=== PATIENT | male | born 1955 | race Caucasian/White ===

== ENCOUNTER 2017-01-03 10:47 | Inpatient (IN) | payer MEDICARE ==
[2017-01-03] VITALS (11 sets, daily range): BP systolic 113–135; BP diastolic 71–98; PULSE 83–90; RESP 14–21; TEMP 94.4; Ht 180.3 cm; Wt 70.3 kg
[~2017-01-03] VITALS: Ht 180.3 cm; Wt 70.3 kg
[2017-01-03] MEDS ORDERED: ROCURONIUM 50 MG INJ IV STA (11:08)
[2017-01-03] MEDS ORDERED: SODIUM CHLORIDE 0.9% 1L BAG IV* STA (11:08)
[2017-01-03] MEDS ORDERED: ETOMIDATE 20 MG INJ IV STA (11:08)
[2017-01-03] MEDS ORDERED: MIDAZOLAM (DRIP) 50 mg/50 mL 50 ML IV STA (11:08)
[2017-01-03 11:29] LABS: ADD SCAN DIFF NO
[2017-01-03] MEDS ORDERED: FENTAnyl (DRIP) 1000 mcg/100mL 100 ML IV ONE (11:30)
[2017-01-03 11:34] LABS: ABNORMAL IP MESSAGE 1; BASOPHIL # 0.1 10^3/ul (0.0-0.1); BASOPHILS % 0.3 % (0.0-2.0); EOSINOPHILS % 0.1 % (0.0-7.0); HEMATOCRIT 47.1 % (42.0-52.0); LYMPHOCYTES # 2.2 10^3/ul (0.8-2.9); LYMPHOCYTES % 11.2 % (15.0-51.0); MEAN CORPUSCULAR HEMOGLOBIN 32.6 pg (29.0-33.0); MEAN CORPUSCULAR HGB CONC 31.8 g/dl (32.0-37.0); MEAN CORPUSCULAR VOLUME 102.4 fl (82.0-101.0); MEAN PLATELET VOLUME 11.2 fl (7.4-10.4); MONOCYTE # 1.9 10^3/ul (0.3-0.9); NEUTROPHIL # 14.5 10^3/ul (1.6-7.5); NEUTROPHILS % 75.1 % (39.0-77.0); NUCLEATED RED BLOOD CELLS # 0.1 10^3/ul (0.0-0.0); NUCLEATED RED BLOOD CELLS% 0.3 /100WBC (0.0-0.0); PLATELET COUNT 173 10^3/UL (140-415); RED CELL DISTRIBUTION WIDTH 12.9 % (11.5-14.5); WHITE BLOOD COUNT 19.3 10^3/ul (4.8-10.8)
[2017-01-03] MEDS ORDERED: IODIXANOL LOCM 100 ML BTL ONE (11:38)
[2017-01-03] MEDS ORDERED: SOD CHLORIDE 0.9% 100 ML ONE (11:38)
[2017-01-03 11:39] LABS: ADD UMIC YES; UR ASCORBIC ACID NEGATIVE (NEGATIVE); UR BACTERIA FEW /HPF (NONE SEEN); UR BILIRUBIN (Dip) NEGATIVE (NEGATIVE); UR BLOOD (Dip) 3+ mg/dL (NEGATIVE); UR CLARITY CLOUDY (CLEAR); UR COLOR AMBER (YELLOW); UR GLUCOSE (Dip) NEGATIVE (NEGATIVE); UR KETONES (Dip) TRACE mg/dL (NEGATIVE); UR LEUKOCYTE ESTERASE (Dip) NEGATIVE Leu/ul (NEGATIVE); UR NITRITE (Dip) NEGATIVE (NEGATIVE); UR RBC 4 /HPF (0-5); UR SPECIFIC GRAVITY (Dip) 1.027 (1.003-1.030); UR TOTAL PROTEIN (Dip) 2+ mg/dl (NEGATIVE); UR UROBILINOGEN (Dip) NEGATIVE (NEGATIVE)
[2017-01-03] MEDS ORDERED: ZIAC5 PO (11:46)
[2017-01-03] MEDS ORDERED: TRAZ50TA18 PO (11:47)
[2017-01-03] MEDS ORDERED: LAMO200T PO (11:48)
[2017-01-03] MEDS ORDERED: SILO8CAP PO (11:48)
[2017-01-03] MEDS ORDERED: VALA500T PO (11:49)
[2017-01-03] MEDS ORDERED: TRAZ100T15 PO (11:49)
[2017-01-03 12:03] LABS: ALBUMIN 4.5 g/dl (3.3-4.9); ALBUMIN/GLOBULIN RATIO 1.66; BILIRUBIN,INDIRECT 1.7 mg/dl (0-1.1); BILIRUBIN,TOTAL 1.7 mg/dl (0.2-1.3); CREATININE 2.35 mg/dl (0.61-1.24); POTASSIUM 5.6 mmol/L (3.5-5.1); TOTAL PROTEIN 7.2 g/dl (6.1-8.1)
[2017-01-03 12:04] LABS: INR 1.31; PROTIME 16.4 Sec (12.2-14.2); PT RATIO 1.3
--- NOTE | 2017-01-03 12:08 | ERA ---
ER Documentation Chief Complaint Date/Time DATE: 01/03/17 TIME: 12:01 Chief Complaint HPI Very limited history provided. It appears EMS up [facility] a [facility] facility with the patient was in cardiac arrest with a PEA rhythm. ACLS was initiated and the patient had return of spontaneous circulation. The patient did have irregular respirations but no spontaneous neurologic activity. There is a possible report of the patient falling. The patient does have evidence of trauma to the left side of his chest left side of his extremities and left side of his face. The patient is agonal with a Combitube as an airway. Remainder of HPI is limited given critical nature. ROS Critical patient Medications Home Meds Reported Medications Valacyclovir Hcl* (Valacyclovir Hcl*) 500 Mg Tablet, 1000 MG PO DAILY, TAB 01/03/17 Trazodone Hcl* (Trazodone Hcl*) 100 Mg Tablet, 100 MG PO QHS, #30 TAB 01/03/17 Silodosin (Rapaflo) 8 Mg Capsule, 8 MG PO HS, CAP 01/03/17 Lamotrigine* (Lamotrigine*) 200 Mg Tablet, 200 MG PO DAILY, TAB 01/03/17 Bisoprolol-Hydrochlorothiazide (Ziac) 5/6.25 Tablet, 1 TAB PO DAILY, TAB 01/03/17 Discontinued Reported Medications Trazodone Hcl* (Trazodone Hcl*) 50 Mg Tablet, 25 MG PO QHS, #30 TAB 01/03/17 Allergies Allergies: Coded Allergies: Unable to Assess (Verified Allergy, Severe, 01/03/17) FmHx Critical patient Physical Exam Vitals Vital Signs Date Time Temp Pulse Resp B/P Pulse Ox O2 Delivery O2 Flow Rate FiO2 01/03/17 12:58 98.4 131 28 125/91 100 Mechanical Ventilator 01/03/17 11:17 163 14 100 100 01/03/17 10:55 Bag Valve Mask 01/03/17 10:55 98.3 158 0 101/85 100 Physical Exam General: Unresponsive with irregular respirations, Combitube in place Head: Acute versus subacute trauma noted to the left side of the face and periorbital region and scalp Eyes: Fixed and dilated pupils ENT: Dry mucous membranes Neck: Supple, no lymphadenopathy, no midline tenderness or deformities Respiratory: Irregular and labored breathing, Combitube in place, bilateral breath sounds Cardiovascular: Sinus tachycardia without murmurs rubs or gallops Abdominal: Soft, non-protuberant, no pulsatile mass, pelvis stable : Normal external male genitalia MSK: Multiple acute and old bruising and skin tears most notably noted to the left upper extremity, bilateral hips and bilateral knees. No bony abnormalities noted. Poorly perfused. Neurologic: No spontaneous neurologic activity Skin: No skin tears noted to the volar left wrist and left knee, old skin tears noted to the right knee and right hip, possible subacute skin tear or ecchymoses to the left hip. Significant abraded skin to the left anterior chest. Result Diagram: 01/03/17 1100 01/03/17 1100 Results 24 hrs Laboratory Tests Test 01/03/17 10:53 01/03/17 11:00 01/03/17 11:08 01/03/17 11:15 Bedside Glucose 116mg/dL White Blood Count 19.310^3/ul Red Blood Count 4.6010^6/ul Hemoglobin 15.0g/dl Hematocrit 47.1% Mean Corpuscular Volume 102.4fl Mean Corpuscular Hemoglobin 32.6pg Mean Corpuscular Hemoglobin Concent 31.8g/dl Red Cell Distribution Width 12.9% Platelet Count 58346^3/UL Mean Platelet Volume 11.2fl Neutrophils % 75.1% Lymphocytes % 11.2% Monocytes % 10.0% Eosinophils % 0.1% Basophils % 0.3% Nucleated Red Blood Cells % 0.3/100WBC Neutrophils # 14.510^3/ul Lymphocytes # 2.210^3/ul Monocytes # 1.910^3/ul Eosinophils # 0.010^3/ul Basophils # 0.110^3/ul Nucleated Red Blood Cells # 0.110^3/ul Prothrombin Time 16.4Sec Prothrombin Time Ratio 1.3 INR International Normalized Ratio 1.31 Activated Partial Thromboplast Time 20.0Sec Sodium Level 164mmol/L Potassium Level 5.6mmol/L Chloride Level 118mmol/L Carbon Dioxide Level 13mmol/L Anion Gap 39 Blood Urea Nitrogen 65mg/dl Creatinine 2.35mg/dl Glucose Level 123mg/dl Calcium Level 9.0mg/dl Total Bilirubin 1.7mg/dl Direct Bilirubin 0.00mg/dl Indirect Bilirubin 1.7mg/dl Aspartate Amino Transf (AST/SGOT) 484IU/L Alanine Aminotransferase (ALT/SGPT) 221IU/L Alkaline Phosphatase 59IU/L Troponin I 0.101ng/ml Total Protein 7.2g/dl Albumin 4.5g/dl Globulin 2.70g/dl Albumin/Globulin Ratio 1.66 Lipase 269U/L Blood Gas Specimen Source Blood arterial Arterial Blood Date Drawn 01/03/2017 12:20:12 PM Arterial Blood pH (Temp corrected) 7.244 Arterial Blood pCO2 (Temp correct) 43.8mmhg Arterial Blood pO2 (Temp corrected) 542.0mmHG Arterial Blood HCO3 18.5mmol/L Arterial Blood Base Excess -8.6mmol/L Arterial Blood Oxygen Saturation 99.7mmHG Rikki Test ACCEPTAB Arterial Blood Gas Puncture Site Right Radial Arterial Blood Carboxyhemoglobin 0.2% Arterial Blood Methemoglobin 0.4% Blood Gas A-a O2 Differential 127.2mmHg Oxyhemoglobin Percent 99.1% Total Hemoglobin 15.7g/dl Blood Gas Temperature 37.0C Blood Gas Respiration Rate 14.0 Blood Gas Actual Respiration Rate 23 Blood Gas Modality VENT - AC FiO2 100.0% Blood Gas Tidal Volume 450.0mL Blood Gas Low PEEP Setting 5.0cmH2O Blood Gas Critical Value Read Back DR ZAMAN Blood Gas Notified Whom Blood Gas Notified Time 01/03/2017 12:38:57 PM Urine Color SHANTE Urine Clarity CLOUDY Urine pH 5.0 Urine Specific [place] 1.027 Urine Ketones TRACEmg/dL Urine Nitrite NEGATIVEmg/dL Urine Bilirubin NEGATIVEmg/dL Urine Urobilinogen NEGATIVEmg/dL Urine Leukocyte Esterase NEGATIVELeu/ul Urine Microscopic RBC 4/HPF Urine Microscopic WBC 6/HPF Urine Bacteria FEW/HPF Urine Hemoglobin 3+mg/dL Urine Glucose NEGATIVEmg/dL Urine Total Protein 2+mg/dl Current Medications Medications (Trade) Dose Ordered Sig/Daniel Route PRN Reason Start Time Stop Time Status Last Admin Dose Admin Rocuronium [place] (Zemuron) 100 mg ONCE STAT IV 01/03/17 11:08 01/03/17 11:12 DC 01/03/17 11:39 Etomidate 20 mg 20 mg ONCE STAT IV 01/03/17 11:08 01/03/17 11:12 DC 01/03/17 11:40 Midazolam HCl 50 ml @ 3 mls/hr ONCE STAT IV 01/03/17 11:08 01/04/17 03:47 01/03/17 13:05 Fentanyl (Sublimaze) 100 ml @ 2.5 mls/hr TITRATE ONCE IV 01/03/17 11:30 01/05/17 03:29 01/03/17 13:04 Sodium Chloride (NS) 2,170 ml BOLUS OVER 2 HOURS STAT IV* 01/03/17 11:08 01/03/17 11:12 DC 01/03/17 11:39 IV Flush 10 ml 10 ml STK-MED ONCE .ROUTE 01/03/17 11:38 01/03/17 11:39 DC Sodium Chloride (NS) 100 ml @ ud STK-MED ONCE .ROUTE 01/03/17 11:38 01/03/17 11:39 DC Iodixanol 100 ml 100 ml STK-MED ONCE .ROUTE 01/03/17 11:38 01/03/17 11:39 DC Cefepime HCl 50 ml @ 100 mls/hr ONCE STAT IVPB 01/03/17 12:25 01/03/17 12:54 DC 01/03/17 13:07 Vancomycin HCl (Vancocin) 250 ml @ 125 mls/hr ONCE ONCE IVPB 01/03/17 12:30 01/03/17 14:29 Sodium Chloride 500 ml 500 ml ONCE STAT IV* 01/03/17 13:35 01/03/17 13:38 DC Vecuronium [place]/Dextrose (Norcuron/D5W) 100 ml @ 4.5 mls/hr [id number] ONCE IV 01/03/17 13:35 01/04/17 11:48 Heparin Sodium (Porcine) 5000 unit 5,000 unit ONCE STAT IV 01/03/17 13:35 01/03/17 13:38 DC Heparin Sodium (Porcine) (Heparin 63679 Units/250 ml) 250 ml @ 0 mls/hr ONCE STAT IV 01/03/17 13:35 01/03/17 13:38 DC Procedures/MDM EKG, MONITORS, & DIAGNOSTIC IMAGING: EKG: I reviewed and interpreted a 12-lead EKG. Rhythm: Sinus tachycardia Ectopy: None Intervals: No abnormalities ST segments: No elevations or depressions T waves: No contiguous inversions Repeat EKG: EKG: I reviewed and interpreted a 12-lead EKG. Rhythm: Sinus tachycardia Ectopy: None Intervals: No abnormalities ST segments: No elevations or depressions T waves: No contiguous inversions Chest x-ray: I reviewed and interpreted a 1 view of the chest Mediastinum: No enlargement Cardiac silhouette: No cardiomegaly Airspace: Clear lung tripathi bilaterally without evidence of pneumothorax Bones: No evidence of fracture Endotracheal tube in good position, G-tube in good position, central line in good position CT brain: IMPRESSION: 1. No evidence of acute intracranial pathology. 2. Mild generalized volume loss, with mild chronic small vessel ischemic changes. 3. Left frontal - temporal scalp and left facial soft tissue swelling. CT cervical spine: IMPRESSION: 1. No acute fracture or dislocation. Straightening of the cervical spine with grade 1 retrolisthesis of C5 on C6 of 3 mm and C6 and C7 of 1 mm. 2. Degenerative disk and spondylitic changes most pronounced at the C5-C6 and C6-C7 resulting in severe bilateral foraminal and moderate central canal stenosis at C5-C6 and moderate bilateral foraminal stenosis without central canal stenosis at C6-C7. 3. Minimal central disk protrusion at C3-C4 and C4-C5 of 1-2 mm without central canal or foraminal stenosis. 4. Endotracheal and NG tube in place. CT facial bone: IMPRESSION: 1. No acute maxillofacial fracture. Minimal nondisplaced nasal bone fracture deformities which appear chronic in nature. Correlate with direct inspection. Minimal right supraorbital soft tissue swelling. 2. Support devices in place as detailed above RPTAT:AAJJ CT chest abdomen and pelvis: IMPRESSION: 1. No acute traumatic abnormality. 2. Nonocclusive filling defect in the left main pulmonary artery extending along the segmental branches to the left upper lobe concerning for PE. Consider CT pulmonary angio for confirmation. 3. Old bilateral rib fractures. X-ray left humerus Pending X-ray left forearm Pending X-ray left hand Pending X-ray bilateral knee Pending RPTAT: HHO PROCEDURES: Intubation Note: Indication: Airway protection Consent: This was an emergent situation, implied consent was observed RSI Medications: Etomidate 20 mg, Rocuronium 100 mg Tube size: 8 Secured at: 24 at the lip Procedure: Endotracheal intubation was performed. The patient was preoxygenated with supplemental oxygen, the room was set up with emergent airway equipment including [id number], suction, adjunct airways. Direct visualization of the cords was performed with direct laryngoscopy using a 4.0 Mac blade, insertion of the endotracheal tube through the cords was visualized by the double back operator. Bilateral breath sounds were auscultated, color change was observed. The tube was then secured in a postintubation chest x-ray was ordered. The patient tolerated the procedure well there were no complications. Central Line Note: Consent: Emergent condition Indication: Critically ill patient requiring specialized vascular access for fluid or pressor management Location: Right IJ Procedure: Sterile procedure was observed throughout insertion of the central line. The insertion site was prepped with sterile solution. Ultrasound-guided identification of the vein was performed. Insertion of a needle into the vein was obtained with return of dark, nonpulsatile blood. The wire was then threaded through the needle without complication. The wire was then identified within the vein using ultrasound. A small skin incision was made, the needle was removed intact, dilation of the vein was performed and insertion of a triple lumen catheter was completed. The catheter was then sutured to the skin. All 3 ports harinder back and flushed without difficulty. A sterile dressing was applied. The patient tolerated the procedure well there were no complications. Emergency Bedside Ultrasound: Indication: Central line Probe Type: Linear Findings: Dynamic ultrasound utilizing compressive technique with both linear and horizontal views, additional images showing wire within the venous system were obtained. The images were saved along with patient information on a paper chart to be scanned into EMR. The patient tolerated the procedure well and there were no complications. A post-line chest x-ray was ordered as indicated. LAB INTERPRETATION: Leukocytosis MEDICAL DECISION MAKING: The patient presents the emergency room with evidence of trauma potentially to the face and chest and extremities as well as PEA cardiac arrest. Unclear etiology at this point and unclear if the trauma caused a cardiac arrest or cardiac arrest because the trauma. For this reason the patient will have a broad workup including sepsis screening, cardiac evaluation, CT imaging of the head face neck chest abdomen and pelvis. The patient is a candidate for hypothermia protocol however if the patient has traumatic injuries he may not be a candidate therefore cold saline initiated but further hypothermia pending diagnostic imaging at this point. ER COURSE: This is a very complicated case and presentation. There is possible report of trauma the patient has skin changes that are either consistent with trauma versus falling after cardiac arrest. The patient had a traumatic workup that included CT imaging above. CT imaging suggests left-sided pulmonary embolism. The radiologist I had a conversation with his very convinced that this is consistent with a pulmonary embolism but would recommend a CTPA to confirm. Unfortunately the patient just received a dye load. Given no absolute contraindications to anticoagulation I believe that the patient would benefit from heparin bolus and drip and further evaluation with a CTPA or VQ scan at a later time when creatinine stabilization and vital sign stability can be assured. I do not believe that repeat CT imaging is necessary for this patient in the emergency room as it was unlikely provide us with additional information. At this time I believe the benefits of anticoagulation outweigh the risks. Hypothermia protocol was initiated. Empiric antibiotics given for potential UTI with evidence of leukocytosis. The patient remains critically ill and will require ICU level of care. DISPOSITION PLAN: ICU CONSULTATION: Accepting care team and consultations: I discussed the current laboratory data, diagnostic imaging and emergency care provided. Admitting team: Dr. Lewis Admitting team indication: Insurance directed Critical Care Note: Total time: 57 minutes Indication/Organ System Threat: Cardiac arrest I spent the above amount of critical care time with the patient, not including billable procedures. This included chart review, consultations, repeat bedside evaluations, and titration of appropriate medications to prevent cardiopulmonary or respiratory collapse. Extremity imaging to be followed by admitting team. Not critical at this standpoint. Departure Diagnosis: Primary Impression: Cardiac arrest Additional Impressions: Pulmonary embolism Qualified Code: I26.99 - Other acute pulmonary embolism without acute cor pulmonale Urinary tract infection Qualified Code: N30.00 - Acute cystitis without hematuria Leukocytosis Qualified Code: D72.829 - Leukocytosis, unspecified type Acute respiratory failure Qualified Code: J96.00 - Acute respiratory failure, unspecified whether with hypoxia or hypercapnia Condition: Critical CANDICE ZAMAN MD Jan 03, 2017 12:08
[2017-01-03] MEDS ORDERED: CEFEPIME 2GM/50 ML (PMX) 50 ML IVPB STA (12:25)
[2017-01-03] MEDS ORDERED: VANCOMYCIN 1 GM (PMX) 250 ML IVPB ONE (12:30)
[2017-01-03 12:39] LABS: AADO2 Arterial 127.2 mmHg (7.0-24.0); Allen Test ACCEPTAB; Arterial Base Excess -8.6 mmol/L (-3.0-3); Arterial COHb 0.2 % (0.0-3.0); Arterial Fraction of Oxyhgb 99.1 % (93.0-99.0); Arterial HCO3 18.5 mmol/L (22.0-26.0); Arterial MetHb 0.4 % (0.0-1.5); Arterial Total Hemglobin 15.7 g/dl (12.0-18.0); MODE VENT - AC
--- NOTE | 2017-01-03 12:44 | RADRPT ---
PROCEDURE: XR Chest. CLINICAL INDICATION: Intubation TECHNIQUE: Single AP portable chest COMPARISON: None. Chest x-ray FINDINGS: The cardiomediastinal silhouette is within normal limits of size. Endotracheal tube tip 6.7 cm above the lary. Distal tip of the NG tube overlies the fundus of the stomach. Right IJ catheter tip o verlies the proximal superior vena cava. Atherosclerotic calcification of the aorta. The lungs are clear without pleural effusion or focal consolidation. No pneumothorax. The osseous structures and soft tissues are unremarkable. IMPRESSION: 1. No evidence for active cardiopulmonary disease. 2. Support devices in satisfactory position. RPTAT:AAJJ Physician Santos Date Time Electronically viewed and signed by Physician Santos on 01/03/2017 12:43 YARELIS/
--- NOTE | 2017-01-03 12:47 | RADRPT ---
PROCEDURE: CT brain without contrast CLINICAL INDICATION: Head trauma/injury TECHNIQUE: CT of the brain without contrast performed on a multidetector CT scanner, with multiplan ar reformats. One or more of the following dose reduction techniques were used: Automated exposure control, adjustment in mA and / or kV according to patient size, use of iterative reconstructive adriel hnique. CTDIvol = 45 mGy; DLP = 810 mGy-cm. COMPARISON: None available FINDINGS: No acute intracranial hemorrhage is identified. No extra-axial fluid collection is seen. There is no mass effect. No midline shift is identified. The ventricles and sulci are mildly enlarged compatible with generalized volume loss. There are mild areas of hypodensity in the periventricular - deep white matter which are nonspecific but suggestive of chronic small vessel ischemic changes. Morris-white differentiation is preserved. Atherosclerotic calcifications of the intracranial internal carotid arteries are noted. Calvarium and skull base appear intact. There is scalp swelling in the left frontal and temporal re gions and left facial soft tissue swelling. Noted are mucous retention cysts in the maxillary sinus es. Partially visualized are orogastric and endotracheal tubes. IMPRESSION: 1. No evidence of acute intracranial pathology. 2. Mild generalized volume loss, with mild chronic small vessel ischemic changes. 3. Left frontal - temporal scalp and left facial soft tissue swelling. RPTAT: VV .Demetrius Brown MD, Date Time Electronically viewed and signed by .Demetrius Brown MD, on 01/03/2017 12:46 .O/
--- NOTE | 2017-01-03 12:51 | RADRPT ---
PROCEDURE: CT facial bones without. CLINICAL INDICATION: Trauma TECHNIQUE: A CT of the facial bones was performed on a multidetector CT scanner utilizing high-res olution axial images. Sagittal, coronal, and multiplanar reformatted images were made. The CTDIvo l is 29.57 mGy and the DLP is 616.3 mGy-cm. One or more of the following dose reduction techniques w ere utilized: Automated exposure control, adjustment of the mA and/or kV according to patient size, use of iterative reconstruction technique. COMPARISON: None. FINDINGS: The osseous structures are intact with no evidence of fracture. Minimal nondisplaced nasal bone frac ture deformities which appear chronic in nature. No significant nasal bridge soft tissue swelling. The orbits, as visualized, appear intact. Mild right supra orbital soft tissue swelling. Small roun ded soft tissue densities along the floor of the right and left maxillary sinuses compatible with mu cous retention cysts or small polyps. The paranasal sinuses are otherwise clear. Endotracheal and NG tube in place. IMPRESSION: 1. No acute maxillofacial fracture. Minimal nondisplaced nasal bone fracture deformities which appe ar chronic in nature. Correlate with direct inspection. Minimal right supraorbital soft tissue swe lling. 2. Support devices in place as detailed above RPTAT:AAJJ Physician Santos Date Time Electronically viewed and signed by Physician Santos on 01/03/2017 12:50 YARELIS/
--- NOTE | 2017-01-03 13:01 | RADRPT ---
PROCEDURE: CT Cervical Spine without contrast. CLINICAL INDICATION: Trauma and neck pain. TECHNIQUE: A CT of the cervical spine was performed on a CT scanner utilizing thin section axial images from the skull base through the thoracic inlet. Sagittal and coronal reformatted images were made. The CTDIvol is 22.30 mGy and the DLP is 554.55 mGycm. Automated exposure control, adjustment of the mA and/or kV according to patient size, use of iterative reconstruction technique. COMPARISON: No prior studies are available for comparison. FINDINGS: Straightening of the cervical spine. Vertebral bodies are normal in height and density. Grade 1 re trolisthesis of C5 on C6 of 3 mm. 1-2 mm grade 1 retrolisthesis of C6 on C7. No fracture is eviden t. The paraspinal soft tissues are unremarkable. Endotracheal and NG tube in place. C2-3: The disc is normal in height. No significant disk bulge or protrusion is evident. There is no central canal stenosis or foraminal narrowing. C3-4: The disc is normal in height. Minimal central disk protrusion of 1-2 mm in AP dimension. The re is no central canal stenosis or foraminal narrowing. C4-5: Mild degenerative disk space narrowing, anterior endplate spurring and posterior spondylitic r idging. Minimal central disk protrusion of 1-2 mm in AP dimension. There is no central canal stenos is or foraminal narrowing. C5-6: Severe disk space narrowing and endplate sclerosis with anterior endplate spurring and posteri or spondylitic ridging. Bilateral uncovertebral joint hypertrophy and mild bilateral facet joint ar thropathy. Posterior disk bulging. This results in severe bilateral foraminal and moderate central canal stenosis of 7 mm in AP dimension. C6-7: Marked disk space narrowing with endplate sclerosis, anterior endplate spurring and posterior spondylitic ridging. Moderate bilateral uncovertebral joint hypertrophy and mild facet joint arthr opathy resulting in moderate bilateral foraminal stenosis No significant disk bulge or protrusion is evident. No central canal stenosis. C7-T1: The disc is normal in height. No significant disk bulge or protrusion is evident. There is no central canal stenosis or foraminal narrowing. The lung apices are clear. IMPRESSION: 1. No acute fracture or dislocation. Straightening of the cervical spine with grade 1 retrolisthesi s of C5 on C6 of 3 mm and C6 and C7 of 1 mm. 2. Degenerative disk and spondylitic changes most pronounced at the C5-C6 and C6-C7 resulting in se suzette bilateral foraminal and moderate central canal stenosis at C5-C6 and moderate bilateral foramin al stenosis without central canal stenosis at C6-C7. 3. Minimal central disk protrusion at C3-C4 and C4-C5 of 1-2 mm without central canal or foraminal stenosis. 4. Endotracheal and NG tube in place. RPTAT:AAJJ Physician Santos Date Time Electronically viewed and signed by Physician Santos on 01/03/2017 13:01 YARELIS/
--- NOTE | 2017-01-03 13:17 | RADRPT ---
PROCEDURE: CT Chest, Abdomen and Pelvis with contrast. CLINICAL INDICATION: Trauma workup. TECHNIQUE: CT scan of the chest, abdomen, and pelvis with contrast was performed on a multi-detect or high-resolution CT scanner. The patient was scanned following the uncomplicated intravenous adm inistration of 100 cc of Visipaque 320 intravenous contrast. Coronal and sagittal reformatted imag es were obtained from the axial source images. Images [facility] The total exam CTDI equals 9.99 mGy and the total exam DLP equals 764.38 mGy-cm. One or more of the following dose reduction techniques were used: Automated exposure control. Adjustment of the mA and/or kV according to patient size. Use of iterative reconstruction technique. COMPARISON: None available FINDINGS: CT chest: There is mild posterior dependent atelectasis. No focal opacification, effusion, pneumothorax, edema , or nodules are seen. There is no acute infiltrate. There is a filling defect in the left main pulmonary artery extending along the segmental branches o f the left upper lobe. Right IJ central line with tip in distal SVC. ET tube terminates approximat ramona 5 cm above the lary. The mediastinum is unremarkable without evidence for mass or lymphadenop athy. The heart size is normal without evidence for pericardial thickening or effusion. The axillar y regions, subpectoral regions, and supraclavicular regions are all unremarkable. There are bilatera l old rib fractures. CT abdomen: The liver is normal in size and density without focal mass or intrahepatic biliary dilatation. The spleen is normal in size and homogeneous in density. NG tube is in place with tip in the stomach. Th e stomach is partially collapsed, but is grossly unremarkable. The pancreas as visualized is normal . The gallbladder and biliary tree are unremarkable and there is no evidence for biliary dilatation . The adrenal glands are symmetric and normal. The kidneys are symmetrically unremarkable as well. No renal calculus or obstructive uropathy or mass lesion is seen. The aorta is of normal caliber. There is no retroperitoneal lymphadenopathy. The savi hepatis [place] on is clear. The bowel and mesentery, as visualized, are equally unremarkable. CT pelvis: The small bowel loops situated within the pelvis are unremarkable. Urinary bladder is decompressed with Regalado catheter in place. The pelvic organs are normal. The pelvic sidewalls and inguinal [place] ons are clear. The sigmoid colon and rectum are all unremarkable. No mass, lymphadenopathy, or elaine e fluid is seen. No acute inflammation is seen. The surrounding osseous structures are remarkable f or degenerative spondylosis of the spine. No osteolytic or osteoblastic lesion is detected. A call report was made to Dr. AUSTYN Almanza at 01/03/2017 1:15:34 PM following completion of the e xamination. IMPRESSION: 1. No acute traumatic abnormality. 2. Nonocclusive filling defect in the left main pulmonary artery extending along the segmental branc hes to the left upper lobe concerning for PE. Consider CT pulmonary angio for confirmation. 3. Old bilateral rib fractures. RPTAT: HHO .Young Rivera MD, MD Date Time Electronically viewed and signed by .Young Rivera MD, on 01/03/2017 13:16 .O/
[2017-01-03] MEDS ORDERED: HEPARIN 25000 UNITS/250 ML 250 ML IV STA (13:35)
[2017-01-03] MEDS ORDERED: SODIUM CHLORIDE 0.9% 500 ML BAG IV* STA (13:35)
[2017-01-03] MEDS ORDERED: HEPARIN 1000 UNITS/ML 10 ML INJ IV STA (13:35)
[2017-01-03] MEDS ORDERED: VECURONIUM 100 MG in DEXTROSE 5% 100 ML IV ONE (13:35)
[2017-01-03 13:39] LABS: TROPONIN-I 0.101 ng/ml (0.00-0.12)
[2017-01-03] MEDS ORDERED: SOD CHLORIDE 0.9% 500 ML IV STA (13:54)
[2017-01-03 14:05] LABS: MAGNESIUM 3.5 mg/dl (1.7-2.5)
[2017-01-03 14:15] LABS: PHOSPHORUS 13.9 mg/dl (2.5-4.9)
--- NOTE | 2017-01-03 14:59 | RADRPT ---
PROCEDURE: XR Humerus. CLINICAL INDICATION: Left arm pain after trauma TECHNIQUE: 2 views of the left humerus were obtained. COMPARISON: No prior studies are available for comparison. FINDINGS: There is normal mineralization and alignment of the bones of the left humerus. There is no evidence of acute fracture or dislocation. There are mild degenerative change of the left shoulder and elbo w joints. The soft tissues are within normal limits. IMPRESSION: 1. No evidence of acute fracture or dislocation. RPTAT: KK .Ben Mckinnon MD, MD Date Time Electronically viewed and signed by .Ben Mckinnon MD, on 01/03/2017 14:59 .B/
[2017-01-03] MEDS ORDERED: MEPERIDINE 25 MG INJ IV PRN ×2 (15:00)
[2017-01-03] MEDS ORDERED: HEPARIN 1000 UNITS/ML 10 ML INJ IV PRN ×2 (15:00)
[2017-01-03] MEDS ORDERED: VANCOMYCIN IV PER PHARMACY XX SCH (15:00)
[2017-01-03] MEDS ORDERED: ACETAMINOPHEN 650 MG SUPP PR PRN (15:00)
[2017-01-03] MEDS ORDERED: SOD CHLORIDE 0.9% 1,000 ML IV SCH (15:00)
[2017-01-03] MEDS ORDERED: ACETAMINOPHEN 650MG/20.3ML CUP PO PRN (15:00)
--- NOTE | 2017-01-03 15:00 | RADRPT ---
PROCEDURE: Forearm radiograph series. CLINICAL INDICATION: Left forearm pain after trauma TECHNIQUE: AP and lateral views of the left forearm were obtained. COMPARISON: No prior studies are available for comparison. FINDINGS: There is normal mineralization and alignment of the bones of the left forearm. There is no evidence of acute fracture or dislocation. There are mild degenerative changes of the left elbow joint. . The soft tissues are unremarkable. IMPRESSION: 1. No evidence of acute fracture or dislocation. RPTAT: KK .Ben Mckinnon MD, MD Date Time Electronically viewed and signed by .Ben Mckinnon MD, on 01/03/2017 15:00 .B/
--- NOTE | 2017-01-03 15:01 | RADRPT ---
PROCEDURE: Left hand series CLINICAL INDICATION: Left hand pain after trauma TECHNIQUE: Three views of the left hand were obtained. COMPARISON: No prior studies are available for comparison. FINDINGS: Evaluation of alignment of the left hand is limited as the patient's fingers are not somewhat flexed position. There is no definitive acute fracture or dislocation. Joint spaces are poorly evaluated due to positioning. There is marked diffuse soft tissue swelling. IMPRESSION: 1. Limited study due to patient positioning. 2. Marked soft tissue swelling without definitive fracture or dislocation. RPTAT: KK .Ben Mckinnon MD, MD Date Time Electronically viewed and signed by .Ben Mckinnon MD, MD on 01/03/2017 15:01 .B/
--- NOTE | 2017-01-03 15:02 | RADRPT ---
PROCEDURE: Left knee series. CLINICAL INDICATION: Left knee pain after trauma TECHNIQUE: 2 views of the left knee. COMPARISON: None available FINDINGS: There is normal mineralization and alignment of the left knee. No acute fracture or dislocation is seen. Joint spaces are well maintained. There is no evidence of osteophyte formation or erosion. No definite joint effusion is seen. The soft tissues are within normal limits. IMPRESSION: 1. Unremarkable left knee x-ray series. RPTAT: KK .Ben Mckinnon MD, MD Date Time Electronically viewed and signed by .Ben Mckinnon MD, on 01/03/2017 15:01 .B/
--- NOTE | 2017-01-03 15:03 | RADRPT ---
PROCEDURE: Right knee series. CLINICAL INDICATION: Right knee pain TECHNIQUE: Two-view of the right knee. COMPARISON: None available FINDINGS: There is normal mineralization and alignment of the bones of the right knee. No acute fracture or d islocation is seen. Joint spaces are well maintained. There is no evidence of osteophyte formation or erosion. No definite joint effusion is seen. The soft tissues are within normal limits. IMPRESSION: 1. No evidence of acute fracture dislocation. RPTAT: KK .Ben Mckinnon MD, MD Date Time Electronically viewed and signed by .Ben Mckinnon MD, on 01/03/2017 15:02 .B/
--- NOTE | 2017-01-03 15:07 | HP ---
Date/Time of Note Date/Time of Note DATE: 01/03/17 TIME: 14:50 Assessment/Plan VTE Prophylaxis VTE Prophylaxis Intervention: heparin (drip) Lines/Catheters Urinary Cath still in place: Yes Reason Cath still needed: other (indicate) Assessment/Plan Assessment/Plan 61-year-old male sent from snf after being found unresponsive and resuscitated in the field now managed for 1. Status post cardiac arrest with return of spontaneous circulation likely secondary to #2 2. Acute pulmonary emboli likely causing #3 3. Acute respiratory failure currently ventilator dependent 4. acute encephalopathy secondary to the above 5. severe hypernatremia likely secondary to dehydration 6. acute renal insufficiency with hyperkalemia rule out chronic kidney disease 7. severe metabolic acidosis likely secondary to #6 8. acute transaminitis with hyperbilirubinemia likely secondary to shock liver 9. sepsis with multiorgan failure likely secondary to urinary tract infection 10. Possible fall with left-sided facial contusion CT shows chronic nasal bone fracture deformities nothing acute 11. Old bilateral rib fractures suggestive of recurrent falls in the past 12. Chronic degenerative changes of the cervical spine PLAN: Admit patient to intensive care unit Ventilator support and management/pulmonary consultation/serial EKGs and chest x -rays Broad-spectrum antibiotic coverage/pancultures Gentle IV fluid hydration with bicarbonate supplementation/serial renal function panel / closely monitor electrolytes and replace as indicated Continue hypothermia protocol Heparin drip for pulmonary emboli Trend troponins/2D echo/cardiology consultation For further interventions per clinical course Prophylaxis with IV PPI and heparin drip Prognosis: Grim with possible brain already HPI/ROS Admit Date/Time Admit Date/Time 01/03/17. Hx of Present Illness PRESENTING COMPLAINT: cardiac arrest HISTORY OF PRESENTING COMPLAINT: This is a 61-year-old male who was sent from a long-term facility after EMS had been called because the patient was unresponsive. Per report, EMS arrived and found patient in cardiac arrest with a PEA rhythm. They initiated ACLS according to protocol and put a Combitube as an airway because of irregular respirations. The patient had return of spontaneous circulation but ended up getting endotracheally intubated in the emergency room. At that time of arrival of the patient, he was found to be completely unresponsive pupils fixed and dilated and he was started on the hypothermia protocol. I am taking over care and will be admitting patient to intensive care unit for further management. ROS Subjective hx not possible: pt critical, pt critical status PMH/Family/Social Past Medical History Per report the patient has the following medical conditions: 1. Hypertension 2. Bipolar depression 3. History of herpes 4. BPH Past Surgical History Unknown Family History Significant Family History: other (Unobtainable due to clinical status) Social History Unobtainable due to clinical status Smoking Status: Unknown if ever smoked Exam/Review of Systems Vital Signs Vitals VS - Last 72 Hours, by Label Date Time Temp Pulse Resp B/P Pulse Ox O2 Delivery O2 Flow Rate FiO2 01/03/17 14:44 119 26 100 50 01/03/17 14:00 95 28 121/81 100 Mechanical Ventilator 01/03/17 12:58 98.4 131 28 125/91 100 Mechanical Ventilator 01/03/17 11:17 163 14 100 100 01/03/17 10:55 Bag Valve Mask 01/03/17 10:55 98.3 158 0 101/85 100 Vital Signs Date Time Temp Pulse Resp B/P Pulse Ox O2 Delivery O2 Flow Rate FiO2 01/03/17 14:44 119 26 100 50 01/03/17 14:00 121/81 Mechanical Ventilator 01/03/17 12:58 98.4 Exam Constitutional: No alert, No oriented Psych: other (unable to assess) Head: other (contusions noted to the left side of the face and periorbital region and scalp) Eyes: other (Pupils fixed and dilated) Respiratory: diminished breath sounds, other (coarse BS) Cardiovascular: irregular rhythm Gastrointestinal: bowel sounds (hypoactive), distended, soft Genitourinary - Male: nl penis, nl scrotum Extremities: No edema Neurological: unresponsive, No nl mental status Skin: ecchymosis (diffuse ), other (diffuse skin tears) Labs Result Diagram: 01/03/17 1100 01/03/17 1100 Medications Medications Current Medications Fentanyl 100 ml @ 2.5 mls/hr TITRATE ONCE IV Last administered on 01/03/17t 13:04; Admin Dose 2.5 MLS/HR; Start 01/03/17 at 11:30; Stop 01/05/17 at 03:29 Vecuronium [place]/Dextrose (Norcuron/D5W) 100 ml @ 4.5 mls/hr [id number] ONCE IV ; Start 01/03/17 at 13:35; Stop 01/04/17 at 11:48 Procedures Procedures Laboratory Tests Test 01/03/17 10:53 01/03/17 11:00 01/03/17 11:08 01/03/17 11:15 Bedside Glucose 116mg/dL White Blood Count 19.310^3/ul Red Blood Count 4.6010^6/ul Hemoglobin 15.0g/dl Hematocrit 47.1% Mean Corpuscular Volume 102.4fl Mean Corpuscular Hemoglobin 32.6pg Mean Corpuscular Hemoglobin Concent 31.8g/dl Red Cell Distribution Width 12.9% Platelet Count 06959^3/UL Mean Platelet Volume 11.2fl Neutrophils % 75.1% Lymphocytes % 11.2% Monocytes % 10.0% Eosinophils % 0.1% Basophils % 0.3% Nucleated Red Blood Cells % 0.3/100WBC Neutrophils # 14.510^3/ul Lymphocytes # 2.210^3/ul Monocytes # 1.910^3/ul Eosinophils # 0.010^3/ul Basophils # 0.110^3/ul Nucleated Red Blood Cells # 0.110^3/ul Prothrombin Time 16.4Sec Prothrombin Time Ratio 1.3 INR International Normalized Ratio 1.31 Activated Partial Thromboplast Time 20.0Sec Sodium Level 164mmol/L Potassium Level 5.6mmol/L Chloride Level 118mmol/L Carbon Dioxide Level 13mmol/L Anion Gap 39 Blood Urea Nitrogen 65mg/dl Creatinine 2.35mg/dl Glucose Level 123mg/dl Calcium Level 9.0mg/dl Phosphorus Level 13.9mg/dl Magnesium Level 3.5mg/dl Total Bilirubin 1.7mg/dl Direct Bilirubin 0.00mg/dl Indirect Bilirubin 1.7mg/dl Aspartate Amino Transf (AST/SGOT) 484IU/L Alanine Aminotransferase (ALT/SGPT) 221IU/L Alkaline Phosphatase 59IU/L Troponin I 0.101ng/ml Total Protein 7.2g/dl Albumin 4.5g/dl Globulin 2.70g/dl Albumin/Globulin Ratio 1.66 Lipase 269U/L Blood Gas Specimen Source Blood arterial Arterial Blood Date Drawn 01/03/2017 12:20:12 PM Arterial Blood pH (Temp corrected) 7.244 Arterial Blood pCO2 (Temp correct) 43.8mmhg Arterial Blood pO2 (Temp corrected) 542.0mmHG Arterial Blood HCO3 18.5mmol/L Arterial Blood Base Excess -8.6mmol/L Arterial Blood Oxygen Saturation 99.7mmHG Rikki Test ACCEPTAB Arterial Blood Gas Puncture Site Right Radial Arterial Blood Carboxyhemoglobin 0.2% Arterial Blood Methemoglobin 0.4% Blood Gas A-a O2 Differential 127.2mmHg Oxyhemoglobin Percent 99.1% Total Hemoglobin 15.7g/dl Blood Gas Temperature 37.0C Blood Gas Respiration Rate 14.0 Blood Gas Actual Respiration Rate 23 Blood Gas Modality VENT - AC FiO2 100.0% Blood Gas Tidal Volume 450.0mL Blood Gas Low PEEP Setting 5.0cmH2O Blood Gas Critical Value Read Back DR ZAMAN Blood Gas Notified Whom Blood Gas Notified Time 01/03/2017 12:38:57 PM Urine Color SHANTE Urine Clarity CLOUDY Urine pH 5.0 Urine Specific [place] 1.027 Urine Ketones TRACEmg/dL Urine Nitrite NEGATIVEmg/dL Urine Bilirubin NEGATIVEmg/dL Urine Urobilinogen NEGATIVEmg/dL Urine Leukocyte Esterase NEGATIVELeu/ul Urine Microscopic RBC 4/HPF Urine Microscopic WBC 6/HPF Urine Bacteria FEW/HPF Urine Hemoglobin 3+mg/dL Urine Glucose NEGATIVEmg/dL Urine Total Protein 2+mg/dl Current Medications Medications (Trade) Dose Ordered Sig/Daniel Route PRN Reason Start Time Stop Time Status Last Admin Dose Admin Rocuronium [place] (Zemuron) 100 mg ONCE STAT IV 01/03/17 11:08 01/03/17 11:12 DC 01/03/17 11:39 100 MG Etomidate 20 mg 20 mg ONCE STAT IV 01/03/17 11:08 01/03/17 11:12 DC 01/03/17 11:40 20 MG Midazolam HCl 50 ml @ 3 mls/hr ONCE STAT IV 01/03/17 11:08 01/04/17 03:47 01/03/17 13:05 3 MLS/HR Fentanyl (Sublimaze) 100 ml @ 2.5 mls/hr TITRATE ONCE IV 01/03/17 11:30 01/05/17 03:29 01/03/17 13:04 2.5 MLS/HR Sodium Chloride (NS) 2,170 ml BOLUS OVER 2 HOURS STAT IV* 01/03/17 11:08 01/03/17 11:12 DC 01/03/17 11:39 2,170 ML IV Flush 10 ml 10 ml STK-MED ONCE .ROUTE 01/03/17 11:38 01/03/17 11:39 DC Sodium Chloride (NS) 100 ml @ ud STK-MED ONCE .ROUTE 01/03/17 11:38 01/03/17 11:39 DC Iodixanol 100 ml 100 ml STK-MED ONCE .ROUTE 01/03/17 11:38 01/03/17 11:39 DC Cefepime HCl 50 ml @ 100 mls/hr ONCE STAT IVPB 01/03/17 12:25 01/03/17 12:54 DC 01/03/17 13:07 100 MLS/HR Vancomycin HCl (Vancocin) 250 ml @ 125 mls/hr ONCE ONCE IVPB 01/03/17 12:30 01/03/17 14:29 DC 01/03/17 13:59 125 MLS/HR Sodium Chloride 500 ml 500 ml ONCE STAT IV* 01/03/17 13:35 01/03/17 13:38 DC Vecuronium [place]/Dextrose (Norcuron/D5W) 100 ml @ 4.5 mls/hr [id number] ONCE IV 01/03/17 13:35 01/04/17 11:48 Heparin Sodium (Porcine) 5000 unit 5,000 unit ONCE STAT IV 01/03/17 13:35 01/03/17 13:38 DC Heparin Sodium (Porcine) 250 ml @ 0 mls/hr ONCE STAT IV 01/03/17 13:35 01/03/17 13:38 DC Sodium Chloride (NS) 500 ml @ 500 mls/hr Q1H STAT IV 01/03/17 13:54 01/03/17 14:53 The following imaging studies were reviewed and taken into consideration in determining the plan of care: 1. Chest x-ray: Showed no evidence of active cardiopulmonary disease, supportive devices in satisfactory position 2. CT facial bones without IV contrast: Showed no acute maxillofacial fracture , showed chronic minimal nondisplaced nasal bone fracture deformities, also showed minimal right supraorbital soft tissue swelling 3. Chest CT with IV contrast: Showed no acute traumatic abnormality, but showed a nonocclusive filling defect in the left pulmonary main pulmonary artery extending along the segmental branches of the left upper lobe concerning for pulmonary embolism. He also showed old bilateral rib fractures 4. Cervical spine CT without contrast: Showed no acute fracture or dislocation , but showed multiple degenerative disc changes with severe bilateral foraminal stenosis at C5 and C6. See radiologist's full report for details 5. CT scan of the brain without IV contrast: Showed no evidence of acute intracranial pathology, showed mild generalized volume loss and some mild chronic small vessel ischemic changes. He also showed some left frontotemporal scalp and left facial soft tissue swelling. I reviewed EKG, it showed sinus tachycardia without obvious ST elevations or reciprocal depressions. BRIANA MADRID Jan 03, 2017 15:01
[2017-01-03] MEDS ORDERED: SODIUM BICARBONATE IV SCH ×2 (15:30)
[2017-01-03] MEDS ORDERED: DEXTROSE 5% IV SCH ×2 (15:30)
--- NOTE | 2017-01-03 16:52 | RADRPT ---
PROCEDURE: XR Abdomen. CLINICAL INDICATION: Respiratory failure. TECHNIQUE: AP abdomen x-ray. COMPARISON: None. FINDINGS: The bowel gas pattern is normal. There is no evidence of obstruction. There are no abnormal calcific ations overlying the urinary tracts. There are degenerative osteophytes in the thoracic and lumbar s pine. An NG tube is positioned distal to the GE junction. The heart is normal in size. The lungs a re clear as visualized. No effusion is noted. There is a tubing artifact which is likely result of a urinary catheter in the midline of the lower pelvis. IMPRESSION: 1. 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 2. An NG tube is positioned with its tip about 9 cm beyond the GE junction. 3. There is fecal material in the ascending colon. RPTAT:AAJJ Physician Andree Date Time Electronically viewed and signed by Physician Andree on 01/03/2017 16:52 THUY/
[2017-01-03] MEDS ORDERED: DEXTROSE 50% 50 ML SYRINGE IV PRN ×4 (17:00→21:00)
[2017-01-03] MEDS ORDERED: GLUCOSE GEL 15 GRAM TUBE PO PRN ×2 (17:00)
[2017-01-03] MEDS ORDERED: GLUCOSE GEL 15 GRAM TUBE BUCCAL PRN (17:00)
[2017-01-03] MEDS ORDERED: GLUCAGON 1 MG INJ IM PRN (17:00)
[2017-01-03 17:21] LABS: AADO2 Arterial 85.9 mmHg (7.0-24.0); Allen Test ACCEPTAB; Arterial Base Excess -3.6 mmol/L (-3.0-3); Arterial COHb 0.1 % (0.0-3.0); Arterial Fraction of Oxyhgb 98.7 % (93.0-99.0); Arterial HCO3 22.8 mmol/L (22.0-26.0); Arterial MetHb 0.4 % (0.0-1.5); Arterial Total Hemglobin 16.9 g/dl (12.0-18.0); MODE VENT - AC
[2017-01-03] MEDS ORDERED: SODIUM BICARBONATE (IV ADD) 100 MEQ in DEXTROSE 5% 1,000 ML IV SCH (17:30)
[2017-01-03] MEDS: PANTOPRAZOLE 40 MG INJ IV SCH (17:39)
--- NOTE | 2017-01-03 17:56 | RADRPT ---
Echocardiogram Report Patient Name: ARSH CHADWICK Gender: Male Date: 1955 Study Date: 03-Jan-2017 Pulley Maintainer: Tanya [facility] Location: [facility] Ref. Physician: BRIANA MADRID Quality: Technically Difficult Study Procedures: Transthoracic echocardiogram with complete 2D, M-Mode, and doppler examination. Indications: Cardiac Arrest. 2D/M Mode Doppler Measurement Value Normal Ranges Measurement Value Normal Ranges LVIDd 2D 3.4 3.5 - 5.6 cm AV Peak Dm 1.7 m/sec LVIDs 2D 2.3 2.1 - 4.1 cm AV Peak PG 11.9 mmHg LVPWd 2D 1.1 0.6 - 1.1 cm LVOT Peak Dm 1.2 m/sec IVSd 2D 1.1 0.6 - 1.1 cm LVOT Peak PG 5.6 mmHg AoR Diam 2D 2.3 2.0 - 3.7 cm MV E Peak Dm 0.4 m/sec EDV 2D 47.2 cm3 MV A Peak Dm 0.7 m/sec ESV 2D 12.8 cm3 MV E/A 0.6 LA Dimen 2D 3.3 2.3 - 4.0 cm MV Decel Time 129 msec MV Decel [place] 3 MV E/A 0.6 TR Peak Dm 3.2 m/sec TR Peak PG 42.1 mmHg RVSP 52.0 mmHg Findings Left Ventricle: Normal left ventricular cavity size. Ejection fraction is visually estimated at 50 %. Tissue Doppler/Mitral Doppler indices are consistent with impaired relaxation (Stage I diastolic dysfunction). These segments of the LV are hypokinetic apical septum. Right Ventricle: Normal right ventricular size. Mild right ventricular hypokinesis. Left Atrium: The left atrium is normal in size. Right Atrium: The right atrium is normal in size. Mitral Valve: Mitral valve leaflets appear mildly thickened. Mild to moderate mitral valve regurgitation. Aortic Valve: Normal appearance of the aortic valve. Tricuspid Valve: Normal appearance of the tricuspid valve. Estimated peak PA systolic pressure 52 mmHg. There is mild tricuspid regurgitation. Pulmonic Valve: Pulmonic valve not well visualized. There is trace pulmonic regurgitation. Pericardium: Normal pericardium with no significant pericardial effusion. Aorta: Normal aortic root. IVC: Inferior vena cava without respiratory collapse, however, patient on ventilator. Conclusions 1.Normal left ventricular cavity size. Ejection fraction is visually estimated at 50 %. Tissue Doppler/Mitral Doppler indices are consistent with impaired relaxation (Stage I diastolic dysfunction). These segments of the LV are hypokinetic apical septum. 2.Mitral valve leaflets appear mildly thickened. Mild to moderate mitral valve regurgitation. 3.Normal appearance of the aortic valve. 4.Normal appearance of the tricuspid valve. Estimated peak PA systolic pressure 52 mmHg. There is mild tricuspid regurgitation. 5.Inferior vena cava without respiratory collapse, however, patient on ventilator. 6.Normal pericardium with no significant pericardial effusion. Electronically Signed By: Jensen Brambila 03-Jan-2017 17:55:13 -0700 Patient Name: ARSH CHADWICK Study Date: 03-Jan-2017 [id number]
[2017-01-03] MEDS ORDERED: INSULIN ASPART [NOVOLOG] 3 ML PEN SC SCH (18:00)
--- NOTE | 2017-01-03 18:06 | RADRPT ---
PROCEDURE: Ultrasound of the bilateral lower extremity venous system. CLINICAL INDICATION: Bilateral leg pain and swelling. TECHNIQUE: Morris scale with and without compression, color doppler, spectral doppler of the venous system of the bilateral lower extremities was performed. Venous augmentation maneuvers were utilized . COMPARISON: No prior studies are available for comparison. FINDINGS: RIGHT: Common femoral vein: Patent. Femoral vein: Proximal is patent. Mid to distal not visualized due to overlying dressing. Popliteal vein: Patent. Calf veins: Patent. No soft tissue abnormalities are identified. LEFT: Common femoral vein: Patent. Femoral vein: Proximal is patent. Mid to distal not visualized due to overlying dressing. Popliteal vein: Patent. Calf veins: Patent. No soft tissue abnormalities are identified. IMPRESSION: 1. Limited study with mid to distal bilateral femoral vein not visualized due to overlying dressing . 2. The visualized veins are normal with no evidence of deep venous thrombosis. RPTAT: QQ .Ki Mckay MD, MD Date Time Electronically viewed and signed by .Ki Mckay MD, MD on 01/03/2017 18:06 .R/
[2017-01-03] MEDS: OCULAR LUBRICANT 3.5 GM OPH OINT BOTH EYES SCH (18:16)
[2017-01-03] MEDS: ARTIFICIAL TEARS 15 ML OPH BOTH EYES SCH (18:16)
[2017-01-03] MEDS: FENTAnyl (DRIP) 1000 mcg/100mL 100 ML IV SCH (19:00)
[2017-01-03] MEDS: HEPARIN 25000 UNITS/250 ML 250 ML IV SCH (19:00)
--- NOTE | 2017-01-03 19:04 | CONS ---
DATE OF ADMISSION: 01/03/2017 DATE OF CONSULTATION: 01/03/2017 REASON FOR CONSULTATION: Cardiopulmonary arrest. CHIEF COMPLAINT: Cardiopulmonary arrest. HISTORY OF PRESENT ILLNESS: Thank you for this referral. History was obtained on review of the [facility] rt, discussion with physician and staff including Dr. Madrid. This is an unfortunate 58-year-old gentl eman with a complicated medical history, brought in from custodial facility and he was found to b e unresponsive. Apparently, the patient was unresponsive in the custodial and EMS was called and found the patient in cardiac arrest with PEA. The patient has been intubated and brought into the emergency room. In the emergency room, he was placed already on hypothermia protocol. His CT of th e chest also suggested PE and he has been started on heparin as well. No other history could be obt ained from the patient. Chart reviewed. EKG was reviewed. No evidence of ST elevation RI or ische heri noted. PAST MEDICAL HISTORY: History of hypertension, bipolar disorder and history of multiple falls. He is in a custodial. SOCIAL HISTORY: Unable to obtain. FAMILY HISTORY: Unable to obtain. MEDICATIONS: As per medication reconciliation sheet, personally reviewed. ALLERGIES: NO REPORTED ALLERGIES. REVIEW OF SYSTEMS: Unable to obtain except for above-mentioned. PHYSICAL EXAMINATION: VITAL SIGNS: Temperature 95.9 currently. Initially temperature was 98.3, heart rate of 120, blood pressure 126/67, respiration rate 14. HEENT: Normocephalic, atraumatic. Status post intubation on the vent. DERMATOLOGIC: The left side of the face and the chest with ulcerated lesion. CARDIOVASCULAR: Tachycardic. PULMONARY: With no wheezes heard anteriorly. GASTROINTESTINAL: Soft, nontender. EXTREMITIES: Without lower extremity edema. NEUROLOGIC: No response to verbal or painful stimuli. LABORATORY: WBC of 19.3. WBC of 15.0, hemoglobin 11.73. Sodium 164, potassium 5.6, BUN of 65, cre atinine 2.35, glucose 123. Lactic acid is 2.8 and 3.6. Mag is 3.5, ALT of 221, AST of 484. ABG in itially showed pH of 7.24, pCO2 of 43, pO2 of 542. CT of the chest done in the emergency room shows nonocclusive filling defect in the left main pulmonary artery extending along the segments from ilsa st into the left upper lobe concerning for pulmonary embolus. DIAGNOSTIC DATA: Echocardiogram was personally reviewed, which showed normal LV size and ejection f raction of probably around 50%. It was a technically difficult study. There probably was some apic al septal wall hypokinesis noted. EKG was personally reviewed, shows sinus tachycardia. ASSESSMENT AND PLAN: 1. Cardiopulmonary arrest with pulseless electrical activity arrest. 2. Most likely pulmonary embolus. 3. Renal failure, unclear acute on chronic. Probably acute on chronic. 4. Encephalopathy. 5. Status post cardiopulmonary arrest with concern of spontaneous circulation. 6. Severe metabolic acidosis. 7. Acute transaminitis, probably shock liver. 8. Sepsis, respiratory failure, status post intubation on the vent. 9. Some facial contusion. RECOMMENDATIONS: The patient has been placed on hypothermia protocol. Currently being managed by i nternal medicine. We will continue with the vent support. CT pulmonary angiogram was not done due to concern about his renal function. IV fluids have been started. Continue with the ICU care. Dictated By: JENI KANG MD AV/GARRETT Conf#: [id number] DID#: [id number] CC: BRIANA MADRID MD;*EndCC*
[2017-01-03 19:46] LABS: CALCIUM 7.9 mg/dl (8.4-10.2); CREATININE 1.76 mg/dl (0.61-1.24); POTASSIUM 4.4 mmol/L (3.5-5.1)
[2017-01-03 20:07] LABS: TROPONIN-I 0.133 ng/ml (0.00-0.12)
[2017-01-03] MEDS: MIDAZOLAM (DRIP) 50 mg/50 mL 50 ML IV SCH (20:40)
[2017-01-03 20:57] LABS: AADO2 Arterial 54.2 mmHg (7.0-24.0); Arterial Base Excess -3.7 mmol/L (-3.0-3); Arterial COHb 0.3 % (0.0-3.0); Arterial Fraction of Oxyhgb 97.7 % (93.0-99.0); Arterial HCO3 22.3 mmol/L (22.0-26.0); Arterial MetHb 0.4 % (0.0-1.5); Arterial Total Hemglobin 16.3 g/dl (12.0-18.0); MODE VENT - AC
[2017-01-03] MEDS: ACCU-CHEK XX SCH ×3 (21:00→23:55)
[2017-01-03] MEDS ORDERED: INSULIN HUMAN REGULAR 100 UNIT in SOD CHLORIDE 0.9% 99 ML IV SCH (21:00)
[2017-01-03] MEDS: PIPER-TAZO 2.25 GM (PMX) 50 ML IVPB SCH (22:17)
[2017-01-03 22:28] LABS: ADD SCAN DIFF NO
[2017-01-03 22:30] LABS: BASOPHILS % 0.1 % (0.0-2.0); HEMATOCRIT 45.9 % (42.0-52.0); LYMPHOCYTES # 0.7 10^3/ul (0.8-2.9); LYMPHOCYTES % 4.7 % (15.0-51.0); MEAN CORPUSCULAR HEMOGLOBIN 31.8 pg (29.0-33.0); MEAN CORPUSCULAR HGB CONC 32.7 g/dl (32.0-37.0); MEAN CORPUSCULAR VOLUME 97.2 fl (82.0-101.0); MEAN PLATELET VOLUME 9.9 fl (7.4-10.4); MONOCYTE # 0.6 10^3/ul (0.3-0.9); MONOCYTES % 3.6 % (0.0-11.0); NEUTROPHIL # 14.5 10^3/ul (1.6-7.5); NEUTROPHILS % 91.1 % (39.0-77.0); PLATELET COUNT 143 10^3/UL (140-415); RED BLOOD COUNT 4.72 10^6/ul (4.70-6.10); RED CELL DISTRIBUTION WIDTH 12.8 % (11.5-14.5); WHITE BLOOD COUNT 15.9 10^3/ul (4.8-10.8)
--- NOTE | 2017-01-03 23:45 | RADRPT ---
PROCEDURE: ULTRASOUND BILATERAL UPPER EXTREMITY VENOUS CLINICAL INDICATION: 61-year-old male with upper extremity swelling. TECHNIQUE: Multiple sonographic images of the bilateral upper extremity deep venous system was obt ained utilizing grayscale, color-flow, compressive sonography and doppler imaging with augmentation. The images were reviewed on a PACS workstation. COMPARISON: None. FINDINGS: There is normal compressibility and flow within the subclavian, axillary, cephalic, brachial, basili c, radial and ulnar veins. The internal jugular veins were not interrogated. IMPRESSION: No sonographic evidence for bilateral upper extremity deep venous thrombosis. .Lauri Lopez MD, MD Date Time Electronically viewed and signed by .Lauri Lopez MD, MD on 01/03/2017 23:44 .Mateo/
[2017-01-04] VITALS (58 sets, daily range): BP systolic 78–136; BP diastolic 54–98; PULSE 75–96; RESP 14–28
[2017-01-04] MEDS: OCULAR LUBRICANT 3.5 GM OPH OINT BOTH EYES SCH ×4 (00:05→17:07)
[2017-01-04] MEDS: ARTIFICIAL TEARS 15 ML OPH BOTH EYES SCH ×4 (00:05→17:07)
[2017-01-04] MEDS: ACCU-CHEK XX SCH ×24 (00:17→23:22)
[2017-01-04 00:59] LABS: ADD SCAN DIFF NO
[2017-01-04 01:02] LABS: BASOPHILS % 0.1 % (0.0-2.0); HEMATOCRIT 43.6 % (42.0-52.0); HEMOGLOBIN 14.7 g/dl (14.0-18.0); LYMPHOCYTES # 0.7 10^3/ul (0.8-2.9); LYMPHOCYTES % 5.3 % (15.0-51.0); MEAN CORPUSCULAR HEMOGLOBIN 32.9 pg (29.0-33.0); MEAN CORPUSCULAR HGB CONC 33.7 g/dl (32.0-37.0); MEAN CORPUSCULAR VOLUME 97.5 fl (82.0-101.0); MEAN PLATELET VOLUME 9.9 fl (7.4-10.4); MONOCYTES % 7.1 % (0.0-11.0); NEUTROPHIL # 11.7 10^3/ul (1.6-7.5); NEUTROPHILS % 87.1 % (39.0-77.0); PLATELET COUNT 117 10^3/UL (140-415); RED BLOOD COUNT 4.47 10^6/ul (4.70-6.10); RED CELL DISTRIBUTION WIDTH 12.9 % (11.5-14.5); WHITE BLOOD COUNT 13.5 10^3/ul (4.8-10.8)
[2017-01-04 01:35] LABS: TROPONIN-I 0.072 ng/ml (0.00-0.12)
[2017-01-04 01:55] LABS: INR 1.5; PROTIME 18.2 Sec (12.2-14.2); PT RATIO 1.4
[2017-01-04 02:02] LABS: CK-MB 49.8 ng/ml (0.0-2.4)
[2017-01-04 02:32] LABS: CALCIUM 8.1 mg/dl (8.4-10.2); MAGNESIUM 3.5 mg/dl (1.7-2.5); PHOSPHORUS 3.5 mg/dl (2.5-4.9)
[2017-01-04 02:37] LABS: CALCIUM 8.2 mg/dl (8.4-10.2); CREATININE 1.48 mg/dl (0.61-1.24); POTASSIUM 3.1 mmol/L (3.5-5.1)
[2017-01-04] MEDS ORDERED: PENDING SANTYL ORDER FOR WOUND CARE XX PRN (03:00)
[2017-01-04 03:29] LABS: AADO2 Arterial 89.3 mmHg (7.0-24.0); Arterial Base Excess -2.5 mmol/L (-3.0-3); Arterial COHb 0.4 % (0.0-3.0); Arterial MetHb 0.3 % (0.0-1.5); Arterial Total Hemglobin 15.4 g/dl (12.0-18.0); MODE VENT - AC
[2017-01-04] MEDS ORDERED: SOD CHLORIDE 0.9% 500 ML IV ONE ×2 (03:30)
[2017-01-04] MEDS ORDERED: POTASSIUM CHLORIDE 250 ML IVPB ONE (03:30)
[2017-01-04] MEDS ORDERED: VANCOMYCIN IV PER PHARMACY XX SCH ×2 (03:30→06:30)
[2017-01-04] MEDS: SODIUM BICARBONATE (IV ADD) 100 MEQ in DEXTROSE 5%-0.45% NACL 1,000 ML IV SCH ×2 (04:48→14:03)
[2017-01-04] MEDS ORDERED: PANTOPRAZOLE 40 MG INJ IV SCH (06:00)
[2017-01-04 06:08] LABS: ADD SCAN DIFF NO
[2017-01-04] MEDS: PANTOPRAZOLE 40 MG INJ IV SCH (06:15)
[2017-01-04] MEDS: PIPER-TAZO 2.25 GM (PMX) 50 ML IVPB SCH (06:15)
[2017-01-04 06:23] LABS: BASOPHILS % 0.1 % (0.0-2.0); EOSINOPHILS % 0.1 % (0.0-7.0); HEMOGLOBIN 14.2 g/dl (14.0-18.0); LYMPHOCYTES # 0.9 10^3/ul (0.8-2.9); LYMPHOCYTES % 7.1 % (15.0-51.0); MEAN CORPUSCULAR HEMOGLOBIN 32.1 pg (29.0-33.0); MEAN CORPUSCULAR VOLUME 97.1 fl (82.0-101.0); MEAN PLATELET VOLUME 10.3 fl (7.4-10.4); MONOCYTE # 1.4 10^3/ul (0.3-0.9); MONOCYTES % 10.8 % (0.0-11.0); NEUTROPHIL # 10.7 10^3/ul (1.6-7.5); NEUTROPHILS % 81.4 % (39.0-77.0); PLATELET COUNT 119 10^3/UL (140-415); RED BLOOD COUNT 4.43 10^6/ul (4.70-6.10); RED CELL DISTRIBUTION WIDTH 12.8 % (11.5-14.5); WHITE BLOOD COUNT 13.1 10^3/ul (4.8-10.8)
--- NOTE | 2017-01-04 07:12 | RADRPT ---
PROCEDURE: XR Chest 1 View. CLINICAL INDICATION: Shortness of breath TECHNIQUE: AP view of the chest was obtained. COMPARISON: January 03, [address] January 03, 2017 FINDINGS: The cardiomediastinal silhouette is within normal limits. Endotracheal and nasogastric tubes are sta ble and appear in grossly appropriate location right-sided central line is unchanged. No consolidati ons are identified. No pneumothorax is seen. The osseous structures are unchanged. IMPRESSION: Stable support lines and tubes. Clear lungs. RPTAT: AA .Mikey Hernandez MD, MD Date Time Electronically viewed and signed by .Mikey Hernandez MD, on 01/04/2017 07:12 .P/
[2017-01-04 07:17] LABS: ALBUMIN 3.2 g/dl (3.3-4.9); BILIRUBIN,INDIRECT 0.9 mg/dl (0-1.1); BILIRUBIN,TOTAL 0.9 mg/dl (0.2-1.3); CALCIUM 7.8 mg/dl (8.4-10.2); CHOL/HDL RATIO 2.1 RATIO; CREATININE 1.28 mg/dl (0.61-1.24); INR 1.55; MAGNESIUM 3.3 mg/dl (1.7-2.5); PHOSPHORUS 3.1 mg/dl (2.5-4.9); POTASSIUM 3.6 mmol/L (3.5-5.1); PROTIME 18.7 Sec (12.2-14.2); PT RATIO 1.5; TOTAL PROTEIN 5.4 g/dl (6.1-8.1)
[2017-01-04 08:43] LABS: TROPONIN-I 0.064 ng/ml (0.00-0.12)
[2017-01-04 08:47] LABS: CK-MB 44.7 ng/ml (0.0-2.4)
[2017-01-04 09:27] LABS: AADO2 Arterial 87.3 mmHg (7.0-24.0); Allen Test ACCEPTAB; Arterial Base Excess -2.2 mmol/L (-3.0-3); Arterial COHb 0.1 % (0.0-3.0); Arterial Fraction of Oxyhgb 97.3 % (93.0-99.0); Arterial HCO3 23.1 mmol/L (22.0-26.0); Arterial MetHb 0.1 % (0.0-1.5); Arterial Total Hemglobin 15.4 g/dl (12.0-18.0); MODE VENT - AC
[2017-01-04] MEDS: VANCOMYCIN 1 GM in NS 250 ML IVPB SCH ×2 (09:57→21:23)
--- NOTE | 2017-01-04 10:21 | PN ---
Date/Time of Note Date/Time of Note DATE: 01/04/17 TIME: 10:14 Assessment/Plan VTE Prophylaxis VTE Prophylaxis Intervention: other Lines/Catheters IV Catheter Type (from Nrsg): Central Line Central line still needed: Yes Urinary Cath still in place: Yes Reason Cath still needed: other (indicate) Assessment/Plan Chief Complaint/Hosp Course Assessment/Plan 1. Status post cardiac arrest with return of spontaneous circulation /PEA 2. Acute pulmonary emboli 3. Acute respiratory failure currently ventilator dependent 4. acute encephalopathy secondary to the above 5. severe hypernatremia likely secondary to dehydration 6. acute renal insufficiency with hyperkalemia rule out chronic kidney disease 7. severe metabolic acidosis likely secondary to acute renal insufficiency 8. acute transaminitis with hyperbilirubinemia likely secondary to shock liver 9. sepsis with multiorgan failure likely secondary to urinary tract infection 10. Possible fall with left-sided facial contusion likely secondary to progressive supranuclear palsy CT shows chronic nasal bone fracture deformities nothing acute 11. Old bilateral rib fractures suggestive of recurrent falls in the past 12. Chronic degenerative changes of the cervical spine 13. Questionable anoxic brain injury, recommend to obtain the EEG post hypothermia protocol PLAN: Continue care and intensive care unit Ventilator support and management/pulmonary consultation/serial EKGs and chest x -rays Broad-spectrum antibiotic coverage/pancultures Gentle IV fluid hydration with bicarbonate supplementation/serial renal function panel / closely monitor electrolytes and replace as indicated Continue hypothermia protocol Heparin drip for pulmonary emboli Trend troponins/cardiology consultation has been obtained For further interventions per clinical course Prophylaxis with IV PPI and heparin drip Problems: Subjective 24 Hr Interval Summary Free Text/Dictation Patient remains intubated On hypothermia protocol Not on any sedation Vent setting 450 with FiO2 30% with a PEEP of 5 Sedated Via Versed, fentanyl Exam/Review of Systems Vital Signs Vitals Vital Signs Date Time Temp Pulse Resp B/P Pulse Ox O2 Delivery O2 Flow Rate FiO2 01/04/17 09:40 82 14 100 30 01/04/17 08:00 118/93 Mechanical Ventilator 01/04/17 06:00 91.3 Intake and Output 01/03/17 01/03/17 01/04/17 15:00 23:00 07:00 Intake Total 2220 ml 1362.70 ml 1372.98 ml Output Total 194 ml 476 ml Balance 2220 ml 1168.70 ml 896.98 ml Exam General: The patient is intubated HEENT: Atraumatic, normocephalic. The pupils are equal Neck: Supple Chest: Normal Lungs: Decreased breath sounds bilateral lower lung field Heart: Normal S1-S2, Regular rhythm and rate. Abdomen: Soft , nontender, nondistended , bowel sounds are present. Extremities: Multiple pressure ulcer on left upper and lower extremity, trace edema no cyanosis Neurologic: Sedated Results Result Diagram: 01/04/17 0530 01/04/17 0530 Results 24 hrs Laboratory Tests Test 01/03/17 10:53 01/03/17 11:00 01/03/17 11:08 01/03/17 11:15 Bedside Glucose 116 White Blood Count 19.3 H Red Blood Count 4.60 L Hemoglobin 15.0 Hematocrit 47.1 Mean Corpuscular Volume 102.4 H Mean Corpuscular Hemoglobin 32.6 Mean Corpuscular Hemoglobin Concent 31.8 L Red Cell Distribution Width 12.9 Platelet Count 173 Mean Platelet Volume 11.2 H Neutrophils % 75.1 Lymphocytes % 11.2 L Monocytes % 10.0 Eosinophils % 0.1 Basophils % 0.3 Nucleated Red Blood Cells % 0.3 H Neutrophils # 14.5 H Lymphocytes # 2.2 Monocytes # 1.9 H Eosinophils # 0.0 Basophils # 0.1 Nucleated Red Blood Cells # 0.1 H Prothrombin Time 16.4 H Prothrombin Time Ratio 1.3 INR International Normalized Ratio 1.31 Activated Partial Thromboplast Time 20.0 L Sodium Level 164 *H Potassium Level 5.6 H Chloride Level 118 H Carbon Dioxide Level 13 L Anion Gap 39 H Blood Urea Nitrogen 65 H Creatinine 2.35 H Glucose Level 123 Calcium Level 9.0 Phosphorus Level 13.9 H Magnesium Level 3.5 H Total Bilirubin 1.7 H Direct Bilirubin 0.00 Indirect Bilirubin 1.7 H Aspartate Amino Transf (AST/SGOT) 484 H Alanine Aminotransferase (ALT/SGPT) 221 H Alkaline Phosphatase 59 Troponin I 0.101 Total Protein 7.2 Albumin 4.5 Globulin 2.70 Albumin/Globulin Ratio 1.66 Lipase 269 Blood Gas Specimen Source Blood arterial Arterial Blood Date Drawn 01/03/2017 12:20:12 PM Arterial Blood pH (Temp corrected) 7.244 *L Arterial Blood pCO2 (Temp correct) 43.8 Arterial Blood pO2 (Temp corrected) 542.0 H Arterial Blood HCO3 18.5 L Arterial Blood Base Excess -8.6 L Arterial Blood Oxygen Saturation 99.7 H Rikki Test ACCEPTAB Arterial Blood Gas Puncture Site Right Radial Arterial Blood Carboxyhemoglobin 0.2 Arterial Blood Methemoglobin 0.4 Blood Gas A-a O2 Differential 127.2 H Oxyhemoglobin Percent 99.1 H Total Hemoglobin 15.7 Blood Gas Temperature 37.0 Blood Gas Respiration Rate 14.0 Blood Gas Actual Respiration Rate 23 Blood Gas Modality VENT - AC FiO2 100.0 Blood Gas Tidal Volume 450.0 Blood Gas Low PEEP Setting 5.0 Blood Gas Critical Value Read Back DR ZAMAN Blood Gas Notified Whom Blood Gas Notified Time 01/03/2017 12:38:57 PM Urine Color SHANTE Urine Clarity CLOUDY A Urine pH 5.0 Urine Specific [place] 1.027 Urine Ketones TRACE A Urine Nitrite NEGATIVE Urine Bilirubin NEGATIVE Urine Urobilinogen NEGATIVE Urine Leukocyte Esterase NEGATIVE Urine Microscopic RBC 4 Urine Microscopic WBC 6 H Urine Bacteria FEW A Urine Hemoglobin 3+ H Urine Glucose NEGATIVE Urine Total Protein 2+ H Test 01/03/17 14:50 01/03/17 14:51 01/03/17 15:45 01/03/17 18:33 Lactic Acid Level 2.8 H 3.6 H Blood Gas Specimen Source Blood arterial Arterial Blood Date Drawn 01/03/2017 5:12:20 PM Arterial Blood pH (Temp corrected) 7.330 L Arterial Blood pCO2 (Temp correct) 43.6 Arterial Blood pO2 (Temp corrected) 222.8 H Arterial Blood HCO3 22.8 Arterial Blood Base Excess -3.6 L Arterial Blood Oxygen Saturation 99.2 H Rikki Test ACCEPTAB Arterial Blood Gas Puncture Site Right Radial Arterial Blood Carboxyhemoglobin 0.1 Arterial Blood Methemoglobin 0.4 Blood Gas A-a O2 Differential 85.9 H Oxyhemoglobin Percent 98.7 Total Hemoglobin 16.9 Blood Gas Temperature 36.0 Blood Gas Respiration Rate 14.0 Blood Gas Actual Respiration Rate 16 Blood Gas Modality VENT - AC FiO2 50.0 Blood Gas Tidal Volume 450.0 Blood Gas Low PEEP Setting 5.0 Blood Gas Notified Whom Nasim Blood Gas Notified Time 01/03/2017 5:20:16 PM Bedside Glucose 158 Test 01/03/17 19:03 01/03/17 19:48 01/03/17 20:09 01/03/17 20:51 Sodium Level 154 H Potassium Level 4.4 Chloride Level 120 H Carbon Dioxide Level 26 # Anion Gap 12 # Blood Urea Nitrogen 76 H Creatinine 1.76 H Glucose Level 208 Lactic Acid Level 1.8 Calcium Level 7.9 L Creatine Kinase 29087 H Creatine Kinase Index 0.2 Creatinine Kinase MB (Mass) 37.00 H Troponin I 0.133 *H Bedside Glucose 204 Activated Partial Thromboplast Time 167.9 *H Blood Gas Specimen Source Blood arterial Arterial Blood Date Drawn 01/03/2017 8:50:44 PM Arterial Blood pH (Temp corrected) 7.399 Arterial Blood pCO2 (Temp correct) 34.9 L Arterial Blood pO2 (Temp corrected) 122.0 H Arterial Blood HCO3 22.3 Arterial Blood Base Excess -3.7 L Arterial Blood Oxygen Saturation 98.4 H Rikki Test N/A Arterial Blood Gas Puncture Site Right Brachial Arterial Blood Carboxyhemoglobin 0.3 Arterial Blood Methemoglobin 0.4 Blood Gas A-a O2 Differential 54.2 H Oxyhemoglobin Percent 97.7 Total Hemoglobin 16.3 Blood Gas Temperature 32.1 Blood Gas Respiration Rate 14.0 Blood Gas Actual Respiration Rate 14 Blood Gas Modality VENT - AC FiO2 30.0 Blood Gas Tidal Volume 500.0 Blood Gas Low PEEP Setting 5.0 Blood Gas Inspiratory Pressure 17.0 Blood Gas Notified Whom MG Blood Gas Notified Time 01/03/2017 8:57:24 PM Test 01/03/17 21:27 01/03/17 22:23 01/03/17 22:45 01/03/17 23:21 Bedside Glucose 228 H 188 172 White Blood Count 15.9 H Red Blood Count 4.72 Hemoglobin 15.0 Hematocrit 45.9 Mean Corpuscular Volume 97.2 Mean Corpuscular Hemoglobin 31.8 Mean Corpuscular Hemoglobin Concent 32.7 Red Cell Distribution Width 12.8 Platelet Count 143 Mean Platelet Volume 9.9 Neutrophils % 91.1 H Lymphocytes % 4.7 L Monocytes % 3.6 Eosinophils % 0.0 Basophils % 0.1 Nucleated Red Blood Cells % 0.0 Neutrophils # 14.5 H Lymphocytes # 0.7 L Monocytes # 0.6 Eosinophils # 0.0 Basophils # 0.0 Nucleated Red Blood Cells # 0.0 Test 01/04/17 00:16 01/04/17 00:50 01/04/17 01:21 01/04/17 02:09 Bedside Glucose 151 120 110 White Blood Count 13.5 H Red Blood Count 4.47 L Hemoglobin 14.7 Hematocrit 43.6 Mean Corpuscular Volume 97.5 Mean Corpuscular Hemoglobin 32.9 Mean Corpuscular Hemoglobin Concent 33.7 Red Cell Distribution Width 12.9 Platelet Count 117 L Mean Platelet Volume 9.9 Neutrophils % 87.1 H Lymphocytes % 5.3 L Monocytes % 7.1 Eosinophils % 0.0 Basophils % 0.1 Nucleated Red Blood Cells % 0.0 Neutrophils # 11.7 H Lymphocytes # 0.7 L Monocytes # 1.0 H Eosinophils # 0.0 Basophils # 0.0 Nucleated Red Blood Cells # 0.0 Prothrombin Time 18.2 H Prothrombin Time Ratio 1.4 INR International Normalized Ratio 1.50 Fibrinogen 442.0 Sodium Level 159 H Potassium Level 3.1 L Chloride Level 125 H Carbon Dioxide Level 25 Anion Gap 12 Blood Urea Nitrogen 73 H Creatinine 1.48 H Glucose Level 138 # Calcium Level 8.2 L Phosphorus Level 3.5 # Magnesium Level 3.5 H Creatine Kinase 48172 #H Creatine Kinase Index Creatinine Kinase MB (Mass) 49.80 H Troponin I 0.072 Amylase Level 213 H Lipase 415 H Test 01/04/17 02:30 01/04/17 02:51 01/04/17 03:29 01/04/17 04:35 Activated Partial Thromboplast Time 94.4 *H Blood Gas Specimen Source Blood arterial Arterial Blood Date Drawn 01/04/2017 3:23:00 AM Arterial Blood pH (Temp corrected) 7.439 Arterial Blood pCO2 (Temp correct) 32.1 L Arterial Blood pO2 (Temp corrected) 89.5 Arterial Blood HCO3 22.0 Arterial Blood Base Excess -2.5 Arterial Blood Oxygen Saturation 97.7 Rikki Test N/A Arterial Blood Gas Puncture Site Right Brachial Arterial Blood Carboxyhemoglobin 0.4 Arterial Blood Methemoglobin 0.3 Blood Gas A-a O2 Differential 89.3 H Oxyhemoglobin Percent 97.0 Total Hemoglobin 15.4 Blood Gas Temperature 33.4 Blood Gas Respiration Rate 14.0 Blood Gas Actual Respiration Rate 16 Blood Gas Modality VENT - AC FiO2 30.0 Blood Gas Tidal Volume 500.0 Blood Gas Low PEEP Setting 5.0 Blood Gas Inspiratory Pressure 15.0 Blood Gas Notified Whom MG Blood Gas Notified Time 01/04/2017 3:29:47 AM Bedside Glucose 97 81 Test 01/04/17 05:29 01/04/17 05:30 01/04/17 06:24 01/04/17 07:11 Bedside Glucose 90 108 107 White Blood Count 13.1 H Red Blood Count 4.43 L Hemoglobin 14.2 Hematocrit 43.0 Mean Corpuscular Volume 97.1 Mean Corpuscular Hemoglobin 32.1 Mean Corpuscular Hemoglobin Concent 33.0 Red Cell Distribution Width 12.8 Platelet Count 119 L Mean Platelet Volume 10.3 Neutrophils % 81.4 H Lymphocytes % 7.1 L Monocytes % 10.8 Eosinophils % 0.1 Basophils % 0.1 Nucleated Red Blood Cells % 0.0 Neutrophils # 10.7 H Lymphocytes # 0.9 Monocytes # 1.4 H Eosinophils # 0.0 Basophils # 0.0 Nucleated Red Blood Cells # 0.0 Prothrombin Time 18.7 H Prothrombin Time Ratio 1.5 INR International Normalized Ratio 1.55 Fibrinogen 533.0 #H Sodium Level 159 H Potassium Level 3.6 Chloride Level 122 H Carbon Dioxide Level 27 Anion Gap 14 Blood Urea Nitrogen 67 H Creatinine 1.28 H Glucose Level 88 # Hemoglobin A1c 5.2 Lactic Acid Level 1.6 Calcium Level 7.8 L Phosphorus Level 3.1 Magnesium Level 3.3 H Total Bilirubin 0.9 Direct Bilirubin 0.00 Indirect Bilirubin 0.9 Aspartate Amino Transf (AST/SGOT) 323 H Alanine Aminotransferase (ALT/SGPT) 212 H Alkaline Phosphatase 49 Creatine Kinase 94106 H Creatine Kinase Index 0.3 Creatinine Kinase MB (Mass) 44.70 H Troponin I 0.064 Total Protein 5.4 #L Albumin 3.2 #L Triglycerides Level 68 Cholesterol Level 92 L LDL Cholesterol, Calculated 35 HDL Cholesterol 43 Cholesterol/HDL Ratio 2.1 Amylase Level 155 H Lipase 375 H Test 01/04/17 08:05 01/04/17 08:51 01/04/17 08:59 01/04/17 09:20 Bedside Glucose 105 124 Blood Gas Specimen Source Blood arterial Arterial Blood Date Drawn 01/04/2017 9:20:47 AM Arterial Blood pH (Temp corrected) 7.422 Arterial Blood pCO2 (Temp correct) 34.8 L Arterial Blood pO2 (Temp corrected) 88.6 Arterial Blood HCO3 23.1 Arterial Blood Base Excess -2.2 Arterial Blood Oxygen Saturation 97.5 Rikki Test ACCEPTAB Arterial Blood Gas Puncture Site Right Radial Arterial Blood Carboxyhemoglobin 0.1 Arterial Blood Methemoglobin 0.1 Blood Gas A-a O2 Differential 87.3 H Oxyhemoglobin Percent 97.3 Total Hemoglobin 15.4 Blood Gas Temperature 33.0 Blood Gas Respiration Rate 14.0 Blood Gas Actual Respiration Rate 14 Blood Gas Modality VENT - AC FiO2 30.0 Blood Gas Tidal Volume 500.0 Blood Gas Low PEEP Setting 5.0 Blood Gas Notified Whom JLD Blood Gas Notified Time 01/04/2017 9:27:28 AM Activated Partial Thromboplast Time 141.7 *H Medications Medications Current Medications Vecuronium [place]/Dextrose (Norcuron/D5W) 100 ml @ 4.5 mls/hr [id number] ONCE IV Last administered on 01/03/17 15:12; Admin Dose 4.5 MLS/HR; Start 01/03/17 at 13:35; Stop 01/04/17 at 11:48 Acetaminophen (Tylenol Supp) 650 mg Q4H PRN [place] TEMP > 37C; Start 01/03/17 at 15 :00 Acetaminophen (Tylenol Liquid) 650 mg Q4H PRN PO TEMP > 37C; Start 01/03/17 at 15:00 Acetaminophen (Tylenol Supp) 500 mg Q6H [place] ; Start 01/04/17 at 15:00 Acetaminophen (Tylenol Liquid) 500 mg Q6H PO ; Start 01/04/17 at 15:00 Meperidine HCl (Demerol) 12.5 mg Q4H PRN IV POST OPERATIVE SHIVERING; Start at 15:00 Meperidine HCl (Demerol) 25 mg Q4H PRN IV POST OPERATIVE SHIVERING; Start 01/03 at 15:00 Eye Lubricant (Akwa Oint) 1 applic Q6 BOTH EYES Last administered on 01/04/17 06:15; Admin Dose 1 APPLIC; Start 01/03/17 at 18:00 Eye Lubricant (Artificial Tears Oph) 2 drop Q6 BOTH EYES Last administered on 06:15; Admin Dose 2 DROP; Start 01/03/17 at 18:00 Pantoprazole (Protonix Iv) 40 mg DAILY@06 IV Last administered on 01/04/17 06: 15; Admin Dose 40 MG; Start 01/03/17 at 17:00 Miscellaneous Information 1 ea NOTE XX ; Start 01/03/17 at 17:00 Glucose (Glutose) 15 gm Q15M PRN PO DECREASED GLUCOSE; Start 01/03/17 at 17:00 Glucose (Glutose) 22.5 gm Q15M PRN PO DECREASED GLUCOSE; Start 01/03/17 at 17: 00 Dextrose (D50w Syringe) 25 ml Q15M PRN IV DECREASED GLUCOSE; Start 01/03/17 at 17:00 Dextrose (D50w Syringe) 50 ml Q15M PRN IV DECREASED GLUCOSE; Start 01/03/17 at 17:00 Glucagon (Glucagen) 1 mg Q15M PRN IM DECREASED GLUCOSE; Start 01/03/17 at 17:00 Glucose 15 gm 15 gm Q15M PRN BUCCAL DECREASED GLUCOSE; Start 01/03/17 at 17:00 Midazolam HCl 50 ml @ 1 mls/hr TITRATE IV Last administered on 01/03/17 20:40 ; Admin Dose 3 MLS/HR; Start 01/03/17 at 21:00 Fentanyl (Sublimaze) 100 ml @ 2.5 mls/hr TITRATE IV Last administered on 19:00; Admin Dose 2.5 MLS/HR; Start 01/03/17 at 21:00 Diagnostic Test (Pha) (Accu-Chek) 1 ea Q1H XX Last administered on 01/04/17 09 :00; Admin Dose 1 EA; Start 01/03/17 at 21:00 Dextrose (D50w Syringe) 25 ml Q15M PRN IV Till BS 80 mg/dL or above x2; Start 01/03/17 at 21:00 Dextrose (D50w Syringe) 50 ml Q15M PRN IV Till BS 80 mg/dL or above x2; Start 01/03/17 at 21:00 Miscellaneous Information This patient naik... PRN PRN XX WOUND CARE; Start 01/04 at 03:00 Sodium Bicarbonate 100 meq/Dextrose/ Sodium Chloride 1,100 ml @ 100 mls/hr Q11H IV Last administered on 01/04/17 04:48; Admin Dose 100 MLS/HR; Start at 03:03 Piperacillin Sod/ Tazobactam Sod 100 ml @ 200 mls/hr Q6 IVPB ; Start 01/04/17 at 12:00 Vancomycin HCl (Vancocin) 250 ml @ 125 mls/hr Q12H IVPB Last administered on t 09:57; Admin Dose 125 MLS/HR; Start 01/04/17 at 09:00 BEN RODRIGUEZ MD Jan 04, 2017 10:21
--- NOTE | 2017-01-04 10:31 | CONS ---
Date/Time of Note Date/Time of Note DATE: 01/04/17 TIME: 10:26 Assessment/Plan Assessment/Plan Additional Assessment/Plan Chest x-ray was reviewed which is essentially clear. Endotracheal tube however is at a high position. Ventilator setting; AC of 14, tidal volume 500, PEEP of 5, 30% FiO2. Patient currently on fentanyl at 50 mics per hour, vecuronium drip via protocol. Versed 5 mg/h. IV heparin via protocol. Sodium bicarb drip at 50 mL /h. Assessment recommendations; 1. Patient admitted with cardiac arrest status post CPR currently on hypothermia protocol. 2. Sepsis. Etiology is unclear. However there is improving leukocytosis. Patient not requiring any pressor support. 3. Acute renal injury, with improved serum creatinine from today. 4. Anemia. 5. Multiple superficial skin ulcerations. No evidence of any active cellulitis. 6. Thrombocytopenia. 7. Difficult to rule out pulmonary embolism. Continue current treatment. Patient's mental status will be evaluated once he is off hypothermia protocol. Prognosis also depends upon adequate mental status recovery. Consultation Date/Type/Reason Admit Date/Time 01/03/17. Date of Consultation: Jan 04, 2017 Type of Consultation: Pulmonary/critical care Reason for Consultation Pulmonary consultation requested for evaluation of respiratory failure and sepsis. History of presenting any; patient is a 61-year-old white male who was sent over to the ER from retirement with complaints of being unresponsive. Patient was found to be respiratory failure was intubated and transferred to ICU. The patient underwent cardiac arrest and was resuscitated and currently is on hypothermia protocol. History was obtained from medical records. No overt seizure activity noted. Past medical history; 1. BPH. 2. Hypertension. 3. History of herpes simplex or herpes zoster. It is unclear for medical record. 4. Bipolar disorder. Medications; reviewed. Allergies; none. Social history; not available. Family history and occupational history is not available. Review of systems; unable to be obtained. General exam; elderly male, appears quite unkempt. Orally intubated. Sedated and paralyzed. On hypothermia protocol. Psychological: other (unable to assess) Social History Smoking Status: Unknown if ever smoked Exam/Review of Systems Vital Signs Vitals Vital Signs Date Time Temp Pulse Resp B/P Pulse Ox O2 Delivery O2 Flow Rate FiO2 01/04/17 09:40 82 14 100 30 01/04/17 08:00 118/93 Mechanical Ventilator 01/04/17 06:00 91.3 Intake and Output 01/03/17 01/03/17 01/04/17 15:00 23:00 07:00 Intake Total 2220 ml 1362.70 ml 1372.98 ml Output Total 194 ml 476 ml Balance 2220 ml 1168.70 ml 896.98 ml Exam HEENT exam; supple neck, no JVD. No lymphadenopathy. Midline trachea. No thyromegaly. She has multiple carious teeth. Pupils are small bilaterally. Orally intubated. Chest examination; clear to auscultation. S1-S2 audible, no murmurs. Regular rhythm. Abdomen examination; soft, no scars are present. Umbilicus is inverted. There is no scrotal penile edema. Bowel sounds audible. No organomegaly felt. Extremity exam; no peripheral edema. Patient does have multiple superficial scabs involving all 4 extremities. The left hip eschar 4 by 4 inch. 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 Results Result Diagram: 01/04/17 0530 01/04/17 0530 Results 24 hrs Laboratory Tests Test 01/03/17 10:53 01/03/17 11:00 01/03/17 11:08 01/03/17 11:15 Bedside Glucose 116 White Blood Count 19.3 H Red Blood Count 4.60 L Hemoglobin 15.0 Hematocrit 47.1 Mean Corpuscular Volume 102.4 H Mean Corpuscular Hemoglobin 32.6 Mean Corpuscular Hemoglobin Concent 31.8 L Red Cell Distribution Width 12.9 Platelet Count 173 Mean Platelet Volume 11.2 H Neutrophils % 75.1 Lymphocytes % 11.2 L Monocytes % 10.0 Eosinophils % 0.1 Basophils % 0.3 Nucleated Red Blood Cells % 0.3 H Neutrophils # 14.5 H Lymphocytes # 2.2 Monocytes # 1.9 H Eosinophils # 0.0 Basophils # 0.1 Nucleated Red Blood Cells # 0.1 H Prothrombin Time 16.4 H Prothrombin Time Ratio 1.3 INR International Normalized Ratio 1.31 Activated Partial Thromboplast Time 20.0 L Sodium Level 164 *H Potassium Level 5.6 H Chloride Level 118 H Carbon Dioxide Level 13 L Anion Gap 39 H Blood Urea Nitrogen 65 H Creatinine 2.35 H Glucose Level 123 Calcium Level 9.0 Phosphorus Level 13.9 H Magnesium Level 3.5 H Total Bilirubin 1.7 H Direct Bilirubin 0.00 Indirect Bilirubin 1.7 H Aspartate Amino Transf (AST/SGOT) 484 H Alanine Aminotransferase (ALT/SGPT) 221 H Alkaline Phosphatase 59 Troponin I 0.101 Total Protein 7.2 Albumin 4.5 Globulin 2.70 Albumin/Globulin Ratio 1.66 Lipase 269 Blood Gas Specimen Source Blood arterial Arterial Blood Date Drawn 01/03/2017 12:20:12 PM Arterial Blood pH (Temp corrected) 7.244 *L Arterial Blood pCO2 (Temp correct) 43.8 Arterial Blood pO2 (Temp corrected) 542.0 H Arterial Blood HCO3 18.5 L Arterial Blood Base Excess -8.6 L Arterial Blood Oxygen Saturation 99.7 H Rikki Test ACCEPTAB Arterial Blood Gas Puncture Site Right Radial Arterial Blood Carboxyhemoglobin 0.2 Arterial Blood Methemoglobin 0.4 Blood Gas A-a O2 Differential 127.2 H Oxyhemoglobin Percent 99.1 H Total Hemoglobin 15.7 Blood Gas Temperature 37.0 Blood Gas Respiration Rate 14.0 Blood Gas Actual Respiration Rate 23 Blood Gas Modality VENT - AC FiO2 100.0 Blood Gas Tidal Volume 450.0 Blood Gas Low PEEP Setting 5.0 Blood Gas Critical Value Read Back DR ZAMAN Blood Gas Notified Whom Blood Gas Notified Time 01/03/2017 12:38:57 PM Urine Color SHANTE Urine Clarity CLOUDY A Urine pH 5.[address] [address] 1.027 Urine Ketones TRACE A Urine Nitrite NEGATIVE Urine Bilirubin NEGATIVE Urine Urobilinogen NEGATIVE Urine Leukocyte Esterase NEGATIVE Urine Microscopic RBC 4 Urine Microscopic WBC 6 H Urine Bacteria FEW A Urine Hemoglobin 3+ H Urine Glucose NEGATIVE Urine Total Protein 2+ H Test 01/03/17 14:50 01/03/17 14:51 01/03/17 15:45 01/03/17 18:33 Lactic Acid Level 2.8 H 3.6 H Blood Gas Specimen Source Blood arterial Arterial Blood Date Drawn 01/03/2017 5:12:20 PM Arterial Blood pH (Temp corrected) 7.330 L Arterial Blood pCO2 (Temp correct) 43.6 Arterial Blood pO2 (Temp corrected) 222.8 H Arterial Blood HCO3 22.8 Arterial Blood Base Excess -3.6 L Arterial Blood Oxygen Saturation 99.2 H Rikki Test ACCEPTAB Arterial Blood Gas Puncture Site Right Radial Arterial Blood Carboxyhemoglobin 0.1 Arterial Blood Methemoglobin 0.4 Blood Gas A-a O2 Differential 85.9 H Oxyhemoglobin Percent 98.7 Total Hemoglobin 16.9 Blood Gas Temperature 36.0 Blood Gas Respiration Rate 14.0 Blood Gas Actual Respiration Rate 16 Blood Gas Modality VENT - AC FiO2 50.0 Blood Gas Tidal Volume 450.0 Blood Gas Low PEEP Setting 5.0 Blood Gas Notified Whom M.D. Blood Gas Notified Time 01/03/2017 5:20:16 PM Bedside Glucose 158 Test 01/03/17 19:03 01/03/17 19:48 01/03/17 20:09 01/03/17 20:51 Sodium Level 154 H Potassium Level 4.4 Chloride Level 120 H Carbon Dioxide Level 26 # Anion Gap 12 # Blood Urea Nitrogen 76 H Creatinine 1.76 H Glucose Level 208 Lactic Acid Level 1.8 Calcium Level 7.9 L Creatine Kinase 77236 H Creatine Kinase Index 0.2 Creatinine Kinase MB (Mass) 37.00 H Troponin I 0.133 *H Bedside Glucose 204 Activated Partial Thromboplast Time 167.9 *H Blood Gas Specimen Source Blood arterial Arterial Blood Date Drawn 01/03/2017 8:50:44 PM Arterial Blood pH (Temp corrected) 7.399 Arterial Blood pCO2 (Temp correct) 34.9 L Arterial Blood pO2 (Temp corrected) 122.0 H Arterial Blood HCO3 22.3 Arterial Blood Base Excess -3.7 L Arterial Blood Oxygen Saturation 98.4 H Rikki Test N/A Arterial Blood Gas Puncture Site Right Brachial Arterial Blood Carboxyhemoglobin 0.3 Arterial Blood Methemoglobin 0.4 Blood Gas A-a O2 Differential 54.2 H Oxyhemoglobin Percent 97.7 Total Hemoglobin 16.3 Blood Gas Temperature 32.1 Blood Gas Respiration Rate 14.0 Blood Gas Actual Respiration Rate 14 Blood Gas Modality VENT - AC FiO2 30.0 Blood Gas Tidal Volume 500.0 Blood Gas Low PEEP Setting 5.0 Blood Gas Inspiratory Pressure 17.0 Blood Gas Notified Whom MG Blood Gas Notified Time 01/03/2017 8:57:24 PM Test 01/03/17 21:27 01/03/17 22:23 01/03/17 22:45 01/03/17 23:21 Bedside Glucose 228 H 188 172 White Blood Count 15.9 H Red Blood Count 4.72 Hemoglobin 15.0 Hematocrit 45.9 Mean Corpuscular Volume 97.2 Mean Corpuscular Hemoglobin 31.8 Mean Corpuscular Hemoglobin Concent 32.7 Red Cell Distribution Width 12.8 Platelet Count 143 Mean Platelet Volume 9.9 Neutrophils % 91.1 H Lymphocytes % 4.7 L Monocytes % 3.6 Eosinophils % 0.0 Basophils % 0.1 Nucleated Red Blood Cells % 0.0 Neutrophils # 14.5 H Lymphocytes # 0.7 L Monocytes # 0.6 Eosinophils # 0.0 Basophils # 0.0 Nucleated Red Blood Cells # 0.0 Test 01/04/17 00:16 01/04/17 00:50 01/04/17 01:21 01/04/17 02:09 Bedside Glucose 151 120 110 White Blood Count 13.5 H Red Blood Count 4.47 L Hemoglobin 14.7 Hematocrit 43.6 Mean Corpuscular Volume 97.5 Mean Corpuscular Hemoglobin 32.9 Mean Corpuscular Hemoglobin Concent 33.7 Red Cell Distribution Width 12.9 Platelet Count 117 L Mean Platelet Volume 9.9 Neutrophils % 87.1 H Lymphocytes % 5.3 L Monocytes % 7.1 Eosinophils % 0.0 Basophils % 0.1 Nucleated Red Blood Cells % 0.0 Neutrophils # 11.7 H Lymphocytes # 0.7 L Monocytes # 1.0 H Eosinophils # 0.0 Basophils # 0.0 Nucleated Red Blood Cells # 0.0 Prothrombin Time 18.2 H Prothrombin Time Ratio 1.4 INR International Normalized Ratio 1.50 Fibrinogen 442.0 Sodium Level 159 H Potassium Level 3.1 L Chloride Level 125 H Carbon Dioxide Level 25 Anion Gap 12 Blood Urea Nitrogen 73 H Creatinine 1.48 H Glucose Level 138 # Calcium Level 8.2 L Phosphorus Level 3.5 # Magnesium Level 3.5 H Creatine Kinase 28078 #H Creatine Kinase Index Creatinine Kinase MB (Mass) 49.80 H Troponin I 0.072 Amylase Level 213 H Lipase 415 H Test 01/04/17 02:30 01/04/17 02:51 01/04/17 03:29 01/04/17 04:35 Activated Partial Thromboplast Time 94.4 *H Blood Gas Specimen Source Blood arterial Arterial Blood Date Drawn 01/04/2017 3:23:00 AM Arterial Blood pH (Temp corrected) 7.439 Arterial Blood pCO2 (Temp correct) 32.1 L Arterial Blood pO2 (Temp corrected) 89.5 Arterial Blood HCO3 22.0 Arterial Blood Base Excess -2.5 Arterial Blood Oxygen Saturation 97.7 Rikki Test N/A Arterial Blood Gas Puncture Site Right Brachial Arterial Blood Carboxyhemoglobin 0.4 Arterial Blood Methemoglobin 0.3 Blood Gas A-a O2 Differential 89.3 H Oxyhemoglobin Percent 97.0 Total Hemoglobin 15.4 Blood Gas Temperature 33.4 Blood Gas Respiration Rate 14.0 Blood Gas Actual Respiration Rate 16 Blood Gas Modality VENT - AC FiO2 30.0 Blood Gas Tidal Volume 500.0 Blood Gas Low PEEP Setting 5.0 Blood Gas Inspiratory Pressure 15.0 Blood Gas Notified Whom MG Blood Gas Notified Time 01/04/2017 3:29:47 AM Bedside Glucose 97 81 Test 01/04/17 05:29 01/04/17 05:30 01/04/17 06:24 01/04/17 07:11 Bedside Glucose 90 108 107 White Blood Count 13.1 H Red Blood Count 4.43 L Hemoglobin 14.2 Hematocrit 43.0 Mean Corpuscular Volume 97.1 Mean Corpuscular Hemoglobin 32.1 Mean Corpuscular Hemoglobin Concent 33.0 Red Cell Distribution Width 12.8 Platelet Count 119 L Mean Platelet Volume 10.3 Neutrophils % 81.4 H Lymphocytes % 7.1 L Monocytes % 10.8 Eosinophils % 0.1 Basophils % 0.1 Nucleated Red Blood Cells % 0.0 Neutrophils # 10.7 H Lymphocytes # 0.9 Monocytes # 1.4 H Eosinophils # 0.0 Basophils # 0.0 Nucleated Red Blood Cells # 0.0 Prothrombin Time 18.7 H Prothrombin Time Ratio 1.5 INR International Normalized Ratio 1.55 Fibrinogen 533.0 #H Sodium Level 159 H Potassium Level 3.6 Chloride Level 122 H Carbon Dioxide Level 27 Anion Gap 14 Blood Urea Nitrogen 67 H Creatinine 1.28 H Glucose Level 88 # Hemoglobin A1c 5.2 Lactic Acid Level 1.6 Calcium Level 7.8 L Phosphorus Level 3.1 Magnesium Level 3.3 H Total Bilirubin 0.9 Direct Bilirubin 0.00 Indirect Bilirubin 0.9 Aspartate Amino Transf (AST/SGOT) 323 H Alanine Aminotransferase (ALT/SGPT) 212 H Alkaline Phosphatase 49 Creatine Kinase 60842 H Creatine Kinase Index 0.3 Creatinine Kinase MB (Mass) 44.70 H Troponin I 0.064 Total Protein 5.4 #L Albumin 3.2 #L Triglycerides Level 68 Cholesterol Level 92 L LDL Cholesterol, Calculated 35 HDL Cholesterol 43 Cholesterol/HDL Ratio 2.1 Amylase Level 155 H Lipase 375 H Test 01/04/17 08:05 01/04/17 08:51 01/04/17 08:59 01/04/17 09:20 Bedside Glucose 105 124 Blood Gas Specimen Source Blood arterial Arterial Blood Date Drawn 01/04/2017 9:20:47 AM Arterial Blood pH (Temp corrected) 7.422 Arterial Blood pCO2 (Temp correct) 34.8 L Arterial Blood pO2 (Temp corrected) 88.6 Arterial Blood HCO3 23.1 Arterial Blood Base Excess -2.2 Arterial Blood Oxygen Saturation 97.5 Rikki Test ACCEPTAB Arterial Blood Gas Puncture Site Right Radial Arterial Blood Carboxyhemoglobin 0.1 Arterial Blood Methemoglobin 0.1 Blood Gas A-a O2 Differential 87.3 H Oxyhemoglobin Percent 97.3 Total Hemoglobin 15.4 Blood Gas Temperature 33.0 Blood Gas Respiration Rate 14.0 Blood Gas Actual Respiration Rate 14 Blood Gas Modality VENT - AC FiO2 30.0 Blood Gas Tidal Volume 500.0 Blood Gas Low PEEP Setting 5.0 Blood Gas Notified Whom JLD Blood Gas Notified Time 01/04/2017 9:27:28 AM Activated Partial Thromboplast Time 141.7 *H Test 01/04/17 10:01 Bedside Glucose 135 Medications Medications Current Medications Vecuronium [place]/Dextrose (Norcuron/D5W) 100 ml @ 4.5 mls/hr [id number] ONCE IV Last administered on 01/03/17t 15:12; Admin Dose 4.5 MLS/HR; Start 01/03/17 at 13:35; Stop 01/04/17 at 11:48 Acetaminophen (Tylenol Supp) 650 mg Q4H PRN MS TEMP > 37C; Start 01/03/17 at 15 :00 Acetaminophen (Tylenol Liquid) 650 mg Q4H PRN PO TEMP > 37C; Start 01/03/17 at 15:00 Acetaminophen (Tylenol Supp) 500 mg Q6H MS ; Start 01/04/17 at 15:00 Acetaminophen (Tylenol Liquid) 500 mg Q6H PO ; Start 01/04/17 at 15:00 Meperidine HCl (Demerol) 12.5 mg Q4H PRN IV POST OPERATIVE SHIVERING; Start at 15:00 Meperidine HCl (Demerol) 25 mg Q4H PRN IV POST OPERATIVE SHIVERING; Start 01/03 at 15:00 Eye Lubricant ([place] Oint) 1 applic Q6 BOTH EYES Last administered on 01/04/17 06:15; Admin Dose 1 APPLIC; Start 01/03/17 at 18:00 Eye Lubricant (Artificial Tears Oph) 2 drop Q6 BOTH EYES Last administered on 06:15; Admin Dose 2 DROP; Start 01/03/17 at 18:00 Pantoprazole (Protonix Iv) 40 mg DAILY@06 IV Last administered on 01/04/17 06: 15; Admin Dose 40 MG; Start 01/03/17 at 17:00 Miscellaneous Information 1 ea NOTE XX ; Start 01/03/17 at 17:00 Glucose (Glutose) 15 gm Q15M PRN PO DECREASED GLUCOSE; Start 01/03/17 at 17:00 Glucose (Glutose) 22.5 gm Q15M PRN PO DECREASED GLUCOSE; Start 01/03/17 at 17: 00 Dextrose (D50w Syringe) 25 ml Q15M PRN IV DECREASED GLUCOSE; Start 01/03/17 at 17:00 Dextrose (D50w Syringe) 50 ml Q15M PRN IV DECREASED GLUCOSE; Start 01/03/17 at 17:00 Glucagon (Glucagen) 1 mg Q15M PRN IM DECREASED GLUCOSE; Start 01/03/17 at 17:00 Glucose 15 gm 15 gm Q15M PRN BUCCAL DECREASED GLUCOSE; Start 01/03/17 at 17:00 Midazolam HCl 50 ml @ 1 mls/hr TITRATE IV Last administered on 01/03/17 20:40 ; Admin Dose 3 MLS/HR; Start 01/03/17 at 21:00 Fentanyl (Sublimaze) 100 ml @ 2.5 mls/hr TITRATE IV Last administered on 19:00; Admin Dose 2.5 MLS/HR; Start 01/03/17 at 21:00 Diagnostic Test (Pha) (Accu-Chek) 1 ea Q1H XX Last administered on 01/04/17 09 :00; Admin Dose 1 EA; Start 01/03/17 at 21:00 Dextrose (D50w Syringe) 25 ml Q15M PRN IV Till BS 80 mg/dL or above x2; Start 01/03/17 at 21:00 Dextrose (D50w Syringe) 50 ml Q15M PRN IV Till BS 80 mg/dL or above x2; Start 01/03/17 at 21:00 Miscellaneous Information This patient naik... PRN PRN XX WOUND CARE; Start 01/04 at 03:00 Sodium Bicarbonate 100 meq/Dextrose/ Sodium Chloride 1,100 ml @ 100 mls/hr Q11H IV Last administered on 01/04/17 04:48; Admin Dose 100 MLS/HR; Start at 03:03 Piperacillin Sod/ Tazobactam Sod 100 ml @ 200 mls/hr Q6 IVPB ; Start 01/04/17 at 12:00 Vancomycin HCl (Vancocin) 250 ml @ 125 mls/hr Q12H IVPB Last administered on 09:57; Admin Dose 125 MLS/HR; Start 01/04/17 at 09:00 JULIO C CARBONE Jan 04, 2017 10:31
[2017-01-04] MEDS: PIPER-TAZO 3.375 GM IV (PMX) 100 ML IVPB SCH ×2 (12:02→17:45)
[2017-01-04] MEDS: MIDAZOLAM (DRIP) 50 mg/50 mL 50 ML IV SCH (14:00)
[2017-01-04] MEDS ORDERED: VANCOMYCIN 1 GM in NS 250 ML IVPB SCH (14:00)
[2017-01-04] MEDS: SILVER SULFADIAZINE 1% 25 GM CR TOP SCH (14:03)
[2017-01-04 14:16] LABS: ADD SCAN DIFF NO
[2017-01-04 14:17] LABS: BASOPHILS % 0.1 % (0.0-2.0); HEMATOCRIT 41.8 % (42.0-52.0); HEMOGLOBIN 13.9 g/dl (14.0-18.0); LYMPHOCYTES # 0.7 10^3/ul (0.8-2.9); LYMPHOCYTES % 6.4 % (15.0-51.0); MEAN CORPUSCULAR HEMOGLOBIN 32.1 pg (29.0-33.0); MEAN CORPUSCULAR HGB CONC 33.3 g/dl (32.0-37.0); MEAN CORPUSCULAR VOLUME 96.5 fl (82.0-101.0); MONOCYTE # 0.9 10^3/ul (0.3-0.9); MONOCYTES % 8.7 % (0.0-11.0); NEUTROPHIL # 8.7 10^3/ul (1.6-7.5); NEUTROPHILS % 84.5 % (39.0-77.0); PLATELET COUNT 115 10^3/UL (140-415); RED BLOOD COUNT 4.33 10^6/ul (4.70-6.10); RED CELL DISTRIBUTION WIDTH 12.8 % (11.5-14.5); WHITE BLOOD COUNT 10.3 10^3/ul (4.8-10.8)
[2017-01-04 14:32] LABS: INR 1.46; PROTIME 17.8 Sec (12.2-14.2); PT RATIO 1.4
[2017-01-04 14:34] LABS: CALCIUM 7.5 mg/dl (8.4-10.2); CREATININE 1.18 mg/dl (0.61-1.24); PHOSPHORUS 2.8 mg/dl (2.5-4.9)
[2017-01-04 14:48] LABS: TROPONIN-I 0.023 ng/ml (0.00-0.12)
[2017-01-04] MEDS: ACETAMINOPHEN 650 MG SUPP PR SCH ×2 (15:00→21:00)
[2017-01-04 15:32] LABS: AADO2 Arterial 71.2 mmHg (7.0-24.0); Allen Test ACCEPTAB; Arterial Base Excess -1.6 mmol/L (-3.0-3); Arterial COHb 0.2 % (0.0-3.0); Arterial Fraction of Oxyhgb 97.5 % (93.0-99.0); Arterial HCO3 23.7 mmol/L (22.0-26.0); Arterial MetHb 0.1 % (0.0-1.5); Arterial Total Hemglobin 15.1 g/dl (12.0-18.0); MODE VENT - AC
[2017-01-04] MEDS: FENTAnyl (DRIP) 1000 mcg/100mL 100 ML IV SCH (15:37)
[2017-01-04] MEDS: ACETAMINOPHEN 650MG/20.3ML CUP PO SCH ×2 (15:45→21:22)
--- NOTE | 2017-01-04 15:59 | CONS ---
Date/Time of Note Date/Time of Note DATE: 01/04/17 TIME: 15:30 Assessment/Plan Assessment/Plan Additional Assessment/Plan 1. Multiple wounds: multiple skin tears, left trochanter/left facial/left lateral knee ischemic tissue injury likely pressure related -Will likely need debridement as patients condition permits -local care -frequent turning and offloading as patient condition permits -specialty bed -optimize nutrition as patient condition permits -start vitamin c/zinc as patient condition permits 2. S/P cardiac arrest with ROSC; currently intubated off sedation sedated, s/p hypothermia protocol -supportive therapy -optimize electrolytes 3. PE: currently on heprain drip -continue heparin drip -supportive 4. hematuria: likely 2/2 to heparin drip; improving according to nursing staff -monitor 5. Acute kindey injury: 2/2 ischemic shock; improved -supportive -monitor -per renal 6. Hypernatremia: improving slowly -Continue to monitor -per renal 7. anemia normocytic normochromic: 2/2 acute loss/hematuria +/- dilutional -monitor -transfuse as necessary 8. hypokalemia -monitor -optimize lytes -monitor for cardiac arrythmias 9. hypoalbuminemia: multifactorial (2/2 inflammation/infection +/-malnutrition + /- shocked liver) -Optimize -replete as necessary 10. hypocalcemia likely 2/2 #9 -optimize lytes -continue to monitor 11. elevated LFT'S with hyperbilirubinemia: likely 2/2 shocked liver -supportive 12. acute encephalopathy secondary to anoxic injury -cont to monitor - neurology consult 13.. sepsis with multiorgan failure likely secondary to bacteremia; urine cultures and cxr are negative. -cont antibiotics -per ID Patient seen and examined in collaboration with Dr. Fahad Beaver Consultation Date/Type/Reason Admit Date/Time 01/03/17. Date of Consultation: Jan 04, 2017 Type of Consultation: Surgical/wound eval Reason for Consultation Multiple wounds Hx of Present Illness David Spangler is a 61 yo male who presented to the ED after being found down by caregiver. Patient was intubated and ACLs protocol initiated in ED where ROSC was achieved. He is currently intubated, sedated and on hypothermia protocol. Patient was also found to have multiple skin tears and wounds. Surgical consult was asked to evaluate his wounds. Subjective hx not possible: pt non-verbal, pt critical status (patient intubated, sedated, hypothermic protocol) Psychological: other (unable to assess) Past Medical History Medical History: hypertension, other (bipolar disorder, htn, BPH) Past Surgical History unknown, unable to obtain Family History Significant Family History: other (unknown; unable to obtain) Social History social history unable to obtain Smoking Status: Unknown if ever smoked Exam/Review of Systems Vital Signs Vitals Vital Signs Date Time Temp Pulse Resp B/P Pulse Ox O2 Delivery O2 Flow Rate FiO2 01/04/17 14:30 91 14 98/87 98 Mechanical Ventilator 01/04/17 14:00 91.3 01/04/17 11:05 30 Intake and Output 01/03/17 01/03/17 01/04/17 15:00 23:00 07:00 Intake Total 2220 ml 1362.70 ml 1372.98 ml Output Total 194 ml 476 ml Balance 2220 ml 1168.70 ml 896.98 ml Exam Constitutional: well developed Head: lacerations, normocephalic Eyes: No PERRL (pupils nonresponsive) ENMT: intubated Neck: non-tender, supple Respiratory: diminished breath sounds Cardiovascular: nl pulses, regular rate and rhythm Gastrointestinal: non-tender, soft, No distended Genitourinary - Male: nl penis, nl scrotum Musculoskeletal: other (sedated), No swelling Extremities: normal pulses Neurological: unresponsive (sedated) Skin: nl turgor, other (multiple skin tears; left trochanter/left knee and left cheek wound with eschar, min serous drainage) Lymph: No nl lymph nodes Results Result Diagram: 01/04/17 1405 01/04/17 1405 Results 24 hrs Laboratory Tests Test 01/03/17 15:45 01/03/17 18:33 01/03/17 19:03 01/03/17 19:48 Lactic Acid Level 3.6 H 1.8 Bedside Glucose 158 204 Sodium Level 154 H Potassium Level 4.4 Chloride Level 120 H Carbon Dioxide Level 26 # Anion Gap 12 # Blood Urea Nitrogen 76 H Creatinine 1.76 H Glucose Level 208 Calcium Level 7.9 L Creatine Kinase 84983 H Creatine Kinase Index 0.2 Creatinine Kinase MB (Mass) 37.00 H Troponin I 0.133 *H Test 01/03/17 20:09 01/03/17 20:51 01/03/17 21:27 01/03/17 22:23 Activated Partial Thromboplast Time 167.9 *H Blood Gas Specimen Source Blood arterial Arterial Blood Date Drawn 01/03/2017 8:50:44 PM Arterial Blood pH (Temp corrected) 7.399 Arterial Blood pCO2 (Temp correct) 34.9 L Arterial Blood pO2 (Temp corrected) 122.0 H Arterial Blood HCO3 22.3 Arterial Blood Base Excess -3.7 L Arterial Blood Oxygen Saturation 98.4 H Rikki Test N/A Arterial Blood Gas Puncture Site Right Brachial Arterial Blood Carboxyhemoglobin 0.3 Arterial Blood Methemoglobin 0.4 Blood Gas A-a O2 Differential 54.2 H Oxyhemoglobin Percent 97.7 Total Hemoglobin 16.3 Blood Gas Temperature 32.1 Blood Gas Respiration Rate 14.0 Blood Gas Actual Respiration Rate 14 Blood Gas Modality VENT - AC FiO2 30.0 Blood Gas Tidal Volume 500.0 Blood Gas Low PEEP Setting 5.0 Blood Gas Inspiratory Pressure 17.0 Blood Gas Notified Whom MG Blood Gas Notified Time 01/03/2017 8:57:24 PM Bedside Glucose 228 H White Blood Count 15.9 H Red Blood Count 4.72 Hemoglobin 15.0 Hematocrit 45.9 Mean Corpuscular Volume 97.2 Mean Corpuscular Hemoglobin 31.8 Mean Corpuscular Hemoglobin Concent 32.7 Red Cell Distribution Width 12.8 Platelet Count 143 Mean Platelet Volume 9.9 Neutrophils % 91.1 H Lymphocytes % 4.7 L Monocytes % 3.6 Eosinophils % 0.0 Basophils % 0.1 Nucleated Red Blood Cells % 0.0 Neutrophils # 14.5 H Lymphocytes # 0.7 L Monocytes # 0.6 Eosinophils # 0.0 Basophils # 0.0 Nucleated Red Blood Cells # 0.0 Test 01/03/17 22:45 01/03/17 23:21 01/04/17 00:16 01/04/17 00:50 Bedside Glucose 188 172 151 White Blood Count 13.5 H Red Blood Count 4.47 L Hemoglobin 14.7 Hematocrit 43.6 Mean Corpuscular Volume 97.5 Mean Corpuscular Hemoglobin 32.9 Mean Corpuscular Hemoglobin Concent 33.7 Red Cell Distribution Width 12.9 Platelet Count 117 L Mean Platelet Volume 9.9 Neutrophils % 87.1 H Lymphocytes % 5.3 L Monocytes % 7.1 Eosinophils % 0.0 Basophils % 0.1 Nucleated Red Blood Cells % 0.0 Neutrophils # 11.7 H Lymphocytes # 0.7 L Monocytes # 1.0 H Eosinophils # 0.0 Basophils # 0.0 Nucleated Red Blood Cells # 0.0 Prothrombin Time 18.2 H Prothrombin Time Ratio 1.4 INR International Normalized Ratio 1.50 Fibrinogen 442.0 Sodium Level 159 H Potassium Level 3.1 L Chloride Level 125 H Carbon Dioxide Level 25 Anion Gap 12 Blood Urea Nitrogen 73 H Creatinine 1.48 H Glucose Level 138 # Calcium Level 8.2 L Phosphorus Level 3.5 # Magnesium Level 3.5 H Creatine Kinase 76954 #H Creatine Kinase Index Creatinine Kinase MB (Mass) 49.80 H Troponin I 0.072 Amylase Level 213 H Lipase 415 H Test 01/04/17 01:21 01/04/17 02:09 01/04/17 02:30 01/04/17 02:51 Bedside Glucose 120 110 Activated Partial Thromboplast Time 94.4 *H Blood Gas Specimen Source Blood arterial Arterial Blood Date Drawn 01/04/2017 3:23:00 AM Arterial Blood pH (Temp corrected) 7.439 Arterial Blood pCO2 (Temp correct) 32.1 L Arterial Blood pO2 (Temp corrected) 89.5 Arterial Blood HCO3 22.0 Arterial Blood Base Excess -2.5 Arterial Blood Oxygen Saturation 97.7 Rikki Test N/A Arterial Blood Gas Puncture Site Right Brachial Arterial Blood Carboxyhemoglobin 0.4 Arterial Blood Methemoglobin 0.3 Blood Gas A-a O2 Differential 89.3 H Oxyhemoglobin Percent 97.0 Total Hemoglobin 15.4 Blood Gas Temperature 33.4 Blood Gas Respiration Rate 14.0 Blood Gas Actual Respiration Rate 16 Blood Gas Modality VENT - AC FiO2 30.0 Blood Gas Tidal Volume 500.0 Blood Gas Low PEEP Setting 5.0 Blood Gas Inspiratory Pressure 15.0 Blood Gas Notified Whom MG Blood Gas Notified Time 01/04/2017 3:29:47 AM Test 01/04/17 03:29 01/04/17 04:35 01/04/17 05:29 01/04/17 05:30 Bedside Glucose 97 81 90 White Blood Count 13.1 H Red Blood Count 4.43 L Hemoglobin 14.2 Hematocrit 43.0 Mean Corpuscular Volume 97.1 Mean Corpuscular Hemoglobin 32.1 Mean Corpuscular Hemoglobin Concent 33.0 Red Cell Distribution Width 12.8 Platelet Count 119 L Mean Platelet Volume 10.3 Neutrophils % 81.4 H Lymphocytes % 7.1 L Monocytes % 10.8 Eosinophils % 0.1 Basophils % 0.1 Nucleated Red Blood Cells % 0.0 Neutrophils # 10.7 H Lymphocytes # 0.9 Monocytes # 1.4 H Eosinophils # 0.0 Basophils # 0.0 Nucleated Red Blood Cells # 0.0 Prothrombin Time 18.7 H Prothrombin Time Ratio 1.5 INR International Normalized Ratio 1.55 Fibrinogen 533.0 #H Sodium Level 159 H Potassium Level 3.6 Chloride Level 122 H Carbon Dioxide Level 27 Anion Gap 14 Blood Urea Nitrogen 67 H Creatinine 1.28 H Glucose Level 88 # Hemoglobin A1c 5.2 Lactic Acid Level 1.6 Calcium Level 7.8 L Phosphorus Level 3.1 Magnesium Level 3.3 H Total Bilirubin 0.9 Direct Bilirubin 0.00 Indirect Bilirubin 0.9 Aspartate Amino Transf (AST/SGOT) 323 H Alanine Aminotransferase (ALT/SGPT) 212 H Alkaline Phosphatase 49 Creatine Kinase 69954 H Creatine Kinase Index 0.3 Creatinine Kinase MB (Mass) 44.70 H Troponin I 0.064 Total Protein 5.4 #L Albumin 3.2 #L Triglycerides Level 68 Cholesterol Level 92 L LDL Cholesterol, Calculated 35 HDL Cholesterol 43 Cholesterol/HDL Ratio 2.1 Amylase Level 155 H Lipase 375 H Test 01/04/17 06:24 01/04/17 07:11 01/04/17 08:05 01/04/17 08:51 Bedside Glucose 108 107 105 Blood Gas Specimen Source Blood arterial Arterial Blood Date Drawn 01/04/2017 9:20:47 AM Arterial Blood pH (Temp corrected) 7.422 Arterial Blood pCO2 (Temp correct) 34.8 L Arterial Blood pO2 (Temp corrected) 88.6 Arterial Blood HCO3 23.1 Arterial Blood Base Excess -2.2 Arterial Blood Oxygen Saturation 97.5 Rikki Test ACCEPTAB Arterial Blood Gas Puncture Site Right Radial Arterial Blood Carboxyhemoglobin 0.1 Arterial Blood Methemoglobin 0.1 Blood Gas A-a O2 Differential 87.3 H Oxyhemoglobin Percent 97.3 Total Hemoglobin 15.4 Blood Gas Temperature 33.0 Blood Gas Respiration Rate 14.0 Blood Gas Actual Respiration Rate 14 Blood Gas Modality VENT - AC FiO2 30.0 Blood Gas Tidal Volume 500.0 Blood Gas Low PEEP Setting 5.0 Blood Gas Notified Whom JLD Blood Gas Notified Time 01/04/2017 9:27:28 AM Test 01/04/17 08:59 01/04/17 09:20 01/04/17 10:01 01/04/17 11:01 Bedside Glucose 124 135 151 Activated Partial Thromboplast Time 141.7 *H Test 01/04/17 11:59 01/04/17 13:59 01/04/17 14:05 01/04/17 15:04 Bedside Glucose 154 133 127 White Blood Count 10.3 # Red Blood Count 4.33 L Hemoglobin 13.9 L Hematocrit 41.8 L Mean Corpuscular Volume 96.5 Mean Corpuscular Hemoglobin 32.1 Mean Corpuscular Hemoglobin Concent 33.3 Red Cell Distribution Width 12.8 Platelet Count 115 L Mean Platelet Volume 10.0 Neutrophils % 84.5 H Lymphocytes % 6.4 L Monocytes % 8.7 Eosinophils % 0.0 Basophils % 0.1 Nucleated Red Blood Cells % 0.0 Neutrophils # 8.7 H Lymphocytes # 0.7 L Monocytes # 0.9 Eosinophils # 0.0 Basophils # 0.0 Nucleated Red Blood Cells # 0.0 Prothrombin Time 17.8 H Prothrombin Time Ratio 1.4 INR International Normalized Ratio 1.46 Fibrinogen Pending Sodium Level 158 H Potassium Level 3.0 L Chloride Level 123 H Carbon Dioxide Level 31 Anion Gap 7 L Blood Urea Nitrogen 55 H Creatinine 1.18 Glucose Level 136 # Calcium Level 7.5 L Phosphorus Level 2.8 Magnesium Level 3.0 H Troponin I 0.023 Amylase Level 110 Lipase 201 Medications Medications Current Medications Acetaminophen (Tylenol Supp) 650 mg Q4H PRN LA TEMP > 37C; Start 01/03/17 at 15 :00 Acetaminophen (Tylenol Liquid) 650 mg Q4H PRN PO TEMP > 37C; Start 01/03/17 at 15:00 Acetaminophen (Tylenol Supp) 500 mg Q6H LA ; Start 01/04/17 at 15:00 Acetaminophen (Tylenol Liquid) 500 mg Q6H PO ; Start 01/04/17 at 15:00 Meperidine HCl (Demerol) 12.5 mg Q4H PRN IV POST OPERATIVE SHIVERING; Start at 15:00 Meperidine HCl (Demerol) 25 mg Q4H PRN IV POST OPERATIVE SHIVERING; Start 01/03 at 15:00 Eye Lubricant (Akwa Oint) 1 applic Q6 BOTH EYES Last administered on 01/04/17 12:00; Admin Dose 1 APPLIC; Start 01/03/17 at 18:00 Eye Lubricant (Artificial Tears Oph) 2 drop Q6 BOTH EYES Last administered on 12:00; Admin Dose 2 DROP; Start 01/03/17 at 18:00 Pantoprazole (Protonix Iv) 40 mg DAILY@06 IV Last administered on 01/04/17 06: 15; Admin Dose 40 MG; Start 01/03/17 at 17:00 Miscellaneous Information 1 ea NOTE XX ; Start 01/03/17 at 17:00 Glucose (Glutose) 15 gm Q15M PRN PO DECREASED GLUCOSE; Start 01/03/17 at 17:00 Glucose (Glutose) 22.5 gm Q15M PRN PO DECREASED GLUCOSE; Start 01/03/17 at 17: 00 Dextrose (D50w Syringe) 25 ml Q15M PRN IV DECREASED GLUCOSE; Start 01/03/17 at 17:00 Dextrose (D50w Syringe) 50 ml Q15M PRN IV DECREASED GLUCOSE; Start 01/03/17 at 17:00 Glucagon (Glucagen) 1 mg Q15M PRN IM DECREASED GLUCOSE; Start 01/03/17 at 17:00 Glucose 15 gm 15 gm Q15M PRN BUCCAL DECREASED GLUCOSE; Start 01/03/17 at 17:00 Midazolam HCl 50 ml @ 1 mls/hr TITRATE IV Last administered on 01/04/17 14:00 ; Admin Dose 5 MLS/HR; Start 01/03/17 at 21:00 Fentanyl (Sublimaze) 100 ml @ 2.5 mls/hr TITRATE IV Last administered on 19:00; Admin Dose 2.5 MLS/HR; Start 01/03/17 at 21:00 Diagnostic Test (Pha) (Accu-Chek) 1 ea Q1H XX Last administered on 01/04/17 14 :00; Admin Dose 1 EA; Start 01/03/17 at 21:00 Dextrose (D50w Syringe) 25 ml Q15M PRN IV Till BS 80 mg/dL or above x2; Start 01/03/17 at 21:00 Dextrose (D50w Syringe) 50 ml Q15M PRN IV Till BS 80 mg/dL or above x2; Start 01/03/17 at 21:00 Miscellaneous Information This patient naik... PRN PRN XX WOUND CARE; Start 01/04 at 03:00 Sodium Bicarbonate 100 meq/Dextrose/ Sodium Chloride 1,100 ml @ 100 mls/hr Q11H IV Last administered on 01/04/17 04:48; Admin Dose 100 MLS/HR; Start at 03:03 Piperacillin Sod/ Tazobactam Sod 100 ml @ 200 mls/hr Q6 IVPB Last administered on 01/04/17 12:02; Admin Dose 200 MLS/HR; Start 01/04/17 at 12:00 Vancomycin HCl (Vancocin) 250 ml @ 125 mls/hr Q12H IVPB Last administered on 09:57; Admin Dose 125 MLS/HR; Start 01/04/17 at 09:00 Silver Sulfadiazine (Thermazene 1% 25 Gm) 1 applic DAILY TOP Last administered on 01/04/17 14:03; Admin Dose 1 APPLIC; Start 01/04/17 at 14:00 YAZ BERRIOS NP Jan 04, 2017 15:40
[2017-01-04] MEDS ORDERED: SOD CHLORIDE 0.9% 1,000 ML IV ONE (18:00)
[2017-01-04] MEDS: HEPARIN 25000 UNITS/250 ML 250 ML IV SCH (18:48)
--- NOTE | 2017-01-04 19:02 | PN ---
Date/Time of Note Date/Time of Note DATE: 01/04/17 TIME: 18:58 Assessment/Plan VTE Prophylaxis VTE Prophylaxis Intervention: heparin Lines/Catheters IV Catheter Type ([facility] Central Line Central line still needed: Yes Urinary Cath still in place: Yes Reason Cath still needed: other (indicate) Assessment/Plan Chief Complaint/Hosp Course ASSESSMENT AND PLAN: 1. Cardiopulmonary arrest with pulseless electrical activity cardiopulm arrest. 2. Most likely pulmonary embolus. 3. Renal failure, unclear acute on chronic. Probably acute on chronic. 4. Encephalopathy. 5. Status post cardiopulmonary arrest with concern of spontaneous circulation. 6. Severe metabolic acidosis. 7. Acute transaminitis, probably shock liver. 8. Sepsis, respiratory failure, status post intubation on the vent. 9. Some facial contusion. 10 mildly abnormal troponin due to above. RECOMMENDATIONS: The patient has been placed on hypothermia protocol. heparin drip Currently being managed by internal medicine. We will continue with the vent support. CT pulmonary angiogram was not done due to concern about his renal function. IV fluids have been started. Continue with the ICU care. more than 40 minutes of critical care time was spent in managment and treatment of this critically ill patient, excluding any procedure. Problems: Subjective 24 Hr Interval Summary Free Text/Dictation d/w staff and rhythm was reviewed. pt remains intubated on vent in ICU on hypothermia protocol non verbal. Exam/Review of Systems Vital Signs Vitals Vital Signs Date Time Temp Pulse Resp B/P Pulse Ox O2 Delivery O2 Flow Rate FiO2 01/04/17 18:30 80 14 83/72 100 Mechanical Ventilator 01/04/17 18:00 92.3 01/04/17 17:22 30 Intake and Output 01/03/17 01/03/17 01/04/17 15:00 23:00 07:00 Intake Total 2220 ml 1362.70 ml 1372.98 ml Output Total 194 ml 476 ml Balance 2220 ml 1168.70 ml 896.98 ml Exam HEENT: Normocephalic, s/p facial trauma. . Status post intubation on the vent. DERMATOLOGIC: The left side of the face and the chest with ulcerated lesion. CARDIOVASCULAR: RRR PULMONARY: With no wheezes heard anteriorly. NO rhonchi. GASTROINTESTINAL: Soft, nontender. EXTREMITIES: Without lower extremity edema. NEUROLOGIC: No response to verbal or painful stimuli. Results Result Diagram: 01/04/17 1405 01/04/17 1405 Results 24 hrs Laboratory Tests Test 01/03/17 19:03 01/03/17 19:48 01/03/17 20:09 01/03/17 20:51 Sodium Level 154 H Potassium Level 4.4 Chloride Level 120 H Carbon Dioxide Level 26 # Anion Gap 12 # Blood Urea Nitrogen 76 H Creatinine 1.76 H Glucose Level 208 Lactic Acid Level 1.8 Calcium Level 7.9 L Creatine Kinase 36952 H Creatine Kinase Index 0.2 Creatinine Kinase MB (Mass) 37.00 H Troponin I 0.133 *H Bedside Glucose 204 Activated Partial Thromboplast Time 167.9 *H Blood Gas Specimen Source Blood arterial Arterial Blood Date Drawn 01/03/2017 8:50:44 PM Arterial Blood pH (Temp corrected) 7.399 Arterial Blood pCO2 (Temp correct) 34.9 L Arterial Blood pO2 (Temp corrected) 122.0 H Arterial Blood HCO3 22.3 Arterial Blood Base Excess -3.7 L Arterial Blood Oxygen Saturation 98.4 H Rikki Test N/A Arterial Blood Gas Puncture Site Right Brachial Arterial Blood Carboxyhemoglobin 0.3 Arterial Blood Methemoglobin 0.4 Blood Gas A-a O2 Differential 54.2 H Oxyhemoglobin Percent 97.7 Total Hemoglobin 16.3 Blood Gas Temperature 32.1 Blood Gas Respiration Rate 14.0 Blood Gas Actual Respiration Rate 14 Blood Gas Modality VENT - AC FiO2 30.0 Blood Gas Tidal Volume 500.0 Blood Gas Low PEEP Setting 5.0 Blood Gas Inspiratory Pressure 17.0 Blood Gas Notified Whom MG Blood Gas Notified Time 01/03/2017 8:57:24 PM Test 01/03/17 21:27 01/03/17 22:23 01/03/17 22:45 01/03/17 23:21 Bedside Glucose 228 H 188 172 White Blood Count 15.9 H Red Blood Count 4.72 Hemoglobin 15.0 Hematocrit 45.9 Mean Corpuscular Volume 97.2 Mean Corpuscular Hemoglobin 31.8 Mean Corpuscular Hemoglobin Concent 32.7 Red Cell Distribution Width 12.8 Platelet Count 143 Mean Platelet Volume 9.9 Neutrophils % 91.1 H Lymphocytes % 4.7 L Monocytes % 3.6 Eosinophils % 0.0 Basophils % 0.1 Nucleated Red Blood Cells % 0.0 Neutrophils # 14.5 H Lymphocytes # 0.7 L Monocytes # 0.6 Eosinophils # 0.0 Basophils # 0.0 Nucleated Red Blood Cells # 0.0 Test 01/04/17 00:16 01/04/17 00:50 01/04/17 01:21 01/04/17 02:09 Bedside Glucose 151 120 110 White Blood Count 13.5 H Red Blood Count 4.47 L Hemoglobin 14.7 Hematocrit 43.6 Mean Corpuscular Volume 97.5 Mean Corpuscular Hemoglobin 32.9 Mean Corpuscular Hemoglobin Concent 33.7 Red Cell Distribution Width 12.9 Platelet Count 117 L Mean Platelet Volume 9.9 Neutrophils % 87.1 H Lymphocytes % 5.3 L Monocytes % 7.1 Eosinophils % 0.0 Basophils % 0.1 Nucleated Red Blood Cells % 0.0 Neutrophils # 11.7 H Lymphocytes # 0.7 L Monocytes # 1.0 H Eosinophils # 0.0 Basophils # 0.0 Nucleated Red Blood Cells # 0.0 Prothrombin Time 18.2 H Prothrombin Time Ratio 1.4 INR International Normalized Ratio 1.50 Fibrinogen 442.0 Sodium Level 159 H Potassium Level 3.1 L Chloride Level 125 H Carbon Dioxide Level 25 Anion Gap 12 Blood Urea Nitrogen 73 H Creatinine 1.48 H Glucose Level 138 # Calcium Level 8.2 L Phosphorus Level 3.5 # Magnesium Level 3.5 H Creatine Kinase 72946 #H Creatine Kinase Index Creatinine Kinase MB (Mass) 49.80 H Troponin I 0.072 Amylase Level 213 H Lipase 415 H Test 01/04/17 02:30 01/04/17 02:51 01/04/17 03:29 01/04/17 04:35 Activated Partial Thromboplast Time 94.4 *H Blood Gas Specimen Source Blood arterial Arterial Blood Date Drawn 01/04/2017 3:23:00 AM Arterial Blood pH (Temp corrected) 7.439 Arterial Blood pCO2 (Temp correct) 32.1 L Arterial Blood pO2 (Temp corrected) 89.5 Arterial Blood HCO3 22.0 Arterial Blood Base Excess -2.5 Arterial Blood Oxygen Saturation 97.7 Rikki Test N/A Arterial Blood Gas Puncture Site Right Brachial Arterial Blood Carboxyhemoglobin 0.4 Arterial Blood Methemoglobin 0.3 Blood Gas A-a O2 Differential 89.3 H Oxyhemoglobin Percent 97.0 Total Hemoglobin 15.4 Blood Gas Temperature 33.4 Blood Gas Respiration Rate 14.0 Blood Gas Actual Respiration Rate 16 Blood Gas Modality VENT - AC FiO2 30.0 Blood Gas Tidal Volume 500.0 Blood Gas Low PEEP Setting 5.0 Blood Gas Inspiratory Pressure 15.0 Blood Gas Notified Whom MG Blood Gas Notified Time 01/04/2017 3:29:47 AM Bedside Glucose 97 81 Test 01/04/17 05:29 01/04/17 05:30 01/04/17 06:24 01/04/17 07:11 Bedside Glucose 90 108 107 White Blood Count 13.1 H Red Blood Count 4.43 L Hemoglobin 14.2 Hematocrit 43.0 Mean Corpuscular Volume 97.1 Mean Corpuscular Hemoglobin 32.1 Mean Corpuscular Hemoglobin Concent 33.0 Red Cell Distribution Width 12.8 Platelet Count 119 L Mean Platelet Volume 10.3 Neutrophils % 81.4 H Lymphocytes % 7.1 L Monocytes % 10.8 Eosinophils % 0.1 Basophils % 0.1 Nucleated Red Blood Cells % 0.0 Neutrophils # 10.7 H Lymphocytes # 0.9 Monocytes # 1.4 H Eosinophils # 0.0 Basophils # 0.0 Nucleated Red Blood Cells # 0.0 Prothrombin Time 18.7 H Prothrombin Time Ratio 1.5 INR International Normalized Ratio 1.55 Fibrinogen 533.0 #H Sodium Level 159 H Potassium Level 3.6 Chloride Level 122 H Carbon Dioxide Level 27 Anion Gap 14 Blood Urea Nitrogen 67 H Creatinine 1.28 H Glucose Level 88 # Hemoglobin A1c 5.2 Lactic Acid Level 1.6 Calcium Level 7.8 L Phosphorus Level 3.1 Magnesium Level 3.3 H Total Bilirubin 0.9 Direct Bilirubin 0.00 Indirect Bilirubin 0.9 Aspartate Amino Transf (AST/SGOT) 323 H Alanine Aminotransferase (ALT/SGPT) 212 H Alkaline Phosphatase 49 Creatine Kinase 77239 H Creatine Kinase Index 0.3 Creatinine Kinase MB (Mass) 44.70 H Troponin I 0.064 Total Protein 5.4 #L Albumin 3.2 #L Triglycerides Level 68 Cholesterol Level 92 L LDL Cholesterol, Calculated 35 HDL Cholesterol 43 Cholesterol/HDL Ratio 2.1 Amylase Level 155 H Lipase 375 H Test 01/04/17 08:05 01/04/17 08:51 01/04/17 08:59 01/04/17 09:20 Bedside Glucose 105 124 Blood Gas Specimen Source Blood arterial Arterial Blood Date Drawn 01/04/2017 9:20:47 AM Arterial Blood pH (Temp corrected) 7.422 Arterial Blood pCO2 (Temp correct) 34.8 L Arterial Blood pO2 (Temp corrected) 88.6 Arterial Blood HCO3 23.1 Arterial Blood Base Excess -2.2 Arterial Blood Oxygen Saturation 97.5 Rikki Test ACCEPTAB Arterial Blood Gas Puncture Site Right Radial Arterial Blood Carboxyhemoglobin 0.1 Arterial Blood Methemoglobin 0.1 Blood Gas A-a O2 Differential 87.3 H Oxyhemoglobin Percent 97.3 Total Hemoglobin 15.4 Blood Gas Temperature 33.0 Blood Gas Respiration Rate 14.0 Blood Gas Actual Respiration Rate 14 Blood Gas Modality VENT - AC FiO2 30.0 Blood Gas Tidal Volume 500.0 Blood Gas Low PEEP Setting 5.0 Blood Gas Notified Whom JLD Blood Gas Notified Time 01/04/2017 9:27:28 AM Activated Partial Thromboplast Time 141.7 *H Test 01/04/17 10:01 01/04/17 11:01 01/04/17 11:59 01/04/17 13:59 Bedside Glucose 135 151 154 133 Test 01/04/17 14:05 01/04/17 14:51 01/04/17 15:04 01/04/17 15:59 White Blood Count 10.3 # Red Blood Count 4.33 L Hemoglobin 13.9 L Hematocrit 41.8 L Mean Corpuscular Volume 96.5 Mean Corpuscular Hemoglobin 32.1 Mean Corpuscular Hemoglobin Concent 33.3 Red Cell Distribution Width 12.8 Platelet Count 115 L Mean Platelet Volume 10.0 Neutrophils % 84.5 H Lymphocytes % 6.4 L Monocytes % 8.7 Eosinophils % 0.0 Basophils % 0.1 Nucleated Red Blood Cells % 0.0 Neutrophils # 8.7 H Lymphocytes # 0.7 L Monocytes # 0.9 Eosinophils # 0.0 Basophils # 0.0 Nucleated Red Blood Cells # 0.0 Prothrombin Time 17.8 H Prothrombin Time Ratio 1.4 INR International Normalized Ratio 1.46 Fibrinogen 553.0 #H Sodium Level 158 H Potassium Level 3.0 L Chloride Level 123 H Carbon Dioxide Level 31 Anion Gap 7 L Blood Urea Nitrogen 55 H Creatinine 1.18 Glucose Level 136 # Calcium Level 7.5 L Phosphorus Level 2.8 Magnesium Level 3.0 H Troponin I 0.023 Amylase Level 110 Lipase 201 Blood Gas Specimen Source Blood arterial Arterial Blood Date Drawn 01/04/2017 3:20:44 PM Arterial Blood pH (Temp corrected) 7.430 Arterial Blood pCO2 (Temp correct) 35.0 Arterial Blood pO2 (Temp corrected) 104.5 H Arterial Blood HCO3 23.7 Arterial Blood Base Excess -1.6 Arterial Blood Oxygen Saturation 97.8 Rikki Test ACCEPTAB Arterial Blood Gas Puncture Site Right Radial Arterial Blood Carboxyhemoglobin 0.2 Arterial Blood Methemoglobin 0.1 Blood Gas A-a O2 Differential 71.2 H Oxyhemoglobin Percent 97.5 Total Hemoglobin 15.1 Blood Gas Temperature 32.8 Blood Gas Respiration Rate 14.0 Blood Gas Actual Respiration Rate 14 Blood Gas Modality VENT - AC FiO2 30.0 Blood Gas Tidal Volume 500.0 Blood Gas Low PEEP Setting 5.0 Blood Gas Notified Whom JLD Blood Gas Notified Time 01/04/2017 3:32:26 PM Bedside Glucose 127 126 Test 01/04/17 16:57 01/04/17 18:00 01/04/17 18:50 Bedside Glucose 119 130 126 Medications Medications Current Medications Acetaminophen (Tylenol Supp) 650 mg Q4H PRN PA TEMP > 37C; Start 01/03/17 at 15 :00 Acetaminophen (Tylenol Liquid) 650 mg Q4H PRN PO TEMP > 37C; Start 01/03/17 at 15:00 Acetaminophen (Tylenol Supp) 500 mg Q6H PA ; Start 01/04/17 at 15:00 Acetaminophen (Tylenol Liquid) 500 mg Q6H PO Last administered on 01/04/17 15: 45; Admin Dose 500 MG; Start 01/04/17 at 15:00 Meperidine HCl (Demerol) 12.5 mg Q4H PRN IV POST OPERATIVE SHIVERING; Start at 15:00 Meperidine HCl (Demerol) 25 mg Q4H PRN IV POST OPERATIVE SHIVERING; Start 01/03 at 15:00 Eye Lubricant (Akwa Oint) 1 applic Q6 BOTH EYES Last administered on 01/04/17 17:07; Admin Dose 1 APPLIC; Start 01/03/17 at 18:00 Eye Lubricant (Artificial Tears Oph) 2 drop Q6 BOTH EYES Last administered on 17:07; Admin Dose 2 DROP; Start 01/03/17 at 18:00 Pantoprazole (Protonix Iv) 40 mg DAILY@06 IV Last administered on 01/04/17 06: 15; Admin Dose 40 MG; Start 01/03/17 at 17:00 Miscellaneous Information 1 ea NOTE XX ; Start 01/03/17 at 17:00 Glucose (Glutose) 15 gm Q15M PRN PO DECREASED GLUCOSE; Start 01/03/17 at 17:00 Glucose (Glutose) 22.5 gm Q15M PRN PO DECREASED GLUCOSE; Start 01/03/17 at 17: 00 Dextrose (D50w Syringe) 25 ml Q15M PRN IV DECREASED GLUCOSE; Start 01/03/17 at 17:00 Dextrose (D50w Syringe) 50 ml Q15M PRN IV DECREASED GLUCOSE; Start 01/03/17 at 17:00 Glucagon (Glucagen) 1 mg Q15M PRN IM DECREASED GLUCOSE; Start 01/03/17 at 17:00 Glucose 15 gm 15 gm Q15M PRN BUCCAL DECREASED GLUCOSE; Start 01/03/17 at 17:00 Midazolam HCl 50 ml @ 1 mls/hr TITRATE IV Last administered on 01/04/17 14:00 ; Admin Dose 5 MLS/HR; Start 01/03/17 at 21:00 Fentanyl (Sublimaze) 100 ml @ 2.5 mls/hr TITRATE IV Last administered on 15:37; Admin Dose 5 MLS/HR; Start 01/03/17 at 21:00 Diagnostic Test (Pha) (Accu-Chek) 1 ea Q1H XX Last administered on 01/04/17 18 :50; Admin Dose 1 EA; Start 01/03/17 at 21:00 Dextrose (D50w Syringe) 25 ml Q15M PRN IV Till BS 80 mg/dL or above x2; Start 01/03/17 at 21:00 Dextrose (D50w Syringe) 50 ml Q15M PRN IV Till BS 80 mg/dL or above x2; Start 01/03/17 at 21:00 Miscellaneous Information This patient naik... PRN PRN XX WOUND CARE; Start 01/04 at 03:00 Sodium Bicarbonate 100 meq/Dextrose/ Sodium Chloride 1,100 ml @ 100 mls/hr Q11H IV Last administered on 01/04/17 14:03; Admin Dose 100 MLS/HR; Start at 03:03 Piperacillin Sod/ Tazobactam Sod 100 ml @ 200 mls/hr Q6 IVPB Last administered on 01/04/17 17:45; Admin Dose 200 MLS/HR; Start 01/04/17 at 12:00 Vancomycin HCl (Vancocin) 250 ml @ 125 mls/hr Q12H IVPB Last administered on 09:57; Admin Dose 125 MLS/HR; Start 01/04/17 at 09:00 Silver Sulfadiazine 1 applic 1 applic DAILY TOP Last administered on 01/04/17 14:03; Admin Dose 1 APPLIC; Start 01/04/17 at 14:00 Sodium Chloride 1,000 ml @ 1,000 mls/hr Q1H ONCE IV Last administered on 17:45; Admin Dose 1,000 MLS/HR; Start 01/04/17 at 18:00; Stop 01/04/17 at 18:59 Norepinephrine/ Dextrose (Levophed/D5W) 500 ml @ 1.87 mls/hr TITRATE IV ; Start 01/04/17 at 18:30 JENI KANG MD Jan 04, 2017 19:02
[2017-01-04 20:11] LABS: ADD SCAN DIFF NO
[2017-01-04 20:14] LABS: ABNORMAL IP MESSAGE 1; HEMATOCRIT 30.6 % (42.0-52.0); HEMOGLOBIN 10.5 g/dl (14.0-18.0); MEAN CORPUSCULAR HEMOGLOBIN 33.4 pg (29.0-33.0); MEAN CORPUSCULAR HGB CONC 34.3 g/dl (32.0-37.0); MEAN CORPUSCULAR VOLUME 97.5 fl (82.0-101.0); PLATELET COUNT 76 10^3/UL (140-415); RED BLOOD COUNT 3.14 10^6/ul (4.70-6.10); RED CELL DISTRIBUTION WIDTH 13.1 % (11.5-14.5); WHITE BLOOD COUNT 7.5 10^3/ul (4.8-10.8)
[2017-01-04 20:27] LABS: INR 1.86; PROTIME 21.6 Sec (12.2-14.2); PT RATIO 1.7
[2017-01-04 21:11] LABS: AADO2 Arterial 53.9 mmHg (7.0-24.0); Allen Test ACCEPTAB; Arterial Base Excess -0.2 mmol/L (-3.0-3); Arterial COHb 0.3 % (0.0-3.0); Arterial Fraction of Oxyhgb 97.4 % (93.0-99.0); Arterial HCO3 24.4 mmol/L (22.0-26.0); Arterial MetHb 0.2 % (0.0-1.5); Arterial Total Hemglobin 13.3 g/dl (12.0-18.0); MODE VENT - AC
[2017-01-04 21:41] LABS: CALCIUM 6.8 mg/dl (8.4-10.2); CREATININE 1.2 mg/dl (0.61-1.24); MAGNESIUM 2.9 mg/dl (1.7-2.5); PHOSPHORUS 2.6 mg/dl (2.5-4.9)
[2017-01-04 21:53] LABS: TROPONIN-I 0.024 ng/ml (0.00-0.12)
[2017-01-04 22:40] LABS: LYMPHOCYTES # 0.5 10^3/ul (0.8-2.9); MONOCYTE # 0.5 10^3/ul (0.3-0.9); NEUTROPHIL # 5.2 10^3/ul (1.6-7.5); PLATELET ESTIMATE PLT APPEAR DECREASED
[2017-01-05] VITALS (44 sets, daily range): BP systolic 79–114; BP diastolic 49–77; PULSE 82–112; RESP 14–19
[2017-01-05] MEDS: ACCU-CHEK XX SCH ×7 (00:37→06:00)
[2017-01-05] MEDS: OCULAR LUBRICANT 3.5 GM OPH OINT BOTH EYES SCH ×4 (00:38→18:25)
[2017-01-05] MEDS: ARTIFICIAL TEARS 15 ML OPH BOTH EYES SCH ×4 (00:38→18:25)
[2017-01-05] MEDS: PIPER-TAZO 3.375 GM IV (PMX) 100 ML IVPB SCH ×4 (00:39→18:25)
[2017-01-05 01:03] LABS: ADD SCAN DIFF NO
[2017-01-05 01:05] LABS: ABNORMAL IP MESSAGE 1; BASOPHILS % 0.1 % (0.0-2.0); EOSINOPHILS % 0.2 % (0.0-7.0); HEMATOCRIT 35.8 % (42.0-52.0); HEMOGLOBIN 11.8 g/dl (14.0-18.0); LYMPHOCYTES # 0.6 10^3/ul (0.8-2.9); LYMPHOCYTES % 6.7 % (15.0-51.0); MEAN PLATELET VOLUME 10.3 fl (7.4-10.4); MONOCYTE # 0.6 10^3/ul (0.3-0.9); MONOCYTES % 6.3 % (0.0-11.0); NEUTROPHIL # 7.8 10^3/ul (1.6-7.5); NEUTROPHILS % 86.4 % (39.0-77.0); PLATELET COUNT 86 10^3/UL (140-415); RED BLOOD COUNT 3.69 10^6/ul (4.70-6.10); RED CELL DISTRIBUTION WIDTH 13.2 % (11.5-14.5)
[2017-01-05 01:24] LABS: INR 1.66; PROTIME 19.7 Sec (12.2-14.2); PT RATIO 1.5
[2017-01-05] MEDS: MIDAZOLAM (DRIP) 50 mg/50 mL 50 ML IV SCH (01:29)
[2017-01-05 01:46] LABS: CALCIUM 7.3 mg/dl (8.4-10.2); CREATININE 1.16 mg/dl (0.61-1.24); MAGNESIUM 2.8 mg/dl (1.7-2.5); PHOSPHORUS 2.3 mg/dl (2.5-4.9); POTASSIUM 3.1 mmol/L (3.5-5.1)
[2017-01-05 01:56] LABS: TROPONIN-I 0.028 ng/ml (0.00-0.12)
[2017-01-05] MEDS: SODIUM BICARBONATE (IV ADD) 100 MEQ in DEXTROSE 5%-0.45% NACL 1,000 ML IV SCH (02:17)
[2017-01-05] MEDS: ACETAMINOPHEN 650 MG SUPP PR SCH ×4 (03:00→21:00)
[2017-01-05 03:13] LABS: AADO2 Arterial 76.5 mmHg (7.0-24.0); Allen Test ACCEPTAB; Arterial Base Excess 4.9 mmol/L (-3.0-3); Arterial COHb 0.3 % (0.0-3.0); Arterial Fraction of Oxyhgb 96.2 % (93.0-99.0); Arterial HCO3 29.7 mmol/L (22.0-26.0); Arterial MetHb 0.3 % (0.0-1.5); Arterial Total Hemglobin 13.3 g/dl (12.0-18.0); MODE VENT - AC
[2017-01-05] MEDS: ACETAMINOPHEN 650MG/20.3ML CUP PO SCH ×4 (03:36→21:14)
[2017-01-05 04:54] LABS: ADD SCAN DIFF NO
[2017-01-05 05:32] LABS: ABNORMAL IP MESSAGE 1; BASOPHILS % 0.1 % (0.0-2.0); EOSINOPHILS % 0.2 % (0.0-7.0); HEMATOCRIT 34.6 % (42.0-52.0); HEMOGLOBIN 11.3 g/dl (14.0-18.0); LYMPHOCYTES # 0.6 10^3/ul (0.8-2.9); LYMPHOCYTES % 6.7 % (15.0-51.0); MEAN CORPUSCULAR HEMOGLOBIN 31.7 pg (29.0-33.0); MEAN CORPUSCULAR HGB CONC 32.7 g/dl (32.0-37.0); MEAN CORPUSCULAR VOLUME 97.2 fl (82.0-101.0); MEAN PLATELET VOLUME 10.8 fl (7.4-10.4); MONOCYTE # 0.5 10^3/ul (0.3-0.9); MONOCYTES % 6.2 % (0.0-11.0); NEUTROPHIL # 7.5 10^3/ul (1.6-7.5); NEUTROPHILS % 86.3 % (39.0-77.0); PLATELET COUNT 91 10^3/UL (140-415); RED BLOOD COUNT 3.56 10^6/ul (4.70-6.10); RED CELL DISTRIBUTION WIDTH 12.9 % (11.5-14.5); WHITE BLOOD COUNT 8.7 10^3/ul (4.8-10.8)
[2017-01-05 05:35] LABS: ALBUMIN 2.3 g/dl (3.3-4.9); BILIRUBIN,INDIRECT 0.6 mg/dl (0-1.1); BILIRUBIN,TOTAL 0.6 mg/dl (0.2-1.3); CALCIUM 6.5 mg/dl (8.4-10.2); CREATININE 1.07 mg/dl (0.61-1.24); POTASSIUM 3.1 mmol/L (3.5-5.1); TOTAL PROTEIN 4.2 g/dl (6.1-8.1)
[2017-01-05] MEDS: PANTOPRAZOLE 40 MG INJ IV SCH (06:38)
--- NOTE | 2017-01-05 07:47 | RADRPT ---
PROCEDURE: XR Chest. CLINICAL INDICATION: Respiratory failure TECHNIQUE: A single AP view of the chest was obtained. COMPARISON: Chest x-ray dated 01/04/2017 FINDINGS: The endotracheal tube tip is approximately 4.0 cm above the lary. The tip of the enteric tube pr ojects over the left upper quadrant. Is a right internal jugular central venous catheter with tip in the mid SVC. No focal airspace opacification, pleural effusion or pneumothorax is seen. The cardiomediastinal si lhouette is within normal limits for size. Calcifications are seen within the aortic arch. The osse ous structures are unremarkable. IMPRESSION: 1. No radiographic evidence of acute cardiopulmonary disease. No significant interval change. 2. Aortic atherosclerosis. 3. Tubes and lines, as described above. RPTAT: HH .Kim Tracey MD, MD Date Time Electronically viewed and signed by .Kim Tracey MD, on 01/05/2017 07:46 .G/
[2017-01-05] MEDS: Insulin NOVOLOG SS MILD Algorithm (NPO/TPN/ENTERAL FEEDS) SC SCH ×4 (08:06→21:00)
[2017-01-05] MEDS: VANCOMYCIN 1 GM in NS 250 ML IVPB SCH ×2 (08:08→21:13)
--- NOTE | 2017-01-05 08:29 | PN ---
Date/Time of Note Date/Time of Note DATE: 01/05/17 TIME: 08:21 Assessment/Plan VTE Prophylaxis VTE Prophylaxis Intervention: heparin Lines/Catheters IV Catheter Type (from Nrs): Saline Lock Urinary Cath still in place: Yes Reason Cath still needed: other (indicate) Assessment/Plan Assessment/Plan 1. Status post cardiac arrest with return of spontaneous circulation /PEA 2. Acute pulmonary emboli 3. Acute respiratory failure currently ventilator dependent 4. acute encephalopathy secondary to the above 5. severe hypernatremia likely secondary to dehydration : improving 6. acute renal insufficiency with hyperkalemia : resolved 7. severe metabolic acidosis likely secondary to acute renal insufficiency: resolved 8. acute transaminitis with hyperbilirubinemia likely secondary to shock liver : improved 9. sepsis with multiorgan failure likely secondary to urinary tract infection: improving 10. Possible fall with left-sided facial contusion with hx of recurrent falls secondary to progressive supranuclear palsy CT shows chronic nasal bone fracture deformities nothing acute 11. Old bilateral rib fractures 2/2 recurrent falls in the past 12. Chronic degenerative changes of the cervical spine 13. Questionable anoxic brain injury, recommend to obtain the EEG post hypothermia protocol PLAN: Continue care and intensive care unit Ventilator support and management/ serial EKGs and chest x-rays Continue broad-spectrum antibiotic coverage/ pancultures non conclusive so far Continue Gentle IV fluid hydration with bicarbonate supplementation/serial renal function panel / closely monitor electrolytes and replace as indicated Complete rewarming and reevaluate mental status Continue Heparin drip for pulmonary emboli For further interventions per clinical course Appreciate all consults Prophylaxis with IV PPI and heparin drip Subjective 24 Hr Interval Summary Free Text/Dictation Patient seen and examined. Still in rewarming process Exam/Review of Systems Vital Signs Vitals Vital Signs Date Time Temp Pulse Resp B/P Pulse Ox O2 Delivery O2 Flow Rate FiO2 01/05/17 08:00 111 18 108/69 99 Mechanical Ventilator 01/05/17 07:45 30 01/05/17 07:30 98.6 Intake and Output 01/04/17 01/04/17 01/05/17 15:00 23:00 07:00 Intake Total 1357.2 ml 2342.30 ml 1078.04 ml Output Total 816 ml 376 ml 350 ml Balance 541.2 ml 1966.30 ml 728.04 ml Exam General: The patient is intubated HEENT: Atraumatic, normocephalic. The pupils are equal Neck: Supple Chest: Normal Lungs: Decreased breath sounds bilateral lower lung field Heart: Normal S1-S2, Regular rhythm and rate. Abdomen: Soft , nontender, nondistended , bowel sounds are present. Extremities: trace edema no cyanosis Neurologic: Sedated Skin: L sided contusions and abrasions Results Result Diagram: 01/05/17 0430 01/05/17 0430 Results 24 hrs Laboratory Tests Test 01/04/17 08:51 01/04/17 08:59 01/04/17 09:20 01/04/17 10:01 Blood Gas Specimen Source Blood arterial Arterial Blood Date Drawn 01/04/2017 9:20:47 AM Arterial Blood pH (Temp corrected) 7.422 Arterial Blood pCO2 (Temp correct) 34.8 L Arterial Blood pO2 (Temp corrected) 88.6 Arterial Blood HCO3 23.1 Arterial Blood Base Excess -2.2 Arterial Blood Oxygen Saturation 97.5 Rikki Test ACCEPTAB Arterial Blood Gas Puncture Site Right Radial Arterial Blood Carboxyhemoglobin 0.1 Arterial Blood Methemoglobin 0.1 Blood Gas A-a O2 Differential 87.3 H Oxyhemoglobin Percent 97.3 Total Hemoglobin 15.4 Blood Gas Temperature 33.0 Blood Gas Respiration Rate 14.0 Blood Gas Actual Respiration Rate 14 Blood Gas Modality VENT - AC FiO2 30.0 Blood Gas Tidal Volume 500.0 Blood Gas Low PEEP Setting 5.0 Blood Gas Notified Whom JLD Blood Gas Notified Time 01/04/2017 9:27:28 AM Bedside Glucose 124 135 Activated Partial Thromboplast Time 141.7 *H Test 01/04/17 11:01 01/04/17 11:59 01/04/17 13:59 01/04/17 14:05 Bedside Glucose 151 154 133 White Blood Count 10.3 # Red Blood Count 4.33 L Hemoglobin 13.9 L Hematocrit 41.8 L Mean Corpuscular Volume 96.5 Mean Corpuscular Hemoglobin 32.1 Mean Corpuscular Hemoglobin Concent 33.3 Red Cell Distribution Width 12.8 Platelet Count 115 L Mean Platelet Volume 10.0 Neutrophils % 84.5 H Lymphocytes % 6.4 L Monocytes % 8.7 Eosinophils % 0.0 Basophils % 0.1 Nucleated Red Blood Cells % 0.0 Neutrophils # 8.7 H Lymphocytes # 0.7 L Monocytes # 0.9 Eosinophils # 0.0 Basophils # 0.0 Nucleated Red Blood Cells # 0.0 Prothrombin Time 17.8 H Prothrombin Time Ratio 1.4 INR International Normalized Ratio 1.46 Fibrinogen 553.0 #H Sodium Level 158 H Potassium Level 3.0 L Chloride Level 123 H Carbon Dioxide Level 31 Anion Gap 7 L Blood Urea Nitrogen 55 H Creatinine 1.18 Glucose Level 136 # Calcium Level 7.5 L Phosphorus Level 2.8 Magnesium Level 3.0 H Troponin I 0.023 Amylase Level 110 Lipase 201 Test 01/04/17 14:51 01/04/17 15:04 01/04/17 15:59 01/04/17 16:57 Blood Gas Specimen Source Blood arterial Arterial Blood Date Drawn 01/04/2017 3:20:44 PM Arterial Blood pH (Temp corrected) 7.430 Arterial Blood pCO2 (Temp correct) 35.0 Arterial Blood pO2 (Temp corrected) 104.5 H Arterial Blood HCO3 23.7 Arterial Blood Base Excess -1.6 Arterial Blood Oxygen Saturation 97.8 Rikki Test ACCEPTAB Arterial Blood Gas Puncture Site Right Radial Arterial Blood Carboxyhemoglobin 0.2 Arterial Blood Methemoglobin 0.1 Blood Gas A-a O2 Differential 71.2 H Oxyhemoglobin Percent 97.5 Total Hemoglobin 15.1 Blood Gas Temperature 32.8 Blood Gas Respiration Rate 14.0 Blood Gas Actual Respiration Rate 14 Blood Gas Modality VENT - AC FiO2 30.0 Blood Gas Tidal Volume 500.0 Blood Gas Low PEEP Setting 5.0 Blood Gas Notified Whom JLD Blood Gas Notified Time 01/04/2017 3:32:26 PM Bedside Glucose 127 126 119 Test 01/04/17 18:00 01/04/17 18:35 01/04/17 18:50 01/04/17 20:00 Bedside Glucose 130 126 Activated Partial Thromboplast Time 91.4 *H White Blood Count 7.5 # Red Blood Count 3.14 #L Hemoglobin 10.5 #L Hematocrit 30.6 #L Mean Corpuscular Volume 97.5 Mean Corpuscular Hemoglobin 33.4 H Mean Corpuscular Hemoglobin Concent 34.3 Red Cell Distribution Width 13.1 Platelet Count 76 #L Mean Platelet Volume 10.0 Neutrophils % 69.0 Band Neutrophils % 18.0 H Lymphocytes % 7.0 L Monocytes % 6.0 Eosinophils % Neutrophils # 5.2 Lymphocytes # 0.5 L Monocytes # 0.5 Eosinophils # Platelet Estimate PLT APPEAR DECREASED Prothrombin Time 21.6 #H Prothrombin Time Ratio 1.7 INR International Normalized Ratio 1.86 Fibrinogen 438.0 # Test 01/04/17 20:23 01/04/17 20:51 01/04/17 21:05 01/04/17 22:21 Bedside Glucose 82 106 80 Blood Gas Specimen Source Blood arterial Arterial Blood Date Drawn 01/04/2017 9:00:41 PM Arterial Blood pH (Temp corrected) 7.443 Arterial Blood pCO2 (Temp correct) 35.7 Arterial Blood pO2 (Temp corrected) 119.9 H Arterial Blood HCO3 24.4 Arterial Blood Base Excess -0.2 Arterial Blood Oxygen Saturation 97.9 Rikki Test ACCEPTAB Arterial Blood Gas Puncture Site Right Radial Arterial Blood Carboxyhemoglobin 0.3 Arterial Blood Methemoglobin 0.2 Blood Gas A-a O2 Differential 53.9 H Oxyhemoglobin Percent 97.4 Total Hemoglobin 13.3 Blood Gas Temperature 34.5 Blood Gas Respiration Rate 14.0 Blood Gas Actual Respiration Rate 14 Blood Gas Modality VENT - AC FiO2 30.0 Blood Gas Tidal Volume 500.0 Blood Gas Low PEEP Setting 5.0 Blood Gas Notified Whom Blood Gas Notified Time 01/04/2017 9:11:33 PM Sodium Level 158 H Potassium Level 3.0 L Chloride Level 121 H Carbon Dioxide Level 33 H Anion Gap 7 L Blood Urea Nitrogen 58 H Creatinine 1.20 Glucose Level 86 # Calcium Level 6.8 L Phosphorus Level 2.6 Magnesium Level 2.9 H Troponin I 0.024 Amylase Level 77 Lipase 193 Test 01/04/17 23:14 01/05/17 00:26 01/05/17 00:55 01/05/17 01:25 Bedside Glucose 97 104 97 White Blood Count 9.0 Red Blood Count 3.69 L Hemoglobin 11.8 L Hematocrit 35.8 L Mean Corpuscular Volume 97.0 Mean Corpuscular Hemoglobin 32.0 Mean Corpuscular Hemoglobin Concent 33.0 Red Cell Distribution Width 13.2 Platelet Count 86 L Mean Platelet Volume 10.3 Neutrophils % 86.4 H Lymphocytes % 6.7 L Monocytes % 6.3 Eosinophils % 0.2 Basophils % 0.1 Nucleated Red Blood Cells % 0.0 Neutrophils # 7.8 H Lymphocytes # 0.6 L Monocytes # 0.6 Eosinophils # 0.0 Basophils # 0.0 Nucleated Red Blood Cells # 0.0 Prothrombin Time 19.7 H Prothrombin Time Ratio 1.5 INR International Normalized Ratio 1.66 Activated Partial Thromboplast Time 83.9 *H Fibrinogen 533.0 #H Sodium Level 160 H Potassium Level 3.1 L Chloride Level 124 H Carbon Dioxide Level 30 Anion Gap 9 Blood Urea Nitrogen 53 H Creatinine 1.16 Glucose Level 116 Calcium Level 7.3 L Phosphorus Level 2.3 L Magnesium Level 2.8 H Troponin I 0.028 Amylase Level 83 Lipase 161 Test 01/05/17 03:00 01/05/17 03:18 01/05/17 04:30 01/05/17 05:48 Blood Gas Specimen Source Blood arterial Arterial Blood Date Drawn 01/05/2017 3:05:38 AM Arterial Blood pH (Temp corrected) 7.459 H Arterial Blood pCO2 (Temp correct) 42.3 Arterial Blood pO2 (Temp corrected) 88.6 Arterial Blood HCO3 29.7 H Arterial Blood Base Excess 4.9 H Arterial Blood Oxygen Saturation 96.8 Rikki Test ACCEPTAB Arterial Blood Gas Puncture Site Right Radial Arterial Blood Carboxyhemoglobin 0.3 Arterial Blood Methemoglobin 0.3 Blood Gas A-a O2 Differential 76.5 H Oxyhemoglobin Percent 96.2 Total Hemoglobin 13.3 Blood Gas Temperature 35.8 Blood Gas Respiration Rate 14.0 Blood Gas Actual Respiration Rate 14 Blood Gas Modality VENT - AC FiO2 30.0 Blood Gas Tidal Volume 500.0 Blood Gas Low PEEP Setting 5.0 Blood Gas Notified Whom Blood Gas Notified Time 01/05/2017 3:13:27 AM Bedside Glucose 114 110 White Blood Count 8.7 Red Blood Count 3.56 L Hemoglobin 11.3 L Hematocrit 34.6 L Mean Corpuscular Volume 97.2 Mean Corpuscular Hemoglobin 31.7 Mean Corpuscular Hemoglobin Concent 32.7 Red Cell Distribution Width 12.9 Platelet Count 91 L Mean Platelet Volume 10.8 H Neutrophils % 86.3 H Lymphocytes % 6.7 L Monocytes % 6.2 Eosinophils % 0.2 Basophils % 0.1 Nucleated Red Blood Cells % 0.0 Neutrophils # 7.5 Lymphocytes # 0.6 L Monocytes # 0.5 Eosinophils # 0.0 Basophils # 0.0 Nucleated Red Blood Cells # 0.0 Activated Partial Thromboplast Time 68.7 H Sodium Level 157 H Potassium Level 3.1 L Chloride Level 125 H Carbon Dioxide Level 29 Anion Gap 6 L Blood Urea Nitrogen 49 H Creatinine 1.07 Glucose Level 112 Calcium Level 6.5 L Total Bilirubin 0.6 Direct Bilirubin 0.00 Indirect Bilirubin 0.6 Aspartate Amino Transf (AST/SGOT) 157 #H Alanine Aminotransferase (ALT/SGPT) 160 H Alkaline Phosphatase 39 L Total Protein 4.2 #L Albumin 2.3 L Test 01/05/17 08:05 Bedside Glucose 124 Medications Medications Current Medications Acetaminophen (Tylenol Supp) 650 mg Q4H PRN CA TEMP > 37C; Start 01/03/17 at 15 :00 Acetaminophen (Tylenol Liquid) 650 mg Q4H PRN PO TEMP > 37C; Start 01/03/17 at 15:00 Acetaminophen (Tylenol Supp) 500 mg Q6H CA ; Start 01/04/17 at 15:00 Acetaminophen (Tylenol Liquid) 500 mg Q6H PO Last administered on 01/05/17 03: 36; Admin Dose 500 MG; Start 01/04/17 at 15:00 Meperidine HCl (Demerol) 12.5 mg Q4H PRN IV POST OPERATIVE SHIVERING; Start at 15:00 Meperidine HCl (Demerol) 25 mg Q4H PRN IV POST OPERATIVE SHIVERING; Start 01/03 at 15:00 Eye Lubricant (Akwa Oint) 1 applic Q6 BOTH EYES Last administered on 01/05/17 06:38; Admin Dose 1 APPLIC; Start 01/03/17 at 18:00 Eye Lubricant (Artificial Tears Oph) 2 drop Q6 BOTH EYES Last administered on 06:38; Admin Dose 2 DROP; Start 01/03/17 at 18:00 Pantoprazole (Protonix Iv) 40 mg DAILY@06 IV Last administered on 01/05/17 06: 38; Admin Dose 40 MG; Start 01/03/17 at 17:00 Miscellaneous Information 1 ea NOTE XX ; Start 01/03/17 at 17:00 Glucose (Glutose) 15 gm Q15M PRN PO DECREASED GLUCOSE; Start 01/03/17 at 17:00 Glucose (Glutose) 22.5 gm Q15M PRN PO DECREASED GLUCOSE; Start 01/03/17 at 17: 00 Dextrose (D50w Syringe) 25 ml Q15M PRN IV DECREASED GLUCOSE; Start 01/03/17 at 17:00 Dextrose (D50w Syringe) 50 ml Q15M PRN IV DECREASED GLUCOSE; Start 01/03/17 at 17:00 Glucagon (Glucagen) 1 mg Q15M PRN IM DECREASED GLUCOSE; Start 01/03/17 at 17:00 Glucose 15 gm 15 gm Q15M PRN BUCCAL DECREASED GLUCOSE; Start 01/03/17 at 17:00 Midazolam HCl 50 ml @ 1 mls/hr TITRATE IV Last administered on 01/05/17 01:29 ; Admin Dose 4 MLS/HR; Start 01/03/17 at 21:00 Fentanyl (Sublimaze) 100 ml @ 2.5 mls/hr TITRATE IV Last administered on 15:37; Admin Dose 5 MLS/HR; Start 01/03/17 at 21:00 Dextrose (D50w Syringe) 25 ml Q15M PRN IV Till BS 80 mg/dL or above x2; Start 01/03/17 at 21:00 Dextrose (D50w Syringe) 50 ml Q15M PRN IV Till BS 80 mg/dL or above x2; Start 01/03/17 at 21:00 Miscellaneous Information This patient naik... PRN PRN XX WOUND CARE; Start 01/04 at 03:00 Sodium Bicarbonate 100 meq/Dextrose/ Sodium Chloride 1,100 ml @ 100 mls/hr Q11H IV Last administered on 01/05/17 02:17; Admin Dose 100 MLS/HR; Start at 03:03 Piperacillin Sod/ Tazobactam Sod 100 ml @ 200 mls/hr Q6 IVPB Last administered on 01/05/17 06:38; Admin Dose 200 MLS/HR; Start 01/04/17 at 12:00 Vancomycin HCl (Vancocin) 250 ml @ 125 mls/hr Q12H IVPB Last administered on 08:08; Admin Dose 125 MLS/HR; Start 01/04/17 at 09:00 Silver Sulfadiazine 1 applic 1 applic DAILY TOP Last administered on 01/04/17 14:03; Admin Dose 1 APPLIC; Start 01/04/17 at 14:00 Norepinephrine/ Dextrose (Levophed/D5W) 500 ml @ 1.87 mls/hr TITRATE IV ; Start 01/04/17 at 18:30 Insulin Aspart (Novolog Insulin Pen) (Adult SC Insulin - Mild Algorithm)... Q4 SC ; Start 01/05/17 at 09:00 Procedures Procedures PROCEDURE: XR Chest. CLINICAL INDICATION: Respiratory failure TECHNIQUE: A single AP view of the chest was obtained. COMPARISON: Chest x-ray dated 01/04/2017 FINDINGS: The endotracheal tube tip is approximately 4.0 cm above the lary. The tip of the enteric tube projects over the left upper quadrant. Is a right internal jugular central venous catheter with tip in the mid SVC. No focal airspace opacification, pleural effusion or pneumothorax is seen. The cardiomediastinal silhouette is within normal limits for size. Calcifications are seen within the aortic arch. The osseous structures are unremarkable. IMPRESSION: 1. No radiographic evidence of acute cardiopulmonary disease. No significant interval change. 2. Aortic atherosclerosis. 3. Tubes and lines, as described above. RPTAT: HH .Kim Tracey MD, MD Date Time Electronically viewed and signed by .Kim Tracey MD, MD on 01/05/2017 07 :46 .G/ CC: BRI TIJERINA BOLATITO M. Jan 05, 2017 08:29 BRIANA MADRID Jan 05, 2017 08:29
[2017-01-05] MEDS ORDERED: INSULIN ASPART [NOVOLOG] 3 ML PEN SC SCH (09:00)
[2017-01-05] MEDS: D5W-0.45 NACL + KCL 20 MEQ 1,000 ML IV SCH ×2 (09:05→21:13)
[2017-01-05] MEDS: SILVER SULFADIAZINE 1% 25 GM CR TOP SCH (09:05)
--- NOTE | 2017-01-05 09:27 | CONS ---
Date/Time of Note Date/Time of Note DATE: 01/05/17 TIME: 09:21 Assessment/Plan Assessment/Plan Additional Assessment/Plan Ventilator setting; AC of 14, tidal volume 500, PEEP of 5, 30% FiO2. Patient has been off sedation since 7:45 AM today. And was taken off hypothermia protocol overnight. Chest x-ray was reviewed from today which is totally clear. Assessment recommendations; 1. Patient admitted with cardiac arrest status post CPR and status post hypothermia protocol. Still under the sedative effect. Difficult to rule out any hypoxemic brain injury at this point. 2. Gram-positive bacteremia patient currently on appropriate antibiotic regimen. Source is unclear possibly from skin. 3. Renal injury, with normalization of renal function. 4. Thrombocytopenia. Patient on IV heparin as protocol for presumptive pulmonary embolism. However clinical presentation is not consistent with PE. 5. Cellulitis. 6. Hypernatremia. Continue current treatment. Add free water via NG tube to 250 ML every 6 hours. And monitor serum sodium level. Discontinue IV heparin. Monitor platelet count. Prognosis depends upon adequate neurological recovery. 35 minutes critical care time was spent evaluating the patient. Consultation Date/Type/Reason Admit Date/Time Jan 03, 2017 at 15:05 Initial Consult Date 01/04/17 Type of Consultation: Pulmonary/critical care 24 HR Interval Summary Free Text/Dictation Patient condition remains critical. Still requiring full ventilator support. Patient has been taken off hypothermia protocol and also has been off sedation just a short while ago and likely still under the sedative and paralytic effect. Has remained hemodynamically stable not requiring any pressor support. General exam; elderly male, orally intubated, unresponsive currently. No distress noted. Exam/Review of Systems Vital Signs Vitals Vital Signs Date Time Temp Pulse Resp B/P Pulse Ox O2 Delivery O2 Flow Rate FiO2 01/05/17 09:00 106 14 100/65 Mechanical Ventilator 01/05/17 08:00 99 01/05/17 07:45 30 01/05/17 07:30 98.6 Intake and Output 01/04/17 01/04/17 01/05/17 15:00 23:00 07:00 Intake Total 1357.2 ml 2342.30 ml 1078.04 ml Output Total 816 ml 376 ml 350 ml Balance 541.2 ml 1966.30 ml 728.04 ml Exam HEENT exam; supple neck, no JVD. No lymphadenopathy. Midline trachea. No thyromegaly. Pupils are small bilaterally. Patient has fair dentition. Orally intubated. No neck masses. Chest examination; clear to auscultation. S1-S2 audible, no murmurs. Regular rhythm. Abdomen exam is; soft, nontender distended. No organomegaly. Bowel sounds audible. Extremity examination; patient has multiple scattered superficial bruises and lacerations. There is an area of eschar formation involving the left hip approximately 4 inch by four-inch. There is a dressing applied over the left hand. Patient pulses are feeble. CENSUS TAKER exam; patient currently is unresponsive. Results Result Diagram: 01/05/17 0430 01/05/17 0430 Results 24 hrs Laboratory Tests Test 01/04/17 10:01 01/04/17 11:01 01/04/17 11:59 01/04/17 13:59 Bedside Glucose 135 151 154 133 Test 01/04/17 14:05 01/04/17 14:51 01/04/17 15:04 01/04/17 15:59 White Blood Count 10.3 # Red Blood Count 4.33 L Hemoglobin 13.9 L Hematocrit 41.8 L Mean Corpuscular Volume 96.5 Mean Corpuscular Hemoglobin 32.1 Mean Corpuscular Hemoglobin Concent 33.3 Red Cell Distribution Width 12.8 Platelet Count 115 L Mean Platelet Volume 10.0 Neutrophils % 84.5 H Lymphocytes % 6.4 L Monocytes % 8.7 Eosinophils % 0.0 Basophils % 0.1 Nucleated Red Blood Cells % 0.0 Neutrophils # 8.7 H Lymphocytes # 0.7 L Monocytes # 0.9 Eosinophils # 0.0 Basophils # 0.0 Nucleated Red Blood Cells # 0.0 Prothrombin Time 17.8 H Prothrombin Time Ratio 1.4 INR International Normalized Ratio 1.46 Fibrinogen 553.0 #H Sodium Level 158 H Potassium Level 3.0 L Chloride Level 123 H Carbon Dioxide Level 31 Anion Gap 7 L Blood Urea Nitrogen 55 H Creatinine 1.18 Glucose Level 136 # Calcium Level 7.5 L Phosphorus Level 2.8 Magnesium Level 3.0 H Troponin I 0.023 Amylase Level 110 Lipase 201 Blood Gas Specimen Source Blood arterial Arterial Blood Date Drawn 01/04/2017 3:20:44 PM Arterial Blood pH (Temp corrected) 7.430 Arterial Blood pCO2 (Temp correct) 35.0 Arterial Blood pO2 (Temp corrected) 104.5 H Arterial Blood HCO3 23.7 Arterial Blood Base Excess -1.6 Arterial Blood Oxygen Saturation 97.8 Rikki Test ACCEPTAB Arterial Blood Gas Puncture Site Right Radial Arterial Blood Carboxyhemoglobin 0.2 Arterial Blood Methemoglobin 0.1 Blood Gas A-a O2 Differential 71.2 H Oxyhemoglobin Percent 97.5 Total Hemoglobin 15.1 Blood Gas Temperature 32.8 Blood Gas Respiration Rate 14.0 Blood Gas Actual Respiration Rate 14 Blood Gas Modality VENT - AC FiO2 30.0 Blood Gas Tidal Volume 500.0 Blood Gas Low PEEP Setting 5.0 Blood Gas Notified Whom JLD Blood Gas Notified Time 01/04/2017 3:32:26 PM Bedside Glucose 127 126 Test 01/04/17 16:57 01/04/17 18:00 01/04/17 18:35 01/04/17 18:50 Bedside Glucose 119 130 126 Activated Partial Thromboplast Time 91.4 *H Test 01/04/17 20:00 01/04/17 20:23 01/04/17 20:51 01/04/17 21:05 White Blood Count 7.5 # Red Blood Count 3.14 #L Hemoglobin 10.5 #L Hematocrit 30.6 #L Mean Corpuscular Volume 97.5 Mean Corpuscular Hemoglobin 33.4 H Mean Corpuscular Hemoglobin Concent 34.3 Red Cell Distribution Width 13.1 Platelet Count 76 #L Mean Platelet Volume 10.0 Neutrophils % 69.0 Band Neutrophils % 18.0 H Lymphocytes % 7.0 L Monocytes % 6.0 Eosinophils % Neutrophils # 5.2 Lymphocytes # 0.5 L Monocytes # 0.5 Eosinophils # Platelet Estimate PLT APPEAR DECREASED Prothrombin Time 21.6 #H Prothrombin Time Ratio 1.7 INR International Normalized Ratio 1.86 Fibrinogen 438.0 # Bedside Glucose 82 106 Blood Gas Specimen Source Blood arterial Arterial Blood Date Drawn 01/04/2017 9:00:41 PM Arterial Blood pH (Temp corrected) 7.443 Arterial Blood pCO2 (Temp correct) 35.7 Arterial Blood pO2 (Temp corrected) 119.9 H Arterial Blood HCO3 24.4 Arterial Blood Base Excess -0.2 Arterial Blood Oxygen Saturation 97.9 Rikki Test ACCEPTAB Arterial Blood Gas Puncture Site Right Radial Arterial Blood Carboxyhemoglobin 0.3 Arterial Blood Methemoglobin 0.2 Blood Gas A-a O2 Differential 53.9 H Oxyhemoglobin Percent 97.4 Total Hemoglobin 13.3 Blood Gas Temperature 34.5 Blood Gas Respiration Rate 14.0 Blood Gas Actual Respiration Rate 14 Blood Gas Modality VENT - AC FiO2 30.0 Blood Gas Tidal Volume 500.0 Blood Gas Low PEEP Setting 5.0 Blood Gas Notified Whom Blood Gas Notified Time 01/04/2017 9:11:33 PM Sodium Level 158 H Potassium Level 3.0 L Chloride Level 121 H Carbon Dioxide Level 33 H Anion Gap 7 L Blood Urea Nitrogen 58 H Creatinine 1.20 Glucose Level 86 # Calcium Level 6.8 L Phosphorus Level 2.6 Magnesium Level 2.9 H Troponin I 0.024 Amylase Level 77 Lipase 193 Test 01/04/17 22:21 01/04/17 23:14 01/05/17 00:26 01/05/17 00:55 Bedside Glucose 80 97 104 White Blood Count 9.0 Red Blood Count 3.69 L Hemoglobin 11.8 L Hematocrit 35.8 L Mean Corpuscular Volume 97.0 Mean Corpuscular Hemoglobin 32.0 Mean Corpuscular Hemoglobin Concent 33.0 Red Cell Distribution Width 13.2 Platelet Count 86 L Mean Platelet Volume 10.3 Neutrophils % 86.4 H Lymphocytes % 6.7 L Monocytes % 6.3 Eosinophils % 0.2 Basophils % 0.1 Nucleated Red Blood Cells % 0.0 Neutrophils # 7.8 H Lymphocytes # 0.6 L Monocytes # 0.6 Eosinophils # 0.0 Basophils # 0.0 Nucleated Red Blood Cells # 0.0 Prothrombin Time 19.7 H Prothrombin Time Ratio 1.5 INR International Normalized Ratio 1.66 Activated Partial Thromboplast Time 83.9 *H Fibrinogen 533.0 #H Sodium Level 160 H Potassium Level 3.1 L Chloride Level 124 H Carbon Dioxide Level 30 Anion Gap 9 Blood Urea Nitrogen 53 H Creatinine 1.16 Glucose Level 116 Calcium Level 7.3 L Phosphorus Level 2.3 L Magnesium Level 2.8 H Troponin I 0.028 Amylase Level 83 Lipase 161 Test 01/05/17 01:25 01/05/17 03:00 01/05/17 03:18 01/05/17 04:30 Bedside Glucose 97 114 Blood Gas Specimen Source Blood arterial Arterial Blood Date Drawn 01/05/2017 3:05:38 AM Arterial Blood pH (Temp corrected) 7.459 H Arterial Blood pCO2 (Temp correct) 42.3 Arterial Blood pO2 (Temp corrected) 88.6 Arterial Blood HCO3 29.7 H Arterial Blood Base Excess 4.9 H Arterial Blood Oxygen Saturation 96.8 Rikki Test ACCEPTAB Arterial Blood Gas Puncture Site Right Radial Arterial Blood Carboxyhemoglobin 0.3 Arterial Blood Methemoglobin 0.3 Blood Gas A-a O2 Differential 76.5 H Oxyhemoglobin Percent 96.2 Total Hemoglobin 13.3 Blood Gas Temperature 35.8 Blood Gas Respiration Rate 14.0 Blood Gas Actual Respiration Rate 14 Blood Gas Modality VENT - AC FiO2 30.0 Blood Gas Tidal Volume 500.0 Blood Gas Low PEEP Setting 5.0 Blood Gas Notified Whom Blood Gas Notified Time 01/05/2017 3:13:27 AM White Blood Count 8.7 Red Blood Count 3.56 L Hemoglobin 11.3 L Hematocrit 34.6 L Mean Corpuscular Volume 97.2 Mean Corpuscular Hemoglobin 31.7 Mean Corpuscular Hemoglobin Concent 32.7 Red Cell Distribution Width 12.9 Platelet Count 91 L Mean Platelet Volume 10.8 H Neutrophils % 86.3 H Lymphocytes % 6.7 L Monocytes % 6.2 Eosinophils % 0.2 Basophils % 0.1 Nucleated Red Blood Cells % 0.0 Neutrophils # 7.5 Lymphocytes # 0.6 L Monocytes # 0.5 Eosinophils # 0.0 Basophils # 0.0 Nucleated Red Blood Cells # 0.0 Activated Partial Thromboplast Time 68.7 H Sodium Level 157 H Potassium Level 3.1 L Chloride Level 125 H Carbon Dioxide Level 29 Anion Gap 6 L Blood Urea Nitrogen 49 H Creatinine 1.07 Glucose Level 112 Calcium Level 6.5 L Total Bilirubin 0.6 Direct Bilirubin 0.00 Indirect Bilirubin 0.6 Aspartate Amino Transf (AST/SGOT) 157 #H Alanine Aminotransferase (ALT/SGPT) 160 H Alkaline Phosphatase 39 L Total Protein 4.2 #L Albumin 2.3 L Test 01/05/17 05:48 01/05/17 08:05 Bedside Glucose 110 124 Medications Medications Current Medications Acetaminophen (Tylenol Supp) 650 mg Q4H PRN PA TEMP > 37C; Start 01/03/17 at 15 :00 Acetaminophen (Tylenol Liquid) 650 mg Q4H PRN PO TEMP > 37C; Start 01/03/17 at 15:00 Acetaminophen (Tylenol Supp) 500 mg Q6H PA ; Start 01/04/17 at 15:00 Acetaminophen (Tylenol Liquid) 500 mg Q6H PO Last administered on 01/05/17 09: 05; Admin Dose 500 MG; Start 01/04/17 at 15:00 Meperidine HCl (Demerol) 12.5 mg Q4H PRN IV POST OPERATIVE SHIVERING; Start at 15:00 Meperidine HCl (Demerol) 25 mg Q4H PRN IV POST OPERATIVE SHIVERING; Start 01/03 at 15:00 Eye Lubricant (Akwa Oint) 1 applic Q6 BOTH EYES Last administered on 01/05/17 06:38; Admin Dose 1 APPLIC; Start 01/03/17 at 18:00 Eye Lubricant (Artificial Tears Oph) 2 drop Q6 BOTH EYES Last administered on 06:38; Admin Dose 2 DROP; Start 01/03/17 at 18:00 Pantoprazole (Protonix Iv) 40 mg DAILY@06 IV Last administered on 01/05/17 06: 38; Admin Dose 40 MG; Start 01/03/17 at 17:00 Miscellaneous Information 1 ea NOTE XX ; Start 01/03/17 at 17:00 Glucose (Glutose) 15 gm Q15M PRN PO DECREASED GLUCOSE; Start 01/03/17 at 17:00 Glucose (Glutose) 22.5 gm Q15M PRN PO DECREASED GLUCOSE; Start 01/03/17 at 17: 00 Dextrose (D50w Syringe) 25 ml Q15M PRN IV DECREASED GLUCOSE; Start 01/03/17 at 17:00 Dextrose (D50w Syringe) 50 ml Q15M PRN IV DECREASED GLUCOSE; Start 01/03/17 at 17:00 Glucagon (Glucagen) 1 mg Q15M PRN IM DECREASED GLUCOSE; Start 01/03/17 at 17:00 Glucose 15 gm 15 gm Q15M PRN BUCCAL DECREASED GLUCOSE; Start 01/03/17 at 17:00 Midazolam HCl 50 ml @ 1 mls/hr TITRATE IV Last administered on 01/05/17 01:29 ; Admin Dose 4 MLS/HR; Start 01/03/17 at 21:00 Fentanyl (Sublimaze) 100 ml @ 2.5 mls/hr TITRATE IV Last administered on 15:37; Admin Dose 5 MLS/HR; Start 01/03/17 at 21:00 Dextrose (D50w Syringe) 25 ml Q15M PRN IV Till BS 80 mg/dL or above x2; Start 01/03/17 at 21:00 Dextrose (D50w Syringe) 50 ml Q15M PRN IV Till BS 80 mg/dL or above x2; Start 01/03/17 at 21:00 Miscellaneous Information This patient naik... PRN PRN XX WOUND CARE; Start 01/04 at 03:00 Piperacillin Sod/ Tazobactam Sod 100 ml @ 200 mls/hr Q6 IVPB Last administered on 01/05/17 06:38; Admin Dose 200 MLS/HR; Start 01/04/17 at 12:00 Vancomycin HCl (Vancocin) 250 ml @ 125 mls/hr Q12H IVPB Last administered on 08:08; Admin Dose 125 MLS/HR; Start 01/04/17 at 09:00 Silver Sulfadiazine 1 applic 1 applic DAILY TOP Last administered on 01/05/17 09:05; Admin Dose 1 APPLIC; Start 01/04/17 at 14:00 Norepinephrine/ Dextrose (Levophed/D5W) 500 ml @ 1.87 mls/hr TITRATE IV ; Start 01/04/17 at 18:30 Insulin Aspart (Adult SC Insulin - Mild Algorithm)... Q4 SC ; Start 01/05/17 at 09:00 Potassium Chloride/Dextrose/ Sod Cl 1,000 ml @ 100 mls/hr Q10H IV Last administered on 01/05/17 09:05; Admin Dose 100 MLS/HR; Start 01/05/17 at 08:30 Calcium Gluconate 2 gm/Sodium Chloride 120 ml @ 60 mls/hr ONCE ONCE IVPB ; Start 01/05/17 at 10:00; Stop 01/05/17 at 11:59 Potassium Phosphate/Sodium Chloride (K Phos (Mm)/NS) 255 ml @ 63.75 mls/ hr ONCE ONCE IVPB ; Start 01/05/17 at 12:00; Stop 01/05/17 at 15:59 JULIO C CARBONE 28, 2017 09:27
--- NOTE | 2017-01-05 09:36 | PN ---
Date/Time of Note Date/Time of Note DATE: 01/05/17 TIME: 09:31 Assessment/Plan VTE Prophylaxis VTE Prophylaxis Intervention: heparin Lines/Catheters IV Catheter Type (from [facility]): Saline Lock Urinary Cath still in place: Yes Reason Cath still needed: other (indicate) Assessment/Plan Chief Complaint/Hosp Course ASSESSMENT AND PLAN: 1. Cardiopulmonary arrest with pulseless electrical activity cardiopulm arrest. 2. Most likely pulmonary embolus. 3. Renal failure, unclear acute on chronic. Probably acute currently back to normal 4. Encephalopathy. 5. Status post cardiopulmonary arrest with return of spontaneous circulation. 6. Severe metabolic acidosis. 7. Acute transaminitis, probably shock liver. 8. Sepsis, respiratory failure, status post intubation on the vent. 9. S/p facial contusion. 10 mildly abnormal troponin due to above. 11. hyper Na RECOMMENDATIONS: The patient has been placed on hypothermia protocol. rewarming started. heparin drip Currently being managed by internal medicine. We will continue with the vent support. follow up with pulm rec. vent support CT pulmonary angiogram was not done due to concern about his renal function. Continue with the ICU care. echo reviewed and showed more than 36 minutes of critical care time was spent in managment and treatment of this critically ill patient, excluding any procedure. Problems: Subjective 24 Hr Interval Summary Free Text/Dictation d/w staff and rhythm was reviewed. pt remains in NSR on rewarming of hypothermia nonverbal. d/w Dr [place]. pt remains intubated on vent in ICU BP has remained stable. mild hematuria per RN Subjective hx not possible: pt non-verbal Exam/Review of Systems Vital Signs Vitals Vital Signs Date Time Temp Pulse Resp B/P Pulse Ox O2 Delivery O2 Flow Rate FiO2 01/05/17 09:00 106 14 100/65 Mechanical Ventilator 01/05/17 08:00 99 01/05/17 07:45 30 01/05/17 07:30 98.6 Intake and Output 01/04/17 01/04/17 01/05/17 15:00 23:00 07:00 Intake Total 1357.2 ml 2342.30 ml 1078.04 ml Output Total 816 ml 376 ml 350 ml Balance 541.2 ml 1966.30 ml 728.04 ml Exam General: intubated on vent in ICU HEENT: Normocephalic, s/p facial trauma. . Status post intubation on the vent. DERMATOLOGIC: The left side of the face and the chest with ulcerated lesion. CARDIOVASCULAR: RRR, systolic murmur PULMONARY: With no wheezes heard anteriorly. NO rhonchi. GASTROINTESTINAL: Soft, nontender. EXTREMITIES: Without lower extremity edema. NEUROLOGIC: No response to verbal or painful stimuli.still sedated psych: unable to assess : s/p patel in place. Results Result Diagram: 01/05/17 0430 01/05/17 0430 Results 24 hrs Laboratory Tests Test 01/04/17 10:01 01/04/17 11:01 01/04/17 11:59 01/04/17 13:59 Bedside Glucose 135 151 154 133 Test 01/04/17 14:05 01/04/17 14:51 01/04/17 15:04 01/04/17 15:59 White Blood Count 10.3 # Red Blood Count 4.33 L Hemoglobin 13.9 L Hematocrit 41.8 L Mean Corpuscular Volume 96.5 Mean Corpuscular Hemoglobin 32.1 Mean Corpuscular Hemoglobin Concent 33.3 Red Cell Distribution Width 12.8 Platelet Count 115 L Mean Platelet Volume 10.0 Neutrophils % 84.5 H Lymphocytes % 6.4 L Monocytes % 8.7 Eosinophils % 0.0 Basophils % 0.1 Nucleated Red Blood Cells % 0.0 Neutrophils # 8.7 H Lymphocytes # 0.7 L Monocytes # 0.9 Eosinophils # 0.0 Basophils # 0.0 Nucleated Red Blood Cells # 0.0 Prothrombin Time 17.8 H Prothrombin Time Ratio 1.4 INR International Normalized Ratio 1.46 Fibrinogen 553.0 #H Sodium Level 158 H Potassium Level 3.0 L Chloride Level 123 H Carbon Dioxide Level 31 Anion Gap 7 L Blood Urea Nitrogen 55 H Creatinine 1.18 Glucose Level 136 # Calcium Level 7.5 L Phosphorus Level 2.8 Magnesium Level 3.0 H Troponin I 0.023 Amylase Level 110 Lipase 201 Blood Gas Specimen Source Blood arterial Arterial Blood Date Drawn 01/04/2017 3:20:44 PM Arterial Blood pH (Temp corrected) 7.430 Arterial Blood pCO2 (Temp correct) 35.0 Arterial Blood pO2 (Temp corrected) 104.5 H Arterial Blood HCO3 23.7 Arterial Blood Base Excess -1.6 Arterial Blood Oxygen Saturation 97.8 Rikki Test ACCEPTAB Arterial Blood Gas Puncture Site Right Radial Arterial Blood Carboxyhemoglobin 0.2 Arterial Blood Methemoglobin 0.1 Blood Gas A-a O2 Differential 71.2 H Oxyhemoglobin Percent 97.5 Total Hemoglobin 15.1 Blood Gas Temperature 32.8 Blood Gas Respiration Rate 14.0 Blood Gas Actual Respiration Rate 14 Blood Gas Modality VENT - AC FiO2 30.0 Blood Gas Tidal Volume 500.0 Blood Gas Low PEEP Setting 5.0 Blood Gas Notified Whom JLD Blood Gas Notified Time 01/04/2017 3:32:26 PM Bedside Glucose 127 126 Test 01/04/17 16:57 01/04/17 18:00 01/04/17 18:35 01/04/17 18:50 Bedside Glucose 119 130 126 Activated Partial Thromboplast Time 91.4 *H Test 01/04/17 20:00 01/04/17 20:23 01/04/17 20:51 01/04/17 21:05 White Blood Count 7.5 # Red Blood Count 3.14 #L Hemoglobin 10.5 #L Hematocrit 30.6 #L Mean Corpuscular Volume 97.5 Mean Corpuscular Hemoglobin 33.4 H Mean Corpuscular Hemoglobin Concent 34.3 Red Cell Distribution Width 13.1 Platelet Count 76 #L Mean Platelet Volume 10.0 Neutrophils % 69.0 Band Neutrophils % 18.0 H Lymphocytes % 7.0 L Monocytes % 6.0 Eosinophils % Neutrophils # 5.2 Lymphocytes # 0.5 L Monocytes # 0.5 Eosinophils # Platelet Estimate PLT APPEAR DECREASED Prothrombin Time 21.6 #H Prothrombin Time Ratio 1.7 INR International Normalized Ratio 1.86 Fibrinogen 438.0 # Bedside Glucose 82 106 Blood Gas Specimen Source Blood arterial Arterial Blood Date Drawn 01/04/2017 9:00:41 PM Arterial Blood pH (Temp corrected) 7.443 Arterial Blood pCO2 (Temp correct) 35.7 Arterial Blood pO2 (Temp corrected) 119.9 H Arterial Blood HCO3 24.4 Arterial Blood Base Excess -0.2 Arterial Blood Oxygen Saturation 97.9 Rikki Test ACCEPTAB Arterial Blood Gas Puncture Site Right Radial Arterial Blood Carboxyhemoglobin 0.3 Arterial Blood Methemoglobin 0.2 Blood Gas A-a O2 Differential 53.9 H Oxyhemoglobin Percent 97.4 Total Hemoglobin 13.3 Blood Gas Temperature 34.5 Blood Gas Respiration Rate 14.0 Blood Gas Actual Respiration Rate 14 Blood Gas Modality VENT - AC FiO2 30.0 Blood Gas Tidal Volume 500.0 Blood Gas Low PEEP Setting 5.0 Blood Gas Notified Whom Blood Gas Notified Time 01/04/2017 9:11:33 PM Sodium Level 158 H Potassium Level 3.0 L Chloride Level 121 H Carbon Dioxide Level 33 H Anion Gap 7 L Blood Urea Nitrogen 58 H Creatinine 1.20 Glucose Level 86 # Calcium Level 6.8 L Phosphorus Level 2.6 Magnesium Level 2.9 H Troponin I 0.024 Amylase Level 77 Lipase 193 Test 01/04/17 22:21 01/04/17 23:14 01/05/17 00:26 01/05/17 00:55 Bedside Glucose 80 97 104 White Blood Count 9.0 Red Blood Count 3.69 L Hemoglobin 11.8 L Hematocrit 35.8 L Mean Corpuscular Volume 97.0 Mean Corpuscular Hemoglobin 32.0 Mean Corpuscular Hemoglobin Concent 33.0 Red Cell Distribution Width 13.2 Platelet Count 86 L Mean Platelet Volume 10.3 Neutrophils % 86.4 H Lymphocytes % 6.7 L Monocytes % 6.3 Eosinophils % 0.2 Basophils % 0.1 Nucleated Red Blood Cells % 0.0 Neutrophils # 7.8 H Lymphocytes # 0.6 L Monocytes # 0.6 Eosinophils # 0.0 Basophils # 0.0 Nucleated Red Blood Cells # 0.0 Prothrombin Time 19.7 H Prothrombin Time Ratio 1.5 INR International Normalized Ratio 1.66 Activated Partial Thromboplast Time 83.9 *H Fibrinogen 533.0 #H Sodium Level 160 H Potassium Level 3.1 L Chloride Level 124 H Carbon Dioxide Level 30 Anion Gap 9 Blood Urea Nitrogen 53 H Creatinine 1.16 Glucose Level 116 Calcium Level 7.3 L Phosphorus Level 2.3 L Magnesium Level 2.8 H Troponin I 0.028 Amylase Level 83 Lipase 161 Test 01/05/17 01:25 01/05/17 03:00 01/05/17 03:18 01/05/17 04:30 Bedside Glucose 97 114 Blood Gas Specimen Source Blood arterial Arterial Blood Date Drawn 01/05/2017 3:05:38 AM Arterial Blood pH (Temp corrected) 7.459 H Arterial Blood pCO2 (Temp correct) 42.3 Arterial Blood pO2 (Temp corrected) 88.6 Arterial Blood HCO3 29.7 H Arterial Blood Base Excess 4.9 H Arterial Blood Oxygen Saturation 96.8 Rikki Test ACCEPTAB Arterial Blood Gas Puncture Site Right Radial Arterial Blood Carboxyhemoglobin 0.3 Arterial Blood Methemoglobin 0.3 Blood Gas A-a O2 Differential 76.5 H Oxyhemoglobin Percent 96.2 Total Hemoglobin 13.3 Blood Gas Temperature 35.8 Blood Gas Respiration Rate 14.0 Blood Gas Actual Respiration Rate 14 Blood Gas Modality VENT - AC FiO2 30.0 Blood Gas Tidal Volume 500.0 Blood Gas Low PEEP Setting 5.0 Blood Gas Notified Whom Blood Gas Notified Time 01/05/2017 3:13:27 AM White Blood Count 8.7 Red Blood Count 3.56 L Hemoglobin 11.3 L Hematocrit 34.6 L Mean Corpuscular Volume 97.2 Mean Corpuscular Hemoglobin 31.7 Mean Corpuscular Hemoglobin Concent 32.7 Red Cell Distribution Width 12.9 Platelet Count 91 L Mean Platelet Volume 10.8 H Neutrophils % 86.3 H Lymphocytes % 6.7 L Monocytes % 6.2 Eosinophils % 0.2 Basophils % 0.1 Nucleated Red Blood Cells % 0.0 Neutrophils # 7.5 Lymphocytes # 0.6 L Monocytes # 0.5 Eosinophils # 0.0 Basophils # 0.0 Nucleated Red Blood Cells # 0.0 Activated Partial Thromboplast Time 68.7 H Sodium Level 157 H Potassium Level 3.1 L Chloride Level 125 H Carbon Dioxide Level 29 Anion Gap 6 L Blood Urea Nitrogen 49 H Creatinine 1.07 Glucose Level 112 Calcium Level 6.5 L Total Bilirubin 0.6 Direct Bilirubin 0.00 Indirect Bilirubin 0.6 Aspartate Amino Transf (AST/SGOT) 157 #H Alanine Aminotransferase (ALT/SGPT) 160 H Alkaline Phosphatase 39 L Total Protein 4.2 #L Albumin 2.3 L Test 01/05/17 05:48 01/05/17 08:05 Bedside Glucose 110 124 Medications Medications Current Medications Acetaminophen (Tylenol Supp) 650 mg Q4H PRN [place] TEMP > 37C; Start 01/03/17 at 15 :00 Acetaminophen (Tylenol Liquid) 650 mg Q4H PRN PO TEMP > 37C; Start 01/03/17 at 15:00 Acetaminophen (Tylenol Supp) 500 mg Q6H [place] ; Start 01/04/17 at 15:00 Acetaminophen (Tylenol Liquid) 500 mg Q6H PO Last administered on 01/05/17t 09: 05; Admin Dose 500 MG; Start 01/04/17 at 15:00 Meperidine HCl (Demerol) 12.5 mg Q4H PRN IV POST OPERATIVE SHIVERING; Start at 15:00 Meperidine HCl (Demerol) 25 mg Q4H PRN IV POST OPERATIVE SHIVERING; Start 01/03 at 15:00 Eye Lubricant ([place]wa Oint) 1 applic Q6 BOTH EYES Last administered on 01/05/17 06:38; Admin Dose 1 APPLIC; Start 01/03/17 at 18:00 Eye Lubricant (Artificial Tears Oph) 2 drop Q6 BOTH EYES Last administered on 06:38; Admin Dose 2 DROP; Start 01/03/17 at 18:00 Pantoprazole (Protonix Iv) 40 mg DAILY@06 IV Last administered on 01/05/17 06: 38; Admin Dose 40 MG; Start 01/03/17 at 17:00 Miscellaneous Information 1 ea NOTE XX ; Start 01/03/17 at 17:00 Glucose (Glutose) 15 gm Q15M PRN PO DECREASED GLUCOSE; Start 01/03/17 at 17:00 Glucose (Glutose) 22.5 gm Q15M PRN PO DECREASED GLUCOSE; Start 01/03/17 at 17: 00 Dextrose (D50w Syringe) 25 ml Q15M PRN IV DECREASED GLUCOSE; Start 01/03/17 at 17:00 Dextrose (D50w Syringe) 50 ml Q15M PRN IV DECREASED GLUCOSE; Start 01/03/17 at 17:00 Glucagon (Glucagen) 1 mg Q15M PRN IM DECREASED GLUCOSE; Start 01/03/17 at 17:00 Glucose 15 gm 15 gm Q15M PRN BUCCAL DECREASED GLUCOSE; Start 01/03/17 at 17:00 Midazolam HCl 50 ml @ 1 mls/hr TITRATE IV Last administered on 01/05/17 01:29 ; Admin Dose 4 MLS/HR; Start 01/03/17 at 21:00 Fentanyl (Sublimaze) 100 ml @ 2.5 mls/hr TITRATE IV Last administered on 15:37; Admin Dose 5 MLS/HR; Start 01/03/17 at 21:00 Dextrose (D50w Syringe) 25 ml Q15M PRN IV Till BS 80 mg/dL or above x2; Start 01/03/17 at 21:00 Dextrose (D50w Syringe) 50 ml Q15M PRN IV Till BS 80 mg/dL or above x2; Start 01/03/17 at 21:00 Miscellaneous Information This patient naik... PRN PRN XX WOUND CARE; Start 01/04 at 03:00 Piperacillin Sod/ Tazobactam Sod 100 ml @ 200 mls/hr Q6 IVPB Last administered on 01/05/17 06:38; Admin Dose 200 MLS/HR; Start 01/04/17 at 12:00 Vancomycin HCl (Vancocin) 250 ml @ 125 mls/hr Q12H IVPB Last administered on 08:08; Admin Dose 125 MLS/HR; Start 01/04/17 at 09:00 Silver Sulfadiazine 1 applic 1 applic DAILY TOP Last administered on 01/05/17 09:05; Admin Dose 1 APPLIC; Start 01/04/17 at 14:00 Norepinephrine/ Dextrose (Levophed/D5W) 500 ml @ 1.87 mls/hr TITRATE IV ; Start 01/04/17 at 18:30 Insulin Aspart (Adult SC Insulin - Mild Algorithm)... Q4 SC ; Start 01/05/17 at 09:00 Potassium Chloride/Dextrose/ Sod Cl 1,000 ml @ 100 mls/hr Q10H IV Last administered on 01/05/17 09:05; Admin Dose 100 MLS/HR; Start 01/05/17 at 08:30 Calcium Gluconate 2 gm/Sodium Chloride 120 ml @ 60 mls/hr ONCE ONCE IVPB ; Start 01/05/17 at 10:00; Stop 01/05/17 at 11:59 Potassium Phosphate/Sodium Chloride (K Phos (Mm)/NS) 255 ml @ 63.75 mls/ hr ONCE ONCE IVPB ; Start 01/05/17 at 12:00; Stop 01/05/17 at 15:59 JENI KANG MD Jan 05, 2017 09:36
[2017-01-05] MEDS ORDERED: CALCIUM GLUCONATE 10% 2 GM in SOD CHLORIDE 0.9% 100 ML IVPB ONE (10:00)
--- NOTE | 2017-01-05 10:30 | RADRPT ---
Vent Rate: 87 bpm RR Interval: 0 msec RI Interval: 122 msec QRS Duration: 96 msec QT Interval: 410 msec QTC Interval: 493 msec P-R-T [place]: 78 - 56 - 63 degrees Normal sinus rhythm Low voltage QRS Nonspecific T wave abnormality Prolonged QT Abnormal ECG Electronically Signed By: Nasir Celaya [id number]
--- NOTE | 2017-01-05 10:30 | RADRPT ---
Vent Rate: 86 bpm RR Interval: 0 msec NV Interval: 132 msec QRS Duration: 96 msec QT Interval: 418 msec QTC Interval: 500 msec P-R-T [place]: 70 - 36 - 32 degrees Normal sinus rhythm Low voltage QRS Prolonged QT Abnormal ECG Electronically Signed By: Nasir Celaya [id number]
[2017-01-05] MEDS ORDERED: POTASSIUM PHOSPHATE 15 MM in SOD CHLORIDE 0.9% 250 ML IVPB ONE (12:00)
[2017-01-05 14:20] LABS: ADD UMIC YES; UR ASCORBIC ACID NEGATIVE (NEGATIVE); UR BACTERIA FEW /HPF (NONE SEEN); UR BILIRUBIN (Dip) NEGATIVE (NEGATIVE); UR BLOOD (Dip) 3+ mg/dL (NEGATIVE); UR CLARITY CLOUDY (CLEAR); UR COLOR AMBER (YELLOW); UR GLUCOSE (Dip) NEGATIVE (NEGATIVE); UR KETONES (Dip) NEGATIVE (NEGATIVE); UR LEUKOCYTE ESTERASE (Dip) NEGATIVE Leu/ul (NEGATIVE); UR NITRITE (Dip) NEGATIVE (NEGATIVE); UR RBC > 182 /HPF (0-5); UR TOTAL PROTEIN (Dip) 1+ mg/dl (NEGATIVE); UR UROBILINOGEN (Dip) NEGATIVE (NEGATIVE)
[2017-01-05 14:26] LABS: CALCIUM 7.8 mg/dl (8.4-10.2); CREATININE 1.29 mg/dl (0.61-1.24); POTASSIUM 3.8 mmol/L (3.5-5.1)
--- NOTE | 2017-01-05 17:29 | CONS ---
Date/Time of Note Date/Time of Note DATE: 01/05/17 TIME: 17:12 Assessment/Plan Assessment/Plan Chief Complaint/Hosp Course 1. 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 Etiology 2/2 hemodynamics possible tubular injury 2/2 ischemic shock. Renal function has improved from admission but fluctuating. U/a reviewed, no active sediment. -cont current treatment plan, renally dose all meds, avoid nephrotoxins -cont ivf, keep map > 65 -monitor closely 2. hypernatremia likely insensible loss low suspicion for DI -pt has ~ 4 liter water deficit -check urine osmolarity -cont free water flushes 250cc/4 hrs, cont hypotonic fluid -check serial na levels 3. anemia -monitor h/h levels 4. mineral bone disorder -monitor ca, phos levels 5. Status post cardiac arrest with return of spontaneous circulation /PEA -cont to monitor -f/u cardiology 6. vdrf -vent setting abg reviewed -f/u pulmonary 7. Acute pulmonary emboli -cont med/eyal 8. acute encephalopathy secondary to anoxic injury -cont to monitor -f/u neurology 9 acute transaminitis with hyperbilirubinemia likely secondary to shock liver -improving, monitor 10. sepsis with multiorgan failure likely secondary to urinary tract infection , bacteremia -cont antibiotics -f/u ID Problems: Consultation Date/Type/Reason Admit Date/Time Jan 03, 2017 at 15:05 Reason for Consultation angy, hypernatremia Hx of Present Illness 61-year-old male who [facility] after EMS had been called because the patient was unresponsive. Per report, EMS arrived and found patient in cardiac arrest with a PEA rhythm. They initiated ACLS according to protocol and put a Combitube as an airway because of irregular respirations. The patient had return of spontaneous circulation but ended up getting endotracheally intubated in the emergency room. 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 The patients renal function has declined in last 24 hrs. He has had significant hemodynamic changes with good uop. No reports of hemoptysis, rash or frothy urine unable to perform pt is obtunded Psychological: other (unable to assess) Past Medical History per [facility] Medical History: hypertension, other (bipolar disorder, htn, BPH) Past Surgical History unknown Social History Smoking Status: Unknown if ever smoked Exam/Review of Systems Vital Signs Vitals Vital Signs Date Time Temp Pulse Resp B/P Pulse Ox O2 Delivery O2 Flow Rate FiO2 01/05/17 16:00 99.6 98 16 95/49 100 Mechanical Ventilator 01/05/17 14:55 30 Intake and Output 01/04/17 01/04/17 01/05/17 15:00 23:00 07:00 Intake Total 1357.2 ml 2342.30 ml 1078.04 ml Output Total 816 ml 376 ml 350 ml Balance 541.2 ml 1966.30 ml 728.04 ml Exam eneral: The patient is intubated HEENT: Atraumatic, normocephalic. The pupils are equal Neck: Supple Chest: Normal Lungs: Decreased breath sounds bilateral lower lung field Heart: Normal S1-S2, Regular rhythm and rate. Abdomen: Soft , nontender, nondistended , bowel sounds are present. Extremities: Multiple pressure ulcer on left upper and lower extremity, trace edema no cyanosis Neurologic: Sedated Skin: L sided contusions and abrasions Results Result Diagram: 01/05/17 0430 01/05/17 1400 Results 24 hrs Laboratory Tests Test 01/04/17 18:00 01/04/17 18:35 01/04/17 18:50 01/04/17 20:00 Bedside Glucose 130 126 Activated Partial Thromboplast Time 91.4 *H White Blood Count 7.5 # Red Blood Count 3.14 #L Hemoglobin 10.5 #L Hematocrit 30.6 #L Mean Corpuscular Volume 97.5 Mean Corpuscular Hemoglobin 33.4 H Mean Corpuscular Hemoglobin Concent 34.3 Red Cell Distribution Width 13.1 Platelet Count 76 #L Mean Platelet Volume 10.0 Neutrophils % 69.0 Band Neutrophils % 18.0 H Lymphocytes % 7.0 L Monocytes % 6.0 Eosinophils % Neutrophils # 5.2 Lymphocytes # 0.5 L Monocytes # 0.5 Eosinophils # Platelet Estimate PLT APPEAR DECREASED Prothrombin Time 21.6 #H Prothrombin Time Ratio 1.7 INR International Normalized Ratio 1.86 Fibrinogen 438.0 # Test 01/04/17 20:23 01/04/17 20:51 01/04/17 21:05 01/04/17 22:21 Bedside Glucose 82 106 80 Blood Gas Specimen Source Blood arterial Arterial Blood Date Drawn 01/04/2017 9:00:41 PM Arterial Blood pH (Temp corrected) 7.443 Arterial Blood pCO2 (Temp correct) 35.7 Arterial Blood pO2 (Temp corrected) 119.9 H Arterial Blood HCO3 24.4 Arterial Blood Base Excess -0.2 Arterial Blood Oxygen Saturation 97.9 Rikki Test ACCEPTAB Arterial Blood Gas Puncture Site Right Radial Arterial Blood Carboxyhemoglobin 0.3 Arterial Blood Methemoglobin 0.2 Blood Gas A-a O2 Differential 53.9 H Oxyhemoglobin Percent 97.4 Total Hemoglobin 13.3 Blood Gas Temperature 34.5 Blood Gas Respiration Rate 14.0 Blood Gas Actual Respiration Rate 14 Blood Gas Modality VENT - AC FiO2 30.0 Blood Gas Tidal Volume 500.0 Blood Gas Low PEEP Setting 5.0 Blood Gas Notified Whom Blood Gas Notified Time 01/04/2017 9:11:33 PM Sodium Level 158 H Potassium Level 3.0 L Chloride Level 121 H Carbon Dioxide Level 33 H Anion Gap 7 L Blood Urea Nitrogen 58 H Creatinine 1.20 Glucose Level 86 # Calcium Level 6.8 L Phosphorus Level 2.6 Magnesium Level 2.9 H Troponin I 0.024 Amylase Level 77 Lipase 193 Test 01/04/17 23:14 01/05/17 00:26 01/05/17 00:55 01/05/17 01:25 Bedside Glucose 97 104 97 White Blood Count 9.0 Red Blood Count 3.69 L Hemoglobin 11.8 L Hematocrit 35.8 L Mean Corpuscular Volume 97.0 Mean Corpuscular Hemoglobin 32.0 Mean Corpuscular Hemoglobin Concent 33.0 Red Cell Distribution Width 13.2 Platelet Count 86 L Mean Platelet Volume 10.3 Neutrophils % 86.4 H Lymphocytes % 6.7 L Monocytes % 6.3 Eosinophils % 0.2 Basophils % 0.1 Nucleated Red Blood Cells % 0.0 Neutrophils # 7.8 H Lymphocytes # 0.6 L Monocytes # 0.6 Eosinophils # 0.0 Basophils # 0.0 Nucleated Red Blood Cells # 0.0 Prothrombin Time 19.7 H Prothrombin Time Ratio 1.5 INR International Normalized Ratio 1.66 Activated Partial Thromboplast Time 83.9 *H Fibrinogen 533.0 #H Sodium Level 160 H Potassium Level 3.1 L Chloride Level 124 H Carbon Dioxide Level 30 Anion Gap 9 Blood Urea Nitrogen 53 H Creatinine 1.16 Glucose Level 116 Calcium Level 7.3 L Phosphorus Level 2.3 L Magnesium Level 2.8 H Troponin I 0.028 Amylase Level 83 Lipase 161 Test 01/05/17 03:00 01/05/17 03:18 01/05/17 04:30 01/05/17 05:48 Blood Gas Specimen Source Blood arterial Arterial Blood Date Drawn 01/05/2017 3:05:38 AM Arterial Blood pH (Temp corrected) 7.459 H Arterial Blood pCO2 (Temp correct) 42.3 Arterial Blood pO2 (Temp corrected) 88.6 Arterial Blood HCO3 29.7 H Arterial Blood Base Excess 4.9 H Arterial Blood Oxygen Saturation 96.8 Rikki Test ACCEPTAB Arterial Blood Gas Puncture Site Right Radial Arterial Blood Carboxyhemoglobin 0.3 Arterial Blood Methemoglobin 0.3 Blood Gas A-a O2 Differential 76.5 H Oxyhemoglobin Percent 96.2 Total Hemoglobin 13.3 Blood Gas Temperature 35.8 Blood Gas Respiration Rate 14.0 Blood Gas Actual Respiration Rate 14 Blood Gas Modality VENT - AC FiO2 30.0 Blood Gas Tidal Volume 500.0 Blood Gas Low PEEP Setting 5.0 Blood Gas Notified Whom Blood Gas Notified Time 01/05/2017 3:13:27 AM Bedside Glucose 114 110 White Blood Count 8.7 Red Blood Count 3.56 L Hemoglobin 11.3 L Hematocrit 34.6 L Mean Corpuscular Volume 97.2 Mean Corpuscular Hemoglobin 31.7 Mean Corpuscular Hemoglobin Concent 32.7 Red Cell Distribution Width 12.9 Platelet Count 91 L Mean Platelet Volume 10.8 H Neutrophils % 86.3 H Lymphocytes % 6.7 L Monocytes % 6.2 Eosinophils % 0.2 Basophils % 0.1 Nucleated Red Blood Cells % 0.0 Neutrophils # 7.5 Lymphocytes # 0.6 L Monocytes # 0.5 Eosinophils # 0.0 Basophils # 0.0 Nucleated Red Blood Cells # 0.0 Activated Partial Thromboplast Time 68.7 H Sodium Level 157 H Potassium Level 3.1 L Chloride Level 125 H Carbon Dioxide Level 29 Anion Gap 6 L Blood Urea Nitrogen 49 H Creatinine 1.07 Glucose Level 112 Calcium Level 6.5 L Total Bilirubin 0.6 Direct Bilirubin 0.00 Indirect Bilirubin 0.6 Aspartate Amino Transf (AST/SGOT) 157 #H Alanine Aminotransferase (ALT/SGPT) 160 H Alkaline Phosphatase 39 L Total Protein 4.2 #L Albumin 2.3 L Test 01/05/17 08:05 01/05/17 12:18 01/05/17 14:00 01/05/17 16:26 Bedside Glucose 124 120 129 Urine Color SHANTE Urine Clarity CLOUDY A Urine pH 5.0 Urine Specific Chana 1.030 Urine Ketones NEGATIVE Urine Nitrite NEGATIVE Urine Bilirubin NEGATIVE Urine Urobilinogen NEGATIVE Urine Leukocyte Esterase NEGATIVE Urine Microscopic RBC > 182 H Urine Microscopic WBC > 182 H Urine Bacteria FEW A Urine Hemoglobin 3+ H Urine Random Creatinine 116.50 Urine Random Sodium < 13 L Urine Glucose NEGATIVE Urine Total Protein 27.0 H Sodium Level 156 H Potassium Level 3.8 Chloride Level 120 H Carbon Dioxide Level 32 H Anion Gap 8 Blood Urea Nitrogen 48 H Creatinine 1.29 H Glucose Level 111 Calcium Level 7.8 L Medications Medications Current Medications Acetaminophen (Tylenol Supp) 650 mg Q4H PRN NV TEMP > 37C; Start 01/03/17 at 15 :00 Acetaminophen (Tylenol Liquid) 650 mg Q4H PRN PO TEMP > 37C; Start 01/03/17 at 15:00 Acetaminophen (Tylenol Supp) 500 mg Q6H NV ; Start 01/04/17 at 15:00 Acetaminophen (Tylenol Liquid) 500 mg Q6H PO Last administered on 01/05/17 15: 33; Admin Dose 500 MG; Start 01/04/17 at 15:00 Meperidine HCl (Demerol) 12.5 mg Q4H PRN IV POST OPERATIVE SHIVERING; Start at 15:00 Meperidine HCl (Demerol) 25 mg Q4H PRN IV POST OPERATIVE SHIVERING; Start 01/03 at 15:00 Eye Lubricant (Akwa Oint) 1 applic Q6 BOTH EYES Last administered on 01/05/17 11:49; Admin Dose 1 APPLIC; Start 01/03/17 at 18:00 Eye Lubricant (Artificial Tears Oph) 2 drop Q6 BOTH EYES Last administered on 11:49; Admin Dose 2 DROP; Start 01/03/17 at 18:00 Pantoprazole (Protonix Iv) 40 mg DAILY@06 IV Last administered on 01/05/17 06: 38; Admin Dose 40 MG; Start 01/03/17 at 17:00 Miscellaneous Information 1 ea NOTE XX ; Start 01/03/17 at 17:00 Glucose (Glutose) 15 gm Q15M PRN PO DECREASED GLUCOSE; Start 01/03/17 at 17:00 Glucose (Glutose) 22.5 gm Q15M PRN PO DECREASED GLUCOSE; Start 01/03/17 at 17: 00 Dextrose (D50w Syringe) 25 ml Q15M PRN IV DECREASED GLUCOSE; Start 01/03/17 at 17:00 Dextrose (D50w Syringe) 50 ml Q15M PRN IV DECREASED GLUCOSE; Start 01/03/17 at 17:00 Glucagon (Glucagen) 1 mg Q15M PRN IM DECREASED GLUCOSE; Start 01/03/17 at 17:00 Glucose 15 gm 15 gm Q15M PRN BUCCAL DECREASED GLUCOSE; Start 01/03/17 at 17:00 Midazolam HCl 50 ml @ 1 mls/hr TITRATE IV Last administered on 01/05/17 01:29 ; Admin Dose 4 MLS/HR; Start 01/03/17 at 21:00 Fentanyl (Sublimaze) 100 ml @ 2.5 mls/hr TITRATE IV Last administered on 15:37; Admin Dose 5 MLS/HR; Start 01/03/17 at 21:00 Dextrose (D50w Syringe) 25 ml Q15M PRN IV Till BS 80 mg/dL or above x2; Start 01/03/17 at 21:00 Dextrose (D50w Syringe) 50 ml Q15M PRN IV Till BS 80 mg/dL or above x2; Start 01/03/17 at 21:00 Miscellaneous Information This patient naik... PRN PRN XX WOUND CARE; Start 01/04 at 03:00 Piperacillin Sod/ Tazobactam Sod 100 ml @ 200 mls/hr Q6 IVPB Last administered on 01/05/17 12:19; Admin Dose 200 MLS/HR; Start 01/04/17 at 12:00 Vancomycin HCl (Vancocin) 250 ml @ 125 mls/hr Q12H IVPB Last administered on 08:08; Admin Dose 125 MLS/HR; Start 01/04/17 at 09:00 Silver Sulfadiazine 1 applic 1 applic DAILY TOP Last administered on 01/05/17 09:05; Admin Dose 1 APPLIC; Start 01/04/17 at 14:00 Norepinephrine/ Dextrose (Levophed/D5W) 500 ml @ 1.87 mls/hr TITRATE IV ; Start 01/04/17 at 18:30 Insulin Aspart (Adult SC Insulin - Mild Algorithm)... Q4 SC ; Start 01/05/17 at 09:00 Potassium Chloride/Dextrose/ Sod Cl (D5-1/2ns + KCl 20 Meq) 1,000 ml @ 100 mls/ hr Q10H IV Last administered on 01/05/17t 09:05; Admin Dose 100 MLS/HR; Start 01/05/17 at 08:30 Miscellaneous Information (*Rx Drug Level Order Reminder*) VANCOMYCIN TROUGH AT 2000 ONCE ONCE XX ; Start 01/05/17 at 20:00; Stop 01/05/17 at 20:01 ESHA ALMANZA DO Jan 05, 2017 17:23
--- NOTE | 2017-01-05 19:26 | CONS ---
Date/Time of Note Date/Time of Note DATE: 01/03/17 TIME: 19:15 Assessment/Plan Assessment/Plan Chief Complaint/Hosp Course Gross hematuria Problems: Additional Assessment/Plan Impression: Patient is on anticoagulation is on heparin and most likely the hematuria is secondary to that and that is critical that he gets these medication because of his pulmonary emboli. Recommendation: At the present will keep the Regalado catheter in and monitor the color of the urine and hopefully gradually it will clear up and if he needs any blood transfusions we shall transfuse him. I do thank you for allowing me to help in his care I will follow his urological problem was you end of dictation. Consultation Date/Type/Reason Admit Date/Time Jan 03, 2017 at 15:05 Hx of Present Illness Dear Dr. Stafford: Thank you for asking me to see this patient this is a 61-year-old male was admitted to the hospital brought from a halfway when he was found unresponsive. The patient presently is on a respirator in the intensive care unit. I was asked to see him because he has gross hematuria. I could not get a history from the patient so I reviewed his medical records. The patient has had a cardiac arrest, acute pulmonary emboli, respiratory failure, severe hypernatremia and acute renal insufficiency metabolic acidosis. At the present the patient has an indwelling Regalado catheter and the urine is clearing up Review of system is not obtainable since the patient is on a respirator Subjective hx not possible: pt non-verbal, pt critical Psychological: other (unable to assess) Past Medical History Medical History: hypertension, other (bipolar disorder, htn, BPH) Past Surgical History Unknown Family History Significant Family History: no pertinent family hx Social History Unknown Smoking Status: Unknown if ever smoked Exam/Review of Systems Vital Signs Vitals The vital signs laboratory data as our including the data from 01/03/2017, 2016 and 01/05/2017 even though I only wanted 01/03/2017 which is the date I saw the patient. I was not able to dictate the consultation at that time because the system of the dictation was down and is still down and that is why I am using this new system I am going to get so I have to use whatever it gives me. VS - Last 72 Hours, by Label Date Time Temp Pulse Resp B/P Pulse Ox O2 Delivery O2 Flow Rate FiO2 01/05/17 18:00 95 16 93/54 100 Mechanical Ventilator 01/05/17 17:25 98 14 100 30 01/05/17 17:00 97 16 92/54 100 Mechanical Ventilator 01/05/17 16:00 99.6 98 16 95/49 100 Mechanical Ventilator 01/05/17 16:00 98 01/05/17 15:00 100 16 101/54 98 Mechanical Ventilator 01/05/17 14:55 99 14 100 30 01/05/17 14:00 104 19 102/72 Mechanical Ventilator 01/05/17 13:00 102 17 105/68 Mechanical Ventilator 01/05/17 13:00 97 16 100 30 01/05/17 12:00 105 01/05/17 12:00 98.2 105 18 106/68 Mechanical Ventilator 01/05/17 11:30 107 17 100 30 01/05/17 11:00 106 17 99/56 Mechanical Ventilator 01/05/17 10:00 111 15 107/72 Mechanical Ventilator 01/05/17 09:42 101 14 100 30 01/05/17 09:00 106 14 100/65 Mechanical Ventilator 01/05/17 08:30 109 15 102/64 Mechanical Ventilator 01/05/17 08:00 111 18 108/69 99 Mechanical Ventilator 01/05/17 08:00 112 01/05/17 07:45 30 01/05/17 07:30 98.6 102 14 89/66 99 Mechanical Ventilator 01/05/17 07:16 106 14 100 30 01/05/17 07:00 98.3 106 14 97/65 100 01/05/17 06:30 107 14 96/64 100 01/05/17 06:00 97.9 107 16 99/66 100 01/05/17 05:30 107 14 102/70 100 01/05/17 05:12 109 14 100 30 01/05/17 05:00 97.3 110 14 114/77 100 01/05/17 04:30 99 14 105/61 100 01/05/17 04:00 96.9 98 14 95/63 100 01/05/17 04:00 105 01/05/17 03:30 96 14 89/61 100 01/05/17 03:22 97 14 100 30 01/05/17 03:00 96.5 96 14 94/65 100 01/05/17 02:30 96 14 98/64 100 01/05/17 02:00 96.2 96 14 86/57 100 Mechanical Ventilator 01/05/17 01:30 98 14 105/72 100 01/05/17 01:05 99 14 99 30 01/05/17 01:00 95.6 96 14 98/71 100 Mechanical Ventilator 01/05/17 00:30 86 14 88/73 100 01/05/17 00:00 86 01/05/17 00:00 95.0 86 14 79/61 100 Mechanical Ventilator 01/04/17 23:30 87 14 83/64 100 01/04/17 23:11 87 14 99 30 01/04/17 23:00 94.8 87 15 83/57 100 Mechanical Ventilator 01/04/17 22:30 90 15 92/54 100 Mechanical Ventilator 01/04/17 22:00 94.1 88 15 89/67 100 Mechanical Ventilator 01/04/17 21:30 88 14 84/66 100 Mechanical Ventilator 01/04/17 21:10 87 14 97 30 01/04/17 21:00 94.2 88 14 85/67 100 Mechanical Ventilator 01/04/17 20:30 86 14 90/70 100 Mechanical Ventilator 01/04/17 20:00 88 01/04/17 20:00 93.7 84 14 86/61 100 Mechanical Ventilator 01/04/17 20:00 30 01/04/17 19:30 83 14 90/63 100 Mechanical Ventilator 01/04/17 19:25 84 14 100 30 01/04/17 19:00 92.4 79 14 78/65 99 Mechanical Ventilator 01/04/17 18:30 80 14 83/72 100 Mechanical Ventilator 01/04/17 18:00 92.3 81 14 83/61 Mechanical Ventilator 01/04/17 17:30 82 14 84/62 Mechanical Ventilator 01/04/17 17:22 82 14 100 30 01/04/17 17:00 91.7 84 14 79/62 Mechanical Ventilator 01/04/17 16:30 87 14 97/68 Mechanical Ventilator 01/04/17 16:00 91.3 94 14 105/82 Mechanical Ventilator 01/04/17 16:00 93 01/04/17 15:30 91.0 93 14 107/87 Mechanical Ventilator 01/04/17 15:12 94 14 100 30 01/04/17 15:00 91 28 99/84 Mechanical Ventilator 01/04/17 14:30 91 14 98/87 98 Mechanical Ventilator 01/04/17 14:00 91.3 90 14 102/78 99 Mechanical Ventilator 01/04/17 13:30 90 14 99/85 99 Mechanical Ventilator 01/04/17 13:07 90 14 100 30 01/04/17 13:00 91.8 93 14 118/78 99 Mechanical Ventilator 01/04/17 12:30 96 15 109/83 99 Mechanical Ventilator 01/04/17 12:00 91.6 88 15 120/71 98 Mechanical Ventilator 01/04/17 12:00 87 01/04/17 11:05 87 14 99 30 01/04/17 11:00 86 15 104/85 98 Mechanical Ventilator 01/04/17 10:30 85 14 105/66 Mechanical Ventilator 01/04/17 10:00 90.7 84 20 109/75 98 Mechanical Ventilator 01/04/17 09:40 82 14 100 30 01/04/17 09:30 83 25 127/90 99 Mechanical Ventilator 01/04/17 09:00 91.3 85 16 110/81 99 Mechanical Ventilator 01/04/17 08:30 91.3 87 16 108/86 100 Mechanical Ventilator 01/04/17 08:00 30 01/04/17 08:00 89 01/04/17 08:00 14 118/93 Mechanical Ventilator 01/04/17 07:35 93 16 99 30 01/04/17 07:30 93 14 136/83 100 Mechanical Ventilator 01/04/17 07:00 86 16 118/83 100 Mechanical Ventilator 01/04/17 06:30 86 14 127/87 100 Mechanical Ventilator 01/04/17 06:00 91.3 01/04/17 05:30 83 16 122/77 100 Mechanical Ventilator 01/04/17 05:05 81 16 100 30 01/04/17 05:00 81 20 134/78 100 Mechanical Ventilator 01/04/17 05:00 90.9 01/04/17 04:30 85 17 124/93 100 01/04/17 04:00 91.4 90 20 129/98 100 Mechanical Ventilator 01/04/17 04:00 85 01/04/17 03:30 83 16 111/80 100 01/04/17 03:15 84 16 100 30 01/04/17 03:00 92.1 01/04/17 03:00 84 17 114/81 100 Mechanical Ventilator 01/04/17 02:30 83 17 119/76 100 01/04/17 02:00 81 16 111/76 100 Mechanical Ventilator 01/04/17 02:00 90.8 01/04/17 01:30 79 17 114/75 100 01/04/17 01:15 78 16 100 30 01/04/17 01:00 90.6 01/04/17 01:00 78 16 118/81 100 Mechanical Ventilator 01/04/17 00:30 79 16 112/83 100 01/04/17 00:00 75 01/04/17 00:00 91.2 82 14 117/83 100 Mechanical Ventilator 01/03/17 23:30 84 16 122/83 100 01/03/17 23:00 91.9 01/03/17 23:00 84 19 117/75 100 Mechanical Ventilator 01/03/17 23:00 84 14 100 30 01/03/17 22:30 86 21 135/88 100 01/03/17 22:00 91.9 01/03/17 22:00 90 20 119/71 100 Mechanical Ventilator 01/03/17 21:30 89 14 113/90 100 01/03/17 21:05 89 14 100 30 01/03/17 21:00 90.1 01/03/17 21:00 87 14 118/94 100 Mechanical Ventilator 01/03/17 20:30 83 14 124/98 100 01/03/17 20:00 30 01/03/17 20:00 89.5 84 20 124/95 100 Mechanical Ventilator 01/03/17 20:00 85 01/03/17 19:35 88 14 100 30 01/03/17 19:00 89.5 01/03/17 19:00 94.4 115 14 124/101 100 Mechanical Ventilator 114 01/03/17 18:00 95.9 129 14 126/97 100 Mechanical Ventilator 01/03/17 17:35 129 14 100 30 01/03/17 17:26 30 01/03/17 17:00 113 21 100 Mechanical Ventilator 01/03/17 16:59 125 16 100 50 01/03/17 15:40 99.3 115 25 129/91 100 Mechanical Ventilator 01/03/17 15:15 99.0 117 112/88 100 Mechanical Ventilator 01/03/17 14:44 119 26 100 50 01/03/17 14:00 95 28 121/81 100 Mechanical Ventilator 01/03/17 12:58 98.4 131 28 125/91 100 Mechanical Ventilator 01/03/17 11:17 163 14 100 100 01/03/17 10:55 Bag Valve Mask 01/03/17 10:55 98.3 158 0 101/85 100 Vital Signs Date Time Temp Pulse Resp B/P Pulse Ox O2 Delivery O2 Flow Rate FiO2 01/05/17 18:00 95 16 93/54 100 Mechanical Ventilator 01/05/17 17:25 30 01/05/17 16:00 99.6 Intake and Output 01/04/17 01/04/17 01/05/17 15:00 23:00 07:00 Intake Total 1357.2 ml 2342.30 ml 1078.04 ml Output Total 816 ml 376 ml 350 ml Balance 541.2 ml 1966.30 ml 728.04 ml Exam On the examination the patient does have bruises on his face, on his chest, and also what looks like perineal hematoma. Results Result Diagram: 01/05/17 0430 01/05/17 1400 Results 24 hrs Laboratory Tests Test 01/04/17 20:00 01/04/17 20:23 01/04/17 20:51 01/04/17 21:05 White Blood Count 7.5 # Red Blood Count 3.14 #L Hemoglobin 10.5 #L Hematocrit 30.6 #L Mean Corpuscular Volume 97.5 Mean Corpuscular Hemoglobin 33.4 H Mean Corpuscular Hemoglobin Concent 34.3 Red Cell Distribution Width 13.1 Platelet Count 76 #L Mean Platelet Volume 10.0 Neutrophils % 69.0 Band Neutrophils % 18.0 H Lymphocytes % 7.0 L Monocytes % 6.0 Eosinophils % Neutrophils # 5.2 Lymphocytes # 0.5 L Monocytes # 0.5 Eosinophils # Platelet Estimate PLT APPEAR DECREASED Prothrombin Time 21.6 #H Prothrombin Time Ratio 1.7 INR International Normalized Ratio 1.86 Fibrinogen 438.0 # Bedside Glucose 82 106 Blood Gas Specimen Source Blood arterial Arterial Blood Date Drawn 01/04/2017 9:00:41 PM Arterial Blood pH (Temp corrected) 7.443 Arterial Blood pCO2 (Temp correct) 35.7 Arterial Blood pO2 (Temp corrected) 119.9 H Arterial Blood HCO3 24.4 Arterial Blood Base Excess -0.2 Arterial Blood Oxygen Saturation 97.9 Rikki Test ACCEPTAB Arterial Blood Gas Puncture Site Right Radial Arterial Blood Carboxyhemoglobin 0.3 Arterial Blood Methemoglobin 0.2 Blood Gas A-a O2 Differential 53.9 H Oxyhemoglobin Percent 97.4 Total Hemoglobin 13.3 Blood Gas Temperature 34.5 Blood Gas Respiration Rate 14.0 Blood Gas Actual Respiration Rate 14 Blood Gas Modality VENT - AC FiO2 30.0 Blood Gas Tidal Volume 500.0 Blood Gas Low PEEP Setting 5.0 Blood Gas Notified Whom Blood Gas Notified Time 01/04/2017 9:11:33 PM Sodium Level 158 H Potassium Level 3.0 L Chloride Level 121 H Carbon Dioxide Level 33 H Anion Gap 7 L Blood Urea Nitrogen 58 H Creatinine 1.20 Glucose Level 86 # Calcium Level 6.8 L Phosphorus Level 2.6 Magnesium Level 2.9 H Troponin I 0.024 Amylase Level 77 Lipase 193 Test 01/04/17 22:21 01/04/17 23:14 01/05/17 00:26 01/05/17 00:55 Bedside Glucose 80 97 104 White Blood Count 9.0 Red Blood Count 3.69 L Hemoglobin 11.8 L Hematocrit 35.8 L Mean Corpuscular Volume 97.0 Mean Corpuscular Hemoglobin 32.0 Mean Corpuscular Hemoglobin Concent 33.0 Red Cell Distribution Width 13.2 Platelet Count 86 L Mean Platelet Volume 10.3 Neutrophils % 86.4 H Lymphocytes % 6.7 L Monocytes % 6.3 Eosinophils % 0.2 Basophils % 0.1 Nucleated Red Blood Cells % 0.0 Neutrophils # 7.8 H Lymphocytes # 0.6 L Monocytes # 0.6 Eosinophils # 0.0 Basophils # 0.0 Nucleated Red Blood Cells # 0.0 Prothrombin Time 19.7 H Prothrombin Time Ratio 1.5 INR International Normalized Ratio 1.66 Activated Partial Thromboplast Time 83.9 *H Fibrinogen 533.0 #H Sodium Level 160 H Potassium Level 3.1 L Chloride Level 124 H Carbon Dioxide Level 30 Anion Gap 9 Blood Urea Nitrogen 53 H Creatinine 1.16 Glucose Level 116 Calcium Level 7.3 L Phosphorus Level 2.3 L Magnesium Level 2.8 H Troponin I 0.028 Amylase Level 83 Lipase 161 Test 01/05/17 01:25 01/05/17 03:00 01/05/17 03:18 01/05/17 04:30 Bedside Glucose 97 114 Blood Gas Specimen Source Blood arterial Arterial Blood Date Drawn 01/05/2017 3:05:38 AM Arterial Blood pH (Temp corrected) 7.459 H Arterial Blood pCO2 (Temp correct) 42.3 Arterial Blood pO2 (Temp corrected) 88.6 Arterial Blood HCO3 29.7 H Arterial Blood Base Excess 4.9 H Arterial Blood Oxygen Saturation 96.8 Rikki Test ACCEPTAB Arterial Blood Gas Puncture Site Right Radial Arterial Blood Carboxyhemoglobin 0.3 Arterial Blood Methemoglobin 0.3 Blood Gas A-a O2 Differential 76.5 H Oxyhemoglobin Percent 96.2 Total Hemoglobin 13.3 Blood Gas Temperature 35.8 Blood Gas Respiration Rate 14.0 Blood Gas Actual Respiration Rate 14 Blood Gas Modality VENT - AC FiO2 30.0 Blood Gas Tidal Volume 500.0 Blood Gas Low PEEP Setting 5.0 Blood Gas Notified Whom MH Blood Gas Notified Time 01/05/2017 3:13:27 AM White Blood Count 8.7 Red Blood Count 3.56 L Hemoglobin 11.3 L Hematocrit 34.6 L Mean Corpuscular Volume 97.2 Mean Corpuscular Hemoglobin 31.7 Mean Corpuscular Hemoglobin Concent 32.7 Red Cell Distribution Width 12.9 Platelet Count 91 L Mean Platelet Volume 10.8 H Neutrophils % 86.3 H Lymphocytes % 6.7 L Monocytes % 6.2 Eosinophils % 0.2 Basophils % 0.1 Nucleated Red Blood Cells % 0.0 Neutrophils # 7.5 Lymphocytes # 0.6 L Monocytes # 0.5 Eosinophils # 0.0 Basophils # 0.0 Nucleated Red Blood Cells # 0.0 Activated Partial Thromboplast Time 68.7 H Sodium Level 157 H Potassium Level 3.1 L Chloride Level 125 H Carbon Dioxide Level 29 Anion Gap 6 L Blood Urea Nitrogen 49 H Creatinine 1.07 Glucose Level 112 Calcium Level 6.5 L Total Bilirubin 0.6 Direct Bilirubin 0.00 Indirect Bilirubin 0.6 Aspartate Amino Transf (AST/SGOT) 157 #H Alanine Aminotransferase (ALT/SGPT) 160 H Alkaline Phosphatase 39 L Total Protein 4.2 #L Albumin 2.3 L Test 01/05/17 05:48 01/05/17 08:05 01/05/17 12:18 01/05/17 14:00 Bedside Glucose 110 124 120 Urine Color SHANTE Urine Clarity CLOUDY A Urine pH 5.0 Urine Specific [place] 1.030 Urine Ketones NEGATIVE Urine Nitrite NEGATIVE Urine Bilirubin NEGATIVE Urine Urobilinogen NEGATIVE Urine Leukocyte Esterase NEGATIVE Urine Microscopic RBC > 182 H Urine Microscopic WBC > 182 H Urine Bacteria FEW A Urine Hemoglobin 3+ H Urine Osmolality 755 Urine Random Creatinine 116.50 Urine Random Sodium < 13 L Urine Glucose NEGATIVE Urine Total Protein 27.0 H Sodium Level 156 H Potassium Level 3.8 Chloride Level 120 H Carbon Dioxide Level 32 H Anion Gap 8 Blood Urea Nitrogen 48 H Creatinine 1.29 H Glucose Level 111 Osmolality 336 H Calcium Level 7.8 L Test 01/05/17 16:26 Bedside Glucose 129 Medications Medications Current Medications Acetaminophen (Tylenol Supp) 650 mg Q4H PRN IN TEMP > 37C; Start 01/03/17 at 15 :00 Acetaminophen (Tylenol Liquid) 650 mg Q4H PRN PO TEMP > 37C; Start 01/03/17 at 15:00 Acetaminophen (Tylenol Supp) 500 mg Q6H IN ; Start 01/04/17 at 15:00 Acetaminophen (Tylenol Liquid) 500 mg Q6H PO Last administered on 01/05/17 15: 33; Admin Dose 500 MG; Start 01/04/17 at 15:00 Meperidine HCl (Demerol) 12.5 mg Q4H PRN IV POST OPERATIVE SHIVERING; Start at 15:00 Meperidine HCl (Demerol) 25 mg Q4H PRN IV POST OPERATIVE SHIVERING; Start 01/03 at 15:00 Eye Lubricant (Akwa Oint) 1 applic Q6 BOTH EYES Last administered on 01/05/17 18:25; Admin Dose 1 APPLIC; Start 01/03/17 at 18:00 Eye Lubricant (Artificial Tears Oph) 2 drop Q6 BOTH EYES Last administered on 18:25; Admin Dose 2 DROP; Start 01/03/17 at 18:00 Pantoprazole (Protonix Iv) 40 mg DAILY@06 IV Last administered on 01/05/17 06: 38; Admin Dose 40 MG; Start 01/03/17 at 17:00 Miscellaneous Information 1 ea NOTE XX ; Start 01/03/17 at 17:00 Glucose (Glutose) 15 gm Q15M PRN PO DECREASED GLUCOSE; Start 01/03/17 at 17:00 Glucose (Glutose) 22.5 gm Q15M PRN PO DECREASED GLUCOSE; Start 01/03/17 at 17: 00 Dextrose (D50w Syringe) 25 ml Q15M PRN IV DECREASED GLUCOSE; Start 01/03/17 at 17:00 Dextrose (D50w Syringe) 50 ml Q15M PRN IV DECREASED GLUCOSE; Start 01/03/17 at 17:00 Glucagon (Glucagen) 1 mg Q15M PRN IM DECREASED GLUCOSE; Start 01/03/17 at 17:00 Glucose 15 gm 15 gm Q15M PRN BUCCAL DECREASED GLUCOSE; Start 01/03/17 at 17:00 Midazolam HCl 50 ml @ 1 mls/hr TITRATE IV Last administered on 01/05/17 01:29 ; Admin Dose 4 MLS/HR; Start 01/03/17 at 21:00 Fentanyl (Sublimaze) 100 ml @ 2.5 mls/hr TITRATE IV Last administered on 15:37; Admin Dose 5 MLS/HR; Start 01/03/17 at 21:00 Dextrose (D50w Syringe) 25 ml Q15M PRN IV Till BS 80 mg/dL or above x2; Start 01/03/17 at 21:00 Dextrose (D50w Syringe) 50 ml Q15M PRN IV Till BS 80 mg/dL or above x2; Start 01/03/17 at 21:00 Miscellaneous Information This patient naik... PRN PRN XX WOUND CARE; Start 01/04 at 03:00 Piperacillin Sod/ Tazobactam Sod 100 ml @ 200 mls/hr Q6 IVPB Last administered on 01/05/17 18:25; Admin Dose 200 MLS/HR; Start 01/04/17 at 12:00 Vancomycin HCl (Vancocin) 250 ml @ 125 mls/hr Q12H IVPB Last administered on 08:08; Admin Dose 125 MLS/HR; Start 01/04/17 at 09:00 Silver Sulfadiazine 1 applic 1 applic DAILY TOP Last administered on 01/05/17 09:05; Admin Dose 1 APPLIC; Start 01/04/17 at 14:00 Norepinephrine/ Dextrose (Levophed/D5W) 500 ml @ 1.87 mls/hr TITRATE IV ; Start 01/04/17 at 18:30 Insulin Aspart (Adult SC Insulin - Mild Algorithm)... Q4 SC ; Start 01/05/17 at 09:00 Potassium Chloride/Dextrose/ Sod Cl (D5-1/2ns + KCl 20 Meq) 1,000 ml @ 100 mls/ hr Q10H IV Last administered on 01/05/17t 09:05; Admin Dose 100 MLS/HR; Start 01/05/17 at 08:30 Miscellaneous Information (*Rx Drug Level Order Reminder*) VANCOMYCIN TROUGH AT 2000 ONCE ONCE XX ; Start 01/05/17 at 20:00; Stop 01/05/17 at 20:01 JOB HUTTON MD Jan 05, 2017 19:26
--- NOTE | 2017-01-05 19:31 | PN ---
Date/Time of Note Date/Time of Note DATE: 01/04/17 TIME: 19:26 Assessment/Plan VTE Prophylaxis VTE Prophylaxis Intervention: heparin Lines/Catheters IV [facility] Saline Lock Urinary Cath still in place: Yes Reason Cath still needed: terminal illness/intractable pain Assessment/Plan Chief Complaint/Hosp Course Gross hematuria Problems: Assessment/Plan Plan is to keep the Regalado catheter in place for monitoring his urine output. Once his condition is better then we could discontinue the Regalado catheter and if he still having hematuria will do a CAT scan to see if he has any underlying cause in his kidney or bladder. Subjective 24 Hr Interval Summary Free Text/Dictation Patient seen in the ICU. He still is still on the respirator Regalado catheter is in place. The urine is now clear yellow Exam/Review of Systems Vital Signs Vitals Vital Signs Date Time Temp Pulse Resp B/P Pulse Ox O2 Delivery O2 Flow Rate FiO2 01/05/17 18:00 95 16 93/54 100 Mechanical Ventilator 01/05/17 17:25 30 01/05/17 16:00 99.6 Intake and Output 01/04/17 01/04/17 01/05/17 15:00 23:00 07:00 Intake Total 1357.2 ml 2342.30 ml 1078.04 ml Output Total 816 ml 376 ml 350 ml Balance 541.2 ml 1966.30 ml 728.04 ml Exam Abdomen is soft he still have bruises on his chest the Regalado catheter is draining clear urine the ecchymosis in the perineal area is still present. Results Result Diagram: 01/05/17 0430 01/05/17 1400 Results 24 hrs Laboratory Tests Test 01/04/17 20:00 01/04/17 20:23 01/04/17 20:51 01/04/17 21:05 White Blood Count 7.5 # Red Blood Count 3.14 #L Hemoglobin 10.5 #L Hematocrit 30.6 #L Mean Corpuscular Volume 97.5 Mean Corpuscular Hemoglobin 33.4 H Mean Corpuscular Hemoglobin Concent 34.3 Red Cell Distribution Width 13.1 Platelet Count 76 #L Mean Platelet Volume 10.0 Neutrophils % 69.0 Band Neutrophils % 18.0 H Lymphocytes % 7.0 L Monocytes % 6.0 Eosinophils % Neutrophils # 5.2 Lymphocytes # 0.5 L Monocytes # 0.5 Eosinophils # Platelet Estimate PLT APPEAR DECREASED Prothrombin Time 21.6 #H Prothrombin Time Ratio 1.7 INR International Normalized Ratio 1.86 Fibrinogen 438.0 # Bedside Glucose 82 106 Blood Gas Specimen Source Blood arterial Arterial Blood Date Drawn 01/04/2017 9:00:41 PM Arterial Blood pH (Temp corrected) 7.443 Arterial Blood pCO2 (Temp correct) 35.7 Arterial Blood pO2 (Temp corrected) 119.9 H Arterial Blood HCO3 24.4 Arterial Blood Base Excess -0.2 Arterial Blood Oxygen Saturation 97.9 Rikki Test ACCEPTAB Arterial Blood Gas Puncture Site Right Radial Arterial Blood Carboxyhemoglobin 0.3 Arterial Blood Methemoglobin 0.2 Blood Gas A-a O2 Differential 53.9 H Oxyhemoglobin Percent 97.4 Total Hemoglobin 13.3 Blood Gas Temperature 34.5 Blood Gas Respiration Rate 14.0 Blood Gas Actual Respiration Rate 14 Blood Gas Modality VENT - AC FiO2 30.0 Blood Gas Tidal Volume 500.0 Blood Gas Low PEEP Setting 5.0 Blood Gas Notified Whom MH Blood Gas Notified Time 01/04/2017 9:11:33 PM Sodium Level 158 H Potassium Level 3.0 L Chloride Level 121 H Carbon Dioxide Level 33 H Anion Gap 7 L Blood Urea Nitrogen 58 H Creatinine 1.20 Glucose Level 86 # Calcium Level 6.8 L Phosphorus Level 2.6 Magnesium Level 2.9 H Troponin I 0.024 Amylase Level 77 Lipase 193 Test 01/04/17 22:21 01/04/17 23:14 01/05/17 00:26 01/05/17 00:55 Bedside Glucose 80 97 104 White Blood Count 9.0 Red Blood Count 3.69 L Hemoglobin 11.8 L Hematocrit 35.8 L Mean Corpuscular Volume 97.0 Mean Corpuscular Hemoglobin 32.0 Mean Corpuscular Hemoglobin Concent 33.0 Red Cell Distribution Width 13.2 Platelet Count 86 L Mean Platelet Volume 10.3 Neutrophils % 86.4 H Lymphocytes % 6.7 L Monocytes % 6.3 Eosinophils % 0.2 Basophils % 0.1 Nucleated Red Blood Cells % 0.0 Neutrophils # 7.8 H Lymphocytes # 0.6 L Monocytes # 0.6 Eosinophils # 0.0 Basophils # 0.0 Nucleated Red Blood Cells # 0.0 Prothrombin Time 19.7 H Prothrombin Time Ratio 1.5 INR International Normalized Ratio 1.66 Activated Partial Thromboplast Time 83.9 *H Fibrinogen 533.0 #H Sodium Level 160 H Potassium Level 3.1 L Chloride Level 124 H Carbon Dioxide Level 30 Anion Gap 9 Blood Urea Nitrogen 53 H Creatinine 1.16 Glucose Level 116 Calcium Level 7.3 L Phosphorus Level 2.3 L Magnesium Level 2.8 H Troponin I 0.028 Amylase Level 83 Lipase 161 Test 01/05/17 01:25 01/05/17 03:00 01/05/17 03:18 01/05/17 04:30 Bedside Glucose 97 114 Blood Gas Specimen Source Blood arterial Arterial Blood Date Drawn 01/05/2017 3:05:38 AM Arterial Blood pH (Temp corrected) 7.459 H Arterial Blood pCO2 (Temp correct) 42.3 Arterial Blood pO2 (Temp corrected) 88.6 Arterial Blood HCO3 29.7 H Arterial Blood Base Excess 4.9 H Arterial Blood Oxygen Saturation 96.8 Rikki Test ACCEPTAB Arterial Blood Gas Puncture Site Right Radial Arterial Blood Carboxyhemoglobin 0.3 Arterial Blood Methemoglobin 0.3 Blood Gas A-a O2 Differential 76.5 H Oxyhemoglobin Percent 96.2 Total Hemoglobin 13.3 Blood Gas Temperature 35.8 Blood Gas Respiration Rate 14.0 Blood Gas Actual Respiration Rate 14 Blood Gas Modality VENT - AC FiO2 30.0 Blood Gas Tidal Volume 500.0 Blood Gas Low PEEP Setting 5.0 Blood Gas Notified Whom Blood Gas Notified Time 01/05/2017 3:13:27 AM White Blood Count 8.7 Red Blood Count 3.56 L Hemoglobin 11.3 L Hematocrit 34.6 L Mean Corpuscular Volume 97.2 Mean Corpuscular Hemoglobin 31.7 Mean Corpuscular Hemoglobin Concent 32.7 Red Cell Distribution Width 12.9 Platelet Count 91 L Mean Platelet Volume 10.8 H Neutrophils % 86.3 H Lymphocytes % 6.7 L Monocytes % 6.2 Eosinophils % 0.2 Basophils % 0.1 Nucleated Red Blood Cells % 0.0 Neutrophils # 7.5 Lymphocytes # 0.6 L Monocytes # 0.5 Eosinophils # 0.0 Basophils # 0.0 Nucleated Red Blood Cells # 0.0 Activated Partial Thromboplast Time 68.7 H Sodium Level 157 H Potassium Level 3.1 L Chloride Level 125 H Carbon Dioxide Level 29 Anion Gap 6 L Blood Urea Nitrogen 49 H Creatinine 1.07 Glucose Level 112 Calcium Level 6.5 L Total Bilirubin 0.6 Direct Bilirubin 0.00 Indirect Bilirubin 0.6 Aspartate Amino Transf (AST/SGOT) 157 #H Alanine Aminotransferase (ALT/SGPT) 160 H Alkaline Phosphatase 39 L Total Protein 4.2 #L Albumin 2.3 L Test 01/05/17 05:48 01/05/17 08:05 01/05/17 12:18 01/05/17 14:00 Bedside Glucose 110 124 120 Urine Color SHANTE Urine Clarity CLOUDY A Urine pH 5.0 Urine Specific [place] 1.030 Urine Ketones NEGATIVE Urine Nitrite NEGATIVE Urine Bilirubin NEGATIVE Urine Urobilinogen NEGATIVE Urine Leukocyte Esterase NEGATIVE Urine Microscopic RBC > 182 H Urine Microscopic WBC > 182 H Urine Bacteria FEW A Urine Hemoglobin 3+ H Urine Osmolality 755 Urine Random Creatinine 116.50 Urine Random Sodium < 13 L Urine Glucose NEGATIVE Urine Total Protein 27.0 H Sodium Level 156 H Potassium Level 3.8 Chloride Level 120 H Carbon Dioxide Level 32 H Anion Gap 8 Blood Urea Nitrogen 48 H Creatinine 1.29 H Glucose Level 111 Osmolality 336 H Calcium Level 7.8 L Test 01/05/17 16:26 Bedside Glucose 129 Medications Medications Current Medications Acetaminophen (Tylenol Supp) 650 mg Q4H PRN [place] TEMP > 37C; Start 01/03/17 at 15 :00 Acetaminophen (Tylenol Liquid) 650 mg Q4H PRN PO TEMP > 37C; Start 01/03/17 at 15:00 Acetaminophen (Tylenol Supp) 500 mg Q6H MD ; Start 01/04/17 at 15:00 Acetaminophen (Tylenol Liquid) 500 mg Q6H PO Last administered on 01/05/17 15: 33; Admin Dose 500 MG; Start 01/04/17 at 15:00 Meperidine HCl (Demerol) 12.5 mg Q4H PRN IV POST OPERATIVE SHIVERING; Start at 15:00 Meperidine HCl (Demerol) 25 mg Q4H PRN IV POST OPERATIVE SHIVERING; Start 01/03 at 15:00 Eye Lubricant (Akwa Oint) 1 applic Q6 BOTH EYES Last administered on 01/05/17 18:25; Admin Dose 1 APPLIC; Start 01/03/17 at 18:00 Eye Lubricant (Artificial Tears Oph) 2 drop Q6 BOTH EYES Last administered on 18:25; Admin Dose 2 DROP; Start 01/03/17 at 18:00 Pantoprazole (Protonix Iv) 40 mg DAILY@06 IV Last administered on 01/05/17 06: 38; Admin Dose 40 MG; Start 01/03/17 at 17:00 Miscellaneous Information 1 ea NOTE XX ; Start 01/03/17 at 17:00 Glucose (Glutose) 15 gm Q15M PRN PO DECREASED GLUCOSE; Start 01/03/17 at 17:00 Glucose (Glutose) 22.5 gm Q15M PRN PO DECREASED GLUCOSE; Start 01/03/17 at 17: 00 Dextrose (D50w Syringe) 25 ml Q15M PRN IV DECREASED GLUCOSE; Start 01/03/17 at 17:00 Dextrose (D50w Syringe) 50 ml Q15M PRN IV DECREASED GLUCOSE; Start 01/03/17 at 17:00 Glucagon (Glucagen) 1 mg Q15M PRN IM DECREASED GLUCOSE; Start 01/03/17 at 17:00 Glucose 15 gm 15 gm Q15M PRN BUCCAL DECREASED GLUCOSE; Start 01/03/17 at 17:00 Midazolam HCl 50 ml @ 1 mls/hr TITRATE IV Last administered on 01/05/17 01:29 ; Admin Dose 4 MLS/HR; Start 01/03/17 at 21:00 Fentanyl (Sublimaze) 100 ml @ 2.5 mls/hr TITRATE IV Last administered on 15:37; Admin Dose 5 MLS/HR; Start 01/03/17 at 21:00 Dextrose (D50w Syringe) 25 ml Q15M PRN IV Till BS 80 mg/dL or above x2; Start 01/03/17 at 21:00 Dextrose (D50w Syringe) 50 ml Q15M PRN IV Till BS 80 mg/dL or above x2; Start 01/03/17 at 21:00 Miscellaneous Information This patient naik... PRN PRN XX WOUND CARE; Start 01/04 at 03:00 Piperacillin Sod/ Tazobactam Sod 100 ml @ 200 mls/hr Q6 IVPB Last administered on 01/05/17 18:25; Admin Dose 200 MLS/HR; Start 01/04/17 at 12:00 Vancomycin HCl (Vancocin) 250 ml @ 125 mls/hr Q12H IVPB Last administered on 08:08; Admin Dose 125 MLS/HR; Start 01/04/17 at 09:00 Silver Sulfadiazine 1 applic 1 applic DAILY TOP Last administered on 01/05/17 09:05; Admin Dose 1 APPLIC; Start 01/04/17 at 14:00 Norepinephrine/ Dextrose (Levophed/D5W) 500 ml @ 1.87 mls/hr TITRATE IV ; Start 01/04/17 at 18:30 Insulin Aspart (Adult SC Insulin - Mild Algorithm)... Q4 SC ; Start 01/05/17 at 09:00 Potassium Chloride/Dextrose/ Sod Cl (D5-1/2ns + KCl 20 Meq) 1,000 ml @ 100 mls/ hr Q10H IV Last administered on 01/05/17 09:05; Admin Dose 100 MLS/HR; Start 01/05/17 at 08:30 Miscellaneous Information (*Rx Drug Level Order Reminder*) VANCOMYCIN TROUGH AT 2000 ONCE ONCE XX ; Start 01/05/17 at 20:00; Stop 01/05/17 at 20:01 JOB HUTTON MD Jan 05, 2017 19:31
[2017-01-05] MEDS ORDERED: morphine 2 MG INJ IV PRN (22:00)
[2017-01-06] VITALS (35 sets, daily range): BP systolic 96–126; BP diastolic 59–74; PULSE 74–95; RESP 16–22
--- NOTE | 2017-01-06 00:25 | PN ---
Date/Time of Note Date/Time of Note DATE: 01/05/17 TIME: 23:32 Assessment/Plan Lines/Catheters IV Catheter Type (from Nrs): Saline Lock Regalado in Place (from Nrs): Yes Assessment/Plan Chief Complaint/Hosp Course 1. Multiple wounds: multiple skin tears, left trochanter/left facial/left lateral knee ischemic tissue injury likely pressure related -Will likely need debridement as patients condition permits -local care -frequent turning and offloading as patient condition permits -specialty bed -optimize nutrition as patient condition permits -start vitamin c/zinc as patient condition permits 2. S/P cardiac arrest with ROSC; currently intubated off sedation sedated, s/p hypothermia protocol -supportive therapy -optimize electrolytes 3. PE: currently on heprain drip -continue heparin drip -supportive 4. hematuria: likely 2/2 to heparin drip; improved, urine yellow -monitor 5. Acute kindey injury: 2/2 ischemic shock; improved -supportive -monitor 6. Hypernatremia: improving slowly -Continue to monitor -per renal 7. anemia normocytic normochromic: 2/2 acute loss/hematuria +/- dilutional -monitor -transfuse as necessary 8. hypokalemia -monitor -optimize lytes -monitor for cardiac arrythmias 9. hypoalbuminemia: multifactorial (2/2 inflammation/infection +/-malnutrition + /- shocked liver) -Optimize -replete as necessary 10. hypocalcemia likely 2/2 #9 -optimize lytes -continue to monitor 11. elevated LFT'S with hyperbilirubinemia: likely 2/2 shocked liver -supportive 12. acute encephalopathy secondary to anoxic injury -cont to monitor - neurology consult 13.. sepsis with multiorgan failure likely secondary to bacteremia; urine cultures and cxr are negative. -cont antibiotics -per ID Patient seen and examined in collaboration with Dr. Fahad Beaver Problems: Subjective 24 Hr Interval Summary Patient non verbal, non-responsive sedation off, s/p hypothermia protocol, ET tube & vented. Urine less bloody Exam/Review of Systems Vital Signs Vitals Vital Signs Date Time Temp Pulse Resp B/P Pulse Ox O2 Delivery O2 Flow Rate FiO2 01/06/17 05:08 79 18 100 30 01/06/17 04:00 98.3 98/59 Mechanical Ventilator Intake and Output 01/05/17 01/05/17 01/06/17 15:00 23:00 07:00 Intake Total 1188 ml 1800 ml 1100 ml Output Total 401 ml 368 ml 252 ml Balance 787 ml 1432 ml 848 ml Exam Free Text/Dictation Constitutional: well developed Head: lacerations, normocephalic Eyes: No PERRL (pupils nonresponsive) ENMT: intubated Neck: non-tender, supple Respiratory: diminished breath sounds Cardiovascular: nl pulses, regular rate and rhythm Gastrointestinal: non-tender, soft, No distended Genitourinary - Male: nl penis, nl scrotum; urine yellow Musculoskeletal: , No swelling Extremities: normal pulses Neurological: unresponsive (sedated) Skin: nl turgor, other (multiple skin tears; left trochanter/left knee and left cheek wound with eschar, min serous drainage) Lymph: No nl lymph nodes Results Result Diagram: 01/06/17 0430 01/06/17 0430 YAZ BERRIOS NP Jan 05, 2017 23:42 YAZ BERRIOS NP Jan 05, 2017 23:42
[2017-01-06] MEDS: Insulin NOVOLOG SS MILD Algorithm (NPO/TPN/ENTERAL FEEDS) SC SCH ×6 (01:00→21:00)
[2017-01-06] MEDS: PIPER-TAZO 3.375 GM IV (PMX) 100 ML IVPB SCH ×4 (01:11→18:05)
[2017-01-06] MEDS: ARTIFICIAL TEARS 15 ML OPH BOTH EYES SCH ×4 (01:11→18:05)
[2017-01-06] MEDS: OCULAR LUBRICANT 3.5 GM OPH OINT BOTH EYES SCH ×4 (01:11→18:05)
[2017-01-06] MEDS: ACETAMINOPHEN 650MG/20.3ML CUP PO SCH ×4 (03:00→21:00)
[2017-01-06] MEDS: ACETAMINOPHEN 650 MG SUPP PR SCH ×4 (03:00→21:00)
[2017-01-06 04:49] LABS: ADD SCAN DIFF NO
[2017-01-06 04:53] LABS: ABNORMAL IP MESSAGE 1; EOSINOPHILS % 0.2 % (0.0-7.0); HEMATOCRIT 31.2 % (42.0-52.0); HEMOGLOBIN 9.6 g/dl (14.0-18.0); LYMPHOCYTES # 0.7 10^3/ul (0.8-2.9); LYMPHOCYTES % 8.1 % (15.0-51.0); MEAN CORPUSCULAR HEMOGLOBIN 30.9 pg (29.0-33.0); MEAN CORPUSCULAR HGB CONC 30.8 g/dl (32.0-37.0); MEAN CORPUSCULAR VOLUME 100.3 fl (82.0-101.0); MEAN PLATELET VOLUME 11.2 fl (7.4-10.4); MONOCYTE # 0.6 10^3/ul (0.3-0.9); MONOCYTES % 6.7 % (0.0-11.0); NEUTROPHILS % 84.5 % (39.0-77.0); RED BLOOD COUNT 3.11 10^6/ul (4.70-6.10); RED CELL DISTRIBUTION WIDTH 13.5 % (11.5-14.5); WHITE BLOOD COUNT 8.3 10^3/ul (4.8-10.8)
[2017-01-06 04:59] LABS: PLATELET COUNT 81 10^3/UL (140-415)
[2017-01-06 05:15] LABS: ALBUMIN 2.1 g/dl (3.3-4.9); BILIRUBIN,INDIRECT 0.5 mg/dl (0-1.1); BILIRUBIN,TOTAL 0.5 mg/dl (0.2-1.3); MAGNESIUM 2.6 mg/dl (1.7-2.5); PHOSPHORUS 2.5 mg/dl (2.5-4.9); TOTAL PROTEIN 3.8 g/dl (6.1-8.1)
[2017-01-06 05:19] LABS: CALCIUM 8.1 mg/dl (8.4-10.2); CREATININE 1.18 mg/dl (0.61-1.24); POTASSIUM 3.9 mmol/L (3.5-5.1)
[2017-01-06] MEDS: PANTOPRAZOLE 40 MG INJ IV SCH (07:04)
--- NOTE | 2017-01-06 07:22 | PN ---
Date/Time of Note Date/Time of Note DATE: 01/06/17 TIME: 07:16 Assessment/Plan VTE Prophylaxis VTE Prophylaxis Intervention: SCD's Lines/Catheters IV C[facility] Type [facility]from [facility] Saline Lock Urinary Cath still in place: Yes Reason Cath still needed: other (indicate) Assessment/Plan Chief Complaint/Hosp Course ASSESSMENT AND PLAN: 1. Cardiopulmonary arrest with pulseless electrical activity cardiopulm arrest. 2. possible pulmonary embolus. 3. Renal failure, unclear acute on chronic. Probably acute currently back to normal 4. Encephalopathy. 5. Status post cardiopulmonary arrest with return of spontaneous circulation. 6. Severe metabolic acidosis improved now. 7. transaminitis, probably shock liver. 8. Sepsis, respiratory failure, status post intubation on the vent. 9. S/p facial contusion. 10 mildly abnormal troponin due to above. 11. hyper Na RECOMMENDATIONS: The patient has been placed on hypothermia protocol. rewarming started. heparin drip was stopped by pulm. We will continue with the vent support. follow up with pulm rec. vent support CT pulmonary angiogram was not done due to concern about his renal function. Continue with the ICU care. echo reviewed and showed preserved EF Problems: Subjective 24 Hr Interval Summary Free Text/Dictation d/w staff and rhythm was reviewed. pt is off of hypothermia now off of heparin drip due to thrombocytopenia per pulm rec. nonverbal. Exam/Review of Systems Vital Signs Vitals Vital Signs Date Time Temp Pulse Resp B/P Pulse Ox O2 Delivery O2 Flow Rate FiO2 01/06/17 05:08 79 18 100 30 01/06/17 04:00 98.3 98/59 Mechanical Ventilator Intake and Output 01/05/17 01/05/17 01/06/17 15:00 23:00 07:00 Intake Total 1188 ml 1800 ml 1100 ml Output Total 401 ml 368 ml 252 ml Balance 787 ml 1432 ml 848 ml Exam General intubated on vent 35%. HEENT: Normocephalic, s/p facial trauma. Status post intubation on the vent. DERMATOLOGIC: The left side of the face and the chest with ulcerated lesion. CARDIOVASCULAR: RRR. systolic murmur PULMONARY: With no wheezes heard anteriorly. GASTROINTESTINAL: Soft, nontender. no rebound EXTREMITIES: With mild lower extremity edema. NEUROLOGIC: No response to verbal or painful stimuli. : S/p patel in place. psych: calm ( but unresponsive) Results Result Diagram: 01/06/17 0430 01/06/17 0430 Results 24 hrs Laboratory Tests Test 01/05/17 08:05 01/05/17 12:18 01/05/17 14:00 01/05/17 16:26 Bedside Glucose 124 120 129 Urine Color SHANTE Urine Clarity CLOUDY A Urine pH 5.0 Urine Specific [place] 1.030 Urine Ketones NEGATIVE Urine Nitrite NEGATIVE Urine Bilirubin NEGATIVE Urine Urobilinogen NEGATIVE Urine Leukocyte Esterase NEGATIVE Urine Microscopic RBC > 182 H Urine Microscopic WBC > 182 H Urine Bacteria FEW A Urine Hemoglobin 3+ H Urine Osmolality 755 Urine Random Creatinine 116.50 Urine Random Sodium < 13 L Urine Glucose NEGATIVE Urine Total Protein 27.0 H Sodium Level 156 H Potassium Level 3.8 Chloride Level 120 H Carbon Dioxide Level 32 H Anion Gap 8 Blood Urea Nitrogen 48 H Creatinine 1.29 H Glucose Level 111 Osmolality 336 H Calcium Level 7.8 L Test 01/05/17 19:50 01/05/17 21:17 01/06/17 01:10 01/06/17 04:30 Vancomycin Level Trough 11.9 Bedside Glucose 94 109 White Blood Count 8.3 Red Blood Count 3.11 L Hemoglobin 9.6 L Hematocrit 31.2 L Mean Corpuscular Volume 100.3 Mean Corpuscular Hemoglobin 30.9 Mean Corpuscular Hemoglobin Concent 30.8 L Red Cell Distribution Width 13.5 Platelet Count 81 L Mean Platelet Volume 11.2 H Neutrophils % 84.5 H Lymphocytes % 8.1 L Monocytes % 6.7 Eosinophils % 0.2 Basophils % 0.0 Nucleated Red Blood Cells % 0.0 Neutrophils # 7.0 Lymphocytes # 0.7 L Monocytes # 0.6 Eosinophils # 0.0 Basophils # 0.0 Nucleated Red Blood Cells # 0.0 Sodium Level 158 H Potassium Level 3.9 Chloride Level 124 H Carbon Dioxide Level 30 Anion Gap 8 Blood Urea Nitrogen 41 H Creatinine 1.18 Glucose Level 121 Calcium Level 8.1 L Phosphorus Level 2.5 Magnesium Level 2.6 H Total Bilirubin 0.5 Direct Bilirubin 0.00 Indirect Bilirubin 0.5 Aspartate Amino Transf (AST/SGOT) 107 H Alanine Aminotransferase (ALT/SGPT) 143 H Alkaline Phosphatase 56 Total Protein 3.8 L Albumin 2.1 L Test 01/06/17 04:44 Bedside Glucose 121 Medications Medications Current Medications Acetaminophen (Tylenol Supp) 650 mg Q4H PRN [place] TEMP > 37C; Start 01/03/17 at 15 :00 Acetaminophen (Tylenol Liquid) 650 mg Q4H PRN PO TEMP > 37C; Start 01/03/17 at 15:00 Acetaminophen (Tylenol Supp) 500 mg Q6H CA ; Start 01/04/17 at 15:00 Acetaminophen (Tylenol Liquid) 500 mg Q6H PO Last administered on 01/05/17 21: 14; Admin Dose 500 MG; Start 01/04/17 at 15:00 Meperidine HCl (Demerol) 12.5 mg Q4H PRN IV POST OPERATIVE SHIVERING; Start at 15:00 Meperidine HCl (Demerol) 25 mg Q4H PRN IV POST OPERATIVE SHIVERING; Start 01/03 at 15:00 Eye Lubricant (Akwa Oint) 1 applic Q6 BOTH EYES Last administered on 01/06/17 07:05; Admin Dose 1 APPLIC; Start 01/03/17 at 18:00 Eye Lubricant (Artificial Tears Oph) 2 drop Q6 BOTH EYES Last administered on 07:05; Admin Dose 2 DROP; Start 01/03/17 at 18:00 Pantoprazole (Protonix Iv) 40 mg DAILY@06 IV Last administered on 01/06/17 07: 04; Admin Dose 40 MG; Start 01/03/17 at 17:00 Miscellaneous Information 1 ea NOTE XX ; Start 01/03/17 at 17:00 Glucose (Glutose) 15 gm Q15M PRN PO DECREASED GLUCOSE; Start 01/03/17 at 17:00 Glucose (Glutose) 22.5 gm Q15M PRN PO DECREASED GLUCOSE; Start 01/03/17 at 17: 00 Dextrose (D50w Syringe) 25 ml Q15M PRN IV DECREASED GLUCOSE; Start 01/03/17 at 17:00 Dextrose (D50w Syringe) 50 ml Q15M PRN IV DECREASED GLUCOSE; Start 01/03/17 at 17:00 Glucagon (Glucagen) 1 mg Q15M PRN IM DECREASED GLUCOSE; Start 01/03/17 at 17:00 Glucose 15 gm 15 gm Q15M PRN BUCCAL DECREASED GLUCOSE; Start 01/03/17 at 17:00 Midazolam HCl 50 ml @ 1 mls/hr TITRATE IV Last administered on 01/05/17 01:29 ; Admin Dose 4 MLS/HR; Start 01/03/17 at 21:00 Fentanyl (Sublimaze) 100 ml @ 2.5 mls/hr TITRATE IV Last administered on 15:37; Admin Dose 5 MLS/HR; Start 01/03/17 at 21:00 Dextrose (D50w Syringe) 25 ml Q15M PRN IV Till BS 80 mg/dL or above x2; Start 01/03/17 at 21:00 Dextrose (D50w Syringe) 50 ml Q15M PRN IV Till BS 80 mg/dL or above x2; Start 01/03/17 at 21:00 Miscellaneous Information This patient naik... PRN PRN XX WOUND CARE; Start 01/04 at 03:00 Piperacillin Sod/ Tazobactam Sod 100 ml @ 200 mls/hr Q6 IVPB Last administered on 01/06/17 07:04; Admin Dose 200 MLS/HR; Start 01/04/17 at 12:00 Vancomycin HCl (Vancocin) 250 ml @ 125 mls/hr Q12H IVPB Last administered on 21:13; Admin Dose 125 MLS/HR; Start 01/04/17 at 09:00 Silver Sulfadiazine 1 applic 1 applic DAILY TOP Last administered on 01/05/17 09:05; Admin Dose 1 APPLIC; Start 01/04/17 at 14:00 Norepinephrine/ Dextrose (Levophed/D5W) 500 ml @ 1.87 mls/hr TITRATE IV ; Start 01/04/17 at 18:30 Insulin Aspart (Adult SC Insulin - Mild Algorithm)... Q4 SC ; Start 01/05/17 at 09:00 Potassium Chloride/Dextrose/ Sod Cl (D5-1/2ns + KCl 20 Meq) 1,000 ml @ 100 mls/ hr Q10H IV Last administered on 01/05/17 21:13; Admin Dose 100 MLS/HR; Start 01/05/17 at 08:30 Morphine Sulfate (morphine) 2 mg Q2H PRN IV PAIN; Start 01/05/17 at 22:00 JENI KANG MD Jan 06, 2017 07:22
--- NOTE | 2017-01-06 08:20 | PN ---
Date/Time of Note Date/Time of Note DATE: 01/06/17 TIME: 08:18 Assessment/Plan VTE Prophylaxis VTE Prophylaxis Intervention: ambulation Lines/Catheters IV Catheter Type (from Nrs): Saline Lock Urinary Cath still in place: Yes Reason Cath still needed: urinary retention Assessment/Plan Chief Complaint/Hosp Course 1. non-oliguric angy with unknown baseline global director air and climate change. Etiology 2/2 hemodynamics possible tubular injury 2/2 ischemic shock. Renal function has improved from admission but fluctuating. U/a reviewed, no active sediment. -cont current treatment plan, renally dose all meds, avoid nephrotoxins -cont ivf, keep map > 65 -monitor closely 2. hypernatremia likely insensible loss -No evidence of diabetes insipidus. Urine osmolarity was 700 mOsm appropriately elevated for level of hypernatremia. -pt has ~ 4 liter water deficit -We will increase free water flushes to 400 cc every 4 hours. Will change fluids to D5W at 75 cc an hour. Monitor serial sodium levels. - 3. anemia -monitor h/h levels 4. mineral bone disorder -monitor ca, phos levels 5. Status post cardiac arrest with return of spontaneous circulation /PEA -cont to monitor -f/u cardiology 6. vdrf -vent setting abg reviewed -f/u pulmonary 7. Acute pulmonary emboli -cont med/eyal 8. acute encephalopathy secondary to anoxic injury -cont to monitor -f/u neurology 9 acute transaminitis with hyperbilirubinemia likely secondary to shock liver -improving, monitor 10. sepsis with multiorgan failure likely secondary to urinary tract infection , bacteremia -cont antibiotics -f/u ID Problems: Subjective 24 Hr Interval Summary Free Text/Dictation Patient remains critically ill. On full ventilatory support. Minimal neurologic response. Urinary output has been adequate 50-75 cc Exam/Review of Systems Vital Signs Vitals Vital Signs Date Time Temp Pulse Resp B/P Pulse Ox O2 Delivery O2 Flow Rate FiO2 01/06/17 07:00 84 17 117/66 100 Mechanical Ventilator 01/06/17 05:08 30 01/06/17 04:00 98.3 Intake and Output 01/05/17 01/05/17 01/06/17 15:00 23:00 07:00 Intake Total 1188 ml 1800 ml 1300 ml Output Total 401 ml 368 ml 363 ml Balance 787 ml 1432 ml 937 ml Exam eneral: The patient is intubated HEENT: Atraumatic, normocephalic. The pupils are equal Neck: Supple Chest: Normal Lungs: Decreased breath sounds bilateral lower lung field Heart: Normal S1-S2, Regular rhythm and rate. Abdomen: Soft , nontender, nondistended , bowel sounds are present. Extremities: Multiple pressure ulcer on left upper and lower extremity, trace edema no cyanosis Neurologic: Sedated Skin: L sided contusions and abrasions Results Result Diagram: 01/06/17 0430 01/06/17 0430 Results 24 hrs Laboratory Tests Test 01/05/17 12:18 01/05/17 14:00 01/05/17 16:26 01/05/17 19:50 Bedside Glucose 120 129 Urine Color SHANTE Urine Clarity CLOUDY A Urine pH 5.0 Urine Specific [place] 1.030 Urine Ketones NEGATIVE Urine Nitrite NEGATIVE Urine Bilirubin NEGATIVE Urine Urobilinogen NEGATIVE Urine Leukocyte Esterase NEGATIVE Urine Microscopic RBC > 182 H Urine Microscopic WBC > 182 H Urine Bacteria FEW A Urine Hemoglobin 3+ H Urine Osmolality 755 Urine Random Creatinine 116.50 Urine Random Sodium < 13 L Urine Glucose NEGATIVE Urine Total Protein 27.0 H Sodium Level 156 H Potassium Level 3.8 Chloride Level 120 H Carbon Dioxide Level 32 H Anion Gap 8 Blood Urea Nitrogen 48 H Creatinine 1.29 H Glucose Level 111 Osmolality 336 H Calcium Level 7.8 L Vancomycin Level Trough 11.9 Test 01/05/17 21:17 01/06/17 01:10 01/06/17 04:30 01/06/17 04:44 Bedside Glucose 94 109 121 White Blood Count 8.3 Red Blood Count 3.11 L Hemoglobin 9.6 L Hematocrit 31.2 L Mean Corpuscular Volume 100.3 Mean Corpuscular Hemoglobin 30.9 Mean Corpuscular Hemoglobin Concent 30.8 L Red Cell Distribution Width 13.5 Platelet Count 81 L Mean Platelet Volume 11.2 H Neutrophils % 84.5 H Lymphocytes % 8.1 L Monocytes % 6.7 Eosinophils % 0.2 Basophils % 0.0 Nucleated Red Blood Cells % 0.0 Neutrophils # 7.0 Lymphocytes # 0.7 L Monocytes # 0.6 Eosinophils # 0.0 Basophils # 0.0 Nucleated Red Blood Cells # 0.0 Sodium Level 158 H Potassium Level 3.9 Chloride Level 124 H Carbon Dioxide Level 30 Anion Gap 8 Blood Urea Nitrogen 41 H Creatinine 1.18 Glucose Level 121 Calcium Level 8.1 L Phosphorus Level 2.5 Magnesium Level 2.6 H Total Bilirubin 0.5 Direct Bilirubin 0.00 Indirect Bilirubin 0.5 Aspartate Amino Transf (AST/SGOT) 107 H Alanine Aminotransferase (ALT/SGPT) 143 H Alkaline Phosphatase 56 Total Protein 3.8 L Albumin 2.1 L Medications Medications Current Medications Acetaminophen (Tylenol Supp) 650 mg Q4H PRN [place] TEMP > 37C; Start 01/03/17 at 15 :00 Acetaminophen (Tylenol Liquid) 650 mg Q4H PRN PO TEMP > 37C; Start 01/03/17 at 15:00 Acetaminophen (Tylenol Supp) 500 mg Q6H SD ; Start 01/04/17 at 15:00 Acetaminophen (Tylenol Liquid) 500 mg Q6H PO Last administered on 01/05/17 21: 14; Admin Dose 500 MG; Start 01/04/17 at 15:00 Meperidine HCl (Demerol) 12.5 mg Q4H PRN IV POST OPERATIVE SHIVERING; Start at 15:00 Meperidine HCl (Demerol) 25 mg Q4H PRN IV POST OPERATIVE SHIVERING; Start 01/03 at 15:00 Eye Lubricant (Akwa Oint) 1 applic Q6 BOTH EYES Last administered on 01/06/17 07:05; Admin Dose 1 APPLIC; Start 01/03/17 at 18:00 Eye Lubricant (Artificial Tears Oph) 2 drop Q6 BOTH EYES Last administered on 07:05; Admin Dose 2 DROP; Start 01/03/17 at 18:00 Pantoprazole (Protonix Iv) 40 mg DAILY@06 IV Last administered on 01/06/17 07: 04; Admin Dose 40 MG; Start 01/03/17 at 17:00 Miscellaneous Information 1 ea NOTE XX ; Start 01/03/17 at 17:00 Glucose (Glutose) 15 gm Q15M PRN PO DECREASED GLUCOSE; Start 01/03/17 at 17:00 Glucose (Glutose) 22.5 gm Q15M PRN PO DECREASED GLUCOSE; Start 01/03/17 at 17: 00 Dextrose (D50w Syringe) 25 ml Q15M PRN IV DECREASED GLUCOSE; Start 01/03/17 at 17:00 Dextrose (D50w Syringe) 50 ml Q15M PRN IV DECREASED GLUCOSE; Start 01/03/17 at 17:00 Glucagon (Glucagen) 1 mg Q15M PRN IM DECREASED GLUCOSE; Start 01/03/17 at 17:00 Glucose 15 gm 15 gm Q15M PRN BUCCAL DECREASED GLUCOSE; Start 01/03/17 at 17:00 Midazolam HCl 50 ml @ 1 mls/hr TITRATE IV Last administered on 01/05/17 01:29 ; Admin Dose 4 MLS/HR; Start 01/03/17 at 21:00 Fentanyl (Sublimaze) 100 ml @ 2.5 mls/hr TITRATE IV Last administered on 15:37; Admin Dose 5 MLS/HR; Start 01/03/17 at 21:00 Miscellaneous Information This patient naik... PRN PRN XX WOUND CARE; Start 01/04 at 03:00 Piperacillin Sod/ Tazobactam Sod 100 ml @ 200 mls/hr Q6 IVPB Last administered on 01/06/17 07:04; Admin Dose 200 MLS/HR; Start 01/04/17 at 12:00 Vancomycin HCl (Vancocin) 250 ml @ 125 mls/hr Q12H IVPB Last administered on 21:13; Admin Dose 125 MLS/HR; Start 01/04/17 at 09:00 Silver Sulfadiazine 1 applic 1 applic DAILY TOP Last administered on 01/05/17 09:05; Admin Dose 1 APPLIC; Start 01/04/17 at 14:00 Norepinephrine/ Dextrose (Levophed/D5W) 500 ml @ 1.87 mls/hr TITRATE IV ; Start 01/04/17 at 18:30 Insulin Aspart (Novolog Insulin Pen) (Adult SC Insulin - Mild Algorithm)... Q4 SC ; Start 01/05/17 at 09:00 Morphine Sulfate 2 mg 2 mg Q2H PRN IV PAIN; Start 01/05/17 at 22:00 Potassium Chloride/Dextrose (D5W + KCl 20 Meq) 1,000 ml @ 50 mls/hr Q20H IV ; Start 01/06/17 at 08:30 ESHA ALMANZA DO Jan 06, 2017 08:20
--- NOTE | 2017-01-06 08:31 | RADRPT ---
PROCEDURE: XR Chest. CLINICAL INDICATION: Respiratory failure TECHNIQUE: A single AP view of the chest was obtained. COMPARISON: Chest x-ray dated 01/05/2017 FINDINGS: The endotracheal tube tip is approximately 4.9 cm above the lary. The tip of the enteric tube pr ojects over the right upper quadrant. There is a right internal jugular central venous catheter with tip near the cavoatrial junction. No focal airspace opacification, pleural effusion or pneumothorax is seen. The cardiomediastinal si lhouette is within normal limits for size. Text aorta The osseous structures demonstrate severe righ t shoulder arthrosis. IMPRESSION: 1. No radiographic evidence of acute cardiopulmonary disease. No significant interval change. 2. Aortic atherosclerosis. 3. Tubes and lines, as described above. RPTAT: HH .Kim Tracey MD, MD Date Time Electronically viewed and signed by .Kim Tracey MD, on 01/06/2017 08:31 .G/
--- NOTE | 2017-01-06 08:36 | CONS ---
Date/Time of Note Date/Time of Note DATE: 01/06/17 TIME: 08:32 Assessment/Plan Assessment/Plan Additional Assessment/Plan Ventilator setting; AC of 14, tidal volume 500, PEEP of 5, 30% FiO2. Assessment recommendations; next 1. Patient admitted with cardiac arrest status post hypothermia protocol with profound persistent mental unresponsiveness. 2. Gram-negative and gram-positive bacteremia. Patient currently on appropriate antibiotic regimen. 3. Acute renal injury with improved serum creatinine. 4. Hyponatremia. Possibly central or nephrogenic diabetes insipidus. However patient also is volume depleted. 5. Multiple skin lacerations with possibly some element of cellulitis. 6. Thrombocytopenia. Continue current treatment. Continue free water replacement. Will monitor serum sodium. There is no improvement in serum sodium level patient will benefit from trial of desmopressin. Prognosis is extremely guarded at this point and depends entirely upon adequate neurological recovery. 35 minutes of critical care time spent evaluating the patient. Consultation Date/Type/Reason Admit Date/Time Jan 03, 2017 at 15:05 Initial Consult Date 01/04/17 Type of Consultation: Pulmonary/critical care 24 HR Interval Summary Free Text/Dictation Patient condition remains critical. Remains unresponsive. Patient however has remained hemodynamically stable. Urine output is improving. General exam; elderly male, orally intubated, unresponsive. Currently in no distress. Exam/Review of Systems Vital Signs Vitals Vital Signs Date Time Temp Pulse Resp B/P Pulse Ox O2 Delivery O2 Flow Rate FiO2 01/06/17 07:00 84 17 117/66 100 Mechanical Ventilator 01/06/17 05:08 30 01/06/17 04:00 98.3 Intake and Output 01/05/17 01/05/17 01/06/17 15:00 23:00 07:00 Intake Total 1188 ml 1800 ml 1300 ml Output Total 401 ml 368 ml 363 ml Balance 787 ml 1432 ml 937 ml Exam HEENT exam; supple neck, no JVD. No lymphadenopathy. Midline trachea. No thyromegaly. Patient has bilateral subconjunctival edema. Pupils are small bilaterally. No neck masses. Orally intubated. Chest exam; diminished but clear vessel. S1-S2 audible, no murmurs. Regular rhythm. Abdomen exam; soft, nondistended. No organomegaly. Bowel sounds are audible. Extremity exam; 1+ generalized edema. Patient is a multiple superficial lacerations over all extremities. There is a large area of eschar formation involving the left hip 4" x 4" in size. 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 Results Result Diagram: 01/06/17 0430 01/06/17 0430 Results 24 hrs Laboratory Tests Test 01/05/17 12:18 01/05/17 14:00 01/05/17 16:26 01/05/17 19:50 Bedside Glucose 120 129 Urine Color SHANTE Urine Clarity CLOUDY A Urine pH 5.0 Urine Specific [place] 1.030 Urine Ketones NEGATIVE Urine Nitrite NEGATIVE Urine Bilirubin NEGATIVE Urine Urobilinogen NEGATIVE Urine Leukocyte Esterase NEGATIVE Urine Microscopic RBC > 182 H Urine Microscopic WBC > 182 H Urine Bacteria FEW A Urine Hemoglobin 3+ H Urine Osmolality 755 Urine Random Creatinine 116.50 Urine Random Sodium < 13 L Urine Glucose NEGATIVE Urine Total Protein 27.0 H Sodium Level 156 H Potassium Level 3.8 Chloride Level 120 H Carbon Dioxide Level 32 H Anion Gap 8 Blood Urea Nitrogen 48 H Creatinine 1.29 H Glucose Level 111 Osmolality 336 H Calcium Level 7.8 L Vancomycin Level Trough 11.9 Test 01/05/17 21:17 01/06/17 01:10 01/06/17 04:30 01/06/17 04:44 Bedside Glucose 94 109 121 White Blood Count 8.3 Red Blood Count 3.11 L Hemoglobin 9.6 L Hematocrit 31.2 L Mean Corpuscular Volume 100.3 Mean Corpuscular Hemoglobin 30.9 Mean Corpuscular Hemoglobin Concent 30.8 L Red Cell Distribution Width 13.5 Platelet Count 81 L Mean Platelet Volume 11.2 H Neutrophils % 84.5 H Lymphocytes % 8.1 L Monocytes % 6.7 Eosinophils % 0.2 Basophils % 0.0 Nucleated Red Blood Cells % 0.0 Neutrophils # 7.0 Lymphocytes # 0.7 L Monocytes # 0.6 Eosinophils # 0.0 Basophils # 0.0 Nucleated Red Blood Cells # 0.0 Sodium Level 158 H Potassium Level 3.9 Chloride Level 124 H Carbon Dioxide Level 30 Anion Gap 8 Blood Urea Nitrogen 41 H Creatinine 1.18 Glucose Level 121 Calcium Level 8.1 L Phosphorus Level 2.5 Magnesium Level 2.6 H Total Bilirubin 0.5 Direct Bilirubin 0.00 Indirect Bilirubin 0.5 Aspartate Amino Transf (AST/SGOT) 107 H Alanine Aminotransferase (ALT/SGPT) 143 H Alkaline Phosphatase 56 Total Protein 3.8 L Albumin 2.1 L Medications Medications Current Medications Acetaminophen (Tylenol Supp) 650 mg Q4H PRN [place] TEMP > 37C; Start 01/03/17 at 15 :00 Acetaminophen (Tylenol Liquid) 650 mg Q4H PRN PO TEMP > 37C; Start 01/03/17 at 15:00 Acetaminophen (Tylenol Supp) 500 mg Q6H MI ; Start 01/04/17 at 15:00 Acetaminophen (Tylenol Liquid) 500 mg Q6H PO Last administered on 01/05/17 21: 14; Admin Dose 500 MG; Start 01/04/17 at 15:00 Meperidine HCl (Demerol) 12.5 mg Q4H PRN IV POST OPERATIVE SHIVERING; Start at 15:00 Meperidine HCl (Demerol) 25 mg Q4H PRN IV POST OPERATIVE SHIVERING; Start 01/03 at 15:00 Eye Lubricant (Akwa Oint) 1 applic Q6 BOTH EYES Last administered on 01/06/17 07:05; Admin Dose 1 APPLIC; Start 01/03/17 at 18:00 Eye Lubricant (Artificial Tears Oph) 2 drop Q6 BOTH EYES Last administered on 07:05; Admin Dose 2 DROP; Start 01/03/17 at 18:00 Pantoprazole (Protonix Iv) 40 mg DAILY@06 IV Last administered on 01/06/17 07: 04; Admin Dose 40 MG; Start 01/03/17 at 17:00 Miscellaneous Information 1 ea NOTE XX ; Start 01/03/17 at 17:00 Glucose (Glutose) 15 gm Q15M PRN PO DECREASED GLUCOSE; Start 01/03/17 at 17:00 Glucose (Glutose) 22.5 gm Q15M PRN PO DECREASED GLUCOSE; Start 01/03/17 at 17: 00 Dextrose (D50w Syringe) 25 ml Q15M PRN IV DECREASED GLUCOSE; Start 01/03/17 at 17:00 Dextrose (D50w Syringe) 50 ml Q15M PRN IV DECREASED GLUCOSE; Start 01/03/17 at 17:00 Glucagon (Glucagen) 1 mg Q15M PRN IM DECREASED GLUCOSE; Start 01/03/17 at 17:00 Glucose 15 gm 15 gm Q15M PRN BUCCAL DECREASED GLUCOSE; Start 01/03/17 at 17:00 Midazolam HCl 50 ml @ 1 mls/hr TITRATE IV Last administered on 01/05/17 01:29 ; Admin Dose 4 MLS/HR; Start 01/03/17 at 21:00 Fentanyl (Sublimaze) 100 ml @ 2.5 mls/hr TITRATE IV Last administered on 15:37; Admin Dose 5 MLS/HR; Start 01/03/17 at 21:00 Miscellaneous Information This patient naik... PRN PRN XX WOUND CARE; Start 01/04 at 03:00 Piperacillin Sod/ Tazobactam Sod 100 ml @ 200 mls/hr Q6 IVPB Last administered on 01/06/17 07:04; Admin Dose 200 MLS/HR; Start 01/04/17 at 12:00 Vancomycin HCl (Vancocin) 250 ml @ 125 mls/hr Q12H IVPB Last administered on 21:13; Admin Dose 125 MLS/HR; Start 01/04/17 at 09:00 Silver Sulfadiazine 1 applic 1 applic DAILY TOP Last administered on 01/05/17 09:05; Admin Dose 1 APPLIC; Start 01/04/17 at 14:00 Norepinephrine/ Dextrose (Levophed/D5W) 500 ml @ 1.87 mls/hr TITRATE IV ; Start 01/04/17 at 18:30 Insulin Aspart (Novolog Insulin Pen) (Adult SC Insulin - Mild Algorithm)... Q4 SC ; Start 01/05/17 at 09:00 Morphine Sulfate 2 mg 2 mg Q2H PRN IV PAIN; Start 01/05/17 at 22:00 Potassium Chloride/Dextrose (D5W + KCl 20 Meq) 1,000 ml @ 50 mls/hr Q20H IV ; Start 01/06/17 at 08:30 JULIO C CARBONE Jan 06, 2017 08:35
--- NOTE | 2017-01-06 09:14 | PN ---
Date/Time of Note Date/Time of Note DATE: 01/06/17 TIME: 08:47 Assessment/Plan VTE Prophylaxis VTE Prophylaxis Intervention: SCD's Lines/Catheters IV Catheter Type (from Nrs): Saline Lock Urinary Cath still in place: Yes Reason Cath still needed: other (indicate) Assessment/Plan Assessment/Plan 61 yo M with fpc hx of progressive supranuclear palsy that has caused recurrent falls found unresponsive managed for the following : 1. Severe sepsis secondary to bacteremia and urinary tract infection 2. Severe dehydration causing acute renal insufficiency: improved 3. Hyponatremia likely secondary to #2: improving 4. Ventilator dependent respiratory failure secondary to #5 5. Acute encephalopathy s/p PEA cardiac arrest likely secondary to #6 status post resuscitation with ROSC and now s/p hypothermia protocol: unchanged so far 6. Acute pulmonary emboli, currently off heparin drip due thrombocytopenia 7. Long-term history of progressive supranuclear palsy that has caused recurrent falls and old rib and NaSal fractures 8. Acute transaminitis likely secondary to shock liver: improving 9. Recent fall 2/2 #7 s/p L sided facial and muscular contusions 10. Possible anoxic brain injury PLAN: Continue care and intensive care unit Continue Ventilator support and management Monitor mental status Commence tube feed when ok with pulm Will deescalate abx as no current evidence of pneumonia, blood cultures could be contaminant Appreciate nephrology recs regarding hypernatremia, agree with D5W Continue to hold Heparin drip for pulmonary emboli for now Await neurology consultation and follow their recommendations, also discuss with pulmonary about fpc prognosis For further interventions per clinical course Appreciate all consults Prophylaxis with IV PPI and SCDs / heparin drip was d/c 2/2 thrombocytopenia CCTime :>45mins Subjective 24 Hr Interval Summary Free Text/Dictation remains unresponsive Nursing reports no acute overnight events. Patient's sister has bedside, wants patient made a DNR, states patient would never have wanted to live like this, states patient felt trapped in his body with the supranuclear palsy, and she knows patient will never want to live with a tracheostomy dependent on the vent. Exam/Review of Systems Vital Signs Vitals Vital Signs Date Time Temp Pulse Resp B/P Pulse Ox O2 Delivery O2 Flow Rate FiO2 01/06/17 07:00 84 17 117/66 100 Mechanical Ventilator 01/06/17 05:08 30 01/06/17 04:00 98.3 Intake and Output 01/05/17 01/05/17 01/06/17 15:00 23:00 07:00 Intake Total 1188 ml 1800 ml 1300 ml Output Total 401 ml 368 ml 363 ml Balance 787 ml 1432 ml 937 ml Exam General: The patient is intubated HEENT: Atraumatic, normocephalic. The pupils are equal Neck: Supple Chest: Normal Lungs: Decreased breath sounds bilateral lower lung field Heart: Normal S1-S2, Regular rhythm and rate. Abdomen: Soft , nontender, nondistended , bowel sounds are present. Extremities: trace edema no cyanosis Neurologic: Sedated Skin: L sided contusions and abrasions Results Result Diagram: 01/06/17 0430 01/06/17 0430 Results 24 hrs Laboratory Tests Test 01/05/17 12:18 01/05/17 14:00 01/05/17 16:26 01/05/17 19:50 Bedside Glucose 120 129 Urine Color SHANTE Urine Clarity CLOUDY A Urine pH 5.0 Urine Specific [place] 1.030 Urine Ketones NEGATIVE Urine Nitrite NEGATIVE Urine Bilirubin NEGATIVE Urine Urobilinogen NEGATIVE Urine Leukocyte Esterase NEGATIVE Urine Microscopic RBC > 182 H Urine Microscopic WBC > 182 H Urine Bacteria FEW A Urine Hemoglobin 3+ H Urine Osmolality 755 Urine Random Creatinine 116.50 Urine Random Sodium < 13 L Urine Glucose NEGATIVE Urine Total Protein 27.0 H Sodium Level 156 H Potassium Level 3.8 Chloride Level 120 H Carbon Dioxide Level 32 H Anion Gap 8 Blood Urea Nitrogen 48 H Creatinine 1.29 H Glucose Level 111 Osmolality 336 H Calcium Level 7.8 L Vancomycin Level Trough 11.9 Test 01/05/17 21:17 01/06/17 01:10 01/06/17 04:30 01/06/17 04:44 Bedside Glucose 94 109 121 White Blood Count 8.3 Red Blood Count 3.11 L Hemoglobin 9.6 L Hematocrit 31.2 L Mean Corpuscular Volume 100.3 Mean Corpuscular Hemoglobin 30.9 Mean Corpuscular Hemoglobin Concent 30.8 L Red Cell Distribution Width 13.5 Platelet Count 81 L Mean Platelet Volume 11.2 H Neutrophils % 84.5 H Lymphocytes % 8.1 L Monocytes % 6.7 Eosinophils % 0.2 Basophils % 0.0 Nucleated Red Blood Cells % 0.0 Neutrophils # 7.0 Lymphocytes # 0.7 L Monocytes # 0.6 Eosinophils # 0.0 Basophils # 0.0 Nucleated Red Blood Cells # 0.0 Sodium Level 158 H Potassium Level 3.9 Chloride Level 124 H Carbon Dioxide Level 30 Anion Gap 8 Blood Urea Nitrogen 41 H Creatinine 1.18 Glucose Level 121 Calcium Level 8.1 L Phosphorus Level 2.5 Magnesium Level 2.6 H Total Bilirubin 0.5 Direct Bilirubin 0.00 Indirect Bilirubin 0.5 Aspartate Amino Transf (AST/SGOT) 107 H Alanine Aminotransferase (ALT/SGPT) 143 H Alkaline Phosphatase 56 Total Protein 3.8 L Albumin 2.1 L Medications Medications Current Medications Acetaminophen (Tylenol Supp) 650 mg Q4H PRN [place] TEMP > 37C; Start 01/03/17 at 15 :00 Acetaminophen (Tylenol Liquid) 650 mg Q4H PRN PO TEMP > 37C; Start 01/03/17 at 15:00 Acetaminophen (Tylenol Supp) 500 mg Q6H NE ; Start 01/04/17 at 15:00 Acetaminophen (Tylenol Liquid) 500 mg Q6H PO Last administered on 01/05/17 21: 14; Admin Dose 500 MG; Start 01/04/17 at 15:00 Meperidine HCl (Demerol) 12.5 mg Q4H PRN IV POST OPERATIVE SHIVERING; Start at 15:00 Meperidine HCl (Demerol) 25 mg Q4H PRN IV POST OPERATIVE SHIVERING; Start 01/03 at 15:00 Eye Lubricant (Akwa Oint) 1 applic Q6 BOTH EYES Last administered on 01/06/17 07:05; Admin Dose 1 APPLIC; Start 01/03/17 at 18:00 Eye Lubricant (Artificial Tears Oph) 2 drop Q6 BOTH EYES Last administered on 07:05; Admin Dose 2 DROP; Start 01/03/17 at 18:00 Pantoprazole (Protonix Iv) 40 mg DAILY@06 IV Last administered on 01/06/17 07: 04; Admin Dose 40 MG; Start 01/03/17 at 17:00 Miscellaneous Information 1 ea NOTE XX ; Start 01/03/17 at 17:00 Glucose (Glutose) 15 gm Q15M PRN PO DECREASED GLUCOSE; Start 01/03/17 at 17:00 Glucose (Glutose) 22.5 gm Q15M PRN PO DECREASED GLUCOSE; Start 01/03/17 at 17: 00 Dextrose (D50w Syringe) 25 ml Q15M PRN IV DECREASED GLUCOSE; Start 01/03/17 at 17:00 Dextrose (D50w Syringe) 50 ml Q15M PRN IV DECREASED GLUCOSE; Start 01/03/17 at 17:00 Glucagon (Glucagen) 1 mg Q15M PRN IM DECREASED GLUCOSE; Start 01/03/17 at 17:00 Glucose 15 gm 15 gm Q15M PRN BUCCAL DECREASED GLUCOSE; Start 01/03/17 at 17:00 Midazolam HCl 50 ml @ 1 mls/hr TITRATE IV Last administered on 01/05/17 01:29 ; Admin Dose 4 MLS/HR; Start 01/03/17 at 21:00 Fentanyl (Sublimaze) 100 ml @ 2.5 mls/hr TITRATE IV Last administered on 15:37; Admin Dose 5 MLS/HR; Start 01/03/17 at 21:00 Miscellaneous Information This patient naik... PRN PRN XX WOUND CARE; Start 01/04 at 03:00 Piperacillin Sod/ Tazobactam Sod 100 ml @ 200 mls/hr Q6 IVPB Last administered on 01/06/17 07:04; Admin Dose 200 MLS/HR; Start 01/04/17 at 12:00 Vancomycin HCl (Vancocin) 250 ml @ 125 mls/hr Q12H IVPB Last administered on 21:13; Admin Dose 125 MLS/HR; Start 01/04/17 at 09:00 Silver Sulfadiazine 1 applic 1 applic DAILY TOP Last administered on 01/05/17 09:05; Admin Dose 1 APPLIC; Start 01/04/17 at 14:00 Norepinephrine/ Dextrose (Levophed/D5W) 500 ml @ 1.87 mls/hr TITRATE IV ; Start 01/04/17 at 18:30 Insulin Aspart (Novolog Insulin Pen) (Adult SC Insulin - Mild Algorithm)... Q4 SC ; Start 01/05/17 at 09:00 Morphine Sulfate 2 mg 2 mg Q2H PRN IV PAIN; Start 01/05/17 at 22:00 Potassium Chloride/Dextrose (D5W + KCl 20 Meq) 1,000 ml @ 50 mls/hr Q20H IV ; Start 01/06/17 at 08:30 Procedures Procedures PROCEDURE: XR Chest. CLINICAL INDICATION: Respiratory failure TECHNIQUE: A single AP view of the chest was obtained. COMPARISON: Chest x-ray dated 01/05/2017 FINDINGS: The endotracheal tube tip is approximately 4.9 cm above the lary. The tip of the enteric tube projects over the right upper quadrant. There is a right internal jugular central venous catheter with tip near the cavoatrial junction. No focal airspace opacification, pleural effusion or pneumothorax is seen. The cardiomediastinal silhouette is within normal limits for size. Text aorta The osseous structures demonstrate severe right shoulder arthrosis. IMPRESSION: 1. No radiographic evidence of acute cardiopulmonary disease. No significant interval change. 2. Aortic atherosclerosis. 3. Tubes and lines, as described above. RPTAT: HH .Kim Tracey MD, MD Date Time Electronically viewed and signed by .Kim Tracey MD, on 01/06/2017 08 :31 .G/ CC: JULIO C CARBONE [place] M. Jan 06, 2017 08:58
[2017-01-06] MEDS: VANCOMYCIN 1 GM in NS 250 ML IVPB SCH ×2 (09:32→20:44)
[2017-01-06] MEDS: D5W + KCL 20 MEQ 1,000 ML IV SCH (09:33)
[2017-01-06] MEDS: SILVER SULFADIAZINE 1% 25 GM CR TOP SCH (09:38)
[2017-01-06 14:32] LABS: CREATININE 1.18 mg/dl (0.61-1.24); POTASSIUM 3.9 mmol/L (3.5-5.1)
--- NOTE | 2017-01-06 17:57 | PN ---
Date/Time of Note Date/Time of Note DATE: 01/06/17 TIME: 17:44 Assessment/Plan Lines/Catheters IV Catheter Type (from [facility]): Saline Lock Reg[place]ado in Place (from [facility]): Yes Assessment/Plan Chief Complaint/Hosp Course 1. Multiple wounds: multiple skin tears, left trochanter/left facial/left lateral knee ischemic tissue injury likely pressure related -Will likely need debridement as patients condition permits -local care -frequent turning and offloading as patient condition permits -specialty bed -optimize nutrition as patient condition permits -start vitamin c/zinc as patient condition permits 2. S/P cardiac arrest with ROSC; currently intubated off sedation sedated, s/p hypothermia protocol -supportive therapy -optimize electrolytes 3. PE: currently on heprain drip -continue heparin drip -supportive 4. hematuria: likely 2/2 to heparin drip; improved, urine yellow -monitor 5. Acute kindey injury: 2/2 ischemic shock; improved -supportive -monitor 6. Hypernatremia: improved -Continue to monitor -per renal 7. anemia normocytic normochromic: 2/2 acute loss/hematuria +/- dilutional -monitor -transfuse as necessary 8. hypokalemia; normalized -monitor -optimize lytes -monitor for cardiac arrythmias 9. hypoalbuminemia: multifactorial (2/2 inflammation/infection +/-malnutrition + /- shocked liver) -Optimize -replete as necessary -optimize nutrition as patient condition permits 10. hypocalcemia likely 2/2 #9 -optimize lytes -continue to monitor -optimize nutrition as patient condition permits 11. elevated LFT'S with hyperbilirubinemia: likely 2/2 shocked liver -supportive 12. acute encephalopathy secondary to anoxic injury -cont to monitor - neurology consult 13.. sepsis with multiorgan failure likely secondary to bacteremia; urine cultures and cxr are negative; repeat blood cultures with staph coagulase ( contaminant?); improved -abx de-escalation -careful monitoring -per ID 14. Thrombocytopenia: 2nd to #13 -supportive -bleeding precautions Patient seen and examined in collaboration with Dr. Fahad Beaver Problems: Subjective 24 Hr Interval Summary Patient non verbal, non-responsive sedation off, s/p hypothermia protocol, ET tube & vented. Exam/Review of Systems Vital Signs Vitals Vital Signs Date Time Temp Pulse Resp B/P Pulse Ox O2 Delivery O2 Flow Rate FiO2 01/06/17 17:25 99 20 98 30 01/06/17 15:00 113/71 Mechanical Ventilator 01/06/17 12:00 97.9 Intake and Output 01/05/17 01/05/17 01/06/17 15:00 23:00 07:00 Intake Total 1188 ml 1800 ml 1300 ml Output Total 401 ml 368 ml 363 ml Balance 787 ml 1432 ml 937 ml Exam Free Text/Dictation Constitutional: well developed Head: lacerations, normocephalic Eyes: No PERRL (pupils nonresponsive) ENMT: intubated Neck: non-tender, supple Respiratory: diminished breath sounds Cardiovascular: nl pulses, regular rate and rhythm Gastrointestinal: non-tender, soft, No distended Genitourinary - Male: nl penis, nl scrotum; urine yellow Musculoskeletal: , No swelling Extremities: normal pulses Neurological: unresponsive off sedation Skin: nl turgor, other (multiple skin tears; left trochanter/left knee and left cheek wound with eschar, mod serous drainage) Lymph: No nl lymph nodes Results Result Diagram: 01/06/17 0430 01/06/17 1400 YAZ BERRIOS NP Jan 06, 2017 17:56
[2017-01-07] VITALS (35 sets, daily range): BP systolic 103–144; BP diastolic 60–87; PULSE 69–90; RESP 17–24
[2017-01-07] MEDS: PIPER-TAZO 3.375 GM IV (PMX) 100 ML IVPB SCH ×4 (00:03→18:34)
[2017-01-07] MEDS: ARTIFICIAL TEARS 15 ML OPH BOTH EYES SCH ×4 (00:03→18:33)
[2017-01-07] MEDS: OCULAR LUBRICANT 3.5 GM OPH OINT BOTH EYES SCH ×4 (00:03→18:33)
[2017-01-07] MEDS: Insulin NOVOLOG SS MILD Algorithm (NPO/TPN/ENTERAL FEEDS) SC SCH ×6 (01:00→20:14)
[2017-01-07] MEDS: ACETAMINOPHEN 650MG/20.3ML CUP PO SCH ×3 (03:00→15:00)
[2017-01-07] MEDS: ACETAMINOPHEN 650 MG SUPP PR SCH ×3 (03:00→15:00)
[2017-01-07] MEDS: D5W + KCL 20 MEQ 1,000 ML IV SCH (04:30)
[2017-01-07 05:14] LABS: ABNORMAL IP MESSAGE 1; BASOPHILS % 0.1 % (0.0-2.0); EOSINOPHILS % 0.5 % (0.0-7.0); HEMATOCRIT 30.4 % (42.0-52.0); HEMOGLOBIN 9.4 g/dl (14.0-18.0); LYMPHOCYTES # 0.9 10^3/ul (0.8-2.9); LYMPHOCYTES % 10.6 % (15.0-51.0); MEAN CORPUSCULAR HEMOGLOBIN 31.1 pg (29.0-33.0); MEAN CORPUSCULAR HGB CONC 30.9 g/dl (32.0-37.0); MEAN CORPUSCULAR VOLUME 100.7 fl (82.0-101.0); MEAN PLATELET VOLUME 11.2 fl (7.4-10.4); MONOCYTE # 0.9 10^3/ul (0.3-0.9); MONOCYTES % 10.6 % (0.0-11.0); NEUTROPHIL # 6.3 10^3/ul (1.6-7.5); NEUTROPHILS % 77.5 % (39.0-77.0); NUCLEATED RED BLOOD CELLS% 0.2 /100WBC (0.0-0.0); PLATELET COUNT 90 10^3/UL (140-415); RED BLOOD COUNT 3.02 10^6/ul (4.70-6.10); RED CELL DISTRIBUTION WIDTH 13.1 % (11.5-14.5); WHITE BLOOD COUNT 8.1 10^3/ul (4.8-10.8)
[2017-01-07 05:23] LABS: ADD SCAN DIFF NO
[2017-01-07] MEDS: PANTOPRAZOLE 40 MG INJ IV SCH (05:30)
[2017-01-07 05:43] LABS: CREATININE 1.24 mg/dl (0.61-1.24); MAGNESIUM 2.6 mg/dl (1.7-2.5); PHOSPHORUS 2.5 mg/dl (2.5-4.9)
--- NOTE | 2017-01-07 07:45 | CONS ---
Date/Time of Note Date/Time of Note DATE: 01/07/17 TIME: 07:41 Assessment/Plan Assessment/Plan Additional Assessment/Plan Ventilator setting; AC of 14, tidal volume 500, PEEP of 5, 30% FiO2. Assessment and recommendations; 1. Patient admitted with cardiac arrest due to underlying sepsis currently on appropriate antibiotic regimen, patient with gram-positive bacteremia. 2. Multiple areas of cellulitis. 3. Hypernatremia. Possibly some element of central diabetes insipidus possibly nephrogenic diabetes insipidus as well. 4. Status post CPR and hypothermia protocol. 5. Acute renal injury with improving serum creatinine. 6. Improving platelet count. Continue current treatment. Start tube feeding. Give a trial of desmopressin for correction of hypernatremia. Prognosis depends upon adequate neurological recovery. Obtain a follow-up chest x-ray. Consultation Date/Type/Reason Admit Date/Time Jan 03, 2017 at 15:05 Initial Consult Date 01/04/17 Type of Consultation: Pulmonary/critical care 24 HR Interval Summary Free Text/Dictation Patient condition remains critical. Patient is minimally responsive. Has been off sedation. Has remained hemodynamically stable. General exam; elderly male, orally intubated, minimally responsive. Currently in no distress. Exam/Review of Systems Vital Signs Vitals Vital Signs Date Time Temp Pulse Resp B/P Pulse Ox O2 Delivery O2 Flow Rate FiO2 01/07/17 07:00 77 21 131/73 99 Mechanical Ventilator 01/07/17 05:05 30 01/07/17 04:00 99.2 Intake and Output 01/06/17 01/06/17 01/07/17 15:00 23:00 07:00 Intake Total 1600 ml 1400 ml 1400 ml Output Total 474 ml 448 ml 406 ml Balance 1126 ml 952 ml 994 ml Exam HEENT exam; supple neck, no JVD. No lymphadenopathy. Midline trachea. No thyromegaly. Patient has fair dentition. Has bilateral subconjunctival edema. Pupils are small bilaterally. No neck masses. Chest exam; clear to auscultation. S1-S2 audible, no murmurs. Regular rhythm. Abdomen exam; soft, nondistended. No organomegaly. Bowel sounds audible. Extremity exam; patient had multiple peripheral superficial lacerations and bruises. There is a large area of eschar formation involving the left hip 4" x 4" in size. 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 Results Result Diagram: 01/07/17 0400 01/07/17 0400 Results 24 hrs Laboratory Tests Test 01/06/17 09:26 01/06/17 12:43 01/06/17 14:00 01/06/17 17:09 Bedside Glucose 114 91 110 Sodium Level 152 H Potassium Level 3.9 Chloride Level 119 H Carbon Dioxide Level 30 Anion Gap 7 L Blood Urea Nitrogen 34 H Creatinine 1.18 Glucose Level 94 Calcium Level 8.0 L Test 01/06/17 21:11 01/07/17 01:07 01/07/17 04:00 01/07/17 04:46 Bedside Glucose 97 101 95 White Blood Count 8.1 Red Blood Count 3.02 L Hemoglobin 9.4 L Hematocrit 30.4 L Mean Corpuscular Volume 100.7 Mean Corpuscular Hemoglobin 31.1 Mean Corpuscular Hemoglobin Concent 30.9 L Red Cell Distribution Width 13.1 Platelet Count 90 L Mean Platelet Volume 11.2 H Neutrophils % 77.5 H Lymphocytes % 10.6 L Monocytes % 10.6 Eosinophils % 0.5 Basophils % 0.1 Nucleated Red Blood Cells % 0.2 H Neutrophils # 6.3 Lymphocytes # 0.9 Monocytes # 0.9 Eosinophils # 0.0 Basophils # 0.0 Nucleated Red Blood Cells # 0.0 Sodium Level 152 H Potassium Level 4.0 Chloride Level 118 H Carbon Dioxide Level 29 Anion Gap 9 Blood Urea Nitrogen 34 H Creatinine 1.24 Glucose Level 100 Calcium Level 8.0 L Phosphorus Level 2.5 Magnesium Level 2.6 H Medications Medications Current Medications Acetaminophen (Tylenol Supp) 650 mg Q4H PRN CO TEMP > 37C; Start 01/03/17 at 15 :00 Acetaminophen (Tylenol Liquid) 650 mg Q4H PRN PO TEMP > 37C; Start 01/03/17 at 15:00 Acetaminophen (Tylenol Supp) 500 mg Q6H CO ; Start 01/04/17 at 15:00 Acetaminophen (Tylenol Liquid) 500 mg Q6H PO Last administered on 01/05/17t 21: 14; Admin Dose 500 MG; Start 01/04/17 at 15:00 Meperidine HCl (Demerol) 12.5 mg Q4H PRN IV POST OPERATIVE SHIVERING; Start at 15:00 Meperidine HCl (Demerol) 25 mg Q4H PRN IV POST OPERATIVE SHIVERING; Start 01/03 at 15:00 Eye Lubricant (Akwa Oint) 1 applic Q6 BOTH EYES Last administered on 01/07/17 05:30; Admin Dose 1 APPLIC; Start 01/03/17 at 18:00 Eye Lubricant (Artificial Tears Oph) 2 drop Q6 BOTH EYES Last administered on 05:31; Admin Dose 2 DROP; Start 01/03/17 at 18:00 Pantoprazole (Protonix Iv) 40 mg DAILY@06 IV Last administered on 01/07/17 05: 30; Admin Dose 40 MG; Start 01/03/17 at 17:00 Miscellaneous Information 1 ea NOTE XX ; Start 01/03/17 at 17:00 Glucose (Glutose) 15 gm Q15M PRN PO DECREASED GLUCOSE; Start 01/03/17 at 17:00 Glucose (Glutose) 22.5 gm Q15M PRN PO DECREASED GLUCOSE; Start 01/03/17 at 17: 00 Dextrose (D50w Syringe) 25 ml Q15M PRN IV DECREASED GLUCOSE; Start 01/03/17 at 17:00 Dextrose (D50w Syringe) 50 ml Q15M PRN IV DECREASED GLUCOSE; Start 01/03/17 at 17:00 Glucagon (Glucagen) 1 mg Q15M PRN IM DECREASED GLUCOSE; Start 01/03/17 at 17:00 Glucose 15 gm 15 gm Q15M PRN BUCCAL DECREASED GLUCOSE; Start 01/03/17 at 17:00 Midazolam HCl 50 ml @ 1 mls/hr TITRATE IV Last administered on 01/05/17 01:29 ; Admin Dose 4 MLS/HR; Start 01/03/17 at 21:00 Fentanyl (Sublimaze) 100 ml @ 2.5 mls/hr TITRATE IV Last administered on 15:37; Admin Dose 5 MLS/HR; Start 01/03/17 at 21:00 Miscellaneous Information This patient naik... PRN PRN XX WOUND CARE; Start 01/04 at 03:00 Piperacillin Sod/ Tazobactam Sod 100 ml @ 200 mls/hr Q6 IVPB Last administered on 01/07/17 05:30; Admin Dose 200 MLS/HR; Start 01/04/17 at 12:00 Vancomycin HCl (Vancocin) 250 ml @ 125 mls/hr Q12H IVPB Last administered on 20:44; Admin Dose 125 MLS/HR; Start 01/04/17 at 09:00 Silver Sulfadiazine 1 applic 1 applic DAILY TOP Last administered on 01/06/17 09:38; Admin Dose 1 APPLIC; Start 01/04/17 at 14:00 Norepinephrine/ Dextrose (Levophed/D5W) 500 ml @ 1.87 mls/hr TITRATE IV ; Start 01/04/17 at 18:30 Insulin Aspart (Novolog Insulin Pen) (Adult SC Insulin - Mild Algorithm)... Q4 SC ; Start 01/05/17 at 09:00 Morphine Sulfate 2 mg 2 mg Q2H PRN IV PAIN; Start 01/05/17 at 22:00 Potassium Chloride/Dextrose (D5W + KCl 20 Meq) 1,000 ml @ 50 mls/hr Q20H IV Last administered on 01/06/17 09:33; Admin Dose 50 MLS/HR; Start 01/06/17 at 08 :30 JULIO C CARBONE Jan 07, 2017 07:45
--- NOTE | 2017-01-07 08:08 | PN ---
Date/Time of Note Date/Time of Note DATE: 01/07/17 TIME: 08:04 Assessment/Plan VTE Prophylaxis VTE Prophylaxis Intervention: ambulation Lines/Catheters IV Catheter Type (from Nrs): Peripheral IV Urinary Cath still in place: Yes Reason Cath still needed: other (indicate) Assessment/Plan Chief Complaint/Hosp Course 1. 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 Etiology 2/2 hemodynamics possible tubular injury 2/2 ischemic shock. U/a reviewed, no active sediment. -Renal function improving -cont current treatment plan, renally dose all meds, avoid nephrotoxins -cont ivf, keep map > 65 -monitor closely 2. hypernatremia 2/2 insensible loss -No evidence of diabetes insipidus. Urine osmolarity was 700 mOsm appropriately elevated for level of hypernatremia. -pt has ~ 3 liter water deficit -cont free water flushes to 400 cc every 4 hours. cont D5W -Monitor serial sodium levels. - 3. anemia -monitor h/h levels 4. mineral bone disorder -monitor ca, phos levels 5. Status post cardiac arrest with return of spontaneous circulation /PEA -cont to monitor -f/u cardiology 6. vdrf -vent setting abg reviewed -f/u pulmonary 7. Acute pulmonary emboli -cont med/eyal 8. acute encephalopathy secondary to anoxic injury -cont to monitor -f/u neurology 9 acute transaminitis with hyperbilirubinemia likely secondary to shock liver -improving, monitor 10. sepsis with multiorgan failure likely secondary to urinary tract infection , bacteremia -cont antibiotics -f/u ID Problems: Subjective 24 Hr Interval Summary Free Text/Dictation Patient remains critical but stable. Sodium levels have been slowly trending down. Urinary output has been adequate. Patient remains on pressure support. No other events noted. Exam/Review of Systems Vital Signs Vitals Vital Signs Date Time Temp Pulse Resp B/P Pulse Ox O2 Delivery O2 Flow Rate FiO2 01/07/17 07:00 77 21 131/73 99 Mechanical Ventilator 01/07/17 05:05 30 01/07/17 04:00 99.2 Intake and Output 01/06/17 01/06/17 01/07/17 15:00 23:00 07:00 Intake Total 1600 ml 1400 ml 1400 ml Output Total 474 ml 448 ml 406 ml Balance 1126 ml 952 ml 994 ml Exam General: critically ill HEENT: Atraumatic, normocephalic. The pupils are equal Neck: Supple Chest: Normal Lungs: Decreased breath sounds bilateral lower lung field Heart: Normal S1-S2, Regular rhythm and rate. Abdomen: Soft , nontender, nondistended , bowel sounds are present. Extremities: Multiple pressure ulcer on left upper and lower extremity, trace edema no cyanosis Neurologic: Sedated Skin: L sided contusions and abrasions Results Result Diagram: 01/07/17 0400 01/07/17 0400 Results 24 hrs Laboratory Tests Test 01/06/17 09:26 01/06/17 12:43 01/06/17 14:00 01/06/17 17:09 Bedside Glucose 114 91 110 Sodium Level 152 H Potassium Level 3.9 Chloride Level 119 H Carbon Dioxide Level 30 Anion Gap 7 L Blood Urea Nitrogen 34 H Creatinine 1.18 Glucose Level 94 Calcium Level 8.0 L Test 01/06/17 21:11 01/07/17 01:07 01/07/17 04:00 01/07/17 04:46 Bedside Glucose 97 101 95 White Blood Count 8.1 Red Blood Count 3.02 L Hemoglobin 9.4 L Hematocrit 30.4 L Mean Corpuscular Volume 100.7 Mean Corpuscular Hemoglobin 31.1 Mean Corpuscular Hemoglobin Concent 30.9 L Red Cell Distribution Width 13.1 Platelet Count 90 L Mean Platelet Volume 11.2 H Neutrophils % 77.5 H Lymphocytes % 10.6 L Monocytes % 10.6 Eosinophils % 0.5 Basophils % 0.1 Nucleated Red Blood Cells % 0.2 H Neutrophils # 6.3 Lymphocytes # 0.9 Monocytes # 0.9 Eosinophils # 0.0 Basophils # 0.0 Nucleated Red Blood Cells # 0.0 Sodium Level 152 H Potassium Level 4.0 Chloride Level 118 H Carbon Dioxide Level 29 Anion Gap 9 Blood Urea Nitrogen 34 H Creatinine 1.24 Glucose Level 100 Calcium Level 8.0 L Phosphorus Level 2.5 Magnesium Level 2.6 H Medications Medications Current Medications Acetaminophen (Tylenol Supp) 650 mg Q4H PRN [place] TEMP > 37C; Start 01/03/17 at 15 :00 Acetaminophen (Tylenol Liquid) 650 mg Q4H PRN PO TEMP > 37C; Start 01/03/17 at 15:00 Acetaminophen (Tylenol Supp) 500 mg Q6H NH ; Start 01/04/17 at 15:00 Acetaminophen (Tylenol Liquid) 500 mg Q6H PO Last administered on 01/05/17 21: 14; Admin Dose 500 MG; Start 01/04/17 at 15:00 Meperidine HCl (Demerol) 12.5 mg Q4H PRN IV POST OPERATIVE SHIVERING; Start at 15:00 Meperidine HCl (Demerol) 25 mg Q4H PRN IV POST OPERATIVE SHIVERING; Start 01/03 at 15:00 Eye Lubricant (Akwa Oint) 1 applic Q6 BOTH EYES Last administered on 01/07/17 05:30; Admin Dose 1 APPLIC; Start 01/03/17 at 18:00 Eye Lubricant (Artificial Tears Oph) 2 drop Q6 BOTH EYES Last administered on 05:31; Admin Dose 2 DROP; Start 01/03/17 at 18:00 Pantoprazole (Protonix Iv) 40 mg DAILY@06 IV Last administered on 01/07/17 05: 30; Admin Dose 40 MG; Start 01/03/17 at 17:00 Miscellaneous Information 1 ea NOTE XX ; Start 01/03/17 at 17:00 Glucose (Glutose) 15 gm Q15M PRN PO DECREASED GLUCOSE; Start 01/03/17 at 17:00 Glucose (Glutose) 22.5 gm Q15M PRN PO DECREASED GLUCOSE; Start 01/03/17 at 17: 00 Dextrose (D50w Syringe) 25 ml Q15M PRN IV DECREASED GLUCOSE; Start 01/03/17 at 17:00 Dextrose (D50w Syringe) 50 ml Q15M PRN IV DECREASED GLUCOSE; Start 01/03/17 at 17:00 Glucagon (Glucagen) 1 mg Q15M PRN IM DECREASED GLUCOSE; Start 01/03/17 at 17:00 Glucose 15 gm 15 gm Q15M PRN BUCCAL DECREASED GLUCOSE; Start 01/03/17 at 17:00 Midazolam HCl 50 ml @ 1 mls/hr TITRATE IV Last administered on 01/05/17 01:29 ; Admin Dose 4 MLS/HR; Start 01/03/17 at 21:00 Fentanyl (Sublimaze) 100 ml @ 2.5 mls/hr TITRATE IV Last administered on 15:37; Admin Dose 5 MLS/HR; Start 01/03/17 at 21:00 Miscellaneous Information This patient naik... PRN PRN XX WOUND CARE; Start 01/04 at 03:00 Piperacillin Sod/ Tazobactam Sod 100 ml @ 200 mls/hr Q6 IVPB Last administered on 01/07/17 05:30; Admin Dose 200 MLS/HR; Start 01/04/17 at 12:00 Vancomycin HCl (Vancocin) 250 ml @ 125 mls/hr Q12H IVPB Last administered on 20:44; Admin Dose 125 MLS/HR; Start 01/04/17 at 09:00 Silver Sulfadiazine 1 applic 1 applic DAILY TOP Last administered on 01/06/17 09:38; Admin Dose 1 APPLIC; Start 01/04/17 at 14:00 Norepinephrine/ Dextrose (Levophed/D5W) 500 ml @ 1.87 mls/hr TITRATE IV ; Start 01/04/17 at 18:30 Insulin Aspart (Novolog Insulin Pen) (Adult SC Insulin - Mild Algorithm)... Q4 SC ; Start 01/05/17 at 09:00 Morphine Sulfate 2 mg 2 mg Q2H PRN IV PAIN; Start 01/05/17 at 22:00 Potassium Chloride/Dextrose (D5W + KCl 20 Meq) 1,000 ml @ 50 mls/hr Q20H IV Last administered on 01/06/17 09:33; Admin Dose 50 MLS/HR; Start 01/06/17 at 08 :30 Desmopressin Acetate (Ddavp) 2 mcg BID SC ; Start 01/07/17 at 09:00 ESHA ALMANZA DO Jan 07, 2017 08:08
[2017-01-07] MEDS: SILVER SULFADIAZINE 1% 25 GM CR TOP SCH (09:51)
[2017-01-07] MEDS: VANCOMYCIN 1 GM in NS 250 ML IVPB SCH (09:51)
[2017-01-07] MEDS: DESMOPRESSIN 4 MCG INJ SC SCH ×2 (10:05→20:14)
--- NOTE | 2017-01-07 13:13 | PN ---
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 Severe sepsis secondary to bacteremia and urinary tract infection 2. Severe dehydration causing acute renal insufficiency: improved 3. Hyponatremia likely secondary to #2: improving 4. Ventilator dependent respiratory failure secondary to #5 5. Acute encephalopathy s/p PEA cardiac arrest likely secondary to #6 status post resuscitation with ROSC and now s/p hypothermia protocol:? 6. Acute pulmonary emboli, currently off heparin drip due thrombocytopenia 7. Long-term history of progressive supranuclear palsy that has caused recurrent falls and old rib and NaSal fractures 8. Acute transaminitis likely secondary to shock liver: improving 9. Recent fall 2/2 #7 s/p L sided facial and muscular contusions 10. Possible anoxic brain injury PLAN: Continue care and intensive care unit Continue Ventilator support and management Monitor mental status Will deescalate abx as no current evidence of pneumonia, blood cultures could be contaminant Continue to hold Heparin drip for pulmonary emboli for now Patient is on high volume free water for hypernatremia, hence will hold off on starting tube feeds to try to prevent aspiration. For further interventions per clinical course Appreciate all consults Prophylaxis with IV PPI and SCDs / heparin drip was d/c 2/2 thrombocytopenia CCTime :>35mins Subjective 24 Hr Interval Summary Free Text/Dictation Patient more alert, spontaneously opening his eyes Nursing reports no acute overnight events. Exam/Review of Systems Vital Signs Vitals Vital Signs Date Time Temp Pulse Resp B/P Pulse Ox O2 Delivery O2 Flow Rate FiO2 01/07/17 12:00 86 01/07/17 11:00 21 131/78 99 Mechanical Ventilator 01/07/17 09:00 99.2 01/07/17 08:00 30 Intake and Output 01/06/17 01/06/17 01/07/17 15:00 23:00 07:00 Intake Total 1600 ml 1400 ml 1450 ml Output Total 474 ml 448 ml 411 ml Balance 1126 ml 952 ml 1039 ml Exam General: The patient is intubated HEENT: Atraumatic, normocephalic. The pupils are equal and somewhat reactive , significant conjuctival edema Neck: Supple Chest: Normal Lungs: Decreased breath sounds bilateral lower lung field Heart: Normal S1-S2, Regular rhythm and rate. Abdomen: Soft , nontender, nondistended , bowel sounds are present. Extremities: trace edema no cyanosis Neurologic: off sedation, will open eyes Skin: L sided contusions and abrasions Results Result Diagram: 01/07/17 0400 01/07/17 0400 Results 24 hrs Laboratory Tests Test 01/06/17 14:00 01/06/17 17:09 01/06/17 21:11 01/07/17 01:07 Sodium Level 152 H Potassium Level 3.9 Chloride Level 119 H Carbon Dioxide Level 30 Anion Gap 7 L Blood Urea Nitrogen 34 H Creatinine 1.18 Glucose Level 94 Calcium Level 8.0 L Bedside Glucose 110 97 101 Test 01/07/17 04:00 01/07/17 04:46 01/07/17 10:03 White Blood Count 8.1 Red Blood Count 3.02 L Hemoglobin 9.4 L Hematocrit 30.4 L Mean Corpuscular Volume 100.7 Mean Corpuscular Hemoglobin 31.1 Mean Corpuscular Hemoglobin Concent 30.9 L Red Cell Distribution Width 13.1 Platelet Count 90 L Mean Platelet Volume 11.2 H Neutrophils % 77.5 H Lymphocytes % 10.6 L Monocytes % 10.6 Eosinophils % 0.5 Basophils % 0.1 Nucleated Red Blood Cells % 0.2 H Neutrophils # 6.3 Lymphocytes # 0.9 Monocytes # 0.9 Eosinophils # 0.0 Basophils # 0.0 Nucleated Red Blood Cells # 0.0 Sodium Level 152 H Potassium Level 4.0 Chloride Level 118 H Carbon Dioxide Level 29 Anion Gap 9 Blood Urea Nitrogen 34 H Creatinine 1.24 Glucose Level 100 Calcium Level 8.0 L Phosphorus Level 2.5 Magnesium Level 2.6 H Bedside Glucose 95 117 Medications Medications Current Medications Acetaminophen (Tylenol Supp) 650 mg Q4H PRN CO TEMP > 37C Last administered on 01/07/17 09:52; Admin Dose 650 MG; Start 01/03/17 at 15:00 Acetaminophen (Tylenol Liquid) 650 mg Q4H PRN PO TEMP > 37C; Start 01/03/17 at 15:00 Acetaminophen (Tylenol Supp) 500 mg Q6H CO ; Start 01/04/17 at 15:00 Acetaminophen (Tylenol Liquid) 500 mg Q6H PO Last administered on 01/07/17 09: 51; Admin Dose 500 MG; Start 01/04/17 at 15:00 Meperidine HCl (Demerol) 12.5 mg Q4H PRN IV POST OPERATIVE SHIVERING; Start at 15:00 Meperidine HCl (Demerol) 25 mg Q4H PRN IV POST OPERATIVE SHIVERING; Start 01/03 at 15:00 Eye Lubricant (Akwa Oint) 1 applic Q6 BOTH EYES Last administered on 01/07/17 05:30; Admin Dose 1 APPLIC; Start 01/03/17 at 18:00 Eye Lubricant (Artificial Tears Oph) 2 drop Q6 BOTH EYES Last administered on 05:31; Admin Dose 2 DROP; Start 01/03/17 at 18:00 Pantoprazole (Protonix Iv) 40 mg DAILY@06 IV Last administered on 01/07/17 05: 30; Admin Dose 40 MG; Start 01/03/17 at 17:00 Miscellaneous Information 1 ea NOTE XX ; Start 01/03/17 at 17:00 Glucose (Glutose) 15 gm Q15M PRN PO DECREASED GLUCOSE; Start 01/03/17 at 17:00 Glucose (Glutose) 22.5 gm Q15M PRN PO DECREASED GLUCOSE; Start 01/03/17 at 17: 00 Dextrose (D50w Syringe) 25 ml Q15M PRN IV DECREASED GLUCOSE; Start 01/03/17 at 17:00 Dextrose (D50w Syringe) 50 ml Q15M PRN IV DECREASED GLUCOSE; Start 01/03/17 at 17:00 Glucagon (Glucagen) 1 mg Q15M PRN IM DECREASED GLUCOSE; Start 01/03/17 at 17:00 Glucose 15 gm 15 gm Q15M PRN BUCCAL DECREASED GLUCOSE; Start 01/03/17 at 17:00 Midazolam HCl 50 ml @ 1 mls/hr TITRATE IV Last administered on 01/05/17 01:29 ; Admin Dose 4 MLS/HR; Start 01/03/17 at 21:00 Fentanyl (Sublimaze) 100 ml @ 2.5 mls/hr TITRATE IV Last administered on 15:37; Admin Dose 5 MLS/HR; Start 01/03/17 at 21:00 Miscellaneous Information This patient naik... PRN PRN XX WOUND CARE; Start 01/04 at 03:00 Piperacillin Sod/ Tazobactam Sod 100 ml @ 200 mls/hr Q6 IVPB Last administered on 01/07/17 05:30; Admin Dose 200 MLS/HR; Start 01/04/17 at 12:00 Vancomycin HCl (Vancocin) 250 ml @ 125 mls/hr Q12H IVPB Last administered on 09:51; Admin Dose 125 MLS/HR; Start 01/04/17 at 09:00 Silver Sulfadiazine 1 applic 1 applic DAILY TOP Last administered on 01/07/17 09:51; Admin Dose 1 APPLIC; Start 01/04/17 at 14:00 Norepinephrine/ Dextrose (Levophed/D5W) 500 ml @ 1.87 mls/hr TITRATE IV ; Start 01/04/17 at 18:30 Insulin Aspart (Novolog Insulin Pen) (Adult SC Insulin - Mild Algorithm)... Q4 SC ; Start 01/05/17 at 09:00 Morphine Sulfate 2 mg 2 mg Q2H PRN IV PAIN; Start 01/05/17 at 22:00 Potassium Chloride/Dextrose (D5W + KCl 20 Meq) 1,000 ml @ 50 mls/hr Q20H IV Last administered on 01/06/17 09:33; Admin Dose 50 MLS/HR; Start 01/06/17 at 08 :30 Desmopressin Acetate (Ddavp) 2 mcg BID SC Last administered on 01/07/17 10:05 ; Admin Dose 2 MCG; Start 01/07/17 at 09:00 BRIANA MADRID Jan 07, 2017 12:59
[2017-01-07 14:03] LABS: MICROALBUMIN 2.7 mg/dL
--- NOTE | 2017-01-07 15:18 | PN ---
Date/Time of Note Date/Time of Note DATE: 01/07/17 TIME: 15:15 Assessment/Plan VTE Prophylaxis VTE Prophylaxis Intervention: SCD's Lines/Catheters IV Catheter Type (from [facility]): Peripheral IV Urinary Cath still in place: Yes Reason Cath still needed: other (indicate) Assessment/Plan Chief Complaint/Hosp Course ASSESSMENT AND PLAN: 1. Cardiopulmonary arrest with pulseless electrical activity cardiopulm arrest. 2. possible pulmonary embolus. 3. Renal failure, unclear acute on chronic. Probably acute currently back to normal 4. Encephalopathy. 5. Status post cardiopulmonary arrest with return of spontaneous circulation. 6. Severe metabolic acidosis improved now. 7. transaminitis, probably shock liver. 8. Sepsis, respiratory failure, status post intubation on the vent. 9. S/p facial contusion. 10 mildly abnormal troponin due to above. 11. hyper Na RECOMMENDATIONS: The patient has completed hypothermia protocol. We will continue with the vent support. follow up with pulm rec. vent support CT pulmonary angiogram was not done due to concern about his renal function. Continue with the ICU care. echo reviewed and showed preserved EF fluid management as per renal Problems: Subjective 24 Hr Interval Summary Free Text/Dictation Discussed with staff and discussed with patient's sister. Patient is intubated on the vent in ICU. Patient is nonverbal and appears to be more awake. rhythm strip was reviewed, patient remained sinus rhythm. Exam/Review of Systems Vital Signs Vitals Vital Signs Date Time Temp Pulse Resp B/P Pulse Ox O2 Delivery O2 Flow Rate FiO2 01/07/17 15:00 81 22 142/80 99 Mechanical Ventilator 01/07/17 13:05 30 01/07/17 12:00 99.1 Intake and Output 01/06/17 01/06/17 01/07/17 15:00 23:00 07:00 Intake Total 1600 ml 1400 ml 1450 ml Output Total 474 ml 448 ml 411 ml Balance 1126 ml 952 ml 1039 ml Exam General intubated on vent HEENT: Normocephalic, s/p facial trauma. Status post intubation on the vent. DERMATOLOGIC: The left side of the face and the chest with ulcerated lesion. CARDIOVASCULAR: RRR. systolic murmur PULMONARY: With no wheezes heard anteriorly. GASTROINTESTINAL: Soft, nontender. no rebound EXTREMITIES: With mild lower extremity edema. NEUROLOGIC: opens his eyes. . : S/p patel in place. psych: calm Results Result Diagram: 01/07/17 0400 01/07/17 0400 Results 24 hrs Laboratory Tests Test 01/06/17 17:09 01/06/17 21:11 01/07/17 01:07 01/07/17 04:00 Bedside Glucose 110 97 101 White Blood Count 8.1 Red Blood Count 3.02 L Hemoglobin 9.4 L Hematocrit 30.4 L Mean Corpuscular Volume 100.7 Mean Corpuscular Hemoglobin 31.1 Mean Corpuscular Hemoglobin Concent 30.9 L Red Cell Distribution Width 13.1 Platelet Count 90 L Mean Platelet Volume 11.2 H Neutrophils % 77.5 H Lymphocytes % 10.6 L Monocytes % 10.6 Eosinophils % 0.5 Basophils % 0.1 Nucleated Red Blood Cells % 0.2 H Neutrophils # 6.3 Lymphocytes # 0.9 Monocytes # 0.9 Eosinophils # 0.0 Basophils # 0.0 Nucleated Red Blood Cells # 0.0 Sodium Level 152 H Potassium Level 4.0 Chloride Level 118 H Carbon Dioxide Level 29 Anion Gap 9 Blood Urea Nitrogen 34 H Creatinine 1.24 Glucose Level 100 Calcium Level 8.0 L Phosphorus Level 2.5 Magnesium Level 2.6 H Test 01/07/17 04:46 01/07/17 10:03 01/07/17 14:10 Bedside Glucose 95 117 121 Medications Medications Current Medications Acetaminophen (Tylenol Supp) 650 mg Q4H PRN [place] TEMP > 37C Last administered on 01/07/17 09:52; Admin Dose 650 MG; Start 01/03/17 at 15:00 Acetaminophen (Tylenol Liquid) 650 mg Q4H PRN PO TEMP > 37C; Start 01/03/17 at 15:00 Acetaminophen (Tylenol Supp) 500 mg Q6H VT ; Start 01/04/17 at 15:00 Acetaminophen (Tylenol Liquid) 500 mg Q6H PO Last administered on 01/07/17 09: 51; Admin Dose 500 MG; Start 01/04/17 at 15:00 Meperidine HCl (Demerol) 12.5 mg Q4H PRN IV POST OPERATIVE SHIVERING; Start at 15:00 Meperidine HCl (Demerol) 25 mg Q4H PRN IV POST OPERATIVE SHIVERING; Start 01/03 at 15:00 Eye Lubricant (Akwa Oint) 1 applic Q6 BOTH EYES Last administered on 01/07/17 13:15; Admin Dose 1 APPLIC; Start 01/03/17 at 18:00 Eye Lubricant (Artificial Tears Oph) 2 drop Q6 BOTH EYES Last administered on 13:15; Admin Dose 2 DROP; Start 01/03/17 at 18:00 Pantoprazole (Protonix Iv) 40 mg DAILY@06 IV Last administered on 01/07/17 05: 30; Admin Dose 40 MG; Start 01/03/17 at 17:00 Miscellaneous Information 1 ea NOTE XX ; Start 01/03/17 at 17:00 Glucose (Glutose) 15 gm Q15M PRN PO DECREASED GLUCOSE; Start 01/03/17 at 17:00 Glucose (Glutose) 22.5 gm Q15M PRN PO DECREASED GLUCOSE; Start 01/03/17 at 17: 00 Dextrose (D50w Syringe) 25 ml Q15M PRN IV DECREASED GLUCOSE; Start 01/03/17 at 17:00 Dextrose (D50w Syringe) 50 ml Q15M PRN IV DECREASED GLUCOSE; Start 01/03/17 at 17:00 Glucagon (Glucagen) 1 mg Q15M PRN IM DECREASED GLUCOSE; Start 01/03/17 at 17:00 Glucose 15 gm 15 gm Q15M PRN BUCCAL DECREASED GLUCOSE; Start 01/03/17 at 17:00 Midazolam HCl 50 ml @ 1 mls/hr TITRATE IV Last administered on 01/05/17 01:29 ; Admin Dose 4 MLS/HR; Start 01/03/17 at 21:00 Fentanyl (Sublimaze) 100 ml @ 2.5 mls/hr TITRATE IV Last administered on 15:37; Admin Dose 5 MLS/HR; Start 01/03/17 at 21:00 Miscellaneous Information This patient naik... PRN PRN XX WOUND CARE; Start 01/04 at 03:00 Piperacillin Sod/ Tazobactam Sod (Zosyn 3.375gm/ 100 ml (Pmx)) 100 ml @ 200 mls /hr Q6 IVPB Last administered on 01/07/17 13:14; Admin Dose 200 MLS/HR; Start 01/04/17 at 12:00 Silver Sulfadiazine 1 applic 1 applic DAILY TOP Last administered on 01/07/17 09:51; Admin Dose 1 APPLIC; Start 01/04/17 at 14:00 Norepinephrine/ Dextrose (Levophed/D5W) 500 ml @ 1.87 mls/hr TITRATE IV ; Start 01/04/17 at 18:30 Insulin Aspart (Novolog Insulin Pen) (Adult SC Insulin - Mild Algorithm)... Q4 SC ; Start 01/05/17 at 09:00 Morphine Sulfate 2 mg 2 mg Q2H PRN IV PAIN; Start 01/05/17 at 22:00 Potassium Chloride/Dextrose (D5W + KCl 20 Meq) 1,000 ml @ 50 mls/hr Q20H IV Last administered on 01/06/17 09:33; Admin Dose 50 MLS/HR; Start 01/06/17 at 08 :30 Desmopressin Acetate (Ddavp) 2 mcg BID SC Last administered on 01/07/17 10:05 ; Admin Dose 2 MCG; Start 01/07/17 at 09:00 JENI KANG MD Jan 07, 2017 15:17
--- NOTE | 2017-01-07 15:27 | PN ---
Date/Time of Note Date/Time of Note DATE: 01/07/17 TIME: 15:20 Assessment/Plan Lines/Catheters IV Catheter Type (from [facility]): Peripheral IV [place] in Place (from [facility]): Yes Assessment/Plan Chief Complaint/Hosp Course 1. Multiple wounds: multiple skin tears, left trochanter/left facial/left lateral knee ischemic tissue injury likely pressure related -Will likely need debridement as patients condition permits - await medical clearence -local care -frequent turning and offloading/specialty bed -optimize nutrition -vitamin c/short term zn 2. S/P cardiac arrest with ROSC; currently intubated, s/p hypothermia protocol -supportive therapy -optimize electrolytes -cardiac optimization 3. PE: currently on heprain drip -continue heparin drip -supportive 4. Hematuria: likely 2/2 to heparin drip; improved -monitor 5. Acute kindey injury: 2/2 ischemic shock; improved -supportive -monitor 6. Hypernatremia: improved -Continue to monitor -per renal 7. Anemia normocytic normochromic: 2/2 acute loss/hematuria +/- dilutional -monitor -transfuse prn 8. Hypoalbuminemia: multifactorial (2/2 inflammation/infection +/-malnutrition + /- shocked liver) -Optimize -replete as necessary -optimize nutrition as patient condition permits 9. Hypocalcemia likely 2nd above -optimize lytes -continue to monitor -optimize nutrition as patient condition permits 10. Transaminitis with hyperbilirubinemia: likely 2/2 shocked liver -supportive -monitor trends 11. Encephalopathy 2nd to anoxic injury -cont to monitor - neurology f/u 12. Sepsis with multiorgan failure likely secondary to bacteremia; urine cultures and cxr are negative; repeat blood cultures with staph coagulase ( contaminant?); improved -abx per ID -careful monitoring -tx as above 14. Thrombocytopenia: 2nd to sepsis -supportive -bleeding precautions Thank you, Problems: Subjective 24 Hr Interval Summary Patient non verbal & non-responsive. No fevers. No cough. No sz. No rash. No vomiting. No bloating. Ventilated. Exam/Review of Systems Vital Signs Vitals Vital Signs Date Time Temp Pulse Resp B/P Pulse Ox O2 Delivery O2 Flow Rate FiO2 01/07/17 15:00 81 22 142/80 99 Mechanical Ventilator 01/07/17 13:05 30 01/07/17 12:00 99.1 Intake and Output 6/29/17 6/29/17 6/30/17 15:00 23:00 07:00 Intake Total 1600 ml 1400 ml 1450 ml Output Total 474 ml 448 ml 411 ml Balance 1126 ml 952 ml 1039 ml Exam Free Text/Dictation Constitutional: well developed Head: lacerations, normocephalic Eyes: Sluggish. No jaundice ENMT: Intubated No lesions. Moist. Neck: non-tender, supple, min JVD Respiratory: Normal resp effort Cardiovascular: nl pulses, regular rate and rhythm Gastrointestinal: non-tender, soft, No distended Genitourinary - Male: nl penis, nl scrotum; urine yellow Musculoskeletal: , No swelling Extremities: normal pulses, cap refill 3s Neurological: Not following commands Skin: nl turgor, other (multiple skin tears; left trochanter/left knee and left cheek wound with eschar, mod serous drainage) Lymph: No nl lymph nodes Results Result Diagram: 01/07/1739901/07/17399 MALIKA DOMINGUEZ MD Jan 07, 2017 15:27
[2017-01-08] VITALS (40 sets, daily range): BP systolic 124–145; BP diastolic 66–83; PULSE 64–81; RESP 20–26
[2017-01-08] MEDS: D5W + KCL 20 MEQ 1,000 ML IV SCH ×3 (00:30→18:07)
[2017-01-08] MEDS: PIPER-TAZO 3.375 GM IV (PMX) 100 ML IVPB SCH ×5 (00:34→23:41)
[2017-01-08] MEDS: Insulin NOVOLOG SS MILD Algorithm (NPO/TPN/ENTERAL FEEDS) SC SCH ×7 (00:34→23:44)
[2017-01-08] MEDS: ARTIFICIAL TEARS 15 ML OPH BOTH EYES SCH ×5 (00:34→23:40)
[2017-01-08] MEDS: OCULAR LUBRICANT 3.5 GM OPH OINT BOTH EYES SCH ×5 (00:34→23:40)
[2017-01-08 04:47] LABS: ABNORMAL IP MESSAGE 1; ADD SCAN DIFF NO; BASOPHILS % 0.1 % (0.0-2.0); EOSINOPHILS # 0.1 10^3/ul (0.0-0.5); EOSINOPHILS % 1.4 % (0.0-7.0); HEMOGLOBIN 9.2 g/dl (14.0-18.0); LYMPHOCYTES # 0.8 10^3/ul (0.8-2.9); LYMPHOCYTES % 10.8 % (15.0-51.0); MEAN CORPUSCULAR HEMOGLOBIN 32.6 pg (29.0-33.0); MEAN CORPUSCULAR HGB CONC 32.9 g/dl (32.0-37.0); MEAN CORPUSCULAR VOLUME 99.3 fl (82.0-101.0); MEAN PLATELET VOLUME 11.2 fl (7.4-10.4); MONOCYTE # 1.1 10^3/ul (0.3-0.9); MONOCYTES % 15.4 % (0.0-11.0); NEUTROPHIL # 4.8 10^3/ul (1.6-7.5); NEUTROPHILS % 69.4 % (39.0-77.0); NUCLEATED RED BLOOD CELLS% 0.4 /100WBC (0.0-0.0); PLATELET COUNT 97 10^3/UL (140-415); RED BLOOD COUNT 2.82 10^6/ul (4.70-6.10); RED CELL DISTRIBUTION WIDTH 12.3 % (11.5-14.5)
[2017-01-08 05:03] LABS: ALBUMIN 2.4 g/dl (3.3-4.9); BILIRUBIN,INDIRECT 0.7 mg/dl (0-1.1); BILIRUBIN,TOTAL 0.7 mg/dl (0.2-1.3); TOTAL PROTEIN 4.6 g/dl (6.1-8.1)
[2017-01-08 05:07] LABS: CREATININE 1.08 mg/dl (0.61-1.24); MAGNESIUM 2.4 mg/dl (1.7-2.5); PHOSPHORUS 2.9 mg/dl (2.5-4.9)
[2017-01-08] MEDS: PANTOPRAZOLE 40 MG INJ IV SCH ×2 (05:25→10:25)
--- NOTE | 2017-01-08 07:46 | PN ---
Date/Time of Note Date/Time of Note DATE: 01/08/17 TIME: 07:42 Assessment/Plan VTE Prophylaxis VTE Prophylaxis Intervention: ambulation Lines/Catheters IV Catheter Type (from Nrs): Peripheral IV Urinary Cath still in place: Yes Reason Cath still needed: other (indicate) Assessment/Plan Chief Complaint/Hosp Course 1. 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 Etiology 2/2 hemodynamics possible tubular injury 2/2 ischemic shock. U/a reviewed, no active sediment. -Renal function improving -cont current treatment plan, renally dose all meds, avoid nephrotoxins - keep map > 65 -monitor closely 2. hypernatremia 2/2 insensible loss -No evidence of diabetes insipidus. Urine osmolarity was 700 mOsm appropriately elevated for level of hypernatremia. -Improving. Patient's sodium levels improving Plan is to decrease rate of free water flushes 200 cc every 6 hours. Continue D5W Monitor serial sodium levels 3. anemia -monitor h/h levels 4. mineral bone disorder -monitor ca, phos levels 5. Status post cardiac arrest with return of spontaneous circulation /PEA -cont to monitor -f/u cardiology 6. vdrf -vent setting abg reviewed -f/u pulmonary 7. Acute pulmonary emboli -cont med/eyal 8. acute encephalopathy secondary to anoxic injury -cont to monitor -f/u neurology 9 acute transaminitis with hyperbilirubinemia likely secondary to shock liver -improving, monitor 10. sepsis with multiorgan failure likely secondary to urinary tract infection , bacteremia -cont antibiotics -f/u ID Problems: Subjective 24 Hr Interval Summary Free Text/Dictation Patient remains critical but stable. Off pressor support. Urinary output has been adequate. Exam/Review of Systems Vital Signs Vitals Vital Signs Date Time Temp Pulse Resp B/P Pulse Ox O2 Delivery O2 Flow Rate FiO2 01/08/17 07:00 68 22 136/67 100 Mechanical Ventilator 01/08/17 05:53 30 01/08/17 04:00 99.4 Intake and Output 01/07/17 01/07/17 01/08/17 15:00 23:00 07:00 Intake Total 1640 ml 1560 ml 1350 ml Output Total 633 ml 574 ml 565 ml Balance 1007 ml 986 ml 785 ml Exam General: critically ill HEENT: Atraumatic, normocephalic. The pupils are equal Neck: Supple Chest: Normal Lungs: Decreased breath sounds bilateral lower lung field Heart: Normal S1-S2, Regular rhythm and rate. Abdomen: Soft , nontender, nondistended , bowel sounds are present. Extremities: Multiple pressure ulcer on left upper and lower extremity, trace edema no cyanosis Neurologic: Sedated Skin: L sided contusions and abrasions Results Result Diagram: 01/08/17 0400 01/08/17 0400 Results 24 hrs Laboratory Tests Test 01/07/17 10:03 01/07/17 14:10 01/07/17 18:32 01/07/17 20:14 Bedside Glucose 117 121 92 100 Test 01/08/17 00:33 01/08/17 04:00 01/08/17 05:23 Bedside Glucose 109 108 White Blood Count 7.0 Red Blood Count 2.82 L Hemoglobin 9.2 L Hematocrit 28.0 L Mean Corpuscular Volume 99.3 Mean Corpuscular Hemoglobin 32.6 Mean Corpuscular Hemoglobin Concent 32.9 Red Cell Distribution Width 12.3 Platelet Count 97 L Mean Platelet Volume 11.2 H Neutrophils % 69.4 Lymphocytes % 10.8 L Monocytes % 15.4 H Eosinophils % 1.4 Basophils % 0.1 Nucleated Red Blood Cells % 0.4 H Neutrophils # 4.8 Lymphocytes # 0.8 Monocytes # 1.1 H Eosinophils # 0.1 Basophils # 0.0 Nucleated Red Blood Cells # 0.0 Sodium Level 145 H Potassium Level 4.0 Chloride Level 116 H Carbon Dioxide Level 25 Anion Gap 8 Blood Urea Nitrogen 30 H Creatinine 1.08 Glucose Level 105 Calcium Level 8.0 L Phosphorus Level 2.9 Magnesium Level 2.4 Total Bilirubin 0.7 Direct Bilirubin 0.00 Indirect Bilirubin 0.7 Aspartate Amino Transf (AST/SGOT) 98 H Alanine Aminotransferase (ALT/SGPT) 127 H Alkaline Phosphatase 104 # Total Protein 4.6 L Albumin 2.4 L Medications Medications Current Medications Acetaminophen (Tylenol Supp) 650 mg Q4H PRN [place] TEMP > 37C Last administered on 01/07/17t 09:52; Admin Dose 650 MG; Start 01/03/17 at 15:00 Acetaminophen (Tylenol Liquid) 650 mg Q4H PRN PO TEMP > 37C; Start 01/03/17 at 15:00 Meperidine HCl (Demerol) 12.5 mg Q4H PRN IV POST OPERATIVE SHIVERING; Start at 15:00 Meperidine HCl (Demerol) 25 mg Q4H PRN IV POST OPERATIVE SHIVERING; Start 01/03 at 15:00 Eye Lubricant (Akwa Oint) 1 applic Q6 BOTH EYES Last administered on 01/08/17 05:24; Admin Dose 1 APPLIC; Start 01/03/17 at 18:00 Eye Lubricant (Artificial Tears Oph) 2 drop Q6 BOTH EYES Last administered on 05:25; Admin Dose 2 DROP; Start 01/03/17 at 18:00 Pantoprazole (Protonix Iv) 40 mg DAILY@06 IV Last administered on 01/08/17 05: 25; Admin Dose 40 MG; Start 01/03/17 at 17:00 Miscellaneous Information 1 ea NOTE XX ; Start 01/03/17 at 17:00 Glucose (Glutose) 15 gm Q15M PRN PO DECREASED GLUCOSE; Start 01/03/17 at 17:00 Glucose (Glutose) 22.5 gm Q15M PRN PO DECREASED GLUCOSE; Start 01/03/17 at 17: 00 Dextrose (D50w Syringe) 25 ml Q15M PRN IV DECREASED GLUCOSE; Start 01/03/17 at 17:00 Dextrose (D50w Syringe) 50 ml Q15M PRN IV DECREASED GLUCOSE; Start 01/03/17 at 17:00 Glucagon (Glucagen) 1 mg Q15M PRN IM DECREASED GLUCOSE; Start 01/03/17 at 17:00 Glucose 15 gm 15 gm Q15M PRN BUCCAL DECREASED GLUCOSE; Start 01/03/17 at 17:00 Midazolam HCl 50 ml @ 1 mls/hr TITRATE IV Last administered on 01/05/17 01:29 ; Admin Dose 4 MLS/HR; Start 01/03/17 at 21:00 Fentanyl (Sublimaze) 100 ml @ 2.5 mls/hr TITRATE IV Last administered on 15:37; Admin Dose 5 MLS/HR; Start 01/03/17 at 21:00 Miscellaneous Information This patient naik... PRN PRN XX WOUND CARE; Start 01/04 at 03:00 Piperacillin Sod/ Tazobactam Sod (Zosyn 3.375gm/ 100 ml (Pmx)) 100 ml @ 200 mls /hr Q6 IVPB Last administered on 01/08/17 05:25; Admin Dose 200 MLS/HR; Start 01/04/17 at 12:00 Silver Sulfadiazine 1 applic 1 applic DAILY TOP Last administered on 01/07/17 09:51; Admin Dose 1 APPLIC; Start 01/04/17 at 14:00 Norepinephrine/ Dextrose (Levophed/D5W) 500 ml @ 1.87 mls/hr TITRATE IV ; Start 01/04/17 at 18:30 Insulin Aspart (Novolog Insulin Pen) (Adult SC Insulin - Mild Algorithm)... Q4 SC ; Start 01/05/17 at 09:00 Morphine Sulfate 2 mg 2 mg Q2H PRN IV PAIN; Start 01/05/17 at 22:00 Potassium Chloride/Dextrose (D5W + KCl 20 Meq) 1,000 ml @ 50 mls/hr Q20H IV Last administered on 01/06/17 09:33; Admin Dose 50 MLS/HR; Start 01/06/17 at 08 :30 Desmopressin Acetate (Ddavp) 2 mcg BID SC Last administered on 01/07/17 20:14 ; Admin Dose 2 MCG; Start 01/07/17 at 09:00 ESHA ALMANZA DO Jan 08, 2017 07:46
--- NOTE | 2017-01-08 08:55 | RADRPT ---
PROCEDURE: X-ray Chest. CLINICAL INDICATION: Respiratory failure. TECHNIQUE: Single view chest x-ray. COMPARISON: Exam dated 01/06/2017. FINDINGS: There is a well-positioned ETT tip 5.8 cm above the lary and a right IJ catheter tip overlying the mid SVC. There is an enteric tube that descends below the GE junction of the field of view. The ca rdiomediastinal silhouette is within normal limits. The lungs are clear without focal consolidation , effusion, or pneumothorax. There are no acute osseous abnormalities. IMPRESSION: 1. No acute cardiopulmonary abnormality. 2. Tubes and lines as above. RPTAT: EE .Bert Foss MD, Date Time Electronically viewed and signed by .Bert Foss MD, on 01/08/2017 08:55 .P/
[2017-01-08] MEDS: DESMOPRESSIN 4 MCG INJ SC SCH ×2 (09:00→21:04)
--- NOTE | 2017-01-08 09:00 | PN ---
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 Ventilator dependent respiratory failure secondary to #5 2. Acute pulmonary emboli, currently off heparin drip due thrombocytopenia 3. Hyponatremia likely secondary to #2: improving 4. Severe sepsis secondary to urinary tract infection: improved 5. Acute encephalopathy s/p PEA cardiac arrest likely secondary to #6 status post resuscitation with ROSC and now s/p hypothermia protocol: 6. Severe dehydration causing acute renal insufficiency: improved 7. Long-term history of progressive supranuclear palsy that has caused recurrent falls and old rib and NaSal fractures * Per report, patient had recently been having difficulty closing his eyes and walking 2/2 palsy 8. Acute transaminitis likely secondary to shock liver: improving 9. Recent fall 2/2 #7 s/p L sided facial and muscular contusions 10. Possible anoxic brain injury PLAN: * Continue care and intensive care unit * Continue Ventilator support and management * Thrombocytopenia has improved, resume heparin drip if ok with pulm * Commence tube feeds now that free water has been reduced * Monitor mental status patient seems to be improving but very slowly, baseline with SNP was not very good to begin with. Per Family, he felt "trapped" in his body. * Repeat blood cultures from line not skin / Continue Zosyn for UTI and patient is high risk for aspiration pneumonia * For further interventions per clinical course * Appreciate all consults Prophylaxis with IV PPI and SCDs / heparin drip CCTime :>35mins Subjective 24 Hr Interval Summary Free Text/Dictation alert, follows commands per report Exam/Review of Systems Vital Signs Vitals Vital Signs Date Time Temp Pulse Resp B/P Pulse Ox O2 Delivery O2 Flow Rate FiO2 01/08/17 08:06 65 01/08/17 08:00 99.1 22 130/66 99 Mechanical Ventilator 01/08/17 07:42 30 Intake and Output 01/07/17 01/07/17 01/08/17 15:00 23:00 07:00 Intake Total 1640 ml 1560 ml 1350 ml Output Total 633 ml 574 ml 565 ml Balance 1007 ml 986 ml 785 ml Exam General: The patient is intubated, alert HEENT: Atraumatic, normocephalic. The pupils are equal and somewhat reactive , eye ointment noted Neck: Supple Chest: Normal Lungs: Decreased breath sounds bilateral lower lung field Heart: Normal S1-S2, Regular rhythm and rate. Abdomen: Soft , nontender, nondistended , bowel sounds are present. Extremities: trace edema no cyanosis Neurologic: off sedation, will open eyes Skin: L sided contusions and abrasions Results Result Diagram: 01/08/17 0400 01/08/17 0400 Results 24 hrs Laboratory Tests Test 01/07/17 10:03 01/07/17 14:10 01/07/17 18:32 01/07/17 20:14 Bedside Glucose 117 121 92 100 Test 01/08/17 00:33 01/08/17 04:00 01/08/17 05:23 Bedside Glucose 109 108 White Blood Count 7.0 Red Blood Count 2.82 L Hemoglobin 9.2 L Hematocrit 28.0 L Mean Corpuscular Volume 99.3 Mean Corpuscular Hemoglobin 32.6 Mean Corpuscular Hemoglobin Concent 32.9 Red Cell Distribution Width 12.3 Platelet Count 97 L Mean Platelet Volume 11.2 H Neutrophils % 69.4 Lymphocytes % 10.8 L Monocytes % 15.4 H Eosinophils % 1.4 Basophils % 0.1 Nucleated Red Blood Cells % 0.4 H Neutrophils # 4.8 Lymphocytes # 0.8 Monocytes # 1.1 H Eosinophils # 0.1 Basophils # 0.0 Nucleated Red Blood Cells # 0.0 Sodium Level 145 H Potassium Level 4.0 Chloride Level 116 H Carbon Dioxide Level 25 Anion Gap 8 Blood Urea Nitrogen 30 H Creatinine 1.08 Glucose Level 105 Calcium Level 8.0 L Phosphorus Level 2.9 Magnesium Level 2.4 Total Bilirubin 0.7 Direct Bilirubin 0.00 Indirect Bilirubin 0.7 Aspartate Amino Transf (AST/SGOT) 98 H Alanine Aminotransferase (ALT/SGPT) 127 H Alkaline Phosphatase 104 # Total Protein 4.6 L Albumin 2.4 L Medications Medications Current Medications Acetaminophen (Tylenol Supp) 650 mg Q4H PRN [place] TEMP > 37C Last administered on 01/07/17 09:52; Admin Dose 650 MG; Start 01/03/17 at 15:00 Acetaminophen (Tylenol Liquid) 650 mg Q4H PRN PO TEMP > 37C; Start 01/03/17 at 15:00 Meperidine HCl (Demerol) 12.5 mg Q4H PRN IV POST OPERATIVE SHIVERING; Start at 15:00 Meperidine HCl (Demerol) 25 mg Q4H PRN IV POST OPERATIVE SHIVERING; Start 01/03 at 15:00 Eye Lubricant (Akwa Oint) 1 applic Q6 BOTH EYES Last administered on 01/08/17 05:24; Admin Dose 1 APPLIC; Start 01/03/17 at 18:00 Eye Lubricant (Artificial Tears Oph) 2 drop Q6 BOTH EYES Last administered on 05:25; Admin Dose 2 DROP; Start 01/03/17 at 18:00 Pantoprazole (Protonix Iv) 40 mg DAILY@06 IV Last administered on 01/08/17 05: 25; Admin Dose 40 MG; Start 01/03/17 at 17:00 Miscellaneous Information 1 ea NOTE XX ; Start 01/03/17 at 17:00 Glucose (Glutose) 15 gm Q15M PRN PO DECREASED GLUCOSE; Start 01/03/17 at 17:00 Glucose (Glutose) 22.5 gm Q15M PRN PO DECREASED GLUCOSE; Start 01/03/17 at 17: 00 Dextrose (D50w Syringe) 25 ml Q15M PRN IV DECREASED GLUCOSE; Start 01/03/17 at 17:00 Dextrose (D50w Syringe) 50 ml Q15M PRN IV DECREASED GLUCOSE; Start 01/03/17 at 17:00 Glucagon (Glucagen) 1 mg Q15M PRN IM DECREASED GLUCOSE; Start 01/03/17 at 17:00 Glucose 15 gm 15 gm Q15M PRN BUCCAL DECREASED GLUCOSE; Start 01/03/17 at 17:00 Midazolam HCl 50 ml @ 1 mls/hr TITRATE IV Last administered on 01/05/17 01:29 ; Admin Dose 4 MLS/HR; Start 01/03/17 at 21:00 Fentanyl (Sublimaze) 100 ml @ 2.5 mls/hr TITRATE IV Last administered on 15:37; Admin Dose 5 MLS/HR; Start 01/03/17 at 21:00 Miscellaneous Information This patient naik... PRN PRN XX WOUND CARE; Start 01/04 at 03:00 Piperacillin Sod/ Tazobactam Sod (Zosyn 3.375gm/ 100 ml (Pmx)) 100 ml @ 200 mls /hr Q6 IVPB Last administered on 01/08/17 05:25; Admin Dose 200 MLS/HR; Start 01/04/17 at 12:00 Silver Sulfadiazine 1 applic 1 applic DAILY TOP Last administered on 01/07/17 09:51; Admin Dose 1 APPLIC; Start 01/04/17 at 14:00 Norepinephrine/ Dextrose (Levophed/D5W) 500 ml @ 1.87 mls/hr TITRATE IV ; Start 01/04/17 at 18:30 Insulin Aspart (Novolog Insulin Pen) (Adult SC Insulin - Mild Algorithm)... Q4 SC ; Start 01/05/17 at 09:00 Morphine Sulfate 2 mg 2 mg Q2H PRN IV PAIN; Start 01/05/17 at 22:00 Potassium Chloride/Dextrose (D5W + KCl 20 Meq) 1,000 ml @ 50 mls/hr Q20H IV Last administered on 01/06/17 09:33; Admin Dose 50 MLS/HR; Start 01/06/17 at 08 :30 Desmopressin Acetate (Ddavp) 2 mcg BID SC Last administered on 01/07/17 20:14 ; Admin Dose 2 MCG; Start 01/07/17 at 09:00 BRIANA MADRID Jan 08, 2017 08:59
[2017-01-08] MEDS: SILVER SULFADIAZINE 1% 25 GM CR TOP SCH (10:02)
--- NOTE | 2017-01-08 12:49 | PN ---
Date/Time of Note Date/Time of Note DATE: 01/08/17 TIME: 12:25 Assessment/Plan Lines/Catheters IV Catheter Type (from [facility]): Peripheral IV [place] in Place (from [facility]): Yes Assessment/Plan Chief Complaint/Hosp Course 1. Multiple wounds: multiple skin tears, left trochanter/left facial/left lateral knee ischemic tissue injury likely pressure related -Will likely need debridement as patients condition permits - await medical clearance -local care -frequent turning and offloading/specialty bed -optimize nutrition -vitamin c/short term zn 2. S/P cardiac arrest with ROSC; currently intubated, s/p hypothermia protocol; attempting to wean off vent -supportive therapy -optimize electrolytes -cardiac optimization 3. PE: heparin drip stopped 2/2 thrombocytopenia -continue heparin drip -supportive 4. Hematuria: likely 2/2 to heparin drip; resolved -monitor 5. Acute kindey injury: 2/2 ischemic shock; improved -supportive -monitor 6. Hypernatremia: improved; desmopressin trial; -Continue to monitor -per renal 7. Anemia normocytic normochromic: 2/2 acute loss/hematuria +/- dilutional; stable -monitor -transfuse prn 8. Hypoalbuminemia: multifactorial (2/2 inflammation/infection +/-malnutrition + /- shocked liver); tube feedings started -Optimize -replete as necessary -optimize nutrition as patient condition permits 9. Hypocalcemia likely 2nd above; improved -optimize lytes -continue to monitor -optimize nutrition as patient condition permits 10. Transaminitis with hyperbilirubinemia: likely 2/2 shocked liver -supportive -monitor trends 11. Encephalopathy 2nd to anoxic injury + supranuclear palsy; more awake and responsive; off sedation -cont to monitor - neurology f/u 12. Sepsis with multiorgan failure likely secondary to bacteremia; urine cultures and cxr are negative; repeat blood cultures with staph coagulase ( contaminant?); improved; -abx per ID -careful monitoring -tx as above 14. Thrombocytopenia: 2nd to sepsis + s/p heparin drip; improving -supportive -bleeding precautions Patient seen and examined in collaboration with Dr. Fahad Beaver Problems: Subjective 24 Hr Interval Summary awake, more responsive, able to follow commands, mild temp. No cough. No sz. No rash. No vomiting. No bloating. Ventilated. Exam/Review of Systems Vital Signs Vitals Vital Signs Date Time Temp Pulse Resp B/P Pulse Ox O2 Delivery O2 Flow Rate FiO2 01/08/17 12:03 68 01/08/17 11:40 23 100 30 01/08/17 11:00 133/74 Mechanical Ventilator 01/08/17 08:00 99.1 Intake and Output 01/07/17 01/07/17 01/08/17 15:00 23:00 07:00 Intake Total 1640 ml 1560 ml 1400 ml Output Total 633 ml 574 ml 645 ml Balance 1007 ml 986 ml 755 ml Exam Free Text/Dictation Constitutional: well developed, more responsive Head: lacerations, normocephalic Eyes: PERRL. No jaundice ENMT: Intubated No lesions. Moist. Neck: non-tender, supple, min JVD Respiratory: Normal resp effort, vent Cardiovascular: nl pulses, regular rate and rhythm Gastrointestinal: non-tender, soft, No distended Genitourinary - Male: nl penis, nl scrotum; urine yellow Musculoskeletal: , No swelling Extremities: normal pulses, cap refill 3s Neurological: Not following commands Skin: nl turgor, other (multiple skin tears; left trochanter/left knee and left cheek wound with eschar, mod serous drainage) Lymph: No nl lymph nodes Results Result Diagram: 01/08/1739901/08/17399 YAZ BERRIOS NP Jan 08, 2017 12:46
--- NOTE | 2017-01-08 12:49 | CONS ---
Date/Time of Note Date/Time of Note DATE: 01/08/17 TIME: 12:42 Consult Date/Type/Reason Admit Date/Time Jan 03, 2017 at 15:05 Initial Consult Date 01/04/17 Type of Consultation: Pulmonary/critical care Subjective Off sedation. Alert, but not completely following commands. No events. Objective Vital Signs Date Time Temp Pulse Resp B/P Pulse Ox O2 Delivery O2 Flow Rate FiO2 01/08/17 12:03 68 01/08/17 11:40 23 100 30 01/08/17 11:00 133/74 Mechanical Ventilator 01/08/17 08:00 99.1 Intake and Output 01/07/17 01/07/17 01/08/17 15:00 23:00 07:00 Intake Total 1640 ml 1560 ml 1400 ml Output Total 633 ml 574 ml 645 ml Balance 1007 ml 986 ml 755 ml Exam HEENT: Neck supple; no JVD; no LAD; ET tube in place CVS: RRR, S1 and S2 CHEST: Clear ABD: Soft, NT, + BS EXT: No c/c, + edema Results/Medications Result Diagram: 01/08/17 0400 01/08/17 0400 Results 24 hrs Laboratory Tests Test 01/07/17 14:10 01/07/17 18:32 01/07/17 20:14 01/08/17 00:33 Bedside Glucose 121 92 100 109 Test 01/08/17 04:00 01/08/17 05:23 01/08/17 10:05 White Blood Count 7.0 Red Blood Count 2.82 L Hemoglobin 9.2 L Hematocrit 28.0 L Mean Corpuscular Volume 99.3 Mean Corpuscular Hemoglobin 32.6 Mean Corpuscular Hemoglobin Concent 32.9 Red Cell Distribution Width 12.3 Platelet Count 97 L Mean Platelet Volume 11.2 H Neutrophils % 69.4 Lymphocytes % 10.8 L Monocytes % 15.4 H Eosinophils % 1.4 Basophils % 0.1 Nucleated Red Blood Cells % 0.4 H Neutrophils # 4.8 Lymphocytes # 0.8 Monocytes # 1.1 H Eosinophils # 0.1 Basophils # 0.0 Nucleated Red Blood Cells # 0.0 Sodium Level 145 H Potassium Level 4.0 Chloride Level 116 H Carbon Dioxide Level 25 Anion Gap 8 Blood Urea Nitrogen 30 H Creatinine 1.08 Glucose Level 105 Calcium Level 8.0 L Phosphorus Level 2.9 Magnesium Level 2.4 Total Bilirubin 0.7 Direct Bilirubin 0.00 Indirect Bilirubin 0.7 Aspartate Amino Transf (AST/SGOT) 98 H Alanine Aminotransferase (ALT/SGPT) 127 H Alkaline Phosphatase 104 # Total Protein 4.6 L Albumin 2.4 L Bedside Glucose 108 113 Medications Current Medications Acetaminophen (Tylenol Supp) 650 mg Q4H PRN [place] TEMP > 37C Last administered on 01/07/17 09:52; Admin Dose 650 MG; Start 01/03/17 at 15:00 Acetaminophen (Tylenol Liquid) 650 mg Q4H PRN PO TEMP > 37C; Start 01/03/17 at 15:00 Meperidine HCl (Demerol) 12.5 mg Q4H PRN IV POST OPERATIVE SHIVERING; Start at 15:00 Meperidine HCl (Demerol) 25 mg Q4H PRN IV POST OPERATIVE SHIVERING; Start 01/03 at 15:00 Eye Lubricant (Akwa Oint) 1 applic Q6 BOTH EYES Last administered on 01/08/17 05:24; Admin Dose 1 APPLIC; Start 01/03/17 at 18:00 Eye Lubricant (Artificial Tears Oph) 2 drop Q6 BOTH EYES Last administered on 05:25; Admin Dose 2 DROP; Start 01/03/17 at 18:00 Pantoprazole (Protonix Iv) 40 mg DAILY@06 IV Last administered on 01/08/17 10: 25; Admin Dose 40 MG; Start 01/03/17 at 17:00 Miscellaneous Information 1 ea NOTE XX ; Start 01/03/17 at 17:00 Glucose (Glutose) 15 gm Q15M PRN PO DECREASED GLUCOSE; Start 01/03/17 at 17:00 Glucose (Glutose) 22.5 gm Q15M PRN PO DECREASED GLUCOSE; Start 01/03/17 at 17: 00 Dextrose (D50w Syringe) 25 ml Q15M PRN IV DECREASED GLUCOSE; Start 01/03/17 at 17:00 Dextrose (D50w Syringe) 50 ml Q15M PRN IV DECREASED GLUCOSE; Start 01/03/17 at 17:00 Glucagon (Glucagen) 1 mg Q15M PRN IM DECREASED GLUCOSE; Start 01/03/17 at 17:00 Glucose 15 gm 15 gm Q15M PRN BUCCAL DECREASED GLUCOSE; Start 01/03/17 at 17:00 Midazolam HCl 50 ml @ 1 mls/hr TITRATE IV Last administered on 01/05/17 01:29 ; Admin Dose 4 MLS/HR; Start 01/03/17 at 21:00 Fentanyl (Sublimaze) 100 ml @ 2.5 mls/hr TITRATE IV Last administered on 15:37; Admin Dose 5 MLS/HR; Start 01/03/17 at 21:00 Miscellaneous Information This patient naik... PRN PRN XX WOUND CARE; Start 01/04 at 03:00 Piperacillin Sod/ Tazobactam Sod (Zosyn 3.375gm/ 100 ml (Pmx)) 100 ml @ 200 mls /hr Q6 IVPB Last administered on 01/08/17 05:25; Admin Dose 200 MLS/HR; Start 01/04/17 at 12:00 Silver Sulfadiazine 1 applic 1 applic DAILY TOP Last administered on 01/08/17 10:02; Admin Dose 1 APPLIC; Start 01/04/17 at 14:00 Norepinephrine/ Dextrose (Levophed/D5W) 500 ml @ 1.87 mls/hr TITRATE IV ; Start 01/04/17 at 18:30 Insulin Aspart (Novolog Insulin Pen) (Adult SC Insulin - Mild Algorithm)... Q4 SC ; Start 01/05/17 at 09:00 Morphine Sulfate 2 mg 2 mg Q2H PRN IV PAIN; Start 01/05/17 at 22:00 Potassium Chloride/Dextrose (D5W + KCl 20 Meq) 1,000 ml @ 50 mls/hr Q20H IV Last administered on 01/08/17 10:35; Admin Dose 50 MLS/HR; Start 01/06/17 at 08: 30 Desmopressin Acetate (Ddavp) 2 mcg BID SC Last administered on 01/07/17 20:14 ; Admin Dose 2 MCG; Start 01/07/17 at 09:00 Assessment/Plan Additional Assessment/Plan IMP: 1. s/p Cardiopulmonary Arrest--likely due to PE +/- mucus plugging 2. PE--off anticoagulation ?? 3. Respiratory Failure 4. HAYDE--improving 5. Anemia 6. Thrombocytopenia 7. Supranuclear palsy RECS: 1. Wean to CPAP/.PS 2. Assess resp muscle indices such as VC and NIF 3. Would strongly encourage resumption of heparin gtt 4. Keep off sedation 35 min critical care time IRASEMA REYNOLDS MD Jan 08, 2017 12:49
--- NOTE | 2017-01-08 14:11 | CONS ---
Date/Time of Note Date/Time of Note DATE: 01/08/17 TIME: 13:37 Assessment/Plan Assessment/Plan Chief Complaint/Hosp Course NEUROLOGIC: She is awake, alert, intubated. Follows commands, looks bilaterally , tracks visually. Cranial nerve examination shows intact visual tripathi bilaterally to threat. Pupils round, reactive to light from 3 to 2 mm bilaterally. Horizontal extraocular movements intact without nystagmus. Symmetrical face. Unable to close eyes fully, s/p Botox tx. Corneals and gag. Motor strength examination flaccid tone, trace movements in the left fingers, 3- /5 right hand, trace movements in toes, though withdraws feet to pain. Sensory examination shows normal perception of pain. Deep tendon reflexes 2+ . Equivocal toes bilaterally. IMPRESSION: S/p CPA. Mental status improving - awake, follows commands. Baseline - ataxia, dysarthria, secondary to progressive supranuclear palsy. Continue current treatment. No other recommendations. Problems: Problems: Consultation Date/Type/Reason Admit Date/Time Jan 03, 2017 at 15:05 Psychological: other (unable to assess) Additional Comments 61 y/o male with progressive supranuclear palsy, severely dysarthric and ataxic at baseline, eyelid apraxia s/p facial Botox ( per neurologist Dr. Marley [phone]) came post CPA. S/p hypothermia, sepsis, SONALI. Now woke up, follows commands Past Medical History psp Medical History: hypertension, other (bipolar disorder, htn, BPH) Family History Significant Family History: no pertinent family hx Social History Smoking Status: Unknown if ever smoked Exam/Review of Systems Vital Signs Vitals Vital Signs Date Time Temp Pulse Resp B/P Pulse Ox O2 Delivery O2 Flow Rate FiO2 01/08/17 12:03 68 01/08/17 11:40 23 100 30 01/08/17 11:00 133/74 Mechanical Ventilator 01/08/17 08:00 99.1 Intake and Output 01/07/17 01/07/17 01/08/17 15:00 23:00 07:00 Intake Total 1640 ml 1560 ml 1400 ml Output Total 633 ml 574 ml 645 ml Balance 1007 ml 986 ml 755 ml Exam Constitutional: alert Head: normocephalic Eyes: icteric Neck: supple Respiratory: clear to auscultation Cardiovascular: regular rate and rhythm Gastrointestinal: soft Results Result Diagram: 7/1/17 0400 01/08/17 0400 Results 24 hrs Laboratory Tests Test 01/07/17 14:10 01/07/17 18:32 01/07/17 20:14 01/08/17 00:33 Bedside Glucose 121 92 100 109 Test 01/08/17 04:00 01/08/17 05:23 01/08/17 10:05 01/08/17 13:28 White Blood Count 7.0 Red Blood Count 2.82 L Hemoglobin 9.2 L Hematocrit 28.0 L Mean Corpuscular Volume 99.3 Mean Corpuscular Hemoglobin 32.6 Mean Corpuscular Hemoglobin Concent 32.9 Red Cell Distribution Width 12.3 Platelet Count 97 L Mean Platelet Volume 11.2 H Neutrophils % 69.4 Lymphocytes % 10.8 L Monocytes % 15.4 H Eosinophils % 1.4 Basophils % 0.1 Nucleated Red Blood Cells % 0.4 H Neutrophils # 4.8 Lymphocytes # 0.8 Monocytes # 1.1 H Eosinophils # 0.1 Basophils # 0.0 Nucleated Red Blood Cells # 0.0 Sodium Level 145 H Potassium Level 4.0 Chloride Level 116 H Carbon Dioxide Level 25 Anion Gap 8 Blood Urea Nitrogen 30 H Creatinine 1.08 Glucose Level 105 Calcium Level 8.0 L Phosphorus Level 2.9 Magnesium Level 2.4 Total Bilirubin 0.7 Direct Bilirubin 0.00 Indirect Bilirubin 0.7 Aspartate Amino Transf (AST/SGOT) 98 H Alanine Aminotransferase (ALT/SGPT) 127 H Alkaline Phosphatase 104 # Total Protein 4.6 L Albumin 2.4 L Bedside Glucose 108 113 103 Medications Medications Current Medications Acetaminophen (Tylenol Supp) 650 mg Q4H PRN [place] TEMP > 37C Last administered on 01/07/17t 09:52; Admin Dose 650 MG; Start 01/03/17 at 15:00 Acetaminophen (Tylenol Liquid) 650 mg Q4H PRN PO TEMP > 37C; Start 01/03/17 at 15:00 Meperidine HCl (Demerol) 12.5 mg Q4H PRN IV POST OPERATIVE SHIVERING; Start at 15:00 Meperidine HCl (Demerol) 25 mg Q4H PRN IV POST OPERATIVE SHIVERING; Start 01/03 at 15:00 Eye Lubricant (Akwa Oint) 1 applic Q6 BOTH EYES Last administered on 01/08/17 13:11; Admin Dose 1 APPLIC; Start 01/03/17 at 18:00 Eye Lubricant (Artificial Tears Oph) 2 drop Q6 BOTH EYES Last administered on 13:11; Admin Dose 2 DROP; Start 01/03/17 at 18:00 Pantoprazole (Protonix Iv) 40 mg DAILY@06 IV Last administered on 01/08/17 10: 25; Admin Dose 40 MG; Start 01/03/17 at 17:00 Miscellaneous Information 1 ea NOTE XX ; Start 01/03/17 at 17:00 Glucose (Glutose) 15 gm Q15M PRN PO DECREASED GLUCOSE; Start 01/03/17 at 17:00 Glucose (Glutose) 22.5 gm Q15M PRN PO DECREASED GLUCOSE; Start 01/03/17 at 17: 00 Dextrose (D50w Syringe) 25 ml Q15M PRN IV DECREASED GLUCOSE; Start 01/03/17 at 17:00 Dextrose (D50w Syringe) 50 ml Q15M PRN IV DECREASED GLUCOSE; Start 01/03/17 at 17:00 Glucagon (Glucagen) 1 mg Q15M PRN IM DECREASED GLUCOSE; Start 01/03/17 at 17:00 Glucose 15 gm 15 gm Q15M PRN BUCCAL DECREASED GLUCOSE; Start 01/03/17 at 17:00 Midazolam HCl 50 ml @ 1 mls/hr TITRATE IV Last administered on 01/05/17 01:29 ; Admin Dose 4 MLS/HR; Start 01/03/17 at 21:00 Fentanyl (Sublimaze) 100 ml @ 2.5 mls/hr TITRATE IV Last administered on 15:37; Admin Dose 5 MLS/HR; Start 01/03/17 at 21:00 Miscellaneous Information This patient naik... PRN PRN XX WOUND CARE; Start 01/04 at 03:00 Piperacillin Sod/ Tazobactam Sod (Zosyn 3.375gm/ 100 ml (Pmx)) 100 ml @ 200 mls /hr Q6 IVPB Last administered on 01/08/17 13:11; Admin Dose 200 MLS/HR; Start 01/04/17 at 12:00 Silver Sulfadiazine 1 applic 1 applic DAILY TOP Last administered on 01/08/17 10:02; Admin Dose 1 APPLIC; Start 01/04/17 at 14:00 Norepinephrine/ Dextrose (Levophed/D5W) 500 ml @ 1.87 mls/hr TITRATE IV ; Start 01/04/17 at 18:30 Insulin Aspart (Novolog Insulin Pen) (Adult SC Insulin - Mild Algorithm)... Q4 SC ; Start 01/05/17 at 09:00 Morphine Sulfate 2 mg 2 mg Q2H PRN IV PAIN; Start 01/05/17 at 22:00 Potassium Chloride/Dextrose (D5W + KCl 20 Meq) 1,000 ml @ 50 mls/hr Q20H IV Last administered on 01/08/17 10:35; Admin Dose 50 MLS/HR; Start 01/06/17 at 08: 30 Desmopressin Acetate (Ddavp) 2 mcg BID SC Last administered on 01/07/17 20:14 ; Admin Dose 2 MCG; Start 01/07/17 at 09:00 ANA THORNTON MD Jan 08, 2017 13:54
--- NOTE | 2017-01-08 15:01 | PN ---
Date/Time of Note Date/Time of Note DATE: 01/08/17 TIME: 14:59 Assessment/Plan VTE Prophylaxis VTE Prophylaxis Intervention: heparin Lines/Catheters IV Catheter Type (from Nrs): Peripheral IV Central line still needed: Yes Urinary Cath still in place: Yes Reason Cath still needed: other (indicate) Assessment/Plan Chief Complaint/Hosp Course ASSESSMENT AND PLAN: 1. Cardiopulmonary arrest with pulseless electrical activity cardiopulm arrest. 2. possible pulmonary embolus. 3. Renal failure, unclear acute on chronic. Probably acute currently back to normal 4. Encephalopathy. 5. Status post cardiopulmonary arrest with return of spontaneous circulation. 6. Severe metabolic acidosis improved now. 7. transaminitis, probably shock liver. 8. Sepsis, respiratory failure, status post intubation on the vent. 9. S/p facial contusion. 10 mildly abnormal troponin due to above. 11. hyper Na RECOMMENDATIONS: S/P hypothermia protocol. We will continue with the vent support. follow up with pulm rec. Heparin to be restarted due to concerns about PE. Continue with the ICU care. echo reviewed and showed preserved EF fluid management as per renal Problems: Subjective 24 Hr Interval Summary Free Text/Dictation d/w staff and rhythm was reviewed. pt remains in NSR D/W Dr Meredith. pt nonverbal on vent in ICU Exam/Review of Systems Vital Signs Vitals Vital Signs Date Time Temp Pulse Resp B/P Pulse Ox O2 Delivery O2 Flow Rate FiO2 01/08/17 14:10 75 24 99 30 01/08/17 13:00 142/82 Mechanical Ventilator 01/08/17 12:00 99.3 Intake and Output 01/07/17 01/07/17 01/08/17 15:00 23:00 07:00 Intake Total 1640 ml 1560 ml 1400 ml Output Total 633 ml 574 ml 645 ml Balance 1007 ml 986 ml 755 ml Exam General intubated on vent HEENT: Normocephalic, s/p facial trauma. Status post intubation on the vent. DERMATOLOGIC: The left side of the face and the chest with ulcerated lesion. CARDIOVASCULAR: RRR. systolic murmur PULMONARY: With no wheezes heard anteriorly. GASTROINTESTINAL: Soft, nontender. no rebound EXTREMITIES: With mild lower extremity edema. NEUROLOGIC: opens his eyes. . : S/p patel in place. psych: calm Results Result Diagram: 01/08/170 01/08/170 Results 24 hrs Laboratory Tests Test 01/07/17 18:32 01/07/17 20:14 01/08/17 00:33 01/08/17 04:00 Bedside Glucose 92 100 109 White Blood Count 7.0 Red Blood Count 2.82 L Hemoglobin 9.2 L Hematocrit 28.0 L Mean Corpuscular Volume 99.3 Mean Corpuscular Hemoglobin 32.6 Mean Corpuscular Hemoglobin Concent 32.9 Red Cell Distribution Width 12.3 Platelet Count 97 L Mean Platelet Volume 11.2 H Neutrophils % 69.4 Lymphocytes % 10.8 L Monocytes % 15.4 H Eosinophils % 1.4 Basophils % 0.1 Nucleated Red Blood Cells % 0.4 H Neutrophils # 4.8 Lymphocytes # 0.8 Monocytes # 1.1 H Eosinophils # 0.1 Basophils # 0.0 Nucleated Red Blood Cells # 0.0 Sodium Level 145 H Potassium Level 4.0 Chloride Level 116 H Carbon Dioxide Level 25 Anion Gap 8 Blood Urea Nitrogen 30 H Creatinine 1.08 Glucose Level 105 Calcium Level 8.0 L Phosphorus Level 2.9 Magnesium Level 2.4 Total Bilirubin 0.7 Direct Bilirubin 0.00 Indirect Bilirubin 0.7 Aspartate Amino Transf (AST/SGOT) 98 H Alanine Aminotransferase (ALT/SGPT) 127 H Alkaline Phosphatase 104 # Total Protein 4.6 L Albumin 2.4 L Test 01/08/17 05:23 01/08/17 10:05 01/08/17 13:28 Bedside Glucose 108 113 103 Medications Medications Current Medications Acetaminophen (Tylenol Supp) 650 mg Q4H PRN [place] TEMP > 37C Last administered on 01/07/17 09:52; Admin Dose 650 MG; Start 01/03/17 at 15:00 Acetaminophen (Tylenol Liquid) 650 mg Q4H PRN PO TEMP > 37C; Start 01/03/17 at 15:00 Meperidine HCl (Demerol) 12.5 mg Q4H PRN IV POST OPERATIVE SHIVERING; Start at 15:00 Meperidine HCl (Demerol) 25 mg Q4H PRN IV POST OPERATIVE SHIVERING; Start 01/03 at 15:00 Eye Lubricant (Akwa Oint) 1 applic Q6 BOTH EYES Last administered on 01/08/17 13:11; Admin Dose 1 APPLIC; Start 01/03/17 at 18:00 Eye Lubricant (Artificial Tears Oph) 2 drop Q6 BOTH EYES Last administered on 13:11; Admin Dose 2 DROP; Start 01/03/17 at 18:00 Pantoprazole (Protonix Iv) 40 mg DAILY@06 IV Last administered on 01/08/17 10: 25; Admin Dose 40 MG; Start 01/03/17 at 17:00 Miscellaneous Information 1 ea NOTE XX ; Start 01/03/17 at 17:00 Glucose (Glutose) 15 gm Q15M PRN PO DECREASED GLUCOSE; Start 01/03/17 at 17:00 Glucose (Glutose) 22.5 gm Q15M PRN PO DECREASED GLUCOSE; Start 01/03/17 at 17: 00 Dextrose (D50w Syringe) 25 ml Q15M PRN IV DECREASED GLUCOSE; Start 01/03/17 at 17:00 Dextrose (D50w Syringe) 50 ml Q15M PRN IV DECREASED GLUCOSE; Start 01/03/17 at 17:00 Glucagon (Glucagen) 1 mg Q15M PRN IM DECREASED GLUCOSE; Start 01/03/17 at 17:00 Glucose 15 gm 15 gm Q15M PRN BUCCAL DECREASED GLUCOSE; Start 01/03/17 at 17:00 Midazolam HCl 50 ml @ 1 mls/hr TITRATE IV Last administered on 01/05/17 01:29 ; Admin Dose 4 MLS/HR; Start 01/03/17 at 21:00 Fentanyl (Sublimaze) 100 ml @ 2.5 mls/hr TITRATE IV Last administered on 15:37; Admin Dose 5 MLS/HR; Start 01/03/17 at 21:00 Miscellaneous Information This patient naik... PRN PRN XX WOUND CARE; Start 01/04 at 03:00 Piperacillin Sod/ Tazobactam Sod (Zosyn 3.375gm/ 100 ml (Pmx)) 100 ml @ 200 mls /hr Q6 IVPB Last administered on 01/08/17 13:11; Admin Dose 200 MLS/HR; Start 01/04/17 at 12:00 Silver Sulfadiazine 1 applic 1 applic DAILY TOP Last administered on 01/08/17 10:02; Admin Dose 1 APPLIC; Start 01/04/17 at 14:00 Norepinephrine/ Dextrose (Levophed/D5W) 500 ml @ 1.87 mls/hr TITRATE IV ; Start 01/04/17 at 18:30 Insulin Aspart (Novolog Insulin Pen) (Adult SC Insulin - Mild Algorithm)... Q4 SC ; Start 01/05/17 at 09:00 Morphine Sulfate 2 mg 2 mg Q2H PRN IV PAIN; Start 01/05/17 at 22:00 Potassium Chloride/Dextrose (D5W + KCl 20 Meq) 1,000 ml @ 50 mls/hr Q20H IV Last administered on 01/08/17 10:35; Admin Dose 50 MLS/HR; Start 01/06/17 at 08: 30 Desmopressin Acetate (Ddavp) 2 mcg BID SC Last administered on 01/07/17 20:14 ; Admin Dose 2 MCG; Start 01/07/17 at 09:00 JENI KANG MD Jan 08, 2017 15:01
[2017-01-08] MEDS ORDERED: HEPARIN 1000 UNITS/ML 10 ML INJ IV PRN ×4 (16:00→18:51)
[2017-01-08 16:42] LABS: INR 1.39; PROTIME 17.1 Sec (12.2-14.2); PT RATIO 1.3
[2017-01-08 16:43] LABS: PARTIAL THROMBOPLASTIN TIME 31.8 Sec (25.0-35.0)
[2017-01-08] MEDS: HEPARIN 25000 UNITS/250 ML 250 ML IV SCH (18:53)
[2017-01-09] VITALS (36 sets, daily range): BP systolic 115–162; BP diastolic 61–86; PULSE 67–96; RESP 19–29
[2017-01-09] MEDS: OCULAR LUBRICANT 3.5 GM OPH OINT BOTH EYES SCH ×4 (04:52→23:47)
[2017-01-09] MEDS: PIPER-TAZO 3.375 GM IV (PMX) 100 ML IVPB SCH ×4 (04:52→23:46)
[2017-01-09] MEDS: ARTIFICIAL TEARS 15 ML OPH BOTH EYES SCH ×4 (04:52→23:47)
[2017-01-09] MEDS: Insulin NOVOLOG SS MILD Algorithm (NPO/TPN/ENTERAL FEEDS) SC SCH ×3 (05:00→13:00)
[2017-01-09 06:25] LABS: CALCIUM 8.5 mg/dl (8.4-10.2); CREATININE 1.09 mg/dl (0.61-1.24); MAGNESIUM 2.2 mg/dl (1.7-2.5); PHOSPHORUS 2.8 mg/dl (2.5-4.9)
--- NOTE | 2017-01-09 07:26 | PN ---
Date/Time of Note Date/Time of Note DATE: 01/09/17 TIME: 07:24 Assessment/Plan Lines/Catheters IV Catheter Type (from [facility]): Peripheral IV Urinary Cath still in place: Yes Assessment/Plan Chief Complaint/Hosp Course 1. 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 Etiology 2/2 hemodynamics possible tubular injury 2/2 ischemic shock. U/a reviewed, no active sediment. -Renal function improving -cont current treatment plan, renally dose all meds, avoid nephrotoxins - keep map > 65 -monitor closely 2. hypernatremia 2/2 insensible loss -No evidence of diabetes insipidus. Urine osmolarity was 700 mOsm appropriately elevated for level of hypernatremia. -will discontinue DDAVP - Patient's sodium levels improving -Continue free water flushes 3. anemia -monitor h/h levels 4. mineral bone disorder -monitor ca, phos levels 5. Status post cardiac arrest with return of spontaneous circulation /PEA -cont to monitor -f/u cardiology 6. vdrf -vent setting abg reviewed -f/u pulmonary 7. Acute pulmonary emboli -cont med/eyal 8. acute encephalopathy secondary to anoxic injury -cont to monitor -f/u neurology 9 acute transaminitis with hyperbilirubinemia likely secondary to shock liver -improving, monitor 10. sepsis with multiorgan failure likely secondary to urinary tract infection , bacteremia -cont antibiotics -f/u ID Problems: Subjective 24 Hr Interval Summary Free Text/Dictation Patient is critical but stable. Patient is on heparin drip. No other events noted. Exam/Review of Systems Vital Signs Vitals Vital Signs Date Time Temp Pulse Resp B/P Pulse Ox O2 Delivery O2 Flow Rate FiO2 01/09/17 06:00 68 23 122/65 99 Mechanical Ventilator 01/09/17 05:09 30 01/09/17 04:00 100.1 Intake and Output 01/08/17 01/08/17 01/09/17 15:00 23:00 07:00 Intake Total 720 ml 900.0 ml 1047.5 ml Output Total 630 ml 326 ml 661 ml Balance 90 ml 574.0 ml 386.5 ml Exam General: critically ill HEENT: Atraumatic, normocephalic. The pupils are equal Neck: Supple Chest: Normal Lungs: Decreased breath sounds bilateral lower lung field Heart: Normal S1-S2, Regular rhythm and rate. Abdomen: Soft , nontender, nondistended , bowel sounds are present. Extremities: Multiple pressure ulcer on left upper and lower extremity, trace edema no cyanosis Neurologic: Sedated Skin: L sided contusions and abrasions Results Result Diagram: 01/08/17 0400 01/09/17 0500 Results 24 hrs Laboratory Tests Test 01/08/17 10:05 01/08/17 13:28 01/08/17 16:19 01/08/17 18:44 Bedside Glucose 113 103 111 Prothrombin Time 17.1 H Prothrombin Time Ratio 1.3 INR International Normalized Ratio 1.39 Activated Partial Thromboplast Time 31.8 Test 01/08/17 20:54 01/08/17 23:44 01/09/17 01:10 01/09/17 04:57 Bedside Glucose 106 123 123 Activated Partial Thromboplast Time 108.5 *H Test 01/09/17 05:00 Sodium Level 144 Potassium Level 4.0 Chloride Level 112 H Carbon Dioxide Level 21 Anion Gap 15 # Blood Urea Nitrogen 25 H Creatinine 1.09 Glucose Level 126 Calcium Level 8.5 Phosphorus Level 2.8 Magnesium Level 2.2 Medications Medications Current Medications Acetaminophen (Tylenol Supp) 650 mg Q4H PRN [place] TEMP > 37C Last administered on 01/07/17 09:52; Admin Dose 650 MG; Start 01/03/17 at 15:00 Acetaminophen (Tylenol Liquid) 650 mg Q4H PRN PO TEMP > 37C; Start 01/03/17 at 15:00 Meperidine HCl (Demerol) 12.5 mg Q4H PRN IV POST OPERATIVE SHIVERING; Start at 15:00 Meperidine HCl (Demerol) 25 mg Q4H PRN IV POST OPERATIVE SHIVERING; Start 01/03 at 15:00 Eye Lubricant (Akwa Oint) 1 applic Q6 BOTH EYES Last administered on 01/09/17 04:52; Admin Dose 1 APPLIC; Start 01/03/17 at 18:00 Eye Lubricant (Artificial Tears Oph) 2 drop Q6 BOTH EYES Last administered on 04:52; Admin Dose 2 DROP; Start 01/03/17 at 18:00 Pantoprazole (Protonix Iv) 40 mg DAILY@06 IV Last administered on 01/08/17 10: 25; Admin Dose 40 MG; Start 01/03/17 at 17:00 Miscellaneous Information 1 ea NOTE XX ; Start 01/03/17 at 17:00 Glucose (Glutose) 15 gm Q15M PRN PO DECREASED GLUCOSE; Start 01/03/17 at 17:00 Glucose (Glutose) 22.5 gm Q15M PRN PO DECREASED GLUCOSE; Start 01/03/17 at 17: 00 Dextrose (D50w Syringe) 25 ml Q15M PRN IV DECREASED GLUCOSE; Start 01/03/17 at 17:00 Dextrose (D50w Syringe) 50 ml Q15M PRN IV DECREASED GLUCOSE; Start 01/03/17 at 17:00 Glucagon (Glucagen) 1 mg Q15M PRN IM DECREASED GLUCOSE; Start 01/03/17 at 17:00 Glucose 15 gm 15 gm Q15M PRN BUCCAL DECREASED GLUCOSE; Start 01/03/17 at 17:00 Midazolam HCl 50 ml @ 1 mls/hr TITRATE IV Last administered on 01/05/17 01:29 ; Admin Dose 4 MLS/HR; Start 01/03/17 at 21:00 Fentanyl (Sublimaze) 100 ml @ 2.5 mls/hr TITRATE IV Last administered on 15:37; Admin Dose 5 MLS/HR; Start 01/03/17 at 21:00 Miscellaneous Information This patient naik... PRN PRN XX WOUND CARE; Start 01/04 at 03:00 Piperacillin Sod/ Tazobactam Sod (Zosyn 3.375gm/ 100 ml (Pmx)) 100 ml @ 200 mls /hr Q6 IVPB Last administered on 01/09/17 04:52; Admin Dose 200 MLS/HR; Start 01/04/17 at 12:00 Silver Sulfadiazine 1 applic 1 applic DAILY TOP Last administered on 01/08/17 10:02; Admin Dose 1 APPLIC; Start 01/04/17 at 14:00 Norepinephrine/ Dextrose (Levophed/D5W) 500 ml @ 1.87 mls/hr TITRATE IV ; Start 01/04/17 at 18:30 Insulin Aspart (Novolog Insulin Pen) (Adult SC Insulin - Mild Algorithm)... Q4 SC ; Start 01/05/17 at 09:00 Morphine Sulfate 2 mg 2 mg Q2H PRN IV PAIN; Start 01/05/17 at 22:00 Potassium Chloride/Dextrose (D5W + KCl 20 Meq) 1,000 ml @ 50 mls/hr Q20H IV Last administered on 01/08/17 18:07; Admin Dose 50 MLS/HR; Start 01/06/17 at 08: 30 Desmopressin Acetate (Ddavp) 2 mcg BID SC Last administered on 01/08/17 21:04; Admin Dose 2 MCG; Start 01/07/17 at 09:00 ESHA ALMANZA DO Jan 09, 2017 07:26
[2017-01-09 07:29] LABS: ABNORMAL IP MESSAGE 1; HEMATOCRIT 27.3 % (42.0-52.0); HEMOGLOBIN 8.9 g/dl (14.0-18.0); MEAN CORPUSCULAR HEMOGLOBIN 31.9 pg (29.0-33.0); MEAN CORPUSCULAR HGB CONC 32.6 g/dl (32.0-37.0); MEAN CORPUSCULAR VOLUME 97.8 fl (82.0-101.0); MEAN PLATELET VOLUME 11.4 fl (7.4-10.4); RED BLOOD COUNT 2.79 10^6/ul (4.70-6.10); RED CELL DISTRIBUTION WIDTH 12.2 % (11.5-14.5); WHITE BLOOD COUNT 7.4 10^3/ul (4.8-10.8)
[2017-01-09 07:33] LABS: ADD SCAN DIFF YES; PLATELET COUNT 125 10^3/UL (140-415)
--- NOTE | 2017-01-09 07:57 | PN ---
Date/Time of Note Date/Time of Note DATE: 01/09/17 TIME: 07:45 Assessment/Plan Lines/Catheters IV Catheter Type (from [facility]): Peripheral IV Regalado in Place (from [facility]): Yes Assessment/Plan Chief Complaint/Hosp Course 1. Multiple wounds: multiple skin tears, left trochanter/left facial/left lateral knee ischemic tissue injury likely pressure related -Will likely need debridement as patients condition permits - await medical clearance -local care -frequent turning and offloading/specialty bed -optimize nutrition -vitamin c/short term zn 2. S/P cardiac arrest with ROSC; currently intubated, s/p hypothermia protocol; attempting to wean off vent -supportive therapy -optimize electrolytes -cardiac optimization 3. PE: heparin drip restarted -continue heparin drip -supportive 4. Hematuria: likely 2/2 to heparin drip; resolved -monitor 5. Acute kindey injury: 2/2 ischemic shock; improved -supportive -monitor 6. Hypernatremia: improved; desmopressin trial; -Continue to monitor -per renal 7. Anemia normocytic normochromic: 2/2 acute loss/hematuria +/- dilutional; stable -monitor -transfuse prn 8. Hypoalbuminemia: multifactorial (2/2 inflammation/infection +/-malnutrition + /- shocked liver); tube feedings started -Optimize -replete as necessary -optimize nutrition as patient condition permits 9. Hypocalcemia likely 2nd above; improved -optimize lytes -continue to monitor -optimize nutrition as patient condition permits 10. Transaminitis with hyperbilirubinemia: likely 2/2 shocked liver -supportive -monitor trends 11. Encephalopathy 2nd to anoxic injury + supranuclear palsy; more awake and responsive; off sedation; -cont to monitor - seen by neurology 12. Sepsis with multiorgan failure likely secondary to bacteremia; urine cultures and cxr are negative; repeat blood cultures with staph coagulase ( contaminant?); improved; -abx per ID -careful monitoring -tx as above 14. Thrombocytopenia: 2nd to sepsis + heparin drip; improving -supportive -bleeding precautions Patient seen and examined in collaboration with Dr. Fahad Beaver Problems: Subjective 24 Hr Interval Summary More awake and responsive. Patient restarted on heparin drip, vent weaning. fevers. No cough. No sz. No rash. No vomiting. No bloating. Ventilated. Exam/Review of Systems Vital Signs Vitals Vital Signs Date Time Temp Pulse Resp B/P Pulse Ox O2 Delivery O2 Flow Rate FiO2 01/09/17 07:00 70 22 122/75 99 Mechanical Ventilator 01/09/17 05:09 30 01/09/17 04:00 100.1 Intake and Output 01/08/17 01/08/17 01/09/17 15:00 23:00 07:00 Intake Total 720 ml 900.0 ml 1047.5 ml Output Total 630 ml 326 ml 661 ml Balance 90 ml 574.0 ml 386.5 ml Exam Free Text/Dictation Constitutional: well developed, more responsive, follows commands Head: lacerations, normocephalic Eyes: PERRL. No jaundice ENMT: Intubated No lesions. Moist. Neck: non-tender, supple, min JVD Respiratory: Normal resp effort, vent Cardiovascular: nl pulses, regular rate and rhythm Gastrointestinal: non-tender, soft, No distended Genitourinary - Male: nl penis, nl scrotum; urine yellow Musculoskeletal: , No swelling Extremities: normal pulses, cap refill 3s Neurological: Not following commands Skin: nl turgor, other (multiple skin tears; left trochanter/left knee and left cheek wound with eschar, min serous drainage) Lymph: No nl lymph nodes Results Result Diagram: 01/09/17 0500 01/09/17 0500 YAZ BERRIOS NP Jan 09, 2017 07:55
--- NOTE | 2017-01-09 08:44 | PN ---
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 Ventilator dependent respiratory failure secondary to #5 2. Acute pulmonary emboli 3. Hyponatremia likely secondary to #2: resolved 4. Severe sepsis secondary to urinary tract infection: improved 5. Acute encephalopathy s/p PEA cardiac arrest likely secondary to #6 status post resuscitation with ROSC and now s/p hypothermia protocol: improved ++ 6. Severe dehydration causing acute renal insufficiency: resolved 7. Long-term history of progressive supranuclear palsy that has caused recurrent falls and old rib and NaSal fractures * Per report, patient had recently been having difficulty closing his eyes and walking 2/2 palsy 8. Acute transaminitis likely secondary to shock liver: improving 9. Recent fall 2/2 #7 s/p L sided facial and muscular contusions PLAN: * Continue care and intensive care unit * Ventilator weaning in progress and managed by pulmonary, defer to them for further interventions * Continue heparin drip for pulmonary emboli, may transition to Lovenox or oral therapy when platelet count improves * Continue tube feeds to goal * Monitor mental status patient seems to be improving but very slowly, baseline with SNP was not very good to begin with. Per Family, he felt "trapped" in his body. * Continue Zosyn for UTI / blood cultures likely contaminant, repeat blood culture has been ordered from line, follow-up result * Left upper extremity Dopplers to rule out DVT * For further interventions per clinical course * Appreciate all consults Prophylaxis with IV PPI and SCDs / heparin drip CCTime :>35mins Subjective 24 Hr Interval Summary Free Text/Dictation Awake , follows commands, LUE swollen remains intubated No hematuria or other bleeding Exam/Review of Systems Vital Signs Vitals Vital Signs Date Time Temp Pulse Resp B/P Pulse Ox O2 Delivery O2 Flow Rate FiO2 01/09/17 07:00 70 22 122/75 99 Mechanical Ventilator 01/09/17 05:09 30 01/09/17 04:00 100.1 Intake and Output 01/08/17 01/08/17 01/09/17 15:00 23:00 07:00 Intake Total 720 ml 900.0 ml 1047.5 ml Output Total 630 ml 326 ml 661 ml Balance 90 ml 574.0 ml 386.5 ml Exam Constitutional: alert, non-verbal Psych: other (unable to assess) Head: other (facial contusions improved++, scleral erythema remains + ointment) ENMT: intubated, other Respiratory: clear to auscultation, No labored breathing Cardiovascular: regular rate and rhythm, No murmurs/extra sounds Gastrointestinal: bowel sounds, soft Extremities: edema (LUE ++, other extremities +) Neurological: lethargic, other (alert, follows commands) Results Result Diagram: 01/09/17 0500 01/09/17 0500 Results 24 hrs Laboratory Tests Test 01/08/17 10:05 01/08/17 13:28 01/08/17 16:19 01/08/17 18:44 Bedside Glucose 113 103 111 Prothrombin Time 17.1 H Prothrombin Time Ratio 1.3 INR International Normalized Ratio 1.39 Activated Partial Thromboplast Time 31.8 Test 01/08/17 20:54 01/08/17 23:44 01/09/17 01:10 01/09/17 04:57 Bedside Glucose 106 123 123 Activated Partial Thromboplast Time 108.5 *H Test 01/09/17 05:00 White Blood Count 7.4 Red Blood Count 2.79 L Hemoglobin 8.9 L Hematocrit 27.3 L Mean Corpuscular Volume 97.8 Mean Corpuscular Hemoglobin 31.9 Mean Corpuscular Hemoglobin Concent 32.6 Red Cell Distribution Width 12.2 Platelet Count 125 #L Mean Platelet Volume 11.4 H Neutrophils % Eosinophils % Neutrophils # Eosinophils # Sodium Level 144 Potassium Level 4.0 Chloride Level 112 H Carbon Dioxide Level 21 Anion Gap 15 # Blood Urea Nitrogen 25 H Creatinine 1.09 Glucose Level 126 Calcium Level 8.5 Phosphorus Level 2.8 Magnesium Level 2.2 Medications Medications Current Medications Acetaminophen (Tylenol Supp) 650 mg Q4H PRN [place] TEMP > 37C Last administered on 01/07/17 09:52; Admin Dose 650 MG; Start 01/03/17 at 15:00 Acetaminophen (Tylenol Liquid) 650 mg Q4H PRN PO TEMP > 37C; Start 01/03/17 at 15:00 Meperidine HCl (Demerol) 12.5 mg Q4H PRN IV POST OPERATIVE SHIVERING; Start at 15:00 Meperidine HCl (Demerol) 25 mg Q4H PRN IV POST OPERATIVE SHIVERING; Start 01/03 at 15:00 Eye Lubricant (Akwa Oint) 1 applic Q6 BOTH EYES Last administered on 01/09/17 04:52; Admin Dose 1 APPLIC; Start 01/03/17 at 18:00 Eye Lubricant (Artificial Tears Oph) 2 drop Q6 BOTH EYES Last administered on 04:52; Admin Dose 2 DROP; Start 01/03/17 at 18:00 Pantoprazole (Protonix Iv) 40 mg DAILY@06 IV Last administered on 01/08/17 10: 25; Admin Dose 40 MG; Start 01/03/17 at 17:00 Miscellaneous Information 1 ea NOTE XX ; Start 01/03/17 at 17:00 Glucose (Glutose) 15 gm Q15M PRN PO DECREASED GLUCOSE; Start 01/03/17 at 17:00 Glucose (Glutose) 22.5 gm Q15M PRN PO DECREASED GLUCOSE; Start 01/03/17 at 17: 00 Dextrose (D50w Syringe) 25 ml Q15M PRN IV DECREASED GLUCOSE; Start 01/03/17 at 17:00 Dextrose (D50w Syringe) 50 ml Q15M PRN IV DECREASED GLUCOSE; Start 01/03/17 at 17:00 Glucagon (Glucagen) 1 mg Q15M PRN IM DECREASED GLUCOSE; Start 01/03/17 at 17:00 Glucose 15 gm 15 gm Q15M PRN BUCCAL DECREASED GLUCOSE; Start 01/03/17 at 17:00 Midazolam HCl 50 ml @ 1 mls/hr TITRATE IV Last administered on 01/05/17 01:29 ; Admin Dose 4 MLS/HR; Start 01/03/17 at 21:00 Fentanyl (Sublimaze) 100 ml @ 2.5 mls/hr TITRATE IV Last administered on 15:37; Admin Dose 5 MLS/HR; Start 01/03/17 at 21:00 Miscellaneous Information This patient naik... PRN PRN XX WOUND CARE; Start 01/04 at 03:00 Piperacillin Sod/ Tazobactam Sod (Zosyn 3.375gm/ 100 ml (Pmx)) 100 ml @ 200 mls /hr Q6 IVPB Last administered on 01/09/17 04:52; Admin Dose 200 MLS/HR; Start 01/04/17 at 12:00 Silver Sulfadiazine 1 applic 1 applic DAILY TOP Last administered on 01/08/17 10:02; Admin Dose 1 APPLIC; Start 01/04/17 at 14:00 Norepinephrine/ Dextrose (Levophed/D5W) 500 ml @ 1.87 mls/hr TITRATE IV ; Start 01/04/17 at 18:30 Insulin Aspart (Novolog Insulin Pen) (Adult SC Insulin - Mild Algorithm)... Q4 SC ; Start 01/05/17 at 09:00 Morphine Sulfate (morphine) 2 mg Q2H PRN IV PAIN; Start 01/05/17 at 22:00 Procedures Procedures PROCEDURE: X-ray Chest. CLINICAL INDICATION: Respiratory failure. TECHNIQUE: Single view chest x-ray. COMPARISON: Exam dated 01/06/2017. FINDINGS: There is a well-positioned ETT tip 5.8 cm above the lary and a right IJ catheter tip overlying the mid SVC. There is an enteric tube that descends below the GE junction of the field of view. The cardiomediastinal silhouette is within normal limits. The lungs are clear without focal consolidation, effusion , or pneumothorax. There are no acute osseous abnormalities. IMPRESSION: 1. No acute cardiopulmonary abnormality. 2. Tubes and lines as above. RPTAT: EE .Bert Foss MD, Date Time Electronically viewed and signed by .Bert Foss MD, on 01/08/2017 08:55 .P/ CC: JULIO C CARBONE BOLATITO M. Jan 09, 2017 08:44
[2017-01-09] MEDS: SILVER SULFADIAZINE 1% 25 GM CR TOP SCH (09:31)
--- NOTE | 2017-01-09 10:20 | RADRPT ---
PROCEDURE: X-ray Chest. CLINICAL INDICATION: Respiratory failure. TECHNIQUE: Single view chest x-ray. COMPARISON: 01/08/2017. FINDINGS: There is a well-positioned ETT tip 4.7 cm above the lary and a right IJ catheter tip overlying the mid SVC. There is an enteric tube that descends below the GE junction with the tip out sign of the field of view. The cardiomediastinal silhouette is within normal limits. The lungs are clear witho ut focal consolidation, effusion, or pneumothorax. There are no acute osseous abnormalities. IMPRESSION: 1. No significant interval change. No evidence of acute infiltrates. 2. Tubes and lines as above. RPTAT: QQ .Chuy العراقي MD, MD Date Time Electronically viewed and signed by .Chuy العراقي MD, on 01/09/2017 10:20 .A/
--- NOTE | 2017-01-09 10:22 | CONS ---
Date/Time of Note Date/Time of Note DATE: 01/09/17 TIME: 10:18 Consult Date/Type/Reason Admit Date/Time Jan 03, 2017 at 15:05 Initial Consult Date 01/04/17 Type of Consultation: Pulmonary/critical care Subjective Back on heparin gtt. Tolerated CPAP though respiratory muscle indices were poor. Objective Vital Signs Date Time Temp Pulse Resp B/P Pulse Ox O2 Delivery O2 Flow Rate FiO2 01/09/17 08:00 78 01/09/17 08:00 22 135/75 99 Mechanical Ventilator 01/09/17 05:09 30 01/09/17 04:00 100.1 Intake and Output 01/08/17 01/08/17 01/09/17 15:00 23:00 07:00 Intake Total 720 ml 900.0 ml 1047.5 ml Output Total 630 ml 326 ml 661 ml Balance 90 ml 574.0 ml 386.5 ml Exam HEENT: Neck supple; no JVD; no LAD; ET tube in place CVS: RRR, S1 and S2 CHEST: Clear ABD: Soft, NT, + BS EXT: No c/c, + edema Results/Medications Result Diagram: 01/09/17 0500 01/09/17 0500 Results 24 hrs Laboratory Tests Test 01/08/17 13:28 01/08/17 16:19 01/08/17 18:44 01/08/17 20:54 Bedside Glucose 103 111 106 Prothrombin Time 17.1 H Prothrombin Time Ratio 1.3 INR International Normalized Ratio 1.39 Activated Partial Thromboplast Time 31.8 Test 01/08/17 23:44 01/09/17 01:10 01/09/17 04:57 01/09/17 05:00 Bedside Glucose 123 123 Activated Partial Thromboplast Time 108.5 *H White Blood Count 7.4 Red Blood Count 2.79 L Hemoglobin 8.9 L Hematocrit 27.3 L Mean Corpuscular Volume 97.8 Mean Corpuscular Hemoglobin 31.9 Mean Corpuscular Hemoglobin Concent 32.6 Red Cell Distribution Width 12.2 Platelet Count 125 #L Mean Platelet Volume 11.4 H Neutrophils % Eosinophils % Neutrophils # Eosinophils # Sodium Level 144 Potassium Level 4.0 Chloride Level 112 H Carbon Dioxide Level 21 Anion Gap 15 # Blood Urea Nitrogen 25 H Creatinine 1.09 Glucose Level 126 Calcium Level 8.5 Phosphorus Level 2.8 Magnesium Level 2.2 Test 01/09/17 09:18 Bedside Glucose 128 Medications Current Medications Acetaminophen (Tylenol Supp) 650 mg Q4H PRN [place] TEMP > 37C Last administered on 01/07/17 09:52; Admin Dose 650 MG; Start 01/03/17 at 15:00 Acetaminophen (Tylenol Liquid) 650 mg Q4H PRN PO TEMP > 37C; Start 01/03/17 at 15:00 Meperidine HCl (Demerol) 12.5 mg Q4H PRN IV POST OPERATIVE SHIVERING; Start at 15:00 Meperidine HCl (Demerol) 25 mg Q4H PRN IV POST OPERATIVE SHIVERING; Start 01/03 at 15:00 Eye Lubricant (Akwa Oint) 1 applic Q6 BOTH EYES Last administered on 01/09/17 04:52; Admin Dose 1 APPLIC; Start 01/03/17 at 18:00 Eye Lubricant (Artificial Tears Oph) 2 drop Q6 BOTH EYES Last administered on 04:52; Admin Dose 2 DROP; Start 01/03/17 at 18:00 Pantoprazole (Protonix Iv) 40 mg DAILY@06 IV Last administered on 01/08/17 10: 25; Admin Dose 40 MG; Start 01/03/17 at 17:00 Miscellaneous Information 1 ea NOTE XX ; Start 01/03/17 at 17:00 Glucose (Glutose) 15 gm Q15M PRN PO DECREASED GLUCOSE; Start 01/03/17 at 17:00 Glucose (Glutose) 22.5 gm Q15M PRN PO DECREASED GLUCOSE; Start 01/03/17 at 17: 00 Dextrose (D50w Syringe) 25 ml Q15M PRN IV DECREASED GLUCOSE; Start 01/03/17 at 17:00 Dextrose (D50w Syringe) 50 ml Q15M PRN IV DECREASED GLUCOSE; Start 01/03/17 at 17:00 Glucagon (Glucagen) 1 mg Q15M PRN IM DECREASED GLUCOSE; Start 01/03/17 at 17:00 Glucose 15 gm 15 gm Q15M PRN BUCCAL DECREASED GLUCOSE; Start 01/03/17 at 17:00 Midazolam HCl 50 ml @ 1 mls/hr TITRATE IV Last administered on 01/05/17 01:29 ; Admin Dose 4 MLS/HR; Start 01/03/17 at 21:00 Fentanyl (Sublimaze) 100 ml @ 2.5 mls/hr TITRATE IV Last administered on 15:37; Admin Dose 5 MLS/HR; Start 01/03/17 at 21:00 Miscellaneous Information This patient naik... PRN PRN XX WOUND CARE; Start 01/04 at 03:00 Piperacillin Sod/ Tazobactam Sod (Zosyn 3.375gm/ 100 ml (Pmx)) 100 ml @ 200 mls /hr Q6 IVPB Last administered on 01/09/17 04:52; Admin Dose 200 MLS/HR; Start 01/04/17 at 12:00 Silver Sulfadiazine 1 applic 1 applic DAILY TOP Last administered on 01/09/17 09:31; Admin Dose 1 APPLIC; Start 01/04/17 at 14:00 Norepinephrine/ Dextrose (Levophed/D5W) 500 ml @ 1.87 mls/hr TITRATE IV ; Start 01/04/17 at 18:30 Insulin Aspart (Novolog Insulin Pen) (Adult SC Insulin - Mild Algorithm)... Q4 SC ; Start 01/05/17 at 09:00 Morphine Sulfate (morphine) 2 mg Q2H PRN IV PAIN; Start 01/05/17 at 22:00 Assessment/Plan Additional Assessment/Plan IMP: 1. s/p Cardiopulmonary Arrest--likely due to PE +/- mucus plugging 2. PE 3. Respiratory Failure--respiratory muscle parameters--NIF and VC--were poor (- 18 cm H20 and 500 ml, respectively) 4. HAYDE--improving 5. Anemia 6. Thrombocytopenia 7. Supranuclear palsy RECS: 1. Continue weaning efforts, though VC and NIF are somewhat discouraging 2. Will need to discuss issues relating to neuromuscular weakness with Neurology in order to better predict and prognosticate outcome 3. Continue heparin gtt 4. Daily sedation vacation 5. Panculture; consider PICC and D/C CVC 35 min critical care time IRASEMA REYNOLDS MD Jan 09, 2017 10:22
[2017-01-09] MEDS ORDERED: LIDOCAINE 1% (MPF) 5 ML VIAL SC ONE (10:30)
[2017-01-09 10:40] LABS: EOSINOPHILS # 0.3 10^3/ul (0.0-0.5); LYMPHOCYTES # 1.5 10^3/ul (0.8-2.9); MONOCYTE # 0.7 10^3/ul (0.3-0.9); MYELOCYTES # 0.2; NEUTROPHIL # 4.5 10^3/ul (1.6-7.5)
[2017-01-09 10:41] LABS: PLATELET ESTIMATE PLT APPEAR ADEQUATE
--- NOTE | 2017-01-09 11:50 | PN ---
Date/Time of Note Date/Time of Note DATE: 01/09/17 TIME: 11:48 Assessment/Plan VTE Prophylaxis VTE Prophylaxis Intervention: heparin Lines/Catheters IV Catheter Type (from [facility]): Peripheral IV Urinary Cath still in place: Yes Reason Cath still needed: other (indicate) Assessment/Plan Chief Complaint/Hosp Course ASSESSMENT AND PLAN: 1. Cardiopulmonary arrest with pulseless electrical activity cardiopulm arrest. 2. possible pulmonary embolus. 3. Renal failure, unclear acute on chronic. Probably acute currently back to normal 4. Encephalopathy. 5. Status post cardiopulmonary arrest with return of spontaneous circulation. 6. Severe metabolic acidosis improved now. 7. transaminitis, probably shock liver. 8. Sepsis, respiratory failure, status post intubation on the vent. 9. S/p facial contusion. 10 mildly abnormal troponin due to above. 11. hyper Na RECOMMENDATIONS: S/P hypothermia protocol. We will continue with the vent support. follow up with pulm rec. Heparin was restarted due to concerns about PE. Continue with the ICU care. echo reviewed and showed preserved EF fluid management as per renal Problems: Subjective 24 Hr Interval Summary Free Text/Dictation d/w staff and rhythm was reviewed. pt remains intubated on vent in ICU. nonverbal. he remains in NSR. Exam/Review of Systems Vital Signs Vitals Vital Signs Date Time Temp Pulse Resp B/P Pulse Ox O2 Delivery O2 Flow Rate FiO2 01/09/17 11:10 78 27 99 30 01/09/17 08:00 135/75 Mechanical Ventilator 01/09/17 04:00 100.1 Intake and Output 01/08/17 01/08/17 01/09/17 15:00 23:00 07:00 Intake Total 720 ml 900.0 ml 1047.5 ml Output Total 630 ml 326 ml 661 ml Balance 90 ml 574.0 ml 386.5 ml Exam General intubated on vent HEENT: Normocephalic, s/p facial trauma. Status post intubation on the vent. DERMATOLOGIC: The left side of the face and the chest with ulcerated lesion. CARDIOVASCULAR: RRR. systolic murmur PULMONARY: With no wheezes heard anteriorly. GASTROINTESTINAL: Soft, nontender. no rebound EXTREMITIES: With mild lower extremity edema. NEUROLOGIC: opens his eyes. . : S/p patel in place. psych: alejandro Results Result Diagram: 01/09/17 0500 01/09/17 0500 Results 24 hrs Laboratory Tests Test 01/08/17 13:28 01/08/17 16:19 01/08/17 18:44 01/08/17 20:54 Bedside Glucose 103 111 106 Prothrombin Time 17.1 H Prothrombin Time Ratio 1.3 INR International Normalized Ratio 1.39 Activated Partial Thromboplast Time 31.8 Test 01/08/17 23:44 01/09/17 01:10 01/09/17 04:57 01/09/17 05:00 Bedside Glucose 123 123 Activated Partial Thromboplast Time 108.5 *H White Blood Count 7.4 Red Blood Count 2.79 L Hemoglobin 8.9 L Hematocrit 27.3 L Mean Corpuscular Volume 97.8 Mean Corpuscular Hemoglobin 31.9 Mean Corpuscular Hemoglobin Concent 32.6 Red Cell Distribution Width 12.2 Platelet Count 125 #L Mean Platelet Volume 11.4 H Neutrophils % 61.0 Band Neutrophils % 1.0 Lymphocytes % 20.0 Monocytes % 9.0 Eosinophils % 4.0 Metamyelocytes % 1.0 H Myelocytes % 3.0 H Promyelocytes % 1.0 H Neutrophils # 4.5 Lymphocytes # 1.5 Monocytes # 0.7 Eosinophils # 0.3 Metamyelocytes # 0.1 Myelocytes # 0.2 Promyelocytes # 0.1 Platelet Estimate PLT APPEAR ADEQUATE Large Platelets FEW Sodium Level 144 Potassium Level 4.0 Chloride Level 112 H Carbon Dioxide Level 21 Anion Gap 15 # Blood Urea Nitrogen 25 H Creatinine 1.09 Glucose Level 126 Calcium Level 8.5 Phosphorus Level 2.8 Magnesium Level 2.2 Test 01/09/17 07:55 01/09/17 09:18 Activated Partial Thromboplast Time 71.0 *H Bedside Glucose 128 Medications Medications Current Medications Acetaminophen (Tylenol Supp) 650 mg Q4H PRN [place] TEMP > 37C Last administered on 01/07/17 09:52; Admin Dose 650 MG; Start 01/03/17 at 15:00 Acetaminophen (Tylenol Liquid) 650 mg Q4H PRN PO TEMP > 37C; Start 01/03/17 at 15:00 Meperidine HCl (Demerol) 12.5 mg Q4H PRN IV POST OPERATIVE SHIVERING; Start at 15:00 Meperidine HCl (Demerol) 25 mg Q4H PRN IV POST OPERATIVE SHIVERING; Start 01/03 at 15:00 Eye Lubricant (Akwa Oint) 1 applic Q6 BOTH EYES Last administered on 01/09/17 04:52; Admin Dose 1 APPLIC; Start 01/03/17 at 18:00 Eye Lubricant (Artificial Tears Oph) 2 drop Q6 BOTH EYES Last administered on 04:52; Admin Dose 2 DROP; Start 01/03/17 at 18:00 Pantoprazole (Protonix Iv) 40 mg DAILY@06 IV Last administered on 01/08/17 10: 25; Admin Dose 40 MG; Start 01/03/17 at 17:00 Miscellaneous Information 1 ea NOTE XX ; Start 01/03/17 at 17:00 Glucose (Glutose) 15 gm Q15M PRN PO DECREASED GLUCOSE; Start 01/03/17 at 17:00 Glucose (Glutose) 22.5 gm Q15M PRN PO DECREASED GLUCOSE; Start 01/03/17 at 17: 00 Dextrose (D50w Syringe) 25 ml Q15M PRN IV DECREASED GLUCOSE; Start 01/03/17 at 17:00 Dextrose (D50w Syringe) 50 ml Q15M PRN IV DECREASED GLUCOSE; Start 01/03/17 at 17:00 Glucagon (Glucagen) 1 mg Q15M PRN IM DECREASED GLUCOSE; Start 01/03/17 at 17:00 Glucose 15 gm 15 gm Q15M PRN BUCCAL DECREASED GLUCOSE; Start 01/03/17 at 17:00 Midazolam HCl 50 ml @ 1 mls/hr TITRATE IV Last administered on 01/05/17 01:29 ; Admin Dose 4 MLS/HR; Start 01/03/17 at 21:00 Fentanyl (Sublimaze) 100 ml @ 2.5 mls/hr TITRATE IV Last administered on 15:37; Admin Dose 5 MLS/HR; Start 01/03/17 at 21:00 Miscellaneous Information This patient naik... PRN PRN XX WOUND CARE; Start 01/04 at 03:00 Piperacillin Sod/ Tazobactam Sod (Zosyn 3.375gm/ 100 ml (Pmx)) 100 ml @ 200 mls /hr Q6 IVPB Last administered on 01/09/17 04:52; Admin Dose 200 MLS/HR; Start 01/04/17 at 12:00 Silver Sulfadiazine 1 applic 1 applic DAILY TOP Last administered on 01/09/17 09:31; Admin Dose 1 APPLIC; Start 01/04/17 at 14:00 Norepinephrine/ Dextrose (Levophed/D5W) 500 ml @ 1.87 mls/hr TITRATE IV ; Start 01/04/17 at 18:30 Insulin Aspart (Novolog Insulin Pen) (Adult SC Insulin - Mild Algorithm)... Q4 SC ; Start 01/05/17 at 09:00 Morphine Sulfate (morphine) 2 mg Q2H PRN IV PAIN; Start 01/05/17 at 22:00 JENI KANG MD Jan 09, 2017 11:50
[2017-01-09 14:51] LABS: AADO2 Arterial 45.1 mmHg (7.0-24.0); Allen Test ACCEPTAB; Arterial Base Excess -2.8 mmol/L (-3.0-3); Arterial COHb 0.2 % (0.0-3.0); Arterial Fraction of Oxyhgb 97.5 % (93.0-99.0); Arterial HCO3 20.4 mmol/L (22.0-26.0); Arterial MetHb 0.2 % (0.0-1.5); MODE VENT - AC
--- NOTE | 2017-01-09 15:47 | RADRPT ---
PROCEDURE: XR Chest 1 View. CLINICAL INDICATION: Status post PICC line placed TECHNIQUE: AP view of the chest was obtained. COMPARISON: January 09, 2017 at 06:09 a.m. FINDINGS: The heart size is within normal limits. Calcified atherosclerosis is noted in the aorta. Right-side d PICC line has its tip in the expected location of the proximal to mid superior vena cava. Right-s ided central line is unchanged. Endotracheal and nasogastric tubes are stable and appear in grossly appropriate location. No consolidations are identified. No pneumothorax is seen. The osseous stru ctures are stable. IMPRESSION: Calcified atherosclerosis in the aorta. Right-sided PICC line with its tip in the expected location of the proximal to mid superior vena cav a. Clear lungs. RPTAT: AA .Mikey Hernandez MD, Date Time Electronically viewed and signed by .Mikey Hernandez MD, on 01/09/2017 15:47 .P/
--- NOTE | 2017-01-09 16:37 | RADRPT ---
PROCEDURE: Right upper extremity venous ultrasound CLINICAL INDICATION: Right arm pain and swelling, deep venous thrombosis TECHNIQUE: Morris scale, color doppler, spectral doppler ultrasound imaging of the venous system of the right upper extremity. Augmentation maneuvers were utilized. COMPARISON: 01/03/2017 FINDINGS: RIGHT: Internal jugular vein: Patent. Subclavian vein: Patent. Axillary vein: Patent. Brachial vein: Patent. Basilic vein: Occlusive thrombus is present. Cephalic vein: Patent. Radial vein: Patent. Ulnar vein: Patent. IMPRESSION: Superficial venous thrombosis of the left basilic vein is new since the previous examination. No evidence of a deep vein thrombosis involving the right upper extremity. RPTAT: AADD .Shankar Henderson MD, MD Date Time Electronically viewed and signed by .Shankar Henderson MD, on 01/09/2017 16:36 .B/
[2017-01-10] VITALS (35 sets, daily range): BP systolic 119–152; BP diastolic 60–87; PULSE 75–100; RESP 21–29
[2017-01-10 04:59] LABS: ABNORMAL IP MESSAGE 1; BASOPHILS % 0.4 % (0.0-2.0); EOSINOPHILS # 0.3 10^3/ul (0.0-0.5); EOSINOPHILS % 3.3 % (0.0-7.0); HEMATOCRIT 28.8 % (42.0-52.0); HEMOGLOBIN 9.6 g/dl (14.0-18.0); LYMPHOCYTES % 12.3 % (15.0-51.0); MEAN CORPUSCULAR HEMOGLOBIN 31.8 pg (29.0-33.0); MEAN CORPUSCULAR HGB CONC 33.3 g/dl (32.0-37.0); MEAN CORPUSCULAR VOLUME 95.4 fl (82.0-101.0); MEAN PLATELET VOLUME 11.2 fl (7.4-10.4); MONOCYTES % 12.7 % (0.0-11.0); NEUTROPHIL # 4.7 10^3/ul (1.6-7.5); NEUTROPHILS % 57.4 % (39.0-77.0); NUCLEATED RED BLOOD CELLS% 0.2 /100WBC (0.0-0.0); PLATELET COUNT 164 10^3/UL (140-415); RED BLOOD COUNT 3.02 10^6/ul (4.70-6.10); RED CELL DISTRIBUTION WIDTH 12.1 % (11.5-14.5); WHITE BLOOD COUNT 8.2 10^3/ul (4.8-10.8)
[2017-01-10 05:20] LABS: CALCIUM 8.4 mg/dl (8.4-10.2); CREATININE 1.15 mg/dl (0.61-1.24); POTASSIUM 3.6 mmol/L (3.5-5.1)
[2017-01-10 05:22] LABS: ADD SCAN DIFF NO
[2017-01-10] MEDS: OCULAR LUBRICANT 3.5 GM OPH OINT BOTH EYES SCH ×4 (05:41→23:32)
[2017-01-10] MEDS: PANTOPRAZOLE 40 MG INJ IV SCH (05:41)
[2017-01-10] MEDS: PIPER-TAZO 3.375 GM IV (PMX) 100 ML IVPB SCH ×4 (05:41→23:31)
[2017-01-10] MEDS: ARTIFICIAL TEARS 15 ML OPH BOTH EYES SCH ×4 (05:41→23:32)
--- NOTE | 2017-01-10 07:48 | PN ---
Date/Time of Note Date/Time of Note DATE: 01/10/17 TIME: 07:47 Assessment/Plan Lines/Catheters IV Catheter Type (from [facility]): PICC Line Urinary Cath still in place: Yes Assessment/Plan Chief Complaint/Hosp Course 1. non-oliguric angy with unknown baseline herb doctor. Etiology 2/2 hemodynamics possible tubular injury 2/2 ischemic shock. U/a reviewed, no active sediment. -Renal function improved -cont current treatment plan, renally dose all meds, avoid nephrotoxins - keep map > 65 -monitor closely 2. hypernatremia 2/2 insensible loss -No evidence of diabetes insipidus. Urine osmolarity was 700 mOsm appropriately elevated for level of hypernatremia. - Patient's sodium levels improved -Continue free water flushes 3. anemia -monitor h/h levels 4. mineral bone disorder -monitor ca, phos levels 5. Status post cardiac arrest with return of spontaneous circulation /PEA -cont to monitor -f/u cardiology 6. vdrf -vent setting abg reviewed -f/u pulmonary 7. Acute pulmonary emboli -cont med/eyal 8. acute encephalopathy secondary to anoxic injury -cont to monitor -f/u neurology 9 acute transaminitis with hyperbilirubinemia likely secondary to shock liver -improving, monitor 10. sepsis with multiorgan failure likely secondary to urinary tract infection , bacteremia -cont antibiotics -f/u ID Problems: Subjective 24 Hr Interval Summary Free Text/Dictation Patient in critical but stable condition. Good urinary output Exam/Review of Systems Vital Signs Vitals Vital Signs Date Time Temp Pulse Resp B/P Pulse Ox O2 Delivery O2 Flow Rate FiO2 01/10/17 06:00 87 25 137/75 100 Mechanical Ventilator 01/10/17 05:35 30 01/10/17 04:00 100.0 Intake and Output 01/09/17 01/09/17 01/10/17 15:00 23:00 07:00 Intake Total 683.5 ml 2058.5 ml 740.5 ml Output Total 510 ml 1369 ml 1474 ml Balance 173.5 ml 689.5 ml -733.5 ml Exam General: critically ill HEENT: Atraumatic, normocephalic. The pupils are equal Neck: Supple Chest: Normal Lungs: Decreased breath sounds bilateral lower lung field Heart: Normal S1-S2, Regular rhythm and rate. Abdomen: Soft , nontender, nondistended , bowel sounds are present. Extremities: Multiple pressure ulcer on left upper and lower extremity, trace edema no cyanosis Neurologic: Sedated Skin: L sided contusions and abrasions Results Result Diagram: 01/10/17 04201/10/17 0421 Results 24 hrs Laboratory Tests Test 01/09/17 07:55 01/09/17 09:18 01/09/17 13:21 01/09/17 17:05 Activated Partial Thromboplast Time 71.0 *H 52.1 H Bedside Glucose 128 132 Test 01/10/17 00:31 01/10/17 04:21 Activated Partial Thromboplast Time 65.2 H White Blood Count 8.2 Red Blood Count 3.02 L Hemoglobin 9.6 L Hematocrit 28.8 L Mean Corpuscular Volume 95.4 Mean Corpuscular Hemoglobin 31.8 Mean Corpuscular Hemoglobin Concent 33.3 Red Cell Distribution Width 12.1 Platelet Count 164 # Mean Platelet Volume 11.2 H Neutrophils % 57.4 Lymphocytes % 12.3 L Monocytes % 12.7 H Eosinophils % 3.3 Basophils % 0.4 Nucleated Red Blood Cells % 0.2 H Neutrophils # 4.7 Lymphocytes # 1.0 Monocytes # 1.0 H Eosinophils # 0.3 Basophils # 0.0 Nucleated Red Blood Cells # 0.0 Sodium Level 139 Potassium Level 3.6 Chloride Level 113 H Carbon Dioxide Level 23 Anion Gap 7 #L Blood Urea Nitrogen 19 Creatinine 1.15 Glucose Level 112 Calcium Level 8.4 Phosphorus Level 3.0 Magnesium Level 2.0 Medications Medications Current Medications Acetaminophen (Tylenol Supp) 650 mg Q4H PRN [place] TEMP > 37C Last administered on 01/07/17t 09:52; Admin Dose 650 MG; Start 01/03/17 at 15:00 Acetaminophen (Tylenol Liquid) 650 mg Q4H PRN PO TEMP > 37C; Start 01/03/17 at 15:00 Meperidine HCl (Demerol) 12.5 mg Q4H PRN IV POST OPERATIVE SHIVERING; Start at 15:00 Meperidine HCl (Demerol) 25 mg Q4H PRN IV POST OPERATIVE SHIVERING; Start 01/03 at 15:00 Eye Lubricant (Akwa Oint) 1 applic Q6 BOTH EYES Last administered on 01/10/17 05:41; Admin Dose 1 APPLIC; Start 01/03/17 at 18:00 Eye Lubricant (Artificial Tears Oph) 2 drop Q6 BOTH EYES Last administered on 05:41; Admin Dose 2 DROP; Start 01/03/17 at 18:00 Pantoprazole (Protonix Iv) 40 mg DAILY@06 IV Last administered on 01/10/17 05: 41; Admin Dose 40 MG; Start 01/03/17 at 17:00 Miscellaneous Information 1 ea NOTE XX ; Start 01/03/17 at 17:00 Glucose (Glutose) 15 gm Q15M PRN PO DECREASED GLUCOSE; Start 01/03/17 at 17:00 Glucose (Glutose) 22.5 gm Q15M PRN PO DECREASED GLUCOSE; Start 01/03/17 at 17: 00 Dextrose (D50w Syringe) 25 ml Q15M PRN IV DECREASED GLUCOSE; Start 01/03/17 at 17:00 Dextrose (D50w Syringe) 50 ml Q15M PRN IV DECREASED GLUCOSE; Start 01/03/17 at 17:00 Glucagon (Glucagen) 1 mg Q15M PRN IM DECREASED GLUCOSE; Start 01/03/17 at 17:00 Glucose 15 gm 15 gm Q15M PRN BUCCAL DECREASED GLUCOSE; Start 01/03/17 at 17:00 Midazolam HCl 50 ml @ 1 mls/hr TITRATE IV Last administered on 01/05/17 01:29 ; Admin Dose 4 MLS/HR; Start 01/03/17 at 21:00 Fentanyl (Sublimaze) 100 ml @ 2.5 mls/hr TITRATE IV Last administered on 15:37; Admin Dose 5 MLS/HR; Start 01/03/17 at 21:00 Miscellaneous Information This patient naik... PRN PRN XX WOUND CARE; Start 01/04 at 03:00 Piperacillin Sod/ Tazobactam Sod (Zosyn 3.375gm/ 100 ml (Pmx)) 100 ml @ 200 mls /hr Q6 IVPB Last administered on 01/10/17 05:41; Admin Dose 200 MLS/HR; Start 01/04/17 at 12:00 Silver Sulfadiazine 1 applic 1 applic DAILY TOP Last administered on 7/3/17at 00:00; Admin Dose 1 APPLIC; Start 01/04/17 at 14:00 Norepinephrine/ Dextrose (Levophed/D5W) 500 ml @ 1.87 mls/hr TITRATE IV ; Start 01/04/17 at 18:30 Morphine Sulfate (morphine) 2 mg Q2H PRN IV PAIN; Start 01/05/17 at 22:00 ESHA ALMANZA DO Jan 10, 2017 07:48
--- NOTE | 2017-01-10 08:06 | PN ---
Date/Time of Note Date/Time of Note DATE: 01/10/17 TIME: 07:50 Assessment/Plan Lines/Catheters IV Catheter Type (from Nrs): PICC Line [place]alado in Place (from Nrs): Yes Assessment/Plan Chief Complaint/Hosp Course 1. Multiple wounds: multiple skin tears, left trochanter/left facial/left lateral knee ischemic tissue injury likely pressure related -Will likely need debridement as patients condition permits - await medical clearance -local care -frequent turning and offloading/specialty bed -optimize nutrition -vitamin c/short term zn 2. S/P cardiac arrest with ROSC; currently intubated, s/p hypothermia protocol; attempting to wean off vent -supportive therapy -optimize electrolytes -cardiac optimization 3. PE: heparin drip restarted -continue heparin drip -supportive 4. Hematuria: likely 2/2 to heparin drip; resolved -monitor 5. Acute kindey injury: 2/2 ischemic shock; improved -supportive -monitor 6. Hypernatremia: improved; desmopressin trial; -Continue to monitor -per renal 7. Anemia normocytic normochromic: 2/2 acute loss/hematuria +/- dilutional; improved -monitor -transfuse prn 8. Hypoalbuminemia: multifactorial (2/2 inflammation/infection +/-malnutrition + /- shocked liver); tube feedings started -Optimize -replete as necessary -optimize nutrition as patient condition permits 9. Hypocalcemia likely 2nd above; improved -optimize lytes -continue to monitor -optimize nutrition as patient condition permits 10. Transaminitis with hyperbilirubinemia: likely 2/2 shocked liver -supportive -monitor trends 11. Encephalopathy 2nd to anoxic injury + supranuclear palsy; more awake and responsive; off sedation; -cont to monitor - seen by neurology 12. Sepsis with multiorgan failure likely secondary to bacteremia; urine cultures and cxr are negative; repeat blood cultures with staph coagulase ( contaminant?); improved; -abx per ID -careful monitoring -tx as above 14. Thrombocytopenia: 2nd to sepsis + heparin drip; improving -supportive -bleeding precautions 15. Superficial venous thrombosis: -on anticoagulation Patient seen and examined in collaboration with Dr. Fahad Beaver Problems: Subjective 24 Hr Interval Summary Intermittent fevers throughout the night. Awake and responsive. Heparin drip & vent weaning. Tolerating tube feeds. No cough. New rectal tube with liquid stool. No sz. No rash. No vomiting. No bloating. Ventilated. Exam/Review of Systems Vital Signs Vitals Vital Signs Date Time Temp Pulse Resp B/P Pulse Ox O2 Delivery O2 Flow Rate FiO2 01/10/17 06:00 87 25 137/75 100 Mechanical Ventilator 01/10/17 05:35 30 01/10/17 04:00 100.0 Intake and Output 01/09/17 01/09/17 01/10/17 15:00 23:00 07:00 Intake Total 683.5 ml 2058.5 ml 740.5 ml Output Total 510 ml 1369 ml 1474 ml Balance 173.5 ml 689.5 ml -733.5 ml Exam Free Text/Dictation Constitutional: well developed, more responsive, follows commands Head: lacerations, normocephalic, multiple contusions Eyes: PERRL. No jaundice ENMT: Intubated No lesions. Moist. Neck: non-tender, supple, min JVD Respiratory: Normal resp effort, vent; vent weaning Cardiovascular: nl pulses, regular rate and rhythm Gastrointestinal: non-tender, soft, No distended; rectal tube Genitourinary - Male: nl penis, nl scrotum; urine yellow Musculoskeletal: , No swelling Extremities: normal pulses, cap refill 3s Neurological: Not following commands Skin: nl turgor, other (multiple skin tears; left trochanter/left knee and left cheek wound with eschar, min serous drainage) Lymph: No nl lymph nodes Results Result Diagram: 01/10/17 0421 01/10/17 042 YAZ BERRIOS NP Jan 10, 2017 08:04
[2017-01-10] MEDS: SILVER SULFADIAZINE 1% 25 GM CR TOP SCH ×2 (08:22)
--- NOTE | 2017-01-10 08:29 | RADRPT ---
PROCEDURE: XR Chest 1 View. CLINICAL INDICATION: Shortness of breath TECHNIQUE: AP view of the chest was obtained. COMPARISON: Yesterday FINDINGS: The cardiomediastinal silhouette is within normal limits. Endotracheal and nasogastric tubes are sta ble and appear in grossly appropriate location. Right-sided central line has its tip in the expecte d location of the mid superior vena cava. Atelectasis is noted at the lung bases. No consolidations are identified. No pneumothorax is seen. Right-sided PICC line is stable. The osseous structures a re unchanged. IMPRESSION: Right-sided central line with its tip in the expected location of the mid superior vena cava. No vi sualized pneumothorax. Remaining support lines and tubes appear stable. Atelectasis at the lung bases. RPTAT: AA .Mikey Hernandez MD, Date Time Electronically viewed and signed by .Mikey Hernandez MD, on 01/10/2017 08:29 .P/
[2017-01-10 09:14] LABS: ALBUMIN 2.5 g/dl (3.3-4.9); BILIRUBIN,INDIRECT 0.6 mg/dl (0-1.1); BILIRUBIN,TOTAL 0.6 mg/dl (0.2-1.3); TOTAL PROTEIN 4.4 g/dl (6.1-8.1)
[2017-01-10 09:27] LABS: AADO2 Arterial 79.7 mmHg (7.0-24.0); Allen Test ACCEPTAB; Arterial Base Excess -5.5 mmol/L (-3.0-3); Arterial COHb 0.2 % (0.0-3.0); Arterial Fraction of Oxyhgb 96.4 % (93.0-99.0); Arterial MetHb 0.3 % (0.0-1.5); Arterial Total Hemglobin 11.1 g/dl (12.0-18.0); Blood Gas PS 8; MODE VENT - CPAP
--- NOTE | 2017-01-10 09:33 | CONS ---
Date/Time of Note Date/Time of Note DATE: 01/10/17 TIME: 09:32 Consult Date/Type/Reason Admit Date/Time Jan 03, 2017 at 15:05 Initial Consult Date 01/04/17 Type of Consultation: Pulmonary/critical care Subjective Opens eyes but not following commands Continue CPAP with adequate tidal volumes Significant neuromuscular weakness Objective Vital Signs Date Time Temp Pulse Resp B/P Pulse Ox O2 Delivery O2 Flow Rate FiO2 01/10/17 08:00 99.8 85 21 136/77 97 Mechanical Ventilator 01/10/17 05:35 30 Intake and Output 01/09/17 01/09/17 01/10/17 15:00 23:00 07:00 Intake Total 683.5 ml 2058.5 ml 740.5 ml Output Total 510 ml 1369 ml 1551 ml Balance 173.5 ml 689.5 ml -810.5 ml Exam PHYSICAL EXAMINATION GENERAL: Elderly gentleman, intubated on mechanical ventilation, opens eyes and appears somewhat agitated. Orally intubated. VITAL SIGNS: see below. HEENT: Pupils equal, round, and reactive to light. CARDIAC: S1, S2, 1/6 systolic ejection murmur CHEST: Diminished air entry bilaterally. ABDOMEN: Mildly distended. Bowel sounds present no guarding or rebound EXTREMITIES: No cyanosis, clubbing edema +1 NEUROLOGIC: Generalized weakness Results/Medications Result Diagram: 01/10/17 0421 01/10/17 0421 Results 24 hrs Laboratory Tests Test 01/09/17 13:21 01/09/17 17:05 01/10/17 00:31 01/10/17 04:21 Bedside Glucose 132 Activated Partial Thromboplast Time 52.1 H 65.2 H White Blood Count 8.2 Red Blood Count 3.02 L Hemoglobin 9.6 L Hematocrit 28.8 L Mean Corpuscular Volume 95.4 Mean Corpuscular Hemoglobin 31.8 Mean Corpuscular Hemoglobin Concent 33.3 Red Cell Distribution Width 12.1 Platelet Count 164 # Mean Platelet Volume 11.2 H Neutrophils % 57.4 Lymphocytes % 12.3 L Monocytes % 12.7 H Eosinophils % 3.3 Basophils % 0.4 Nucleated Red Blood Cells % 0.2 H Neutrophils # 4.7 Lymphocytes # 1.0 Monocytes # 1.0 H Eosinophils # 0.3 Basophils # 0.0 Nucleated Red Blood Cells # 0.0 Sodium Level 139 Potassium Level 3.6 Chloride Level 113 H Carbon Dioxide Level 23 Anion Gap 7 #L Blood Urea Nitrogen 19 Creatinine 1.15 Glucose Level 112 Calcium Level 8.4 Phosphorus Level 3.0 Magnesium Level 2.0 Total Bilirubin 0.6 Direct Bilirubin 0.00 Indirect Bilirubin 0.6 Aspartate Amino Transf (AST/SGOT) 75 H Alanine Aminotransferase (ALT/SGPT) 128 H Alkaline Phosphatase 140 H Total Protein 4.4 L Albumin 2.5 L Test 01/10/17 07:55 01/10/17 09:00 Activated Partial Thromboplast Time 83.0 *H Blood Gas Specimen Source Blood arterial Arterial Blood Date Drawn 01/10/2017 9:18:20 AM Arterial Blood pH (Temp corrected) 7.455 H Arterial Blood pCO2 (Temp correct) 24.8 L Arterial Blood pO2 (Temp corrected) 105.1 H Arterial Blood HCO3 17.0 L Arterial Blood Base Excess -5.5 L Arterial Blood Oxygen Saturation 96.9 Rikki Test ACCEPTAB Arterial Blood Gas Puncture Site Right Radial Arterial Blood Carboxyhemoglobin 0.2 Arterial Blood Methemoglobin 0.3 Blood Gas A-a O2 Differential 79.7 H Oxyhemoglobin Percent 96.4 Total Hemoglobin 11.1 L Blood Gas Temperature 37.0 Blood Gas Actual Respiration Rate 24 Blood Gas Modality VENT - CPAP FiO2 30.0 Blood Gas High PEEP Setting 5.0 Blood Gas Pressure Support 8 Blood Gas Notified Whom TM Blood Gas Notified Time 01/10/2017 9:27:10 AM Medications Current Medications Acetaminophen (Tylenol Supp) 650 mg Q4H PRN ME TEMP > 37C Last administered on 01/07/17 09:52; Admin Dose 650 MG; Start 01/03/17 at 15:00 Acetaminophen (Tylenol Liquid) 650 mg Q4H PRN PO TEMP > 37C; Start 01/03/17 at 15:00 Meperidine HCl (Demerol) 12.5 mg Q4H PRN IV POST OPERATIVE SHIVERING; Start at 15:00 Meperidine HCl (Demerol) 25 mg Q4H PRN IV POST OPERATIVE SHIVERING; Start 01/03 at 15:00 Eye Lubricant (Akwa Oint) 1 applic Q6 BOTH EYES Last administered on 01/10/17 05:41; Admin Dose 1 APPLIC; Start 01/03/17 at 18:00 Eye Lubricant (Artificial Tears Oph) 2 drop Q6 BOTH EYES Last administered on 05:41; Admin Dose 2 DROP; Start 01/03/17 at 18:00 Pantoprazole (Protonix Iv) 40 mg DAILY@06 IV Last administered on 01/10/17 05: 41; Admin Dose 40 MG; Start 01/03/17 at 17:00 Miscellaneous Information 1 ea NOTE XX ; Start 01/03/17 at 17:00 Glucose (Glutose) 15 gm Q15M PRN PO DECREASED GLUCOSE; Start 01/03/17 at 17:00 Glucose (Glutose) 22.5 gm Q15M PRN PO DECREASED GLUCOSE; Start 01/03/17 at 17: 00 Dextrose (D50w Syringe) 25 ml Q15M PRN IV DECREASED GLUCOSE; Start 01/03/17 at 17:00 Dextrose (D50w Syringe) 50 ml Q15M PRN IV DECREASED GLUCOSE; Start 01/03/17 at 17:00 Glucagon (Glucagen) 1 mg Q15M PRN IM DECREASED GLUCOSE; Start 01/03/17 at 17:00 Glucose 15 gm 15 gm Q15M PRN BUCCAL DECREASED GLUCOSE; Start 01/03/17 at 17:00 Midazolam HCl 50 ml @ 1 mls/hr TITRATE IV Last administered on 01/05/17 01:29 ; Admin Dose 4 MLS/HR; Start 01/03/17 at 21:00 Fentanyl (Sublimaze) 100 ml @ 2.5 mls/hr TITRATE IV Last administered on 15:37; Admin Dose 5 MLS/HR; Start 01/03/17 at 21:00 Miscellaneous Information This patient naik... PRN PRN XX WOUND CARE; Start 01/04 at 03:00 Piperacillin Sod/ Tazobactam Sod (Zosyn 3.375gm/ 100 ml (Pmx)) 100 ml @ 200 mls /hr Q6 IVPB Last administered on 01/10/17 05:41; Admin Dose 200 MLS/HR; Start 01/04/17 at 12:00 Silver Sulfadiazine 1 applic 1 applic DAILY TOP Last administered on 01/10/17 00:00; Admin Dose 1 APPLIC; Start 01/04/17 at 14:00 Norepinephrine/ Dextrose (Levophed/D5W) 500 ml @ 1.87 mls/hr TITRATE IV ; Start 01/04/17 at 18:30 Morphine Sulfate (morphine) 2 mg Q2H PRN IV PAIN; Start 01/05/17 at 22:00 Assessment/Plan Chief Complaint/Hosp Course IMP: 1. s/p Cardiopulmonary Arrest--likely due to PE +/- mucus plugging 2. PE 3. Respiratory Failure--continue CPAP 4. HAYDE--improving 5. Anemia 6. Thrombocytopenia 7. Supranuclear palsy RECS: 1. Continue weaning efforts, continue CPAP trial however significant risk of reintubation secondary to neuromuscular weakness and inability to protect airway. Hold off extubation until discussion with next of kin regarding high risk of ongoing respiratory failure. Consider palliative care. 2. Will need to discuss issues relating to neuromuscular weakness with Neurology in order to better predict and prognosticate outcome 3. Continue heparin gtt 4. Daily sedation vacation 5. Panculture; pending culture results. 35 min critical care time Problems: VANDANA STEPHENS MD, [facility] Jan 10, 2017 09:33
[2017-01-10] MEDS: HEPARIN 25000 UNITS/250 ML 250 ML IV SCH (10:29)
--- NOTE | 2017-01-10 15:06 | PN ---
Date/Time of Note Date/Time of Note DATE: 01/10/17 TIME: 15:04 Assessment/Plan VTE Prophylaxis VTE Prophylaxis Intervention: heparin Lines/Catheters IV [facility] Type ([facility] PICC Line Central line still needed: Yes Urinary Cath still in place: Yes Reason Cath still needed: other (indicate) Assessment/Plan Chief Complaint/Hosp Course ASSESSMENT AND PLAN: 1. Cardiopulmonary arrest with pulseless electrical activity cardiopulm arrest. 2. possible pulmonary embolus. 3. Renal failure, unclear acute on chronic. Probably acute currently back to normal 4. Encephalopathy. 5. Status post cardiopulmonary arrest with return of spontaneous circulation. 6. Severe metabolic acidosis improved now. 7. transaminitis, probably shock liver. 8. Sepsis, respiratory failure, status post intubation on the vent. 9. S/p facial contusion. 10 mildly abnormal troponin due to above. 11. hyper Na RECOMMENDATIONS: S/P completed hypothermia protocol. We will continue with the vent support. follow up with pulm rec. Heparin was restarted due to concerns about PE. Continue with the ICU care. echo reviewed and showed preserved EF fluid management as per renal Problems: Subjective 24 Hr Interval Summary Free Text/Dictation D/W STAFF and rhythm was reviewed . patient remains intubated on the vent in the ICU. he Remains in sinus rhythm. nonverbal. Exam/Review of Systems Vital Signs Vitals Vital Signs Date Time Temp Pulse Resp B/P Pulse Ox O2 Delivery O2 Flow Rate FiO2 01/10/17 12:00 99.5 94 25 137/80 97 Mechanical Ventilator 01/10/17 10:30 30 Intake and Output 01/09/17 01/09/17 01/10/17 15:00 23:00 07:00 Intake Total 683.5 ml 2058.5 ml 755.5 ml Output Total 510 ml 1369 ml 1551 ml Balance 173.5 ml 689.5 ml -795.5 ml Exam General intubated on vent HEENT: Normocephalic, s/p facial trauma. Status post intubation on the vent. DERMATOLOGIC: The left side of the face and the chest with ulcerated lesion. CARDIOVASCULAR: RRR. systolic murmur PULMONARY: With no wheezes heard anteriorly. GASTROINTESTINAL: Soft, nontender. no rebound EXTREMITIES: With mild lower extremity edema. NEUROLOGIC: opens his eyes. lethargic : S/p patel in place. psych: calm Results Result Diagram: 01/10/17 0421 01/10/17 0421 Results 24 hrs Laboratory Tests Test 01/09/17 17:05 01/10/17 00:31 01/10/17 04:21 01/10/17 07:55 Activated Partial Thromboplast Time 52.1 H 65.2 H 83.0 *H White Blood Count 8.2 Red Blood Count 3.02 L Hemoglobin 9.6 L Hematocrit 28.8 L Mean Corpuscular Volume 95.4 Mean Corpuscular Hemoglobin 31.8 Mean Corpuscular Hemoglobin Concent 33.3 Red Cell Distribution Width 12.1 Platelet Count 164 # Mean Platelet Volume 11.2 H Neutrophils % 57.4 Lymphocytes % 12.3 L Monocytes % 12.7 H Eosinophils % 3.3 Basophils % 0.4 Nucleated Red Blood Cells % 0.2 H Neutrophils # 4.7 Lymphocytes # 1.0 Monocytes # 1.0 H Eosinophils # 0.3 Basophils # 0.0 Nucleated Red Blood Cells # 0.0 Sodium Level 139 Potassium Level 3.6 Chloride Level 113 H Carbon Dioxide Level 23 Anion Gap 7 #L Blood Urea Nitrogen 19 Creatinine 1.15 Glucose Level 112 Calcium Level 8.4 Phosphorus Level 3.0 Magnesium Level 2.0 Total Bilirubin 0.6 Direct Bilirubin 0.00 Indirect Bilirubin 0.6 Aspartate Amino Transf (AST/SGOT) 75 H Alanine Aminotransferase (ALT/SGPT) 128 H Alkaline Phosphatase 140 H Total Protein 4.4 L Albumin 2.5 L Test 01/10/17 09:00 01/10/17 14:14 Blood Gas Specimen Source Blood arterial Arterial Blood Date Drawn 01/10/2017 9:18:20 AM Arterial Blood pH (Temp corrected) 7.455 H Arterial Blood pCO2 (Temp correct) 24.8 L Arterial Blood pO2 (Temp corrected) 105.1 H Arterial Blood HCO3 17.0 L Arterial Blood Base Excess -5.5 L Arterial Blood Oxygen Saturation 96.9 Rikki Test ACCEPTAB Arterial Blood Gas Puncture Site Right Radial Arterial Blood Carboxyhemoglobin 0.2 Arterial Blood Methemoglobin 0.3 Blood Gas A-a O2 Differential 79.7 H Oxyhemoglobin Percent 96.4 Total Hemoglobin 11.1 L Blood Gas Temperature 37.0 Blood Gas Actual Respiration Rate 24 Blood Gas Modality VENT - CPAP FiO2 30.0 Blood Gas High PEEP Setting 5.0 Blood Gas Pressure Support 8 Blood Gas Notified Whom TM Blood Gas Notified Time 01/10/2017 9:27:10 AM Activated Partial Thromboplast Time 86.0 *H Medications Medications Current Medications Acetaminophen (Tylenol Supp) 650 mg Q4H PRN RI TEMP > 37C Last administered on 01/07/17 09:52; Admin Dose 650 MG; Start 01/03/17 at 15:00 Acetaminophen (Tylenol Liquid) 650 mg Q4H PRN PO TEMP > 37C; Start 01/03/17 at 15:00 Meperidine HCl (Demerol) 12.5 mg Q4H PRN IV POST OPERATIVE SHIVERING; Start at 15:00 Meperidine HCl (Demerol) 25 mg Q4H PRN IV POST OPERATIVE SHIVERING; Start 01/03 at 15:00 Eye Lubricant (Akwa Oint) 1 applic Q6 BOTH EYES Last administered on 01/10/17 12:53; Admin Dose 1 APPLIC; Start 01/03/17 at 18:00 Eye Lubricant (Artificial Tears Oph) 2 drop Q6 BOTH EYES Last administered on 12:52; Admin Dose 2 DROP; Start 01/03/17 at 18:00 Pantoprazole (Protonix Iv) 40 mg DAILY@06 IV Last administered on 01/10/17 05: 41; Admin Dose 40 MG; Start 01/03/17 at 17:00 Miscellaneous Information 1 ea NOTE XX ; Start 01/03/17 at 17:00 Glucose (Glutose) 15 gm Q15M PRN PO DECREASED GLUCOSE; Start 01/03/17 at 17:00 Glucose (Glutose) 22.5 gm Q15M PRN PO DECREASED GLUCOSE; Start 01/03/17 at 17: 00 Dextrose (D50w Syringe) 25 ml Q15M PRN IV DECREASED GLUCOSE; Start 01/03/17 at 17:00 Dextrose (D50w Syringe) 50 ml Q15M PRN IV DECREASED GLUCOSE; Start 01/03/17 at 17:00 Glucagon (Glucagen) 1 mg Q15M PRN IM DECREASED GLUCOSE; Start 01/03/17 at 17:00 Glucose 15 gm 15 gm Q15M PRN BUCCAL DECREASED GLUCOSE; Start 01/03/17 at 17:00 Midazolam HCl 50 ml @ 1 mls/hr TITRATE IV Last administered on 01/05/17 01:29 ; Admin Dose 4 MLS/HR; Start 01/03/17 at 21:00 Fentanyl (Sublimaze) 100 ml @ 2.5 mls/hr TITRATE IV Last administered on 15:37; Admin Dose 5 MLS/HR; Start 01/03/17 at 21:00 Miscellaneous Information This patient naik... PRN PRN XX WOUND CARE; Start 01/04 at 03:00 Piperacillin Sod/ Tazobactam Sod (Zosyn 3.375gm/ 100 ml (Pmx)) 100 ml @ 200 mls /hr Q6 IVPB Last administered on 01/10/17 12:51; Admin Dose 200 MLS/HR; Start 01/04/17 at 12:00 Silver Sulfadiazine 1 applic 1 applic DAILY TOP Last administered on 01/10/17 00:00; Admin Dose 1 APPLIC; Start 01/04/17 at 14:00 Norepinephrine/ Dextrose (Levophed/D5W) 500 ml @ 1.87 mls/hr TITRATE IV ; Start 01/04/17 at 18:30 Morphine Sulfate (morphine) 2 mg Q2H PRN IV PAIN; Start 01/05/17 at 22:00 JENI KANG MD Jan 10, 2017 15:06
--- NOTE | 2017-01-10 15:31 | PN ---
Date/Time of Note Date/Time of Note DATE: 01/10/17 TIME: 15:26 Assessment/Plan VTE Prophylaxis VTE Prophylaxis Intervention: heparin Assessment/Plan Chief Complaint/Hosp Course 1. Ventilator dependent respiratory failure secondary to cardiac arrest 2. Acute pulmonary emboli 3. Hyponatremia likely secondary to #2: resolved 4. Severe sepsis secondary to urinary tract infection: improved 5. Acute encephalopathy s/p PEA cardiac arrest likely secondary to #6 status post resuscitation with ROSC and now s/p hypothermia protocol: improved ++ 6. Severe dehydration causing acute renal insufficiency: resolved 7. Long-term history of progressive supranuclear palsy that has caused recurrent falls and old rib and NaSal fractures * Per report, patient had recently been having difficulty closing his eyes and walking 2/2 palsy 8. Acute transaminitis likely secondary to shock liver: improving 9. Recent fall 2/2 #7 s/p L sided facial and muscular contusions PLAN: * Continue care and intensive care unit * Pulmonology on case and plan is for extubation, patient is now a DNI and will not intubate if needed, will also consider hospice * Continue heparin drip for pulmonary emboli, may transition to Lovenox or oral therapy when platelet count improves * Continue tube feeds to goal * Monitor mental status patient seems to be improving but very slowly, baseline with SNP was not very good to begin with. Per Family, he felt "trapped" in his body. * Continue Zosyn for UTI / blood cultures likely contaminant, repeat blood culture has been ordered from line, follow-up result * Left upper extremity positive for superficial clot * For further interventions per clinical course * Appreciate all consults Prophylaxis with IV PPI and SCDs / heparin drip Problems: Subjective 24 Hr Interval Summary Subjective hx not possible: pt non-verbal Exam/Review of Systems Vital Signs Vitals Vital Signs Date Time Temp Pulse Resp B/P Pulse Ox O2 Delivery O2 Flow Rate FiO2 01/10/17 12:00 99.5 94 25 137/80 97 Mechanical Ventilator 01/10/17 10:30 30 Intake and Output 01/09/17 01/09/17 01/10/17 15:00 23:00 07:00 Intake Total 683.5 ml 2058.5 ml 755.5 ml Output Total 510 ml 1369 ml 1551 ml Balance 173.5 ml 689.5 ml -795.5 ml Exam Constitutional: non-verbal ENMT: intubated Respiratory: clear to auscultation Cardiovascular: regular rate and rhythm Gastrointestinal: soft, No distended Musculoskeletal: nl extremities to inspection Results Result Diagram: 01/10/17 0421 01/10/17 0421 Results 24 hrs Laboratory Tests Test 01/09/17 17:05 01/10/17 00:31 01/10/17 04:21 01/10/17 07:55 Activated Partial Thromboplast Time 52.1 H 65.2 H 83.0 *H White Blood Count 8.2 Red Blood Count 3.02 L Hemoglobin 9.6 L Hematocrit 28.8 L Mean Corpuscular Volume 95.4 Mean Corpuscular Hemoglobin 31.8 Mean Corpuscular Hemoglobin Concent 33.3 Red Cell Distribution Width 12.1 Platelet Count 164 # Mean Platelet Volume 11.2 H Neutrophils % 57.4 Lymphocytes % 12.3 L Monocytes % 12.7 H Eosinophils % 3.3 Basophils % 0.4 Nucleated Red Blood Cells % 0.2 H Neutrophils # 4.7 Lymphocytes # 1.0 Monocytes # 1.0 H Eosinophils # 0.3 Basophils # 0.0 Nucleated Red Blood Cells # 0.0 Sodium Level 139 Potassium Level 3.6 Chloride Level 113 H Carbon Dioxide Level 23 Anion Gap 7 #L Blood Urea Nitrogen 19 Creatinine 1.15 Glucose Level 112 Calcium Level 8.4 Phosphorus Level 3.0 Magnesium Level 2.0 Total Bilirubin 0.6 Direct Bilirubin 0.00 Indirect Bilirubin 0.6 Aspartate Amino Transf (AST/SGOT) 75 H Alanine Aminotransferase (ALT/SGPT) 128 H Alkaline Phosphatase 140 H Total Protein 4.4 L Albumin 2.5 L Test 01/10/17 09:00 01/10/17 14:14 Blood Gas Specimen Source Blood arterial Arterial Blood Date Drawn 01/10/2017 9:18:20 AM Arterial Blood pH (Temp corrected) 7.455 H Arterial Blood pCO2 (Temp correct) 24.8 L Arterial Blood pO2 (Temp corrected) 105.1 H Arterial Blood HCO3 17.0 L Arterial Blood Base Excess -5.5 L Arterial Blood Oxygen Saturation 96.9 Rikki Test ACCEPTAB Arterial Blood Gas Puncture Site Right Radial Arterial Blood Carboxyhemoglobin 0.2 Arterial Blood Methemoglobin 0.3 Blood Gas A-a O2 Differential 79.7 H Oxyhemoglobin Percent 96.4 Total Hemoglobin 11.1 L Blood Gas Temperature 37.0 Blood Gas Actual Respiration Rate 24 Blood Gas Modality VENT - CPAP FiO2 30.0 Blood Gas High PEEP Setting 5.0 Blood Gas Pressure Support 8 Blood Gas Notified Whom TM Blood Gas Notified Time 01/10/2017 9:27:10 AM Activated Partial Thromboplast Time 86.0 *H Medications Medications Current Medications Acetaminophen (Tylenol Supp) 650 mg Q4H PRN IN TEMP > 37C Last administered on 01/07/17 09:52; Admin Dose 650 MG; Start 01/03/17 at 15:00 Acetaminophen (Tylenol Liquid) 650 mg Q4H PRN PO TEMP > 37C; Start 01/03/17 at 15:00 Meperidine HCl (Demerol) 12.5 mg Q4H PRN IV POST OPERATIVE SHIVERING; Start at 15:00 Meperidine HCl (Demerol) 25 mg Q4H PRN IV POST OPERATIVE SHIVERING; Start 01/03 at 15:00 Eye Lubricant (Akwa Oint) 1 applic Q6 BOTH EYES Last administered on 01/10/17 12:53; Admin Dose 1 APPLIC; Start 01/03/17 at 18:00 Eye Lubricant (Artificial Tears Oph) 2 drop Q6 BOTH EYES Last administered on 12:52; Admin Dose 2 DROP; Start 01/03/17 at 18:00 Pantoprazole (Protonix Iv) 40 mg DAILY@06 IV Last administered on 01/10/17 05: 41; Admin Dose 40 MG; Start 01/03/17 at 17:00 Miscellaneous Information 1 ea NOTE XX ; Start 01/03/17 at 17:00 Glucose (Glutose) 15 gm Q15M PRN PO DECREASED GLUCOSE; Start 01/03/17 at 17:00 Glucose (Glutose) 22.5 gm Q15M PRN PO DECREASED GLUCOSE; Start 01/03/17 at 17: 00 Dextrose (D50w Syringe) 25 ml Q15M PRN IV DECREASED GLUCOSE; Start 01/03/17 at 17:00 Dextrose (D50w Syringe) 50 ml Q15M PRN IV DECREASED GLUCOSE; Start 01/03/17 at 17:00 Glucagon (Glucagen) 1 mg Q15M PRN IM DECREASED GLUCOSE; Start 01/03/17 at 17:00 Glucose 15 gm 15 gm Q15M PRN BUCCAL DECREASED GLUCOSE; Start 01/03/17 at 17:00 Midazolam HCl 50 ml @ 1 mls/hr TITRATE IV Last administered on 01/05/17 01:29 ; Admin Dose 4 MLS/HR; Start 01/03/17 at 21:00 Fentanyl (Sublimaze) 100 ml @ 2.5 mls/hr TITRATE IV Last administered on 15:37; Admin Dose 5 MLS/HR; Start 01/03/17 at 21:00 Miscellaneous Information This patient naik... PRN PRN XX WOUND CARE; Start 01/04 at 03:00 Piperacillin Sod/ Tazobactam Sod (Zosyn 3.375gm/ 100 ml (Pmx)) 100 ml @ 200 mls /hr Q6 IVPB Last administered on 01/10/17 12:51; Admin Dose 200 MLS/HR; Start 01/04/17 at 12:00 Silver Sulfadiazine 1 applic 1 applic DAILY TOP Last administered on 01/10/17 00:00; Admin Dose 1 APPLIC; Start 01/04/17 at 14:00 Norepinephrine/ Dextrose (Levophed/D5W) 500 ml @ 1.87 mls/hr TITRATE IV ; Start 01/04/17 at 18:30 Morphine Sulfate (morphine) 2 mg Q2H PRN IV PAIN; Start 01/05/17 at 22:00 LAURIE MCKEE Jan 10, 2017 15:31
[2017-01-11] VITALS (30 sets, daily range): BP systolic 123–170; BP diastolic 70–96; PULSE 68–103; RESP 16–31
[2017-01-11] MEDS: HEPARIN 25000 UNITS/250 ML 250 ML IV SCH (02:35)
[2017-01-11] MEDS: PANTOPRAZOLE 40 MG INJ IV SCH (05:19)
[2017-01-11] MEDS: ARTIFICIAL TEARS 15 ML OPH BOTH EYES SCH ×3 (05:19→18:00)
[2017-01-11] MEDS: OCULAR LUBRICANT 3.5 GM OPH OINT BOTH EYES SCH ×3 (05:20→18:00)
[2017-01-11] MEDS: PIPER-TAZO 3.375 GM IV (PMX) 100 ML IVPB SCH (05:20)
[2017-01-11 05:41] LABS: ADD SCAN DIFF NO
[2017-01-11 05:54] LABS: ABNORMAL IP MESSAGE 1; BASOPHILS % 0.5 % (0.0-2.0); EOSINOPHILS # 0.2 10^3/ul (0.0-0.5); EOSINOPHILS % 2.1 % (0.0-7.0); HEMOGLOBIN 9.4 g/dl (14.0-18.0); LYMPHOCYTES # 1.1 10^3/ul (0.8-2.9); LYMPHOCYTES % 14.1 % (15.0-51.0); MEAN CORPUSCULAR HEMOGLOBIN 32.1 pg (29.0-33.0); MEAN CORPUSCULAR HGB CONC 33.6 g/dl (32.0-37.0); MEAN CORPUSCULAR VOLUME 95.6 fl (82.0-101.0); MEAN PLATELET VOLUME 10.8 fl (7.4-10.4); MONOCYTE # 0.9 10^3/ul (0.3-0.9); MONOCYTES % 11.7 % (0.0-11.0); NEUTROPHIL # 4.7 10^3/ul (1.6-7.5); NEUTROPHILS % 58.2 % (39.0-77.0); PLATELET COUNT 210 10^3/UL (140-415); RED BLOOD COUNT 2.93 10^6/ul (4.70-6.10); RED CELL DISTRIBUTION WIDTH 12.1 % (11.5-14.5); WHITE BLOOD COUNT 8.1 10^3/ul (4.8-10.8)
[2017-01-11 06:31] LABS: CALCIUM 8.6 mg/dl (8.4-10.2); CREATININE 1.03 mg/dl (0.61-1.24); PHOSPHORUS 3.5 mg/dl (2.5-4.9); POTASSIUM 3.7 mmol/L (3.5-5.1)
--- NOTE | 2017-01-11 07:59 | PN ---
Date/Time of Note Date/Time of Note DATE: 01/11/17 TIME: 07:58 Assessment/Plan Lines/Catheters IV Catheter Type (from [facility]): PICC Line Urinary Cath still in place: Yes Assessment/Plan Chief Complaint/Hosp Course 1. 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 Etiology 2/2 hemodynamics possible tubular injury 2/2 ischemic shock. U/a reviewed, no active sediment. -Renal function improved -cont current treatment plan, renally dose all meds, avoid nephrotoxins - keep map > 65 -monitor closely 2. hypernatremia 2/2 insensible loss -No evidence of diabetes insipidus. Urine osmolarity was 700 mOsm appropriately elevated for level of hypernatremia. - Patient's sodium levels improved -Continue free water flushes 3. anemia -monitor h/h levels 4. mineral bone disorder -monitor ca, phos levels 5. Status post cardiac arrest with return of spontaneous circulation /PEA -cont to monitor -f/u cardiology 6. vdrf -vent setting abg reviewed -f/u pulmonary 7. Acute pulmonary emboli -cont med/eyal 8. acute encephalopathy secondary to anoxic injury -cont to monitor -f/u neurology 9 acute transaminitis with hyperbilirubinemia likely secondary to shock liver -improving, monitor 10. sepsis with multiorgan failure likely secondary to urinary tract infection , bacteremia -cont antibiotics -f/u ID Problems: Subjective 24 Hr Interval Summary Free Text/Dictation Patient remains critical but stable. No other events noted overnight. Patient tolerating CPAP trials. Exam/Review of Systems Vital Signs Vitals Vital Signs Date Time Temp Pulse Resp B/P Pulse Ox O2 Delivery O2 Flow Rate FiO2 01/11/17 06:00 72 17 123/71 100 01/11/17 05:17 30 01/11/17 04:00 98.9 01/10/17 23:00 CPAP Intake and Output 01/10/17 01/10/17 01/11/17 15:00 23:00 07:00 Intake Total 220 ml 30 ml Output Total 827 ml 768 ml 725 ml Balance -607 ml -738 ml -725 ml Exam HEENT: Head is normocephalic. Pupils are reactive to light. NECK: Supple. HEART: Regular rate. LUNGS: Show diminished breath sounds at base. ABDOMEN: Soft, nontender to palpation. No rebound or guarding. EXTREMITIES: Negative for clubbing, cyanosis, no edema. DERMATOLOGIC: No rashes. MUSCULOSKELETAL: No joint effusions. NEUROLOGIC: No change in exam. Results Result Diagram: 01/11/17 0515 01/11/17 0515 Results 24 hrs Laboratory Tests Test 01/10/17 09:00 01/10/17 14:14 01/11/17 05:15 Blood Gas Specimen Source Blood arterial Arterial Blood Date Drawn 01/10/2017 9:18:20 AM Arterial Blood pH (Temp corrected) 7.455 H Arterial Blood pCO2 (Temp correct) 24.8 L Arterial Blood pO2 (Temp corrected) 105.1 H Arterial Blood HCO3 17.0 L Arterial Blood Base Excess -5.5 L Arterial Blood Oxygen Saturation 96.9 Rikki Test ACCEPTAB Arterial Blood Gas Puncture Site Right Radial Arterial Blood Carboxyhemoglobin 0.2 Arterial Blood Methemoglobin 0.3 Blood Gas A-a O2 Differential 79.7 H Oxyhemoglobin Percent 96.4 Total Hemoglobin 11.1 L Blood Gas Temperature 37.0 Blood Gas Actual Respiration Rate 24 Blood Gas Modality VENT - CPAP FiO2 30.0 Blood Gas High PEEP Setting 5.0 Blood Gas Pressure Support 8 Blood Gas Notified Whom TM Blood Gas Notified Time 01/10/2017 9:27:10 AM Activated Partial Thromboplast Time 86.0 *H 69.3 H White Blood Count 8.1 Red Blood Count 2.93 L Hemoglobin 9.4 L Hematocrit 28.0 L Mean Corpuscular Volume 95.6 Mean Corpuscular Hemoglobin 32.1 Mean Corpuscular Hemoglobin Concent 33.6 Red Cell Distribution Width 12.1 Platelet Count 210 # Mean Platelet Volume 10.8 H Neutrophils % 58.2 Lymphocytes % 14.1 L Monocytes % 11.7 H Eosinophils % 2.1 Basophils % 0.5 Nucleated Red Blood Cells % 0.0 Neutrophils # 4.7 Lymphocytes # 1.1 Monocytes # 0.9 Eosinophils # 0.2 Basophils # 0.0 Nucleated Red Blood Cells # 0.0 Sodium Level 142 Potassium Level 3.7 Chloride Level 109 Carbon Dioxide Level 21 Anion Gap 16 # Blood Urea Nitrogen 21 H Creatinine 1.03 Glucose Level 85 Calcium Level 8.6 Phosphorus Level 3.5 Magnesium Level 2.0 Medications Medications Current Medications Acetaminophen (Tylenol Supp) 650 mg Q4H PRN [place] TEMP > 37C Last administered on 01/07/17 09:52; Admin Dose 650 MG; Start 01/03/17 at 15:00 Acetaminophen (Tylenol Liquid) 650 mg Q4H PRN PO TEMP > 37C; Start 01/03/17 at 15:00 Meperidine HCl (Demerol) 12.5 mg Q4H PRN IV POST OPERATIVE SHIVERING; Start at 15:00 Meperidine HCl (Demerol) 25 mg Q4H PRN IV POST OPERATIVE SHIVERING; Start 01/03 at 15:00 Eye Lubricant (Akwa Oint) 1 applic Q6 BOTH EYES Last administered on 01/11/17 05:20; Admin Dose 1 APPLIC; Start 01/03/17 at 18:00 Eye Lubricant (Artificial Tears Oph) 2 drop Q6 BOTH EYES Last administered on 05:19; Admin Dose 2 DROP; Start 01/03/17 at 18:00 Pantoprazole (Protonix Iv) 40 mg DAILY@06 IV Last administered on 01/11/17 05: 19; Admin Dose 40 MG; Start 01/03/17 at 17:00 Miscellaneous Information 1 ea NOTE XX ; Start 01/03/17 at 17:00 Glucose (Glutose) 15 gm Q15M PRN PO DECREASED GLUCOSE; Start 01/03/17 at 17:00 Glucose (Glutose) 22.5 gm Q15M PRN PO DECREASED GLUCOSE; Start 01/03/17 at 17: 00 Dextrose (D50w Syringe) 25 ml Q15M PRN IV DECREASED GLUCOSE; Start 01/03/17 at 17:00 Dextrose (D50w Syringe) 50 ml Q15M PRN IV DECREASED GLUCOSE; Start 01/03/17 at 17:00 Glucagon (Glucagen) 1 mg Q15M PRN IM DECREASED GLUCOSE; Start 01/03/17 at 17:00 Glucose 15 gm 15 gm Q15M PRN BUCCAL DECREASED GLUCOSE; Start 01/03/17 at 17:00 Midazolam HCl 50 ml @ 1 mls/hr TITRATE IV Last administered on 01/05/17 01:29 ; Admin Dose 4 MLS/HR; Start 01/03/17 at 21:00 Fentanyl (Sublimaze) 100 ml @ 2.5 mls/hr TITRATE IV Last administered on 15:37; Admin Dose 5 MLS/HR; Start 01/03/17 at 21:00 Miscellaneous Information This patient naik... PRN PRN XX WOUND CARE; Start 01/04 at 03:00 Piperacillin Sod/ Tazobactam Sod (Zosyn 3.375gm/ 100 ml (Pmx)) 100 ml @ 200 mls /hr Q6 IVPB Last administered on 01/11/17 05:20; Admin Dose 200 MLS/HR; Start 01/04/17 at 12:00 Silver Sulfadiazine 1 applic 1 applic DAILY TOP Last administered on 01/10/17 00:00; Admin Dose 1 APPLIC; Start 01/04/17 at 14:00 Norepinephrine/ Dextrose (Levophed/D5W) 500 ml @ 1.87 mls/hr TITRATE IV ; Start 01/04/17 at 18:30 Morphine Sulfate (morphine) 2 mg Q2H PRN IV PAIN Last administered on 01/10/17 23:32; Admin Dose 2 MG; Start 01/05/17 at 22:00 ESHA ALMANZA DO Jan 11, 2017 07:59
[2017-01-11] MEDS ORDERED: FUROSEMIDE 20 MG INJ IV ONE (08:00)
--- NOTE | 2017-01-11 08:46 | PN ---
Date/Time of Note Date/Time of Note DATE: 01/11/17 TIME: 08:32 Assessment/Plan Lines/Catheters IV Catheter Type (from Nrs): PICC Line Regalado in Place (from Nrs): Yes Assessment/Plan Chief Complaint/Hosp Course 1. Multiple wounds: multiple skin tears, left trochanter/left facial/left lateral knee ischemic tissue injury likely pressure related -Will likely need debridement as patients condition permits - await medical clearance -local care -frequent turning and offloading/specialty bed -optimize nutrition -vitamin c/short term zn 2. S/P cardiac arrest with ROSC; currently intubated, s/p hypothermia protocol; CPAP and weaning trials -supportive therapy -optimize electrolytes -cardiac optimization 3. PE: heparin drip restarted -continue heparin drip -supportive 4. Hematuria: likely 2/2 to heparin drip; resolved -monitor 5. Acute kindey injury: 2/2 ischemic shock; improved -supportive -monitor 6. Hypernatremia: improved; desmopressin trial; -Continue to monitor -per renal 7. Anemia normocytic normochromic: 2/2 acute loss/hematuria +/- dilutional; improved -monitor -transfuse prn 8. Hypoalbuminemia: multifactorial (2/2 inflammation/infection +/-malnutrition + /- shocked liver); tube feedings started -Optimize -replete as necessary -optimize nutrition as patient condition permits 9. Hypocalcemia likely 2nd above; improved -optimize lytes -continue to monitor -optimize nutrition as patient condition permits 10. Transaminitis with hyperbilirubinemia: likely 2/2 shocked liver -supportive -monitor trends 11. Encephalopathy 2nd to anoxic injury + supranuclear palsy; more awake and responsive; off sedation; -cont to monitor - seen by neurology 12. Sepsis with multiorgan failure likely secondary to bacteremia; urine cultures and cxr are negative; repeat blood cultures negative; wbc normalized -abx per ID -careful monitoring -tx as above 14. Thrombocytopenia: 2nd to sepsis + heparin drip; resolved -supportive -bleeding precautions 15. Superficial venous thrombosis: -on anticoagulation 16. VDRF: concern about ability to protect airway once extubated; cxr: atelectasis -family meeting to discuss wishes -hospice eval Patient seen and examined in collaboration with Dr. Fahad Beaver Problems: Subjective 24 Hr Interval Summary No fevers throughout the night. Awake and responsive. Heparin drip & vent weaning. Tolerating weaning. Tolerating tube feeds. No cough. New rectal tube with liquid stool. No sz. No rash. No vomiting. No bloating. Exam/Review of Systems Vital Signs Vitals Vital Signs Date Time Temp Pulse Resp B/P Pulse Ox O2 Delivery O2 Flow Rate FiO2 01/11/17 06:00 72 17 123/71 100 01/11/17 05:17 30 01/11/17 04:00 98.9 01/10/17 23:00 CPAP Intake and Output 01/10/17 01/10/17 01/11/17 15:00 23:00 07:00 Intake Total 220 ml 30 ml Output Total 827 ml 768 ml 725 ml Balance -607 ml -738 ml -725 ml Exam Free Text/Dictation Constitutional: well developed, more responsive, follows commands Head: lacerations, normocephalic, multiple contusions Eyes: PERRL. No jaundice ENMT: Intubated No lesions. Moist. Neck: non-tender, supple, min JVD Respiratory: Normal resp effort, vent; vent weaning; Cardiovascular: nl pulses, regular rate and rhythm Gastrointestinal: non-tender, soft, No distended; rectal tube Genitourinary - Male: nl penis, nl scrotum; urine yellow Musculoskeletal: , No swelling Extremities: normal pulses, cap refill 3s Neurological: Not following commands Skin: nl turgor, other (multiple skin tears; left trochanter/left knee and left cheek wound with eschar, min serous drainage) Lymph: No nl lymph nodes Results Result Diagram: 01/11/17 0515 01/11/17 0515 YAZ BERRIOS NP Jan 11, 2017 08:43
--- NOTE | 2017-01-11 08:57 | RADRPT ---
PROCEDURE: XR Chest. CLINICAL INDICATION: Respiratory failure TECHNIQUE: A single AP view of the chest was obtained. COMPARISON: Chest x-ray dated 01/10/2017 FINDINGS: The endotracheal tube tip is approximately 3.0 cm above the lary. The tip of the enteric tube ex tends below the left diaphragm. No focal airspace opacification, pleural effusion or pneumothorax is seen. The cardiomediastinal si lhouette is within normal limits for size. The osseous structures are unremarkable. IMPRESSION: 1. No radiographic evidence of acute cardiopulmonary disease. There is mild improved aeration of th e lung bases when compared to the prior examination. 2. Tubes and lines, as described above. RPTAT: HH .Kim Tracey MD, MD Date Time Electronically viewed and signed by .Kim Tracey MD, on 01/11/2017 08:56 .G/
--- NOTE | 2017-01-11 10:15 | CONS ---
Date/Time of Note Date/Time of Note DATE: 01/11/17 TIME: 10:13 Consult Date/Type/Reason Admit Date/Time Jan 03, 2017 at 15:05 Initial Consult Date 01/04/17 Type of Consultation: Pulmonary/critical care Subjective Patient appears more alert this morning opens eyes to questions significant neuromuscular weakness. Minimal secretions. Objective Vital Signs Date Time Temp Pulse Resp B/P Pulse Ox O2 Delivery O2 Flow Rate FiO2 01/11/17 08:26 96 01/11/17 06:00 17 123/71 100 01/11/17 05:17 30 01/11/17 04:00 98.9 01/10/17 23:00 CPAP Intake and Output 01/10/17 01/10/17 01/11/17 15:00 23:00 07:00 Intake Total 220 ml 30 ml Output Total 827 ml 768 ml 725 ml Balance -607 ml -738 ml -725 ml Exam PHYSICAL EXAMINATION GENERAL: Elderly gentleman, intubated on mechanical ventilation, opens eyes and appears somewhat agitated. Orally intubated. VITAL SIGNS: see below. HEENT: Pupils equal, round, and reactive to light. CARDIAC: S1, S2, 1/6 systolic ejection murmur CHEST: Diminished air entry bilaterally. ABDOMEN: Mildly distended. Bowel sounds present no guarding or rebound EXTREMITIES: No cyanosis, clubbing edema +1 NEUROLOGIC: Generalized weakness Results/Medications Result Diagram: 01/11/17 0515 01/11/17 0515 Results 24 hrs Laboratory Tests Test 01/10/17 14:14 01/11/17 05:15 Activated Partial Thromboplast Time 86.0 *H 69.3 H White Blood Count 8.1 Red Blood Count 2.93 L Hemoglobin 9.4 L Hematocrit 28.0 L Mean Corpuscular Volume 95.6 Mean Corpuscular Hemoglobin 32.1 Mean Corpuscular Hemoglobin Concent 33.6 Red Cell Distribution Width 12.1 Platelet Count 210 # Mean Platelet Volume 10.8 H Neutrophils % 58.2 Lymphocytes % 14.1 L Monocytes % 11.7 H Eosinophils % 2.1 Basophils % 0.5 Nucleated Red Blood Cells % 0.0 Neutrophils # 4.7 Lymphocytes # 1.1 Monocytes # 0.9 Eosinophils # 0.2 Basophils # 0.0 Nucleated Red Blood Cells # 0.0 Sodium Level 142 Potassium Level 3.7 Chloride Level 109 Carbon Dioxide Level 21 Anion Gap 16 # Blood Urea Nitrogen 21 H Creatinine 1.03 Glucose Level 85 Calcium Level 8.6 Phosphorus Level 3.5 Magnesium Level 2.0 Medications Current Medications Acetaminophen (Tylenol Supp) 650 mg Q4H PRN [place] TEMP > 37C Last administered on 01/07/17 09:52; Admin Dose 650 MG; Start 01/03/17 at 15:00 Acetaminophen (Tylenol Liquid) 650 mg Q4H PRN PO TEMP > 37C; Start 01/03/17 at 15:00 Meperidine HCl (Demerol) 12.5 mg Q4H PRN IV POST OPERATIVE SHIVERING; Start at 15:00 Meperidine HCl (Demerol) 25 mg Q4H PRN IV POST OPERATIVE SHIVERING; Start 01/03 at 15:00 Eye Lubricant (Akwa Oint) 1 applic Q6 BOTH EYES Last administered on 01/11/17 05:20; Admin Dose 1 APPLIC; Start 01/03/17 at 18:00 Eye Lubricant (Artificial Tears Oph) 2 drop Q6 BOTH EYES Last administered on 05:19; Admin Dose 2 DROP; Start 01/03/17 at 18:00 Pantoprazole (Protonix Iv) 40 mg DAILY@06 IV Last administered on 01/11/17 05: 19; Admin Dose 40 MG; Start 01/03/17 at 17:00 Miscellaneous Information 1 ea NOTE XX ; Start 01/03/17 at 17:00 Glucose (Glutose) 15 gm Q15M PRN PO DECREASED GLUCOSE; Start 01/03/17 at 17:00 Glucose (Glutose) 22.5 gm Q15M PRN PO DECREASED GLUCOSE; Start 01/03/17 at 17: 00 Dextrose (D50w Syringe) 25 ml Q15M PRN IV DECREASED GLUCOSE; Start 01/03/17 at 17:00 Dextrose (D50w Syringe) 50 ml Q15M PRN IV DECREASED GLUCOSE; Start 01/03/17 at 17:00 Glucagon (Glucagen) 1 mg Q15M PRN IM DECREASED GLUCOSE; Start 01/03/17 at 17:00 Glucose 15 gm 15 gm Q15M PRN BUCCAL DECREASED GLUCOSE; Start 01/03/17 at 17:00 Midazolam HCl 50 ml @ 1 mls/hr TITRATE IV Last administered on 01/05/17 01:29 ; Admin Dose 4 MLS/HR; Start 01/03/17 at 21:00 Fentanyl (Sublimaze) 100 ml @ 2.5 mls/hr TITRATE IV Last administered on 15:37; Admin Dose 5 MLS/HR; Start 01/03/17 at 21:00 Miscellaneous Information This patient naik... PRN PRN XX WOUND CARE; Start 01/04 at 03:00 Piperacillin Sod/ Tazobactam Sod (Zosyn 3.375gm/ 100 ml (Pmx)) 100 ml @ 200 mls /hr Q6 IVPB Last administered on 01/11/17 05:20; Admin Dose 200 MLS/HR; Start 01/04/17 at 12:00 Silver Sulfadiazine 1 applic 1 applic DAILY TOP Last administered on 01/10/17 00:00; Admin Dose 1 APPLIC; Start 01/04/17 at 14:00 Norepinephrine/ Dextrose (Levophed/D5W) 500 ml @ 1.87 mls/hr TITRATE IV ; Start 01/04/17 at 18:30 Morphine Sulfate (morphine) 2 mg Q2H PRN IV PAIN Last administered on 01/10/17 23:32; Admin Dose 2 MG; Start 01/05/17 at 22:00 Assessment/Plan Chief Complaint/Hosp Course IMP: 1. s/p Cardiopulmonary Arrest--likely due to PE +/- mucus plugging 2. PE 3. Respiratory Failure--continue CPAP 4. HAYDE--improving 5. Anemia 6. Thrombocytopenia 7. Supranuclear palsy RECS: 1. Will extubate this morning when family arrived. Palliative care consult may be helpful. Overall prognosis remains guarded. Patient will have difficulty clearing secretions. 2. Neurology recommendations. 3. Continue heparin gtt 4. DC sedation. 5. De-escalate antibiotics. 6. Speech therapy eval in a.m. 7. Incentive spirometry and pulmonary toilet post extubation 35 min critical care time Problems: VANDANA STEPHENS [facility], [facility] Jan 11, 2017 10:15
[2017-01-11] MEDS: SILVER SULFADIAZINE 1% 25 GM CR TOP SCH (10:45)
[2017-01-11 10:53] LABS: AADO2 Arterial 40.7 mmHg (7.0-24.0); Arterial Base Excess -5.7 mmol/L (-3.0-3); Arterial COHb 0 % (0.0-3.0); Arterial Fraction of Oxyhgb 98.1 % (93.0-99.0); Arterial HCO3 17.5 mmol/L (22.0-26.0); Arterial MetHb 0.2 % (0.0-1.5); Arterial Total Hemglobin 13.4 g/dl (12.0-18.0); Blood Gas PS 8; MODE VENT - CPAP
--- NOTE | 2017-01-11 11:29 | PN ---
Date/Time of Note Date/Time of Note DATE: 01/11/17 TIME: 11:26 Assessment/Plan VTE Prophylaxis VTE Prophylaxis Intervention: SCD's Assessment/Plan Chief Complaint/Hosp Course 1. Ventilator dependent respiratory failure secondary to cardiac arrest- extubated today 2. Acute pulmonary emboli 3. Hyponatremia likely secondary to #2: resolved 4. Severe sepsis secondary to urinary tract infection: improved 5. Acute encephalopathy s/p PEA cardiac arrest likely secondary to #6 status post resuscitation with ROSC and now s/p hypothermia protocol: improved ++ 6. Severe dehydration causing acute renal insufficiency: resolved 7. Long-term history of progressive supranuclear palsy that has caused recurrent falls and old rib and NaSal fractures * Per report, patient had recently been having difficulty closing his eyes and walking 2/2 palsy 8. Acute transaminitis likely secondary to shock liver: improving 9. Recent fall 2/2 #7 s/p L sided facial and muscular contusions PLAN: * Patient's poor prognosis discussed with sister and family would like hospice evaluation * Patient is a DNR/DNI, was extubated today with downgrade from the ICU * Will DC heparin drip as patient will be treated with a goal of comfort * Continue tube feeds at this time * DC antibiotics Prophylaxis: SCDs Problems: Subjective 24 Hr Interval Summary Subjective hx not possible: pt non-verbal Exam/Review of Systems Vital Signs Vitals Vital Signs Date Time Temp Pulse Resp B/P Pulse Ox O2 Delivery O2 Flow Rate FiO2 01/11/17 08:26 96 01/11/17 06:00 17 123/71 100 01/11/17 05:17 30 01/11/17 04:00 98.9 01/10/17 23:00 CPAP Intake and Output 01/10/17 01/10/17 01/11/17 15:00 23:00 07:00 Intake Total 220 ml 30 ml Output Total 827 ml 768 ml 725 ml Balance -607 ml -738 ml -725 ml Exam Constitutional: non-verbal Respiratory: clear to auscultation Cardiovascular: regular rate and rhythm Gastrointestinal: soft, No distended Musculoskeletal: nl extremities to inspection Results Result Diagram: 01/11/17 0515 01/11/17 0515 Results 24 hrs Laboratory Tests Test 01/10/17 14:14 01/11/17 05:15 01/11/17 07:00 Activated Partial Thromboplast Time 86.0 *H 69.3 H White Blood Count 8.1 Red Blood Count 2.93 L Hemoglobin 9.4 L Hematocrit 28.0 L Mean Corpuscular Volume 95.6 Mean Corpuscular Hemoglobin 32.1 Mean Corpuscular Hemoglobin Concent 33.6 Red Cell Distribution Width 12.1 Platelet Count 210 # Mean Platelet Volume 10.8 H Neutrophils % 58.2 Lymphocytes % 14.1 L Monocytes % 11.7 H Eosinophils % 2.1 Basophils % 0.5 Nucleated Red Blood Cells % 0.0 Neutrophils # 4.7 Lymphocytes # 1.1 Monocytes # 0.9 Eosinophils # 0.2 Basophils # 0.0 Nucleated Red Blood Cells # 0.0 Sodium Level 142 Potassium Level 3.7 Chloride Level 109 Carbon Dioxide Level 21 Anion Gap 16 # Blood Urea Nitrogen 21 H Creatinine 1.03 Glucose Level 85 Calcium Level 8.6 Phosphorus Level 3.5 Magnesium Level 2.0 Blood Gas Specimen Source Blood arterial Arterial Blood Date Drawn 01/11/2017 7:55:00 AM Arterial Blood pH (Temp corrected) 7.410 Arterial Blood pCO2 (Temp correct) 28.3 L Arterial Blood pO2 (Temp corrected) 140.0 H Arterial Blood HCO3 17.5 L Arterial Blood Base Excess -5.7 L Arterial Blood Oxygen Saturation 98.3 H Rikki Test N/A Arterial Blood Gas Puncture Site Right Brachial Arterial Blood Carboxyhemoglobin 0 Arterial Blood Methemoglobin 0.2 Blood Gas A-a O2 Differential 40.7 H Oxyhemoglobin Percent 98.1 Total Hemoglobin 13.4 Blood Gas Temperature 37.0 Blood Gas Actual Respiration Rate 23 Blood Gas Modality VENT - CPAP FiO2 30.0 Blood Gas Tidal Volume 500.0 Blood Gas Low PEEP Setting 5.0 Blood Gas Pressure Support 8 Blood Gas Notified Whom CW Blood Gas Notified Time 01/11/2017 8:22:44 AM Medications Medications Current Medications Acetaminophen (Tylenol Supp) 650 mg Q4H PRN [place] TEMP > 37C Last administered on 01/07/17 09:52; Admin Dose 650 MG; Start 01/03/17 at 15:00 Acetaminophen (Tylenol Liquid) 650 mg Q4H PRN PO TEMP > 37C; Start 01/03/17 at 15:00 Meperidine HCl (Demerol) 12.5 mg Q4H PRN IV POST OPERATIVE SHIVERING; Start at 15:00 Meperidine HCl (Demerol) 25 mg Q4H PRN IV POST OPERATIVE SHIVERING; Start 01/03 at 15:00 Eye Lubricant (Akwa Oint) 1 applic Q6 BOTH EYES Last administered on 01/11/17 05:20; Admin Dose 1 APPLIC; Start 01/03/17 at 18:00 Eye Lubricant (Artificial Tears Oph) 2 drop Q6 BOTH EYES Last administered on 05:19; Admin Dose 2 DROP; Start 01/03/17 at 18:00 Pantoprazole (Protonix Iv) 40 mg DAILY@06 IV Last administered on 01/11/17 05: 19; Admin Dose 40 MG; Start 01/03/17 at 17:00 Miscellaneous Information 1 ea NOTE XX ; Start 01/03/17 at 17:00 Glucose (Glutose) 15 gm Q15M PRN PO DECREASED GLUCOSE; Start 01/03/17 at 17:00 Glucose (Glutose) 22.5 gm Q15M PRN PO DECREASED GLUCOSE; Start 01/03/17 at 17: 00 Dextrose (D50w Syringe) 25 ml Q15M PRN IV DECREASED GLUCOSE; Start 01/03/17 at 17:00 Dextrose (D50w Syringe) 50 ml Q15M PRN IV DECREASED GLUCOSE; Start 01/03/17 at 17:00 Glucagon (Glucagen) 1 mg Q15M PRN IM DECREASED GLUCOSE; Start 01/03/17 at 17:00 Glucose 15 gm 15 gm Q15M PRN BUCCAL DECREASED GLUCOSE; Start 01/03/17 at 17:00 Midazolam HCl 50 ml @ 1 mls/hr TITRATE IV Last administered on 01/05/17 01:29 ; Admin Dose 4 MLS/HR; Start 01/03/17 at 21:00 Fentanyl (Sublimaze) 100 ml @ 2.5 mls/hr TITRATE IV Last administered on 15:37; Admin Dose 5 MLS/HR; Start 01/03/17 at 21:00 Miscellaneous Information This patient naik... PRN PRN XX WOUND CARE; Start 01/04 at 03:00 Piperacillin Sod/ Tazobactam Sod (Zosyn 3.375gm/ 100 ml (Pmx)) 100 ml @ 200 mls /hr Q6 IVPB Last administered on 01/11/17 05:20; Admin Dose 200 MLS/HR; Start 01/04/17 at 12:00 Silver Sulfadiazine 1 applic 1 applic DAILY TOP Last administered on 01/11/17 10:45; Admin Dose 1 APPLIC; Start 01/04/17 at 14:00 Norepinephrine/ Dextrose (Levophed/D5W) 500 ml @ 1.87 mls/hr TITRATE IV ; Start 01/04/17 at 18:30 Morphine Sulfate (morphine) 2 mg Q2H PRN IV PAIN Last administered on 01/10/17 23:32; Admin Dose 2 MG; Start 01/05/17 at 22:00 LAURIE MCKEE Jan 11, 2017 11:29
--- NOTE | 2017-01-11 13:40 | PN ---
Date/Time of Note Date/Time of Note DATE: 01/11/17 TIME: 13:36 Assessment/Plan VTE Prophylaxis VTE Prophylaxis Intervention: heparin Assessment/Plan Chief Complaint/Hosp Course ASSESSMENT AND PLAN: 1. Cardiopulmonary arrest with pulseless electrical activity cardiopulmonary arrest with return of spontaneous circulation. 2. possible pulmonary embolus. 3. Renal failure, : currently back to normal 4. Encephalopathy. 5. Status post 6. Severe metabolic acidosis improved now. 7. transaminitis, probably shock liver. 8. Sepsis, respiratory failure, status post intubation : extubated successfully on 01/11/17 9. S/p facial contusion. 10 mildly abnormal troponin due to above. 11. hyper Na RECOMMENDATIONS: S/P completed hypothermia protocol. follow up with pulm rec. Heparin per pulm, rec Continue with the ICU care. echo reviewed and showed preserved EF fluid management as per renal Problems: Subjective 24 Hr Interval Summary Free Text/Dictation d/w staff and rhythm was reviewed. pt remains in NSR Pt extubated 01/11/17. NO reports of chest pain or pressure. OBJECTIVE: General elderly thin. HEENT: Normocephalic, s/p facial trauma. Status post NG tube. DERMATOLOGIC: The left side of the face and the chest with ulcerated lesion. CARDIOVASCULAR: RRR. systolic murmur PULMONARY: With no wheezes heard anteriorly. GASTROINTESTINAL: Soft, nontender. no rebound EXTREMITIES: With mild lower extremity edema. NEUROLOGIC: awake and drowsy. : S/p patel in place. psych: calm Exam/Review of Systems Vital Signs Vitals Vital Signs Date Time Temp Pulse Resp B/P Pulse Ox O2 Delivery O2 Flow Rate FiO2 01/11/17 08:26 96 01/11/17 06:00 17 123/71 100 01/11/17 05:17 30 01/11/17 04:00 98.9 01/10/17 23:00 CPAP Intake and Output 01/10/17 01/10/17 01/11/17 15:00 23:00 07:00 Intake Total 220 ml 30 ml Output Total 827 ml 768 ml 725 ml Balance -607 ml -738 ml -725 ml Results Result Diagram: 01/11/17 0515 01/11/17 0515 Results 24 hrs Laboratory Tests Test 01/10/17 14:14 01/11/17 05:15 01/11/17 07:00 Activated Partial Thromboplast Time 86.0 *H 69.3 H White Blood Count 8.1 Red Blood Count 2.93 L Hemoglobin 9.4 L Hematocrit 28.0 L Mean Corpuscular Volume 95.6 Mean Corpuscular Hemoglobin 32.1 Mean Corpuscular Hemoglobin Concent 33.6 Red Cell Distribution Width 12.1 Platelet Count 210 # Mean Platelet Volume 10.8 H Neutrophils % 58.2 Lymphocytes % 14.1 L Monocytes % 11.7 H Eosinophils % 2.1 Basophils % 0.5 Nucleated Red Blood Cells % 0.0 Neutrophils # 4.7 Lymphocytes # 1.1 Monocytes # 0.9 Eosinophils # 0.2 Basophils # 0.0 Nucleated Red Blood Cells # 0.0 Sodium Level 142 Potassium Level 3.7 Chloride Level 109 Carbon Dioxide Level 21 Anion Gap 16 # Blood Urea Nitrogen 21 H Creatinine 1.03 Glucose Level 85 Calcium Level 8.6 Phosphorus Level 3.5 Magnesium Level 2.0 Blood Gas Specimen Source Blood arterial Arterial Blood Date Drawn 01/11/2017 7:55:00 AM Arterial Blood pH (Temp corrected) 7.410 Arterial Blood pCO2 (Temp correct) 28.3 L Arterial Blood pO2 (Temp corrected) 140.0 H Arterial Blood HCO3 17.5 L Arterial Blood Base Excess -5.7 L Arterial Blood Oxygen Saturation 98.3 H Rikki Test N/A Arterial Blood Gas Puncture Site Right Brachial Arterial Blood Carboxyhemoglobin 0 Arterial Blood Methemoglobin 0.2 Blood Gas A-a O2 Differential 40.7 H Oxyhemoglobin Percent 98.1 Total Hemoglobin 13.4 Blood Gas Temperature 37.0 Blood Gas Actual Respiration Rate 23 Blood Gas Modality VENT - CPAP FiO2 30.0 Blood Gas Tidal Volume 500.0 Blood Gas Low PEEP Setting 5.0 Blood Gas Pressure Support 8 Blood Gas Notified Whom CW Blood Gas Notified Time 01/11/2017 8:22:44 AM Medications Medications Current Medications Acetaminophen (Tylenol Supp) 650 mg Q4H PRN [place] TEMP > 37C Last administered on 01/07/17 09:52; Admin Dose 650 MG; Start 01/03/17 at 15:00 Acetaminophen (Tylenol Liquid) 650 mg Q4H PRN PO TEMP > 37C; Start 01/03/17 at 15:00 Meperidine HCl (Demerol) 12.5 mg Q4H PRN IV POST OPERATIVE SHIVERING; Start at 15:00 Meperidine HCl (Demerol) 25 mg Q4H PRN IV POST OPERATIVE SHIVERING; Start 01/03 at 15:00 Eye Lubricant (Akwa Oint) 1 applic Q6 BOTH EYES Last administered on 01/11/17 05:20; Admin Dose 1 APPLIC; Start 01/03/17 at 18:00 Eye Lubricant (Artificial Tears Oph) 2 drop Q6 BOTH EYES Last administered on 05:19; Admin Dose 2 DROP; Start 01/03/17 at 18:00 Miscellaneous Information 1 ea NOTE XX ; Start 01/03/17 at 17:00 Glucose (Glutose) 15 gm Q15M PRN PO DECREASED GLUCOSE; Start 01/03/17 at 17:00 Glucose (Glutose) 22.5 gm Q15M PRN PO DECREASED GLUCOSE; Start 01/03/17 at 17: 00 Dextrose (D50w Syringe) 25 ml Q15M PRN IV DECREASED GLUCOSE; Start 01/03/17 at 17:00 Dextrose (D50w Syringe) 50 ml Q15M PRN IV DECREASED GLUCOSE; Start 01/03/17 at 17:00 Glucagon (Glucagen) 1 mg Q15M PRN IM DECREASED GLUCOSE; Start 01/03/17 at 17:00 Glucose 15 gm 15 gm Q15M PRN BUCCAL DECREASED GLUCOSE; Start 01/03/17 at 17:00 Midazolam HCl 50 ml @ 1 mls/hr TITRATE IV Last administered on 01/05/17 01:29 ; Admin Dose 4 MLS/HR; Start 01/03/17 at 21:00 Fentanyl (Sublimaze) 100 ml @ 2.5 mls/hr TITRATE IV Last administered on 15:37; Admin Dose 5 MLS/HR; Start 01/03/17 at 21:00 Miscellaneous Information (Pending [facility] Order For Wound Care) This patient naik... PRN PRN XX WOUND CARE; Start 01/04/17 at 03:00 Silver Sulfadiazine 1 applic 1 applic DAILY TOP Last administered on 01/11/17 10:45; Admin Dose 1 APPLIC; Start 01/04/17 at 14:00 Norepinephrine/ Dextrose (Levophed/D5W) 500 ml @ 1.87 mls/hr TITRATE IV ; Start 01/04/17 at 18:30 Morphine Sulfate (morphine) 2 mg Q2H PRN IV PAIN Last administered on 01/10/17t 23:32; Admin Dose 2 MG; Start 01/05/17 at 22:00 JENI KANG MD Jan 11, 2017 13:39
--- NOTE | 2017-01-11 14:07 | RADRPT ---
PROCEDURE: US guidance for PICC line CLINICAL INDICATION: PICC line placement TECHNIQUE: Multiple real-time images were acquired of the patient's arm utilizing a high resolutio n transducer. This was performed by the PICC line nurse for venous access. COMPARISON: None FINDINGS: Ultrasound guidance for PICC line placement. IMPRESSION: Ultrasound guidance for PICC line placement. RPTAT: AA .José Lomeli MD, MD Date Time Electronically viewed and signed by .José Lomeli MD, on 01/11/2017 14:07 .S/
[2017-01-12] VITALS (21 sets, daily range): BP systolic 127–164; BP diastolic 69–103; PULSE 78–104; RESP 19–27
[2017-01-12] MEDS: OCULAR LUBRICANT 3.5 GM OPH OINT BOTH EYES SCH ×4 (00:56→17:28)
[2017-01-12] MEDS: ARTIFICIAL TEARS 15 ML OPH BOTH EYES SCH ×4 (00:56→17:27)
--- NOTE | 2017-01-12 07:26 | PN ---
Date/Time of Note Date/Time of Note DATE: 01/12/17 TIME: 07:24 Assessment/Plan Lines/Catheters Urinary Cath still in place: Yes Assessment/Plan Chief Complaint/Hosp Course 1. 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 Etiology 2/2 hemodynamics possible tubular injury 2/2 ischemic shock. U/a reviewed, no active sediment. -Renal function improved -cont current treatment plan, renally dose all meds, avoid nephrotoxins - keep map > 65 -monitor closely 2. hypernatremia 2/2 insensible loss -No evidence of diabetes insipidus. Urine osmolarity was 700 mOsm appropriately elevated for level of hypernatremia. - Patient's sodium levels improved 3. anemia -monitor h/h levels 4. mineral bone disorder -monitor ca, phos levels 5. Status post cardiac arrest with return of spontaneous circulation /PEA -cont to monitor -f/u cardiology 6. vdrf -Status post extubation yesterday -f/u pulmonary 7. Acute pulmonary emboli -cont med/eyal 8. acute encephalopathy secondary to anoxic injury -cont to monitor -f/u neurology 9 acute transaminitis with hyperbilirubinemia likely secondary to shock liver -improving, monitor 10. sepsis with multiorgan failure likely secondary to urinary tract infection , bacteremia -cont antibiotics -f/u ID Disposition. Patient is moving towards comfort measures was extubated yesterday. Problems: Subjective 24 Hr Interval Summary Free Text/Dictation Patient was extubated yesterday. Plan towards comfort measures No other events noted Exam/Review of Systems Vital Signs Vitals Vital Signs Date Time Temp Pulse Resp B/P Pulse Ox O2 Delivery O2 Flow Rate FiO2 01/12/17 05:00 79 21 137/79 98 Nasal Cannula 01/12/17 04:00 98.8 01/12/17 01:59 3.0 01/11/17 09:25 30 Intake and Output 01/11/17 01/11/17 01/12/17 15:00 23:00 07:00 Intake Total 119 ml 532 ml 480 ml Output Total 1850 ml 890 ml 700 ml Balance -1731 ml -358 ml -220 ml Exam HEENT: Head is normocephalic. NECK: Supple. HEART: Regular rate. LUNGS: Show diminished breath sounds at base. ABDOMEN: Soft, nontender to palpation without rebound or guarding. EXTREMITIES: Negative for clubbing, cyanosis. Positive edema, improving. DERMATOLOGIC: No rashes. MUSCULOSKELETAL: No joint effusions. NEUROLOGIC: No change in exam. Results Result Diagram: 01/11/1751401/11/17514 Medications Medications Current Medications Acetaminophen (Tylenol Supp) 650 mg Q4H PRN [place] TEMP > 37C Last administered on 01/07/17 09:52; Admin Dose 650 MG; Start 01/03/17 at 15:00 Acetaminophen (Tylenol Liquid) 650 mg Q4H PRN PO TEMP > 37C; Start 01/03/17 at 15:00 Meperidine HCl (Demerol) 12.5 mg Q4H PRN IV POST OPERATIVE SHIVERING; Start at 15:00 Meperidine HCl (Demerol) 25 mg Q4H PRN IV POST OPERATIVE SHIVERING; Start 01/03 at 15:00 Eye Lubricant (Akwa Oint) 1 applic Q6 BOTH EYES Last administered on 01/12/17 06:37; Admin Dose 1 APPLIC; Start 01/03/17 at 18:00 Eye Lubricant (Artificial Tears Oph) 2 drop Q6 BOTH EYES Last administered on 06:37; Admin Dose 2 DROP; Start 01/03/17 at 18:00 Miscellaneous Information 1 ea NOTE XX ; Start 01/03/17 at 17:00 Glucose (Glutose) 15 gm Q15M PRN PO DECREASED GLUCOSE; Start 01/03/17 at 17:00 Glucose (Glutose) 22.5 gm Q15M PRN PO DECREASED GLUCOSE; Start 01/03/17 at 17: 00 Dextrose (D50w Syringe) 25 ml Q15M PRN IV DECREASED GLUCOSE; Start 01/03/17 at 17:00 Dextrose (D50w Syringe) 50 ml Q15M PRN IV DECREASED GLUCOSE; Start 01/03/17 at 17:00 Glucagon (Glucagen) 1 mg Q15M PRN IM DECREASED GLUCOSE; Start 01/03/17 at 17:00 Glucose (Glutose) 15 gm Q15M PRN BUCCAL DECREASED GLUCOSE; Start 01/03/17 at 17 :00 Miscellaneous Information (Pending [facility] Order For Wound Care) This patient naik... PRN PRN XX WOUND CARE; Start 01/04/17 at 03:00 Silver Sulfadiazine 1 applic 1 applic DAILY TOP Last administered on 01/11/17 10:45; Admin Dose 1 APPLIC; Start 01/04/17 at 14:00 Norepinephrine/ Dextrose (Levophed/D5W) 500 ml @ 1.87 mls/hr TITRATE IV ; Start 01/04/17 at 18:30 Morphine Sulfate (morphine) 2 mg Q2H PRN IV PAIN Last administered on 01/10/17 23:32; Admin Dose 2 MG; Start 01/05/17 at 22:00 ESHA ALMANZA DO Jan 12, 2017 07:26
--- NOTE | 2017-01-12 07:38 | PN ---
Date/Time of Note Date/Time of Note DATE: 01/12/17 TIME: 07:36 Assessment/Plan VTE Prophylaxis VTE Prophylaxis Intervention: other Lines/Catheters Urinary Cath still in place: Yes Reason Cath still needed: other (indicate) Assessment/Plan Chief Complaint/Hosp Course ASSESSMENT AND PLAN: 1. Cardiopulmonary arrest with pulseless electrical activity cardiopulmonary arrest with return of spontaneous circulation. 2. possible pulmonary embolus. 3. Renal failure, : currently back to normal 4. Encephalopathy. 5. Status post 6. Severe metabolic acidosis improved now. 7. transaminitis, probably shock liver. 8. Sepsis, respiratory failure, status post intubation : extubated successfully on 01/11/17 9. S/p facial contusion. 10 mildly abnormal troponin due to above. 11. hyper Na RECOMMENDATIONS: S/P completed hypothermia protocol. follow up with pulm rec. pt is on comfort care now and his heparin drip was discontinued. Problems: Subjective 24 Hr Interval Summary Free Text/Dictation d/w staff and rhythm was reviewed. pt remains in NSR Pt extubated 01/11/17. NO reports of chest pain or pressure. pt is on comfort care now. OBJECTIVE: General elderly thin. HEENT: Normocephalic, s/p facial trauma. Status post NG tube. DERMATOLOGIC: The left side of the face and the chest with ulcerated lesion. CARDIOVASCULAR: RRR. systolic murmur PULMONARY: With no wheezes heard anteriorly. GASTROINTESTINAL: Soft, nontender. no rebound EXTREMITIES: With mild lower extremity edema. NEUROLOGIC: awake and drowsy. : S/p patel in place. psych: calm Exam/Review of Systems Vital Signs Vitals Vital Signs Date Time Temp Pulse Resp B/P Pulse Ox O2 Delivery O2 Flow Rate FiO2 01/12/17 05:00 79 21 137/79 98 Nasal Cannula 01/12/17 04:00 98.8 01/12/17 01:59 3.0 01/11/17 09:25 30 Intake and Output 01/11/17 01/11/17 01/12/17 15:00 23:00 07:00 Intake Total 119 ml 532 ml 480 ml Output Total 1850 ml 890 ml 700 ml Balance -1731 ml -358 ml -220 ml Results Result Diagram: 01/11/17 0515 01/11/17 0515 Medications Medications Current Medications Acetaminophen (Tylenol Supp) 650 mg Q4H PRN [place] TEMP > 37C Last administered on 01/07/17 09:52; Admin Dose 650 MG; Start 01/03/17 at 15:00 Acetaminophen (Tylenol Liquid) 650 mg Q4H PRN PO TEMP > 37C; Start 01/03/17 at 15:00 Meperidine HCl (Demerol) 12.5 mg Q4H PRN IV POST OPERATIVE SHIVERING; Start at 15:00 Meperidine HCl (Demerol) 25 mg Q4H PRN IV POST OPERATIVE SHIVERING; Start 01/03 at 15:00 Eye Lubricant (Akwa Oint) 1 applic Q6 BOTH EYES Last administered on 01/12/17 06:37; Admin Dose 1 APPLIC; Start 01/03/17 at 18:00 Eye Lubricant (Artificial Tears Oph) 2 drop Q6 BOTH EYES Last administered on 06:37; Admin Dose 2 DROP; Start 01/03/17 at 18:00 Miscellaneous Information 1 ea NOTE XX ; Start 01/03/17 at 17:00 Glucose (Glutose) 15 gm Q15M PRN PO DECREASED GLUCOSE; Start 01/03/17 at 17:00 Glucose (Glutose) 22.5 gm Q15M PRN PO DECREASED GLUCOSE; Start 01/03/17 at 17: 00 Dextrose (D50w Syringe) 25 ml Q15M PRN IV DECREASED GLUCOSE; Start 01/03/17 at 17:00 Dextrose (D50w Syringe) 50 ml Q15M PRN IV DECREASED GLUCOSE; Start 01/03/17 at 17:00 Glucagon (Glucagen) 1 mg Q15M PRN IM DECREASED GLUCOSE; Start 01/03/17 at 17:00 Glucose (Glutose) 15 gm Q15M PRN BUCCAL DECREASED GLUCOSE; Start 01/03/17 at 17 :00 Miscellaneous Information (Pending [facility] Order For Wound Care) This patient naik... PRN PRN XX WOUND CARE; Start 01/04/17 at 03:00 Silver Sulfadiazine 1 applic 1 applic DAILY TOP Last administered on 01/11/17 10:45; Admin Dose 1 APPLIC; Start 01/04/17 at 14:00 Norepinephrine/ Dextrose (Levophed/D5W) 500 ml @ 1.87 mls/hr TITRATE IV ; Start 01/04/17 at 18:30 Morphine Sulfate (morphine) 2 mg Q2H PRN IV PAIN Last administered on 01/10/17t 23:32; Admin Dose 2 MG; Start 01/05/17 at 22:00 JENI KANG MD Jan 12, 2017 07:38
--- NOTE | 2017-01-12 08:46 | PN ---
Date/Time of Note Date/Time of Note DATE: 01/12/17 TIME: 08:41 Assessment/Plan Lines/Catheters [place] in Place (from [facility]): Yes Assessment/Plan Chief Complaint/Hosp Course 1. Multiple wounds: multiple skin tears, left trochanter/left facial/left lateral knee ischemic tissue injury likely pressure related -Will likely need debridement as patients condition permits - await medical clearance; patient agreeable -local care -frequent turning and offloading/specialty bed -optimize nutrition -vitamin c/short term zn 2. S/P cardiac arrest with ROSC; currently intubated, s/p hypothermia protocol; on nasal cannula -supportive therapy -optimize electrolytes -cardiac optimization 3. PE: s/p heparin drip -supportive 4. Hematuria: likely 2/2 to heparin drip; resolved -monitor 5. Acute kindey injury: 2/2 ischemic shock; improved -supportive -monitor 6. Hypernatremia: improved; desmopressin trial; -Continue to monitor -per renal 7. Anemia normocytic normochromic: 2/2 acute loss/hematuria +/- dilutional; stable -monitor -transfuse prn 8. Hypoalbuminemia: multifactorial (2/2 inflammation/infection +/-malnutrition + /- shocked liver); tube feedings started -Optimize -replete as necessary -optimize nutrition as patient condition permits 9. Hypocalcemia likely 2nd above; normalized -optimize lytes -continue to monitor -optimize nutrition as patient condition permits 10. Transaminitis with hyperbilirubinemia: likely 2/2 shocked liver -supportive -monitor trends 11. Encephalopathy 2nd to anoxic injury + supranuclear palsy; more awake and responsive -cont to monitor - seen by neurology 12. Sepsis with multiorgan failure likely secondary to bacteremia; urine cultures and cxr are negative; repeat blood cultures negative; wbc normalized -abx per ID -careful monitoring -tx as above 14. Thrombocytopenia: 2nd to sepsis + heparin drip; resolved -supportive -bleeding precautions 15. Superficial venous thrombosis: -on anticoagulation 16. VDRF: concern about ability to protect airway once extubated; cxr: atelectasis -palliative care Patient seen and examined in collaboration with Dr. Fahad Beaver Problems: Subjective 24 Hr Interval Summary No fevers throughout the night. Awake and responsive. Extubated. Comfortable on nasal cannula. off heparin drip. Tolerating tube feeds. No cough. New rectal tube with liquid stool. No sz. No rash. No vomiting. No bloating. Exam/Review of Systems Vital Signs Vitals Vital Signs Date Time Temp Pulse Resp B/P Pulse Ox O2 Delivery O2 Flow Rate FiO2 01/12/17 07:59 98.7 150/75 99 Nasal Cannula 4.0 01/12/17 07:00 90 22 01/11/17 09:25 30 Intake and Output 01/11/17 01/11/17 01/12/17 15:00 23:00 07:00 Intake Total 119 ml 532 ml 520 ml Output Total 1850 ml 890 ml 800 ml Balance -1731 ml -358 ml -280 ml Exam Free Text/Dictation Constitutional: well developed, more responsive, follows commands Head: lacerations, normocephalic, multiple contusions Eyes: PERRL. No jaundice ENMT: Intubated No lesions. Moist. Neck: non-tender, supple, min JVD Respiratory: Normal resp effort, O2 via nasal cannula; Cardiovascular: nl pulses, regular rate and rhythm Gastrointestinal: non-tender, soft, No distended; rectal tube Genitourinary - Male: nl penis, nl scrotum; urine yellow Musculoskeletal: , No swelling Extremities: normal pulses, cap refill 3s Neurological: Not following commands Skin: nl turgor, other (multiple skin tears; left trochanter/left knee and left cheek wound with eschar, min serous drainage) Lymph: No nl lymph nodes Results Result Diagram: 01/11/17 0515 01/11/17 0515 YAZ BERRIOS NP Jan 12, 2017 08:46
[2017-01-12] MEDS: SILVER SULFADIAZINE 1% 25 GM CR TOP SCH (09:00)
--- NOTE | 2017-01-12 10:07 | CONS ---
Date/Time of Note Date/Time of Note DATE: 01/12/17 TIME: 10:06 Consult Date/Type/Reason Admit Date/Time Jan 03, 2017 at 15:05 Initial Consult Date 01/04/17 Type of Consultation: Pulmonary/critical care Subjective Patient was extubated yesterday remains awake alert but still has significant neuromuscular weakness. Nasogastric tube in place. Currently hemodynamically stable. Objective Vital Signs Date Time Temp Pulse Resp B/P Pulse Ox O2 Delivery O2 Flow Rate FiO2 01/12/17 08:00 Nasal Cannula 4.0 01/12/17 07:59 98.7 150/75 99 01/12/17 07:00 90 22 01/11/17 09:25 30 Intake and Output 01/11/17 01/11/17 01/12/17 15:00 23:00 07:00 Intake Total 119 ml 532 ml 520 ml Output Total 1850 ml 890 ml 800 ml Balance -1731 ml -358 ml -280 ml Exam PHYSICAL EXAMINATION GENERAL: Elderly gentleman, nasal cannula oxygen nasogastric tube in place VITAL SIGNS: see below. HEENT: Pupils equal, round, and reactive to light. CARDIAC: S1, S2, 1/6 systolic ejection murmur CHEST: Diminished air entry bilaterally. Poor inspiratory effort ABDOMEN: Mildly distended. Bowel sounds present no guarding or rebound EXTREMITIES: No cyanosis, clubbing edema +1 NEUROLOGIC: Generalized weakness Results/Medications Result Diagram: 01/11/17 0515 01/11/17 0515 Medications Current Medications Acetaminophen (Tylenol Supp) 650 mg Q4H PRN [place] TEMP > 37C Last administered on 01/07/17 09:52; Admin Dose 650 MG; Start 01/03/17 at 15:00 Acetaminophen (Tylenol Liquid) 650 mg Q4H PRN PO TEMP > 37C; Start 01/03/17 at 15:00 Meperidine HCl (Demerol) 12.5 mg Q4H PRN IV POST OPERATIVE SHIVERING; Start at 15:00 Meperidine HCl (Demerol) 25 mg Q4H PRN IV POST OPERATIVE SHIVERING; Start 01/03 at 15:00 Eye Lubricant (Akwa Oint) 1 applic Q6 BOTH EYES Last administered on 01/12/17 06:37; Admin Dose 1 APPLIC; Start 01/03/17 at 18:00 Eye Lubricant (Artificial Tears Oph) 2 drop Q6 BOTH EYES Last administered on 06:37; Admin Dose 2 DROP; Start 01/03/17 at 18:00 Miscellaneous Information 1 ea NOTE XX ; Start 01/03/17 at 17:00 Glucose (Glutose) 15 gm Q15M PRN PO DECREASED GLUCOSE; Start 01/03/17 at 17:00 Glucose (Glutose) 22.5 gm Q15M PRN PO DECREASED GLUCOSE; Start 01/03/17 at 17: 00 Dextrose (D50w Syringe) 25 ml Q15M PRN IV DECREASED GLUCOSE; Start 01/03/17 at 17:00 Dextrose (D50w Syringe) 50 ml Q15M PRN IV DECREASED GLUCOSE; Start 01/03/17 at 17:00 Glucagon (Glucagen) 1 mg Q15M PRN IM DECREASED GLUCOSE; Start 01/03/17 at 17:00 Glucose (Glutose) 15 gm Q15M PRN BUCCAL DECREASED GLUCOSE; Start 01/03/17 at 17 :00 Miscellaneous Information (Pending [facility] Order For Wound Care) This patient naik... PRN PRN XX WOUND CARE; Start 01/04/17 at 03:00 Silver Sulfadiazine (Thermazene 1% 25 Gm) 1 applic DAILY TOP Last administered on 01/11/17 10:45; Admin Dose 1 APPLIC; Start 01/04/17 at 14:00 Morphine Sulfate (morphine) 2 mg Q2H PRN IV PAIN Last administered on 01/10/17 23:32; Admin Dose 2 MG; Start 01/05/17 at 22:00 Assessment/Plan Chief Complaint/Hosp Course IMP: 1. s/p Cardiopulmonary Arrest--likely due to PE +/- mucus plugging 2. PE 3. Respiratory Failure--now extubated on nasal cannula 4. HAYDE--improving 5. Anemia 6. Thrombocytopenia 7. Supranuclear palsy RECS: 1. Continue supplemental oxygen and pulmonary toilet 2. Neurology recommendations. 3. Heparin drip held 4. DC sedation. 5. De-escalate antibiotics. 6. Speech therapy eval in a.m. 7. Palliative care evaluation Transfer to [facility] 35 min critical care time Problems: VANDANA STEPHENS [facility], [facility] Jan 12, 2017 10:07
--- NOTE | 2017-01-12 12:34 | PN ---
Date/Time of Note Date/Time of Note DATE: 01/12/17 TIME: 12:29 Assessment/Plan VTE Prophylaxis VTE Prophylaxis Intervention: SCD's Assessment/Plan Chief Complaint/Hosp Course 1. Ventilator dependent respiratory failure secondary to cardiac arrest- extubated 2. Acute pulmonary emboli 3. Hyponatremia likely secondary to #2: resolved 4. Severe sepsis secondary to urinary tract infection: improved 5. Acute encephalopathy s/p PEA cardiac arrest likely secondary to #6 status post resuscitation with ROSC and now s/p hypothermia protocol: improved ++ 6. Severe dehydration causing acute renal insufficiency: resolved 7. Long-term history of progressive supranuclear palsy that has caused recurrent falls and old rib and NaSal fractures * Per report, patient had recently been having difficulty closing his eyes and walking 2/2 palsy 8. Acute transaminitis likely secondary to shock liver: improving 9. Recent fall 2/2 #7 s/p L sided facial and muscular contusions PLAN: * Patient's poor prognosis discussed with sister and family would like hospice evaluation, evaluation placed and [facility] will be speaking with family today * Patient is a DNR/DNI, downgrade from the ICU * Have DC'd heparin drip as patient will be treated with a goal of comfort * Continue tube feeds at this time * DC'd antibiotics Prophylaxis: SCDs Problems: Subjective 24 Hr Interval Summary Subjective hx not possible: pt non-verbal Exam/Review of Systems Vital Signs Vitals Vital Signs Date Time Temp Pulse Resp B/P Pulse Ox O2 Delivery O2 Flow Rate FiO2 01/12/17 12:00 98.4 101 22 133/87 98 Nasal Cannula 4.0 01/11/17 09:25 30 Intake and Output 01/11/17 01/11/17 01/12/17 15:00 23:00 07:00 Intake Total 119 ml 532 ml 520 ml Output Total 1850 ml 890 ml 800 ml Balance -1731 ml -358 ml -280 ml Exam Constitutional: non-verbal Respiratory: clear to auscultation Cardiovascular: regular rate and rhythm Gastrointestinal: soft, No distended Musculoskeletal: nl extremities to inspection Results Result Diagram: 01/11/17 0515 01/11/17 0515 Medications Medications Current Medications Acetaminophen (Tylenol Supp) 650 mg Q4H PRN [place] TEMP > 37C Last administered on 01/07/17 09:52; Admin Dose 650 MG; Start 01/03/17 at 15:00 Acetaminophen (Tylenol Liquid) 650 mg Q4H PRN PO TEMP > 37C; Start 01/03/17 at 15:00 Meperidine HCl (Demerol) 12.5 mg Q4H PRN IV POST OPERATIVE SHIVERING; Start at 15:00 Meperidine HCl (Demerol) 25 mg Q4H PRN IV POST OPERATIVE SHIVERING; Start 01/03 at 15:00 Eye Lubricant (Akwa Oint) 1 applic Q6 BOTH EYES Last administered on 01/12/17 11:12; Admin Dose 1 APPLIC; Start 01/03/17 at 18:00 Eye Lubricant (Artificial Tears Oph) 2 drop Q6 BOTH EYES Last administered on 11:12; Admin Dose 2 DROP; Start 01/03/17 at 18:00 Miscellaneous Information 1 ea NOTE XX ; Start 01/03/17 at 17:00 Glucose (Glutose) 15 gm Q15M PRN PO DECREASED GLUCOSE; Start 01/03/17 at 17:00 Glucose (Glutose) 22.5 gm Q15M PRN PO DECREASED GLUCOSE; Start 01/03/17 at 17: 00 Dextrose (D50w Syringe) 25 ml Q15M PRN IV DECREASED GLUCOSE; Start 01/03/17 at 17:00 Dextrose (D50w Syringe) 50 ml Q15M PRN IV DECREASED GLUCOSE; Start 01/03/17 at 17:00 Glucagon (Glucagen) 1 mg Q15M PRN IM DECREASED GLUCOSE; Start 01/03/17 at 17:00 Glucose (Glutose) 15 gm Q15M PRN BUCCAL DECREASED GLUCOSE; Start 01/03/17 at 17 :00 Miscellaneous Information (Pending [facility] Order For Wound Care) This patient naik... PRN PRN XX WOUND CARE; Start 01/04/17 at 03:00 Silver Sulfadiazine (Thermazene 1% 25 Gm) 1 applic DAILY TOP Last administered on 01/11/17 10:45; Admin Dose 1 APPLIC; Start 01/04/17 at 14:00 Morphine Sulfate (morphine) 2 mg Q2H PRN IV PAIN Last administered on 01/10/17 23:32; Admin Dose 2 MG; Start 01/05/17 at 22:00 LAURIE MCKEE Jan 12, 2017 12:34
[2017-01-13] MEDS: OCULAR LUBRICANT 3.5 GM OPH OINT BOTH EYES SCH ×5 (06:00→23:21)
[2017-01-13] MEDS: ARTIFICIAL TEARS 15 ML OPH BOTH EYES SCH ×5 (06:00→23:21)
[2017-01-13 08:42] VITALS: BP 160/93; RESP 20
[2017-01-13] MEDS: SILVER SULFADIAZINE 1% 25 GM CR TOP SCH (09:04)
--- NOTE | 2017-01-13 09:36 | PN ---
Date/Time of Note Date/Time of Note DATE: 01/13/17 TIME: 09:19 Assessment/Plan Lines/Catheters IV Catheter Type (from Nrs): PICC Line [place] in Place (from Nrs): Yes Assessment/Plan Chief Complaint/Hosp Course 1. Multiple wounds: multiple skin tears, left trochanter/left facial/left lateral knee ischemic tissue injury likely pressure related; tolerating tube feedings without n/v but diarrhea -Will likely need debridement as patients condition permits - await medical clearance; patient agreeable -local care -frequent turning and offloading/specialty bed -optimize nutrition -vitamin c/short term zn 2. S/P cardiac arrest with ROSC; currently intubated, s/p hypothermia protocol; on nasal cannula -supportive therapy -optimize electrolytes -cardiac optimization 3. PE: s/p heparin drip -supportive 4. Hematuria: likely 2/2 to heparin drip; resolved -monitor 5. Acute kindey injury: 2/2 ischemic shock; improved -supportive -monitor 6. Hypernatremia: improved; desmopressin trial; -Continue to monitor -per renal 7. Anemia normocytic normochromic: 2/2 acute loss/hematuria +/- dilutional; no acute bleed noted; stable -monitor -transfuse prn 8. Hypoalbuminemia: multifactorial (2/2 inflammation/infection +/-malnutrition + /- shocked liver); tolerating tube feeds without n/v but diarrhea -Optimize -replete as necessary -optimize nutrition 9. Hypocalcemia likely 2nd above; normalized -optimize lytes -continue to monitor -optimize nutrition as patient condition permits 10. Transaminitis with hyperbilirubinemia: likely 2/2 shocked liver; improved -supportive 11. Encephalopathy 2nd to anoxic injury + supranuclear palsy; more awake and responsive -cont to monitor - seen by neurology 12. Sepsis with multiorgan failure likely secondary to bacteremia; urine cultures and cxr are negative; repeat blood cultures negative; wbc normalized; improved -abx per ID -careful monitoring -tx as above 14. Thrombocytopenia: 2nd to sepsis + heparin drip; resolved -supportive -bleeding precautions 15. Superficial venous thrombosis: -on anticoagulation 16. VDRF: concern about ability to protect airway once extubated; currently extubated on nasal cannula; cxr: atelectasis; now DNR/DNI -palliative care/hospice eval 17. Diarrhea: rectal tube with liquid brown stool 250cc out; cdiff? vs. tube feeding intolerance -?start probiotics -monitor -stool cx/cdiff if persistent Patient seen and examined in collaboration with Dr. Fahad Beaver Problems: Subjective 24 Hr Interval Summary Awake and responsive.. Extubated. Comfortable on nasal cannula. Tolerating tube feeds. No cough. Rectal tube with brown liquid stool. No naik, dizziness, lightheadedness, cp, palpitations, sob, cough, fevers, chills, n/v/d, bloating, sz, rash. Exam/Review of Systems Vital Signs Vitals Vital Signs Date Time Temp Pulse Resp B/P Pulse Ox O2 Delivery O2 Flow Rate FiO2 01/13/17 08:42 98.9 85 20 160/93 97 01/13/17 02:28 2.0 01/12/17 21:45 Nasal Cannula 01/12/17 21:11 27 Intake and Output 01/12/17 01/12/17 01/13/17 15:00 23:00 07:00 Intake Total 720 ml 400 ml 570 ml Output Total 1070 ml 700 ml 1250 ml Balance -350 ml -300 ml -680 ml Exam Free Text/Dictation Constitutional: well developed, more responsive, follows commands Head: lacerations, normocephalic, multiple contusions Eyes: PERRL. No jaundice ENMT: No lesions. Moist. NG ng tube Neck: non-tender, supple, min JVD Respiratory: Normal resp effort, O2 via nasal cannula; Cardiovascular: nl pulses, regular rate and rhythm Gastrointestinal: non-tender, soft, No distended; rectal tube Genitourinary - Male: nl penis, nl scrotum; urine yellow Musculoskeletal: , No swelling Extremities: normal pulses, cap refill 3s Neurological: Not following commands Skin: nl turgor, other (multiple skin tears; left trochanter/left knee and left cheek wound with eschar, min serous drainage) Lymph: No nl lymph nodes Results Result Diagram: 01/11/1715 01/11/17 0515 YAZ BERRIOS NP Jan 13, 2017 09:36
--- NOTE | 2017-01-13 17:55 | PN ---
Date/Time of Note Date/Time of Note DATE: 01/13/17 TIME: 17:54 Assessment/Plan VTE Prophylaxis VTE Prophylaxis Intervention: SCD's Assessment/Plan Chief Complaint/Hosp Course 1. Ventilator dependent respiratory failure secondary to cardiac arrest- extubated 2. Acute pulmonary emboli 3. Hyponatremia likely secondary to #2: resolved 4. Severe sepsis secondary to urinary tract infection: improved 5. Acute encephalopathy s/p PEA cardiac arrest likely secondary to #6 status post resuscitation with ROSC and now s/p hypothermia protocol: improved ++ 6. Severe dehydration causing acute renal insufficiency: resolved 7. Long-term history of progressive supranuclear palsy that has caused recurrent falls and old rib and NaSal fractures * Per report, patient had recently been having difficulty closing his eyes and walking 2/2 palsy 8. Acute transaminitis likely secondary to shock liver: improving 9. Recent fall 2/2 #7 s/p L sided facial and muscular contusions PLAN: * Family has accepted to go under the care of hospice, pending placement * Patient is a DNR/DNI, downgrade from the ICU * Have DC'd heparin drip as patient will be treated with a goal of comfort * Continue tube feeds at this time * DC'd antibiotics Prophylaxis: SCDs Problems: Subjective 24 Hr Interval Summary Subjective hx not possible: pt non-verbal Exam/Review of Systems Vital Signs Vitals Vital Signs Date Time Temp Pulse Resp B/P Pulse Ox O2 Delivery O2 Flow Rate FiO2 01/13/17 08:42 98.9 85 20 160/93 97 01/13/17 08:30 Nasal Cannula 4.0 01/12/17 21:11 27 Intake and Output 01/12/17 01/12/17 01/13/17 15:00 23:00 07:00 Intake Total 720 ml 400 ml 570 ml Output Total 1070 ml 700 ml 1250 ml Balance -350 ml -300 ml -680 ml Exam Constitutional: non-verbal Respiratory: clear to auscultation Cardiovascular: regular rate and rhythm Gastrointestinal: soft, No distended Musculoskeletal: nl extremities to inspection Results Result Diagram: 01/11/17 0515 01/11/17 0515 Medications Medications Current Medications Acetaminophen (Tylenol Supp) 650 mg Q4H PRN [place] TEMP > 37C Last administered on 01/07/17 09:52; Admin Dose 650 MG; Start 01/03/17 at 15:00 Acetaminophen (Tylenol Liquid) 650 mg Q4H PRN PO TEMP > 37C; Start 01/03/17 at 15:00 Meperidine HCl (Demerol) 12.5 mg Q4H PRN IV POST OPERATIVE SHIVERING; Start at 15:00 Meperidine HCl (Demerol) 25 mg Q4H PRN IV POST OPERATIVE SHIVERING; Start 01/03 at 15:00 Eye Lubricant (Akwa Oint) 1 applic Q6 BOTH EYES Last administered on 01/13/17 13:13; Admin Dose 1 APPLIC; Start 01/03/17 at 18:00 Eye Lubricant (Artificial Tears Oph) 2 drop Q6 BOTH EYES Last administered on 13:13; Admin Dose 2 DROP; Start 01/03/17 at 18:00 Miscellaneous Information 1 ea NOTE XX ; Start 01/03/17 at 17:00 Glucose (Glutose) 15 gm Q15M PRN PO DECREASED GLUCOSE; Start 01/03/17 at 17:00 Glucose (Glutose) 22.5 gm Q15M PRN PO DECREASED GLUCOSE; Start 01/03/17 at 17: 00 Dextrose (D50w Syringe) 25 ml Q15M PRN IV DECREASED GLUCOSE; Start 01/03/17 at 17:00 Dextrose (D50w Syringe) 50 ml Q15M PRN IV DECREASED GLUCOSE; Start 01/03/17 at 17:00 Glucagon (Glucagen) 1 mg Q15M PRN IM DECREASED GLUCOSE; Start 01/03/17 at 17:00 Glucose (Glutose) 15 gm Q15M PRN BUCCAL DECREASED GLUCOSE; Start 01/03/17 at 17 :00 Miscellaneous Information (Pending [facility] Order For Wound Care) This patient naik... PRN PRN XX WOUND CARE; Start 01/04/17 at 03:00 Silver Sulfadiazine (Thermazene 1% 25 Gm) 1 applic DAILY TOP Last administered on 01/13/17 09:04; Admin Dose 1 APPLIC; Start 01/04/17 at 14:00 Morphine Sulfate (morphine) 2 mg Q2H PRN IV PAIN Last administered on 01/10/17 23:32; Admin Dose 2 MG; Start 01/05/17 at 22:00 LAURIE MCKEE Jan 13, 2017 17:55
[2017-01-13 21:27] VITALS: BP 152/96; RESP 21
[2017-01-14] MEDS: ARTIFICIAL TEARS 15 ML OPH BOTH EYES SCH ×4 (05:46→23:54)
[2017-01-14] MEDS: OCULAR LUBRICANT 3.5 GM OPH OINT BOTH EYES SCH ×4 (05:46→23:54)
[2017-01-14 07:29] VITALS: BP 180/94; RESP 20
[2017-01-14] MEDS: SILVER SULFADIAZINE 1% 25 GM CR TOP SCH (09:38)
[2017-01-14 10:51] VITALS: BP 136/81; PULSE 92; RESP 20
--- NOTE | 2017-01-14 12:34 | PN ---
Date/Time of Note Date/Time of Note DATE: 01/14/17 TIME: 12:32 Assessment/Plan VTE Prophylaxis VTE Prophylaxis Intervention: SCD's Assessment/Plan Chief Complaint/Hosp Course 1. Ventilator dependent respiratory failure secondary to cardiac arrest- extubated 2. Acute pulmonary emboli 3. Hyponatremia likely secondary to #2: resolved 4. Severe sepsis secondary to urinary tract infection: improved 5. Acute encephalopathy s/p PEA cardiac arrest likely secondary to #6 status post resuscitation with ROSC and now s/p hypothermia protocol: improved ++ 6. Severe dehydration causing acute renal insufficiency: resolved 7. Long-term history of progressive supranuclear palsy that has caused recurrent falls and old rib and NaSal fractures * Per report, patient had recently been having difficulty closing his eyes and walking 2/2 palsy 8. Acute transaminitis likely secondary to shock liver: improving 9. Recent fall 2/2 #7 s/p L sided facial and muscular contusions PLAN: * Family has accepted to go under the care of hospice, pending placement * Patient is a DNR/DNI, hospice to discuss with family whether or not tube feeding should be continued * Have DC'd heparin drip as patient will be treated with a goal of comfort * Continue tube feeds at this time * DC'd antibiotics Prophylaxis: SCDs Problems: Subjective 24 Hr Interval Summary Subjective hx not possible: pt non-verbal Exam/Review of Systems Vital Signs Vitals Vital Signs Date Time Temp Pulse Resp B/P Pulse Ox O2 Delivery O2 Flow Rate FiO2 01/14/17 10:51 92 20 136/81 01/14/17 07:29 99.3 99 01/14/17 05:05 4.0 01/13/17 20:00 Nasal Cannula 01/12/17 21:11 27 Intake and Output 01/13/17 01/13/17 01/14/17 15:00 23:00 07:00 Intake Total 880 ml 920 ml Output Total 700 ml Balance 180 ml 920 ml Exam Constitutional: non-verbal Respiratory: clear to auscultation Cardiovascular: regular rate and rhythm Gastrointestinal: soft, No distended Musculoskeletal: nl extremities to inspection Results Result Diagram: 01/11/17 0515 01/11/17514 Medications Medications Current Medications Acetaminophen (Tylenol Supp) 650 mg Q4H PRN [place] TEMP > 37C Last administered on 01/07/17 09:52; Admin Dose 650 MG; Start 01/03/17 at 15:00 Acetaminophen (Tylenol Liquid) 650 mg Q4H PRN PO TEMP > 37C; Start 01/03/17 at 15:00 Meperidine HCl (Demerol) 12.5 mg Q4H PRN IV POST OPERATIVE SHIVERING; Start at 15:00 Meperidine HCl (Demerol) 25 mg Q4H PRN IV POST OPERATIVE SHIVERING; Start 01/03 at 15:00 Eye Lubricant (Akwa Oint) 1 applic Q6 BOTH EYES Last administered on 01/14/17 05:46; Admin Dose 1 APPLIC; Start 01/03/17 at 18:00 Eye Lubricant (Artificial Tears Oph) 2 drop Q6 BOTH EYES Last administered on 05:46; Admin Dose 2 DROP; Start 01/03/17 at 18:00 Miscellaneous Information 1 ea NOTE XX ; Start 01/03/17 at 17:00 Glucose (Glutose) 15 gm Q15M PRN PO DECREASED GLUCOSE; Start 01/03/17 at 17:00 Glucose (Glutose) 22.5 gm Q15M PRN PO DECREASED GLUCOSE; Start 01/03/17 at 17: 00 Dextrose (D50w Syringe) 25 ml Q15M PRN IV DECREASED GLUCOSE; Start 01/03/17 at 17:00 Dextrose (D50w Syringe) 50 ml Q15M PRN IV DECREASED GLUCOSE; Start 01/03/17 at 17:00 Glucagon (Glucagen) 1 mg Q15M PRN IM DECREASED GLUCOSE; Start 01/03/17 at 17:00 Glucose (Glutose) 15 gm Q15M PRN BUCCAL DECREASED GLUCOSE; Start 01/03/17 at 17 :00 Miscellaneous Information (Pending [facility] Order For Wound Care) This patient naik... PRN PRN XX WOUND CARE; Start 01/04/17 at 03:00 Silver Sulfadiazine (Thermazene 1% 25 Gm) 1 applic DAILY TOP Last administered on 01/14/17 09:38; Admin Dose 1 APPLIC; Start 01/04/17 at 14:00 Morphine Sulfate (morphine) 2 mg Q2H PRN IV PAIN Last administered on 01/10/17 23:32; Admin Dose 2 MG; Start 01/05/17 at 22:00 LAURIE MCKEE Jan 14, 2017 12:33
--- NOTE | 2017-01-14 15:03 | PN ---
Date/Time of Note Date/Time of Note DATE: 01/14/17 TIME: 14:57 Assessment/Plan Lines/Catheters IV Catheter Type (from [facility]): PICC Line Assessment/Plan Chief Complaint/Hosp Course 1. Multiple wounds: multiple skin tears, left trochanter/left facial/left lateral knee ischemic tissue injury likely pressure related -Will likely need debridement as patients condition permits; patient has agreed for hospice when discharge but is agreeable to debridement -local care -frequent turning and offloading/specialty bed -optimize nutrition -vitamin c/short term zn 2. S/P cardiac arrest with ROSC; s/p hypothermia protocol; on nasal cannula -supportive therapy -optimize electrolytes -cardiac optimization 3. PE: s/p heparin drip -supportive 4. Hematuria: likely 2/2 to heparin drip; resolved -monitor 5. Acute kindey injury: 2/2 ischemic shock; -supportive -monitor 6. Hypernatremia: improved; -Continue to monitor -per renal 7. Anemia normocytic normochromic: 2/2 acute loss/hematuria +/- dilutional; no acute bleed noted; stable -monitor -transfuse prn 8. Hypoalbuminemia: multifactorial (2/2 inflammation/infection +/-malnutrition + /- shocked liver); tolerating tube feeds without n/v, loose stools -Optimize -replete as necessary -optimize nutrition 9. Hypocalcemia likely 2nd above; normalized -optimize lytes -continue to monitor -optimize nutrition as patient condition permits 10. Transaminitis with hyperbilirubinemia: likely 2/2 shocked liver; improved -supportive 11. Encephalopathy 2nd to anoxic injury + supranuclear palsy; more awake and responsive -cont to monitor - seen by neurology 12. Sepsis with multiorgan failure likely secondary to bacteremia; urine cultures and cxr are negative; repeat blood cultures negative; wbc normalized; resolved -abx per ID -careful monitoring -tx as above 14. Thrombocytopenia: 2nd to sepsis + heparin drip; resolved -supportive -bleeding precautions 15. Superficial venous thrombosis: off anticoagulation as he is to go home on hospice 16. VDRF: concern about ability to protect airway once extubated; currently extubated on nasal cannula; cxr: atelectasis; now DNR/DNI -palliative care/hospice eval 17. Diarrhea: rectal tube with liquid brown stool 250cc out; cdiff? vs. tube feeding intolerance; improved Patient seen and examined in collaboration with Dr. Fahad Beaver Problems: Subjective 24 Hr Interval Summary more awake and responsive.. Extubated. Comfortable on nasal cannula. Tolerating tube feeds. No cough. Rectal tube with brown liquid stool. No naik, dizziness, lightheadedness, cp, palpitations, sob, cough, fevers, chills, n/v/d, bloating, sz, rash. Patient to be discharged on hospice Exam/Review of Systems Vital Signs Vitals Vital Signs Date Time Temp Pulse Resp B/P Pulse Ox O2 Delivery O2 Flow Rate FiO2 01/14/17 10:51 92 20 136/81 01/14/17 08:45 Nasal Cannula 4.0 01/14/17 07:29 99.3 99 01/12/17 21:11 27 Intake and Output 01/13/17 01/13/17 01/14/17 15:00 23:00 07:00 Intake Total 880 ml 920 ml Output Total 700 ml Balance 180 ml 920 ml Exam Free Text/Dictation Constitutional: well developed, more responsive, follows commands, diaphoretic Head: lacerations, normocephalic, multiple contusions Eyes: PERRL. No jaundice ENMT: No lesions. Moist. NG ng tube Neck: non-tender, supple, min JVD Respiratory: Normal resp effort, O2 via nasal cannula; Cardiovascular: nl pulses, regular rate and rhythm Gastrointestinal: non-tender, soft, ng tube No distended; rectal tube Genitourinary - Male: nl penis, nl scrotum; urine yellow Musculoskeletal: , No swelling Extremities: normal pulses, cap refill 3s Neurological: Not following commands Skin: nl turgor, other (multiple skin tears; left trochanter/left knee and left cheek wound with eschar, min serous drainage) Lymph: No nl lymph nodes Results Result Diagram: 01/11/17 0515 01/11/17 0515 YAZ BERRIOS NP Jan 14, 2017 15:03
[2017-01-14 19:20] VITALS: BP 142/80; PULSE 88; RESP 18
[2017-01-15] MEDS: ARTIFICIAL TEARS 15 ML OPH BOTH EYES SCH ×4 (05:56→23:08)
[2017-01-15] MEDS: OCULAR LUBRICANT 3.5 GM OPH OINT BOTH EYES SCH ×4 (05:56→23:08)
[2017-01-15 07:00] VITALS: BP 121/71; RESP 20
[2017-01-15] MEDS: SILVER SULFADIAZINE 1% 25 GM CR TOP SCH (08:36)
--- NOTE | 2017-01-15 11:35 | PN ---
Date/Time of Note Date/Time of Note DATE: 01/15/17 TIME: 11:33 Assessment/Plan VTE Prophylaxis VTE Prophylaxis Intervention: SCD's Assessment/Plan Chief Complaint/Hosp Course 1. Ventilator dependent respiratory failure secondary to cardiac arrest- extubated 2. Acute pulmonary emboli 3. Hyponatremia likely secondary to #2: resolved 4. Severe sepsis secondary to urinary tract infection: improved 5. Acute encephalopathy s/p PEA cardiac arrest likely secondary to #6 status post resuscitation with ROSC and now s/p hypothermia protocol: improved ++ 6. Severe dehydration causing acute renal insufficiency: resolved 7. Long-term history of progressive supranuclear palsy that has caused recurrent falls and old rib and NaSal fractures * Per report, patient had recently been having difficulty closing his eyes and walking 2/2 palsy 8. Acute transaminitis likely secondary to shock liver: improving 9. Recent fall 2/2 #7 s/p L sided facial and muscular contusions PLAN: * Family has accepted to go under the care of hospice, pending placement * Patient is a DNR/DNI, discussed feeding with direct power of decating machine operator and recreation at this time is to remove NG tube and will not place PEG tube, speech therapy has evaluated the patient and recommendation is for spoon feeds with clear liquid diet for oral gratification * Have DC'd heparin drip as patient will be treated with a goal of comfort * Continue tube feeds at this time * DC'd antibiotics Prophylaxis: SCDs Problems: Subjective 24 Hr Interval Summary Subjective hx not possible: pt non-verbal Exam/Review of Systems Vital Signs Vitals Vital Signs Date Time Temp Pulse Resp B/P Pulse Ox O2 Delivery O2 Flow Rate FiO2 01/15/17 09:00 Nasal Cannula 2.0 01/15/17 07:00 98.9 106 20 121/71 97 01/12/17 21:11 27 Intake and Output 01/14/17 01/14/17 01/15/17 15:00 23:00 07:00 Intake Total 25 ml 100 ml Output Total 650 ml 850 ml Balance -625 ml -750 ml Exam Constitutional: non-verbal Respiratory: clear to auscultation Cardiovascular: regular rate and rhythm Gastrointestinal: soft, No distended Musculoskeletal: nl extremities to inspection Results Result Diagram: 01/11/17 0515 01/11/17514 Medications Medications Current Medications Acetaminophen (Tylenol Supp) 650 mg Q4H PRN [place] TEMP > 37C Last administered on 01/07/17 09:52; Admin Dose 650 MG; Start 01/03/17 at 15:00 Acetaminophen (Tylenol Liquid) 650 mg Q4H PRN PO TEMP > 37C; Start 01/03/17 at 15:00 Meperidine HCl (Demerol) 12.5 mg Q4H PRN IV POST OPERATIVE SHIVERING; Start at 15:00 Meperidine HCl (Demerol) 25 mg Q4H PRN IV POST OPERATIVE SHIVERING; Start 01/03 at 15:00 Eye Lubricant (Akwa Oint) 1 applic Q6 BOTH EYES Last administered on 01/15/17 05:56; Admin Dose 1 APPLIC; Start 01/03/17 at 18:00 Eye Lubricant (Artificial Tears Oph) 2 drop Q6 BOTH EYES Last administered on 05:56; Admin Dose 2 DROP; Start 01/03/17 at 18:00 Miscellaneous Information 1 ea NOTE XX ; Start 01/03/17 at 17:00 Glucose (Glutose) 15 gm Q15M PRN PO DECREASED GLUCOSE; Start 01/03/17 at 17:00 Glucose (Glutose) 22.5 gm Q15M PRN PO DECREASED GLUCOSE; Start 01/03/17 at 17: 00 Dextrose (D50w Syringe) 25 ml Q15M PRN IV DECREASED GLUCOSE; Start 01/03/17 at 17:00 Dextrose (D50w Syringe) 50 ml Q15M PRN IV DECREASED GLUCOSE; Start 01/03/17 at 17:00 Glucagon (Glucagen) 1 mg Q15M PRN IM DECREASED GLUCOSE; Start 01/03/17 at 17:00 Glucose (Glutose) 15 gm Q15M PRN BUCCAL DECREASED GLUCOSE; Start 01/03/17 at 17 :00 Miscellaneous Information (Pending [facility] Order For Wound Care) This patient naik... PRN PRN XX WOUND CARE; Start 01/04/17 at 03:00 Silver Sulfadiazine (Thermazene 1% 25 Gm) 1 applic DAILY TOP Last administered on 01/15/17 08:36; Admin Dose 1 APPLIC; Start 01/04/17 at 14:00 Morphine Sulfate (morphine) 2 mg Q2H PRN IV PAIN Last administered on 7/3/17at 23:32; Admin Dose 2 MG; Start 01/05/17 at 22:00 LAURIE MCKEE Jan 15, 2017 11:35
[2017-01-15 20:00] VITALS: BP 127/78; RESP 20
[2017-01-15 20:13] VITALS: BP 127/75; PULSE 95; RESP 18
--- NOTE | 2017-01-15 22:59 | PN ---
Date/Time of Note Date/Time of Note DATE: 01/15/17 TIME: 22:54 Assessment/Plan Lines/Catheters IV Catheter Type (from Nrs): PICC Line Regalado in Place (from Nrs): Yes Assessment/Plan Chief Complaint/Hosp Course 1. Multiple wounds: multiple skin tears, left trochanter/left facial/left lateral knee ischemic tissue injury likely pressure related -debridement recommended but family and patient have elected not to proceed with surgical debridement -local care -frequent turning and offloading/specialty bed -optimize nutrition -vitamin c/short term zn 2. S/P cardiac arrest with ROSC; s/p hypothermia protocol -supportive therapy -optimize electrolytes -cardiac optimization 3. PE: s/p anticoagulation -supportive 4. Hematuria: likely 2/2 to heparin drip; resolved -monitor 5. Acute kindey injury: 2/2 ischemic shock; -supportive -monitor 6. Hypernatremia: improved; -Continue to monitor -per renal 7. Anemia normocytic normochromic: 2/2 acute loss/hematuria +/- dilutional; no acute bleed noted; stable -monitor -transfuse prn 8. Hypoalbuminemia: multifactorial (2/2 inflammation/infection +/-malnutrition + /- shocked liver); tolerating tube feeds without n/v, loose stools -Optimize -replete as necessary -optimize nutrition 9. Hypocalcemia likely 2nd above; normalized -optimize lytes -continue to monitor -optimize nutrition as patient condition permits 10. Transaminitis with hyperbilirubinemia: likely 2/2 shocked liver; improved -supportive 11. Encephalopathy 2nd to anoxic injury + supranuclear palsy; more awake and responsive -cont to monitor - seen by neurology 12. Sepsis with multiorgan failure likely secondary to bacteremia; urine cultures and cxr are negative; repeat blood cultures negative; wbc normalized; resolved -abx per ID -careful monitoring -tx as above 14. Thrombocytopenia: 2nd to sepsis + heparin drip; resolved -supportive -bleeding precautions 15. Superficial venous thrombosis: off anticoagulation as he is to go home on hospice 16. VDRF: concern about ability to protect airway once extubated; currently extubated on nasal cannula; cxr: atelectasis; now DNR/DNI -palliative care/hospice eval 17. Diarrhea: rectal tube with liquid brown stool 250cc out; cdiff? vs. tube feeding intolerance; improved Thank you, Problems: Subjective 24 Hr Interval Summary Awake and responsive. Comfortable on nasal cannula. Tolerating tube feeds. No cough. Bowel function. No naik, dizziness, lightheadedness, cp, palpitations, sob , cough, fevers, chills, n/v/d, bloating, sz, rash. Patient and family have decided again surgical debridement. Exam/Review of Systems Vital Signs Vitals Vital Signs Date Time Temp Pulse Resp B/P Pulse Ox O2 Delivery O2 Flow Rate FiO2 01/15/17 20:13 98.2 95 18 127/75 97 Room Air 01/15/17 09:00 2.0 01/12/17 21:11 27 Intake and Output 01/14/17 01/14/17 01/15/17 15:00 23:00 07:00 Intake Total 25 ml 100 ml Output Total 650 ml 850 ml Balance -625 ml -750 ml Exam Free Text/Dictation Constitutional: More responsive, follows commands, diaphoretic Head: lacerations, normocephalic, multiple contusions Eyes: PERRL. No jaundice ENMT: No lesions. Moist. NG ng tube Neck: non-tender, supple, min JVD Respiratory: Normal resp effort, O2 via nasal cannula; Cardiovascular: nl pulses, regular rate and rhythm Gastrointestinal: non-tender, soft, ng tube No distended; rectal tube Genitourinary - Male: nl penis, nl scrotum; urine yellow Musculoskeletal: , No swelling Extremities: normal pulses, cap refill 3s Neurological: Not following commands Skin: nl turgor, other (multiple skin tears; left trochanter/left knee and left cheek wound with eschar, min serous drainage) Lymph: No nl lymph nodes Results Result Diagram: 01/11/1715 01/11/1715 MALIKA DOMINGUEZ MD Jan 15, 2017 22:59
[2017-01-16] MEDS: ARTIFICIAL TEARS 15 ML OPH BOTH EYES SCH ×4 (06:03→23:20)
[2017-01-16] MEDS: OCULAR LUBRICANT 3.5 GM OPH OINT BOTH EYES SCH ×4 (06:03→23:20)
[2017-01-16] MEDS: SILVER SULFADIAZINE 1% 25 GM CR TOP SCH (10:12)
--- NOTE | 2017-01-16 16:43 | PN ---
Date/Time of Note Date/Time of Note DATE: 01/16/17 TIME: 16:40 Assessment/Plan Lines/Catheters IV Catheter Type (from Nrs): PICC Line Regalado in Place (from Nrs): Yes Assessment/Plan Chief Complaint/Hosp Course 1. Multiple wounds: multiple skin tears, left trochanter/left facial/left lateral knee ischemic tissue injury likely pressure related -debridement recommended but family and patient have elected not to proceed with surgical debridement -local care -frequent turning and offloading/specialty bed -optimize nutrition -vitamin c/short term zn 2. S/P cardiac arrest with ROSC; s/p hypothermia protocol -supportive therapy -optimize electrolytes -cardiac optimization 3. PE: s/p anticoagulation -supportive 4. Hematuria: likely 2/2 to heparin drip; resolved -monitor 5. Acute kindey injury: 2/2 ischemic shock; -supportive -monitor 6. Hypernatremia: improved; -Continue to monitor -per renal 7. Anemia normocytic normochromic: 2/2 acute loss/hematuria +/- dilutional; no acute bleed noted; stable -monitor -transfuse prn 8. Hypoalbuminemia: multifactorial (2/2 inflammation/infection +/-malnutrition + /- shocked liver); tolerating tube feeds without n/v, loose stools -Optimize -replete as necessary -optimize nutrition 9. Hypocalcemia likely 2nd above; normalized -optimize lytes -continue to monitor -optimize nutrition as patient condition permits 10. Transaminitis with hyperbilirubinemia: likely 2/2 shocked liver; improved -supportive 11. Encephalopathy 2nd to anoxic injury + supranuclear palsy; more awake and responsive -cont to monitor - seen by neurology 12. Sepsis with multiorgan failure likely secondary to bacteremia; urine cultures and cxr are negative; repeat blood cultures negative; wbc normalized; resolved -abx per ID -careful monitoring -tx as above 14. Thrombocytopenia: 2nd to sepsis + heparin drip; resolved -supportive -bleeding precautions 15. Superficial venous thrombosis: off anticoagulation as he is to go home on hospice 16. VDRF: concern about ability to protect airway once extubated; currently extubated on nasal cannula; cxr: atelectasis; now DNR/DNI -palliative care/hospice eval 17. Diarrhea: rectal tube with liquid brown stool 250cc out; cdiff? vs. tube feeding intolerance; improved Thank you, Problems: Subjective 24 Hr Interval Summary Awake and responsive. Comfortable on nasal cannula. Tolerating tube feeds. No cough. Bowel function. No naik, dizziness, lightheadedness, cp, palpitations, sob , cough, fevers, chills, n/v/d, bloating, sz, rash. Patient and family have decided again surgical debridement. Exam/Review of Systems Vital Signs Vitals Vital Signs Date Time Temp Pulse Resp B/P Pulse Ox O2 Delivery O2 Flow Rate FiO2 01/16/17 08:35 Nasal Cannula 2.0 01/15/17 20:13 98.2 95 18 127/75 97 01/12/17 21:11 27 Intake and Output 01/15/17 01/15/17 01/16/17 15:00 23:00 07:00 Intake Total 840 ml 300 ml Output Total 250 ml 700 ml Balance 590 ml -400 ml Exam Free Text/Dictation Constitutional: More responsive, follows commands, diaphoretic Head: lacerations, normocephalic, multiple contusions Eyes: PERRL. No jaundice ENMT: No lesions. Moist. NG ng tube Neck: non-tender, supple, min JVD Respiratory: Normal resp effort, O2 via nasal cannula; Cardiovascular: nl pulses, regular rate and rhythm Gastrointestinal: non-tender, soft, ng tube No distended; rectal tube Genitourinary - Male: nl penis, nl scrotum; urine yellow Musculoskeletal: , No swelling Extremities: normal pulses, cap refill 3s Neurological: Not following commands Skin: nl turgor, other (multiple skin tears; left trochanter/left knee and left cheek wound with eschar, min serous drainage) Lymph: No nl lymph nodes MALIKA DOMINGUEZ MD Jan 16, 2017 16:42
--- NOTE | 2017-01-16 19:33 | PN ---
Date/Time of Note Date/Time of Note DATE: 01/16/17 TIME: 19:32 Assessment/Plan VTE Prophylaxis VTE Prophylaxis Intervention: SCD's Assessment/Plan Chief Complaint/Hosp Course 1. Ventilator dependent respiratory failure secondary to cardiac arrest- extubated 2. Acute pulmonary emboli 3. Hyponatremia likely secondary to #2: resolved 4. Severe sepsis secondary to urinary tract infection: improved 5. Acute encephalopathy s/p PEA cardiac arrest likely secondary to #6 status post resuscitation with ROSC and now s/p hypothermia protocol: improved ++ 6. Severe dehydration causing acute renal insufficiency: resolved 7. Long-term history of progressive supranuclear palsy that has caused recurrent falls and old rib and NaSal fractures * Per report, patient had recently been having difficulty closing his eyes and walking 2/2 palsy 8. Acute transaminitis likely secondary to shock liver: improving 9. Recent fall 2/2 #7 s/p L sided facial and muscular contusions PLAN: * Family has accepted to go under the care of hospice, pending placement * Patient is a DNR/DNI, discussed feeding with direct power of coremaking machine setter and recreation at this time is to remove NG tube and will not place PEG tube, speech therapy has evaluated the patient and recommendation is for spoon feeds with clear liquid diet for oral gratification * Have DC'd heparin drip as patient will be treated with a goal of comfort * Continue tube feeds at this time * DC'd antibiotics Prophylaxis: SCDs Problems: Subjective 24 Hr Interval Summary Subjective hx not possible: pt non-verbal Exam/Review of Systems Vital Signs Vitals Vital Signs Date Time Temp Pulse Resp B/P Pulse Ox O2 Delivery O2 Flow Rate FiO2 01/16/17 17:43 4.0 01/16/17 08:35 Nasal Cannula 01/15/17 20:13 98.2 95 18 127/75 97 01/12/17 21:11 27 Intake and Output 01/15/17 01/15/17 01/16/17 14:59 22:59 06:59 Intake Total 840 ml 300 ml Output Total 250 ml 700 ml Balance 590 ml -400 ml Exam Constitutional: non-verbal Respiratory: clear to auscultation Cardiovascular: regular rate and rhythm Gastrointestinal: soft, No distended Musculoskeletal: nl extremities to inspection Medications Medications Current Medications Acetaminophen (Tylenol Supp) 650 mg Q4H PRN [place] TEMP > 37C Last administered on 01/07/17 09:52; Admin Dose 650 MG; Start 01/03/17 at 15:00 Acetaminophen (Tylenol Liquid) 650 mg Q4H PRN PO TEMP > 37C; Start 01/03/17 at 15:00 Meperidine HCl (Demerol) 12.5 mg Q4H PRN IV POST OPERATIVE SHIVERING; Start at 15:00 Meperidine HCl (Demerol) 25 mg Q4H PRN IV POST OPERATIVE SHIVERING; Start 01/03 at 15:00 Eye Lubricant (Akwa Oint) 1 applic Q6 BOTH EYES Last administered on 01/16/17 18:15; Admin Dose 1 APPLIC; Start 01/03/17 at 18:00 Eye Lubricant (Artificial Tears Oph) 2 drop Q6 BOTH EYES Last administered on 18:16; Admin Dose 2 DROP; Start 01/03/17 at 18:00 Miscellaneous Information 1 ea NOTE XX ; Start 01/03/17 at 17:00 Glucose (Glutose) 15 gm Q15M PRN PO DECREASED GLUCOSE; Start 01/03/17 at 17:00 Glucose (Glutose) 22.5 gm Q15M PRN PO DECREASED GLUCOSE; Start 01/03/17 at 17: 00 Dextrose (D50w Syringe) 25 ml Q15M PRN IV DECREASED GLUCOSE; Start 01/03/17 at 17:00 Dextrose (D50w Syringe) 50 ml Q15M PRN IV DECREASED GLUCOSE; Start 01/03/17 at 17:00 Glucagon (Glucagen) 1 mg Q15M PRN IM DECREASED GLUCOSE; Start 01/03/17 at 17:00 Glucose (Glutose) 15 gm Q15M PRN BUCCAL DECREASED GLUCOSE; Start 01/03/17 at 17 :00 Miscellaneous Information (Pending [facility] Order For Wound Care) This patient naik... PRN PRN XX WOUND CARE; Start 01/04/17 at 03:00 Silver Sulfadiazine (Thermazene 1% 25 Gm) 1 applic DAILY TOP Last administered on 01/16/17 10:12; Admin Dose 1 APPLIC; Start 01/04/17 at 14:00 Morphine Sulfate (morphine) 2 mg Q2H PRN IV PAIN Last administered on 01/10/17 23:32; Admin Dose 2 MG; Start 01/05/17 at 22:00 LAURIE MCKEE Jan 16, 2017 19:32
[2017-01-16 19:37] VITALS: BP 125/72; RESP 20
[2017-01-17] MEDS: OCULAR LUBRICANT 3.5 GM OPH OINT BOTH EYES SCH ×4 (06:43→23:15)
[2017-01-17] MEDS: ARTIFICIAL TEARS 15 ML OPH BOTH EYES SCH ×4 (06:43→23:15)
--- NOTE | 2017-01-17 09:05 | PN ---
Date/Time of Note Date/Time of Note DATE: 01/17/17 TIME: 09:03 Assessment/Plan VTE Prophylaxis VTE Prophylaxis Intervention: SCD's Lines/Catheters IV Catheter Type (from Nrsg): PICC Line Central line still needed: Yes Assessment/Plan Assessment/Plan 1. Ventilator dependent respiratory failure secondary to cardiac arrest- extubated 2. Acute pulmonary emboli 3. Hyponatremia likely secondary to #2: resolved 4. Severe sepsis secondary to urinary tract infection: improved 5. Acute encephalopathy s/p PEA cardiac arrest likely secondary to #6 status post resuscitation with ROSC and now s/p hypothermia protocol: improved ++ 6. Severe dehydration causing acute renal insufficiency: resolved 7. Long-term history of progressive supranuclear palsy that has caused recurrent falls and old rib and NaSal fractures * Per report, patient had recently been having difficulty closing his eyes and walking 2/2 palsy 8. Acute transaminitis likely secondary to shock liver: improving 9. Recent fall 2/2 #7 s/p L sided facial and muscular contusions PLAN: * Family has accepted to go under the care of hospice, pending placement * Patient is a DNR/DNI, discussed feeding with direct power of insurance attorney and recreation at this time is to remove NG tube and will not place PEG tube, speech therapy has evaluated the patient and recommendation is for spoon feeds with clear liquid diet for oral gratification * Off anticoagulation and abx with goal of comfort per Dr Merino * Continue comfort measures Prophylaxis: SCDs Problems: Subjective 24 Hr Interval Summary Free Text/Dictation Patient seen and examined. Nursing reports no acute overnight events. patient responsive but can't talk much Exam/Review of Systems Vital Signs Vitals Vital Signs Date Time Temp Pulse Resp B/P Pulse Ox O2 Delivery O2 Flow Rate FiO2 01/17/17 06:26 4.0 01/16/17 20:10 Nasal Cannula 01/16/17 19:37 98.9 113 20 125/72 95 Intake and Output 01/16/17 01/16/17 01/17/17 15:00 23:00 07:00 Intake Total 500 ml 460 ml Output Total 450 ml 300 ml Balance 50 ml 160 ml Exam General: The patient not in acute distress HEENT: Atraumatic, normocephalic. The pupils are equal Neck: Supple Chest: Normal Lungs: Decreased breath sounds bilateral lower lung field Heart: Normal S1-S2, Abdomen: Soft , nontender, nondistended , bowel sounds are present. Extremities: Normal to inspection, no edema no cyanosis Neurologic: Awake Medications Medications Current Medications Acetaminophen (Tylenol Supp) 650 mg Q4H PRN RI TEMP > 37C Last administered on 01/07/17 09:52; Admin Dose 650 MG; Start 01/03/17 at 15:00 Acetaminophen (Tylenol Liquid) 650 mg Q4H PRN PO TEMP > 37C; Start 01/03/17 at 15:00 Meperidine HCl (Demerol) 12.5 mg Q4H PRN IV POST OPERATIVE SHIVERING; Start at 15:00 Meperidine HCl (Demerol) 25 mg Q4H PRN IV POST OPERATIVE SHIVERING; Start 01/03 at 15:00 Eye Lubricant (Akwa Oint) 1 applic Q6 BOTH EYES Last administered on 01/17/17 06:43; Admin Dose 1 APPLIC; Start 01/03/17 at 18:00 Eye Lubricant (Artificial Tears Oph) 2 drop Q6 BOTH EYES Last administered on 06:43; Admin Dose 2 DROP; Start 01/03/17 at 18:00 Miscellaneous Information 1 ea NOTE XX ; Start 01/03/17 at 17:00 Glucose (Glutose) 15 gm Q15M PRN PO DECREASED GLUCOSE; Start 01/03/17 at 17:00 Glucose (Glutose) 22.5 gm Q15M PRN PO DECREASED GLUCOSE; Start 01/03/17 at 17: 00 Dextrose (D50w Syringe) 25 ml Q15M PRN IV DECREASED GLUCOSE; Start 01/03/17 at 17:00 Dextrose (D50w Syringe) 50 ml Q15M PRN IV DECREASED GLUCOSE; Start 01/03/17 at 17:00 Glucagon (Glucagen) 1 mg Q15M PRN IM DECREASED GLUCOSE; Start 01/03/17 at 17:00 Glucose (Glutose) 15 gm Q15M PRN BUCCAL DECREASED GLUCOSE; Start 01/03/17 at 17 :00 Miscellaneous Information (Pending [facility] Order For Wound Care) This patient naik... PRN PRN XX WOUND CARE; Start 01/04/17 at 03:00 Silver Sulfadiazine (Thermazene 1% 25 Gm) 1 applic DAILY TOP Last administered on 01/16/17 10:12; Admin Dose 1 APPLIC; Start 01/04/17 at 14:00 Morphine Sulfate (morphine) 2 mg Q2H PRN IV PAIN Last administered on 01/10/17 23:32; Admin Dose 2 MG; Start 01/05/17 at 22:00 BRIANA MADRID Jan 17, 2017 09:05
[2017-01-17 09:06] VITALS: BP 140/72; RESP 18
--- NOTE | 2017-01-17 09:36 | PN ---
Date/Time of Note Date/Time of Note DATE: 01/17/17 TIME: 09:30 Assessment/Plan Lines/Catheters IV Catheter Type (from [facility]): PICC Line Assessment/Plan Chief Complaint/Hosp Course 1. Multiple wounds: multiple skin tears, left trochanter/left facial/left lateral knee ischemic tissue injury likely pressure related; awaiting hospice placement; on oral feeding for gratification -debridement recommended but family and patient have elected not to proceed with surgical debridement -local care -frequent turning and offloading/specialty bed -optimize nutrition -vitamin c/short term zn 2. S/P cardiac arrest with ROSC; s/p hypothermia protocol -supportive therapy -optimize electrolytes -cardiac optimization 3. PE: s/p anticoagulation -supportive 4. Hematuria: likely 2/2 to heparin drip; resolved -monitor 5. Acute kindey injury: 2/2 ischemic shock; -supportive -monitor 6. Hypernatremia: improved; -Continue to monitor -per renal 7. Anemia normocytic normochromic: 2/2 acute loss/hematuria +/- dilutional; no acute bleed noted; stable -monitor -transfuse prn 8. Hypoalbuminemia: multifactorial (2/2 inflammation/infection +/-malnutrition + /- shocked liver); without n/v, loose stools; on oral feeds for gratification -Optimize -replete as necessary -optimize nutrition 9. Hypocalcemia likely 2nd above; normalized -optimize lytes -continue to monitor -optimize nutrition as patient condition permits 10. Transaminitis with hyperbilirubinemia: likely 2/2 shocked liver; improved -supportive 11. Encephalopathy 2nd to anoxic injury + supranuclear palsy; more awake and responsive -cont to monitor - seen by neurology 12. Sepsis with multiorgan failure likely secondary to bacteremia; urine cultures and cxr are negative; repeat blood cultures negative; wbc normalized; resolved -abx per ID -careful monitoring -tx as above 14. Thrombocytopenia: 2nd to sepsis + heparin drip; resolved -supportive -bleeding precautions 15. Superficial venous thrombosis: off anticoagulation as he is to go home on hospice 16. VDRF: concern about ability to protect airway once extubated; currently extubated on nasal cannula; cxr: atelectasis; now DNR/DNI -palliative care/hospice eval 17. Diarrhea: rectal tube with liquid brown stool 250cc out; cdiff? vs. tube feeding intolerance; improved; now on oral feeding for gratification Patient seen and examined in collaboration with Dr. Fahad Beaver Problems: Subjective 24 Hr Interval Summary Patient awake and responsive. Comfortable on nasal cannula. No cough. Decided against peg. Bowel function. No naik, dizziness, lightheadedness, cp, palpitations , sob, cough, fevers, chills, n/v/d, bloating, sz, rash. Patient and family have decided again surgical debridement. Awaiting hospice placement Exam/Review of Systems Vital Signs Vitals Vital Signs Date Time Temp Pulse Resp B/P Pulse Ox O2 Delivery O2 Flow Rate FiO2 01/17/17 09:06 98.4 90 18 140/72 97 01/17/17 06:26 4.0 01/16/17 20:10 Nasal Cannula Intake and Output 01/16/17 01/16/17 01/17/17 15:00 23:00 07:00 Intake Total 500 ml 460 ml Output Total 450 ml 300 ml Balance 50 ml 160 ml Exam Free Text/Dictation Constitutional: More responsive, follows commands, diaphoretic Head: lacerations, normocephalic, multiple contusions Eyes: PERRL. No jaundice ENMT: No lesions. Moist. Neck: non-tender, supple, min JVD Respiratory: Normal resp effort, O2 via nasal cannula; Cardiovascular: nl pulses, regular rate and rhythm Gastrointestinal: non-tender, soft, No distended; rectal tube Genitourinary - Male: nl penis, nl scrotum; urine yellow Musculoskeletal: , No swelling Extremities: normal pulses, cap refill 3s Neurological: Not following commands Skin: nl turgor, other (multiple skin tears; left trochanter/left knee and left cheek wound with eschar, min serous drainage) Lymph: No nl lymph nodes YAZ BERRIOS NP Jan 17, 2017 09:36
[2017-01-17] MEDS: SILVER SULFADIAZINE 1% 25 GM CR TOP SCH (10:17)
--- NOTE | 2017-01-17 13:25 | PN ---
Date/Time of Note Date/Time of Note DATE: 01/17/17 TIME: 13:23 Assessment/Plan VTE Prophylaxis VTE Prophylaxis Intervention: SCD's Lines/Catheters IV Catheter Type (from Nrs): PICC Line Central line still needed: Yes Assessment/Plan Chief Complaint/Hosp Course Assessment/Plan 1. Status post cardiac arrest with return of spontaneous circulation /PEA 2. Acute pulmonary emboli 3. Acute respiratory failure currently ventilator dependent 4. acute encephalopathy secondary to the above 5. severe hypernatremia likely secondary to dehydration 6. acute renal insufficiency with hyperkalemia rule out chronic kidney disease 7. severe metabolic acidosis likely secondary to acute renal insufficiency 8. acute transaminitis with hyperbilirubinemia likely secondary to shock liver 9. sepsis with multiorgan failure likely secondary to urinary tract infection 10. Possible fall with left-sided facial contusion likely secondary to progressive supranuclear palsy CT shows chronic nasal bone fracture deformities nothing acute 11. Old bilateral rib fractures suggestive of recurrent falls in the past 12. Chronic degenerative changes of the cervical spine 13. Questionable anoxic brain injury, recommend to obtain the EEG post hypothermia protocol PLAN: * Family has accepted to go under the care of hospice, pending placement * Patient is a DNR/DNI, discussed feeding with direct power of assistant county attorney and recreation at this time is to remove NG tube and will not place PEG tube, speech therapy has evaluated the patient and recommendation is for spoon feeds with clear liquid diet for oral gratification * Have DC'd heparin drip as patient will be treated with a goal of comfort * Continue tube feeds at this time * DC'd antibiotics Prophylaxis: SCDs Problems: Subjective 24 Hr Interval Summary Free Text/Dictation No acute event Waiting for hospice evaluation and placement Exam/Review of Systems Vital Signs Vitals Vital Signs Date Time Temp Pulse Resp B/P Pulse Ox O2 Delivery O2 Flow Rate FiO2 01/17/17 09:06 98.4 90 18 140/72 97 01/17/17 06:26 4.0 01/16/17 20:10 Nasal Cannula Intake and Output 01/16/17 01/16/17 01/17/17 14:59 22:59 06:59 Intake Total 500 ml 460 ml Output Total 450 ml 300 ml Balance 50 ml 160 ml Exam General: The patient not in acute distress HEENT: Atraumatic, normocephalic. The pupils are equal Neck: Supple Chest: Normal Lungs: Decreased breath sounds bilateral lower lung field Heart: Normal S1-S2, Abdomen: Soft , nontender, nondistended , bowel sounds are present. Extremities: Normal to inspection, no edema no cyanosis Neurologic: Awake Medications Medications Current Medications Acetaminophen (Tylenol Supp) 650 mg Q4H PRN IN TEMP > 37C Last administered on 01/07/17 09:52; Admin Dose 650 MG; Start 01/03/17 at 15:00 Acetaminophen (Tylenol Liquid) 650 mg Q4H PRN PO TEMP > 37C; Start 01/03/17 at 15:00 Meperidine HCl (Demerol) 12.5 mg Q4H PRN IV POST OPERATIVE SHIVERING; Start at 15:00 Meperidine HCl (Demerol) 25 mg Q4H PRN IV POST OPERATIVE SHIVERING; Start 01/03 at 15:00 Eye Lubricant (Akwa Oint) 1 applic Q6 BOTH EYES Last administered on 01/17/17 06:43; Admin Dose 1 APPLIC; Start 01/03/17 at 18:00 Eye Lubricant (Artificial Tears Oph) 2 drop Q6 BOTH EYES Last administered on 06:43; Admin Dose 2 DROP; Start 01/03/17 at 18:00 Miscellaneous Information 1 ea NOTE XX ; Start 01/03/17 at 17:00 Glucose (Glutose) 15 gm Q15M PRN PO DECREASED GLUCOSE; Start 01/03/17 at 17:00 Glucose (Glutose) 22.5 gm Q15M PRN PO DECREASED GLUCOSE; Start 01/03/17 at 17: 00 Dextrose (D50w Syringe) 25 ml Q15M PRN IV DECREASED GLUCOSE; Start 01/03/17 at 17:00 Dextrose (D50w Syringe) 50 ml Q15M PRN IV DECREASED GLUCOSE; Start 01/03/17 at 17:00 Glucagon (Glucagen) 1 mg Q15M PRN IM DECREASED GLUCOSE; Start 01/03/17 at 17:00 Glucose (Glutose) 15 gm Q15M PRN BUCCAL DECREASED GLUCOSE; Start 01/03/17 at 17 :00 Miscellaneous Information (Pending [facility] Order For Wound Care) This patient naik... PRN PRN XX WOUND CARE; Start 01/04/17 at 03:00 Silver Sulfadiazine (Thermazene 1% 25 Gm) 1 applic DAILY TOP Last administered on 01/17/17 10:17; Admin Dose 1 APPLIC; Start 01/04/17 at 14:00 Morphine Sulfate (morphine) 2 mg Q2H PRN IV PAIN Last administered on 01/10/17 23:32; Admin Dose 2 MG; Start 01/05/17 at 22:00 BEN RODRIGUEZ MD Jan 17, 2017 13:25
[2017-01-17 19:03] VITALS: BP 129/73; RESP 20
[2017-01-18] MEDS: ARTIFICIAL TEARS 15 ML OPH BOTH EYES SCH ×4 (05:13→23:29)
[2017-01-18] MEDS: OCULAR LUBRICANT 3.5 GM OPH OINT BOTH EYES SCH ×4 (05:13→23:30)
[2017-01-18] MEDS: SILVER SULFADIAZINE 1% 25 GM CR TOP SCH (08:15)
[2017-01-18 08:37] VITALS: BP 132/74; RESP 18
--- NOTE | 2017-01-18 11:03 | PN ---
Date/Time of Note Date/Time of Note DATE: 01/18/17 TIME: 10:59 Assessment/Plan Lines/Catheters IV Catheter Type (from [facility]): PICC Line Assessment/Plan Chief Complaint/Hosp Course 1. Multiple wounds: multiple skin tears, left trochanter/left facial/left lateral knee ischemic tissue injury likely pressure related; awaiting hospice placement; on oral feeding for gratification -debridement recommended but family and patient have elected not to proceed with surgical debridement -local care -frequent turning and offloading/specialty bed -optimize nutrition -vitamin c 2. S/P cardiac arrest with ROSC; s/p hypothermia protocol; now DNR/DNI, awaiting placement -supportive therapy -optimize electrolytes -cardiac optimization 3. PE: s/p anticoagulation -supportive 4. Hematuria: likely 2/2 to heparin drip; resolved -monitor 5. Acute kindey injury: 2/2 ischemic shock; -supportive -monitor 6. Hypernatremia: improved; -Continue to monitor -per renal 7. Anemia normocytic normochromic: 2/2 acute loss/hematuria +/- dilutional; no acute bleed noted; stable -monitor -transfuse prn 8. Hypoalbuminemia: multifactorial (2/2 inflammation/infection +/-malnutrition + /- shocked liver); without n/v, loose stools; on oral feeds for gratification -Optimize -replete as necessary -optimize nutrition 9. Hypocalcemia likely 2nd above; normalized -optimize lytes -continue to monitor -optimize nutrition as patient condition permits 10. Transaminitis with hyperbilirubinemia: likely 2/2 shocked liver; improved -supportive 11. Encephalopathy 2nd to anoxic injury + supranuclear palsy; more awake and responsive -cont to monitor - seen by neurology 12. Sepsis with multiorgan failure likely secondary to bacteremia; urine cultures and cxr are negative; repeat blood cultures negative; wbc normalized; resolved -abx per ID -careful monitoring -tx as above 14. Thrombocytopenia: 2nd to sepsis + heparin drip; resolved -supportive -bleeding precautions 15. Superficial venous thrombosis: off anticoagulation as he is to go home on hospice 16. VDRF: concern about ability to protect airway once extubated; currently extubated on nasal cannula; cxr: atelectasis; now DNR/DNI -palliative care/hospice, placement 17. Diarrhea: rectal tube with liquid brown stool 250cc out; cdiff? vs. tube feeding intolerance; improved; now on oral feeding for gratification Patient seen and examined in collaboration with Dr. Fahad Beaver Problems: Subjective 24 Hr Interval Summary Patient more awake and responsive. Appears comfortable on nasal cannula. No cough. Decided against peg but taking oral fluids/food. Bowel function per rectal tube. No naik, dizziness, lightheadedness, cp, palpitations, sob, cough, fevers, chills, n/v/d, bloating, sz, rash. Patient and family have decided again surgical debridement. Awaiting hospice placement Exam/Review of Systems Vital Signs Vitals Vital Signs Date Time Temp Pulse Resp B/P Pulse Ox O2 Delivery O2 Flow Rate FiO2 01/18/17 08:37 98.4 93 18 132/74 99 01/17/17 22:44 Nasal Cannula 2.0 Intake and Output 01/17/17 01/17/17 01/18/17 14:59 22:59 06:59 Intake Total 1460 ml 460 ml Output Total 650 ml 400 ml Balance 810 ml 60 ml Exam Free Text/Dictation Constitutional: More responsive, follows commands Head: lacerations, normocephalic, multiple contusions Eyes: PERRL. No jaundice ENMT: No lesions. Moist. Neck: non-tender, supple, min JVD Respiratory: Normal resp effort, O2 via nasal cannula; Cardiovascular: nl pulses, regular rate and rhythm Gastrointestinal: non-tender, soft, No distended; rectal tube Genitourinary - Male: nl penis, nl scrotum; urine yellow Musculoskeletal: , No swelling Extremities: normal pulses, cap refill 3s Neurological: Not following commands Skin: nl turgor, other (multiple skin tears; left trochanter/left knee and left cheek wound with eschar, min serous drainage) Lymph: No nl lymph nodes YAZ BERRIOS NP Jan 18, 2017 11:02
--- NOTE | 2017-01-18 13:02 | PN ---
Date/Time of Note Date/Time of Note DATE: 01/18/17 TIME: 13:00 Assessment/Plan VTE Prophylaxis VTE Prophylaxis Intervention: SCD's Lines/Catheters IV Catheter Type (from Nrs): PICC Line Central line still needed: Yes Assessment/Plan Chief Complaint/Hosp Course Assessment/Plan 1. Status post cardiac arrest with return of spontaneous circulation /PEA 2. Acute pulmonary emboli 3. Acute respiratory failure currently ventilator dependent 4. acute encephalopathy secondary to the above 5. severe hypernatremia likely secondary to dehydration 6. acute renal insufficiency with hyperkalemia rule out chronic kidney disease 7. severe metabolic acidosis likely secondary to acute renal insufficiency 8. acute transaminitis with hyperbilirubinemia likely secondary to shock liver 9. sepsis with multiorgan failure likely secondary to urinary tract infection 10. Possible fall with left-sided facial contusion likely secondary to progressive supranuclear palsy CT shows chronic nasal bone fracture deformities nothing acute 11. Old bilateral rib fractures suggestive of recurrent falls in the past 12. Chronic degenerative changes of the cervical spine 13. Questionable anoxic brain injury, recommend to obtain the EEG post hypothermia protocol PLAN: * Family has accepted to go under the care of hospice, pending placement * Patient is a DNR/DNI, discussed feeding with direct power of document review attorney and recreation at this time is to remove NG tube and will not place PEG tube, speech therapy has evaluated the patient and recommendation is for spoon feeds with clear liquid diet for oral gratification * Have DC'd heparin drip as patient will be treated with a goal of comfort * Continue tube feeds at this time * DC'd antibiotics Prophylaxis: SCDs Problems: Subjective 24 Hr Interval Summary Free Text/Dictation No acute event Waiting for placement Tolerating p.o. intake Exam/Review of Systems Vital Signs Vitals Vital Signs Date Time Temp Pulse Resp B/P Pulse Ox O2 Delivery O2 Flow Rate FiO2 01/18/17 08:37 98.4 93 18 132/74 99 01/18/17 08:00 Nasal Cannula 2.0 Intake and Output 01/17/17 01/17/17 01/18/17 15:00 23:00 07:00 Intake Total 1460 ml 460 ml Output Total 650 ml 400 ml Balance 810 ml 60 ml Exam General: The patient is Not in acute distress. HEENT: Atraumatic, normocephalic. The pupils are equal and round . Neck: Supple with full range of motion. Chest: Normal expansion of the thorax during inspiration Lungs: Clear to auscultation bilaterally Heart: Normal S1-S2, Regular rhythm and rate. Abdomen: Soft , nontender, nondistended , bowel sounds are present. Extremities: Left upper extremity weakness otherwise acceptable range of motion in right upper extremity and bilateral lower extremity, no edema no cyanosis Neurologic: The patient is awake, alert Medications Medications Current Medications Acetaminophen (Tylenol Supp) 650 mg Q4H PRN [place] TEMP > 37C Last administered on 01/07/17 09:52; Admin Dose 650 MG; Start 01/03/17 at 15:00 Acetaminophen (Tylenol Liquid) 650 mg Q4H PRN PO TEMP > 37C; Start 01/03/17 at 15:00 Meperidine HCl (Demerol) 12.5 mg Q4H PRN IV POST OPERATIVE SHIVERING; Start at 15:00 Meperidine HCl (Demerol) 25 mg Q4H PRN IV POST OPERATIVE SHIVERING; Start 01/03 at 15:00 Eye Lubricant (Akwa Oint) 1 applic Q6 BOTH EYES Last administered on 01/18/17 12:56; Admin Dose 1 APPLIC; Start 01/03/17 at 18:00 Eye Lubricant (Artificial Tears Oph) 2 drop Q6 BOTH EYES Last administered on 12:56; Admin Dose 2 DROP; Start 01/03/17 at 18:00 Miscellaneous Information 1 ea NOTE XX ; Start 01/03/17 at 17:00 Glucose (Glutose) 15 gm Q15M PRN PO DECREASED GLUCOSE; Start 01/03/17 at 17:00 Glucose (Glutose) 22.5 gm Q15M PRN PO DECREASED GLUCOSE; Start 01/03/17 at 17: 00 Dextrose (D50w Syringe) 25 ml Q15M PRN IV DECREASED GLUCOSE; Start 01/03/17 at 17:00 Dextrose (D50w Syringe) 50 ml Q15M PRN IV DECREASED GLUCOSE; Start 01/03/17 at 17:00 Glucagon (Glucagen) 1 mg Q15M PRN IM DECREASED GLUCOSE; Start 01/03/17 at 17:00 Glucose (Glutose) 15 gm Q15M PRN BUCCAL DECREASED GLUCOSE; Start 01/03/17 at 17 :00 Miscellaneous Information (Pending Santyl Order For Wound Care) This patient naik... PRN PRN XX WOUND CARE; Start 01/04/17 at 03:00 Silver Sulfadiazine (Thermazene 1% 25 Gm) 1 applic DAILY TOP Last administered on 01/18/17 08:15; Admin Dose 1 APPLIC; Start 01/04/17 at 14:00 Morphine Sulfate (morphine) 2 mg Q2H PRN IV PAIN Last administered on 01/10/17 23:32; Admin Dose 2 MG; Start 01/05/17 at 22:00 BEN RODRIGUEZ MD Jan 18, 2017 13:02
[2017-01-18 19:02] VITALS: BP 131/82; RESP 18
[2017-01-19] MEDS: ARTIFICIAL TEARS 15 ML OPH BOTH EYES SCH ×2 (06:26→12:22)
[2017-01-19] MEDS: OCULAR LUBRICANT 3.5 GM OPH OINT BOTH EYES SCH ×2 (06:26→12:22)
[2017-01-19 07:00] VITALS: BP 128/75; RESP 18
[2017-01-19] MEDS: SILVER SULFADIAZINE 1% 25 GM CR TOP SCH (08:30)
--- NOTE | 2017-01-19 09:45 | PN ---
Date/Time of Note Date/Time of Note DATE: 01/19/17 TIME: 09:42 Assessment/Plan Lines/Catheters IV C[facility]ter Type (from [facility]): PICC Line Assessment/Plan Chief Complaint/Hosp Course 1. Multiple wounds: multiple skin tears, left trochanter/left facial/left lateral knee ischemic tissue injury likely pressure related; awaiting hospice placement; on oral feeding for gratification -debridement recommended but family and patient have elected not to proceed with surgical debridement -local care -frequent turning and offloading/specialty bed -optimize nutrition -vitamin c 2. S/P cardiac arrest with ROSC; s/p hypothermia protocol; now DNR/DNI, awaiting placement -supportive therapy -optimize electrolytes -cardiac optimization 3. PE: s/p anticoagulation -supportive 4. Hematuria: likely 2/2 to heparin drip; resolved; patel output clear, yellow -monitor 5. Acute kindey injury: 2/2 ischemic shock; -supportive -monitor 6. Hypernatremia: improved; -Continue to monitor -per renal 7. Anemia normocytic normochromic: 2/2 acute loss/hematuria +/- dilutional; no acute bleed noted; stable -monitor -transfuse prn 8. Hypoalbuminemia: multifactorial (2/2 inflammation/infection +/-malnutrition + /- shocked liver); without n/v, loose stools; on oral feeds for gratification -Optimize -replete as necessary -optimize nutrition 9. Hypocalcemia likely 2nd above; normalized -optimize lytes -continue to monitor -optimize nutrition as patient condition permits 10. Transaminitis with hyperbilirubinemia: likely 2/2 shocked liver; improved -supportive 11. Encephalopathy 2nd to anoxic injury + supranuclear palsy; more awake and responsive -cont to monitor - seen by neurology 12. Sepsis with multiorgan failure likely secondary to bacteremia; urine cultures and cxr are negative; repeat blood cultures negative; wbc normalized; resolved -abx per ID -careful monitoring -tx as above 14. Thrombocytopenia: 2nd to sepsis + heparin drip; resolved -supportive -bleeding precautions 15. Superficial venous thrombosis: off anticoagulation as he is to go home on hospice 16. VDRF: concern about ability to protect airway once extubated; currently extubated on nasal cannula; cxr: atelectasis; now DNR/DNI -palliative care/hospice, placement 17. Diarrhea: rectal tube with liquid brown stool 250cc out; improved; now on oral feeding for gratification Patient seen and examined in collaboration with Dr. Fahad Beaver Problems: Subjective 24 Hr Interval Summary Awake and responsive. Appears comfortable. No cough. Decided against peg but taking oral fluids/food. Bowel function per rectal tube. No naik, dizziness, lightheadedness, cp, palpitations, sob, cough, fevers, chills, n/v/d, bloating, sz, rash. Patient and family have decided again surgical debridement. Awaiting hospice placement Exam/Review of Systems Vital Signs Vitals Vital Signs Date Time Temp Pulse Resp B/P Pulse Ox O2 Delivery O2 Flow Rate FiO2 01/19/17 07:00 98.9 84 18 128/75 97 01/19/17 03:08 4.0 01/18/17 20:00 Nasal Cannula Intake and Output 01/18/17 01/18/17 01/19/17 15:00 23:00 07:00 Intake Total 500 ml 540 ml Output Total 800 ml 700 ml Balance -300 ml -160 ml Exam Free Text/Dictation Constitutional: responsive, follows commands Head: lacerations, normocephalic, multiple contusions Eyes: PERRL. No jaundice ENMT: No lesions. Moist. Neck: non-tender, supple, min JVD Respiratory: Normal resp effort, O2 via nasal cannula; Cardiovascular: nl pulses, regular rate and rhythm Gastrointestinal: non-tender, soft, No distended; rectal tube Genitourinary - Male: nl penis, nl scrotum; urine yellow Musculoskeletal: , No swelling Extremities: normal pulses, cap refill 3s Neurological: Not following commands Skin: nl turgor, other (multiple skin tears; left trochanter/left knee and left cheek wound with eschar, min serous drainage) Lymph: No nl lymph nodes YZA BERRIOS NP Jan 19, 2017 09:45
== END 2017-01-19 14:00 | DRG 870 ==
LOC: E/R 10:47 → ICU 15:05 → MS1 01-12 21:35
PROVIDERS: ADMIT Family Medicine; ATTEND Family Medicine
PROC: 5A1955Z Respiratory Ventilation, Greater than 96 Consecutive Hours (ICD-10-PCS; principal; 2017-01-03)
PROC: 0BH17EZ Insertion of Endotracheal Airway into Trachea, Via Natural or Artificial Opening (ICD-10-PCS; 2017-01-03)
PROC: 02HV33Z Insertion of Infusion Device into Superior Vena Cava, Percutaneous Approach (ICD-10-PCS; 2017-01-03)
DX: A41.9 Sepsis, unspecified organism (principal); I26.99 Other pulmonary embolism without acute cor pulmonale; I46.9 Cardiac arrest, cause unspecified; J96.00 Acute respiratory failure, unspecified whether with hypoxia or hypercapnia; K72.00 Acute and subacute hepatic failure without coma; E88.09 Other disorders of plasma-protein metabolism, not elsewhere classified; D69.6 Thrombocytopenia, unspecified; N17.0 Acute kidney failure with tubular necrosis; N39.0 Urinary tract infection, site not specified; E87.0 Hyperosmolality and hypernatremia; G93.1 Anoxic brain damage, not elsewhere classified; D68.32 Hemorrhagic disorder due to extrinsic circulating anticoagulants; G23.1 Progressive supranuclear ophthalmoplegia [Steele-Richardson-Olszewski]; L03.818 Cellulitis of other sites; E46 Unspecified protein-calorie malnutrition; R65.20 Severe sepsis without septic shock; S20.312A Abrasion of left front wall of thorax, initial encounter; W19.XXXA Unspecified fall, initial encounter; E86.0 Dehydration; E87.5 Hyperkalemia; F31.9 Bipolar disorder, unspecified; S00.83XA Contusion of other part of head, initial encounter; R31.9 Hematuria, unspecified; N40.0 Benign prostatic hyperplasia without lower urinary tract symptoms; Z68.21 Body mass index [BMI] 21.0-21.9, adult; Z66 Do not resuscitate
CPT/HCPCS: 31500; 36415; 36569; 36600; 70450; 70486; 71010; 71260; 72125; 73060; 73090; 73560; 74000; 74177; 76937; 80048; 80053; 80061; 80076; 80202; 81001; 81003; 82043; 82150; 82310; 82550; 82553; 82803; 82962; 83036; 83605; 83690; 83735; 83930; 83935; 84100; 84155; 84300; 84484; 85025; 85384; 85610; 85730; 86850; 86900; 86901; 87040; 87081; 87086; 92526; 92610; 93005; 93306; 93922; 93970; 94002; 94003; 94770; 96361; 96365; 96366; 96367; 96375; 96376; J1940; C9113; J0610; J0692; J1644; J1815; J2270; J2543; J3010; J3370; J3480; J7030; J7040; J7042; J7050; J7060; J7070; Q9967